=== PATIENT | female | born 1960 | race Caucasian/White ===

== ENCOUNTER 2021-02-23 11:24 | Outpatient (CLI) | payer OTHER, SELFPAY ==
--- NOTE | 2021-02-23 11:36 | XR_ITS ---
WS: [id number] Exam: XR hip RT 2-3V wo/w pel* [id number] Date/Time of Exam: 02/23/2021 11:48 AM Reason For Exam: PAIN IN R HIP No fracture or dislocation noted. The joint compartment relatively well preserved. There is bony scle rosis of the acetabulum. Soft tissue calcification along the greater trochanter might indicate calcif ic bursitis. XR/XR hip RT 2-3V wo/w pel* [id number] IMPRESSION: 1. Mild degenerative change. No fracture. 2. Soft tissue calcification along the greater trochanter might represent calci fic bursitis.
== END 2021-02-23 11:25 | disposition home or self-care (01) ==
LOC: RAD 11:30
PROVIDERS: Visit Provider Anesthesiology Pain Medicine
DX: M25.551 Pain in right hip (principal)
CPT/HCPCS: 73502

== ENCOUNTER 2021-10-09 09:47 | Outpatient (CLI) | payer OTHER, SELFPAY ==
--- NOTE | 2021-10-09 10:07 | USCV_ITS ---
Ashley Miranda Age: 60 Gender: F : 1960 Exam Date: 10/09/2021 10:28 Ordering Phys: Franky Arango Technologist: FREDY Exam Location: [facility] [place] Indication: ELEVATED BRAIN NATRIURETIC PEPTIDE BP: 150 / 119 HR: 65 Rhythm: Sinus Technical Quality: Adequate MEASUREMENTS (Male / Female) Normal Values 2D ECHO LV Diastolic Diameter PLAX 4.2 cm 4.2 - 5.9 / 3.9 - 5.3 cm LV Systolic Diameter PLAX 3.3 cm IVS Diastolic Thickness 1.3 cm 0.6 - 1.0 / 0.6 - 0.9 cm IVS Systolic Thickness 1.5 cm LVPW Diastolic Thickness 1.8 cm 0.6 - 1.0 / 0.6 - 0.9 cm LVPW Systolic Thickness 1.8 cm LVOT Diameter 2.0 cm LV Ejection Fraction 2D Teich 40.9 % LV Ejection Fraction MOD 2C 53.3 % LV Ejection Fraction 2C AL 53.5 % LA Diameter 3.3 cm LA Width 4.0 cm LA Height 5.5 cm RA Width 4.1 cm RA Height 4.8 cm Aorta at Sinotubular Diameter 3.0 cm M-MODE Aortic Annulus Diameter 2.9 cm LA Ao Ratio MM 1.2 MV E Point Septal Separation 1.2 cm DOPPLER AV Peak Velocity 186.0 cm/s LVOT Peak Velocity 129.0 cm/s AV Area Cont Eq vti 2.1 cm squared AV Area Cont Eq pk 2.2 cm squared MV Area PHT 1.5 cm squared Mitral E to A Ratio 0.9 MV E' Velocity 111.0 cm/s Mitral E to LV E' Septal Ratio 22.7 TR Peak Velocity 140.0 cm/s TR Peak Gradient 7.8 mmHg TR Mean Velocity 101.8 cm/s TR Mean Gradient 4.4 mmHg TR Velocity Time Integral 33.5 cm Right Atrial Pressure 3.0 mmHg Pulmonary Artery Systolic Pressu 10.8 mmHg RV Acceleration Time 0.1 s RV Ejection Time 0.3 s RV AcT/ET 0.3 FINDINGS Left Ventricle Normal left ventricular size, low normal systolic function and increased wall thickness, with no diagnostic regional wall motion abnormalities. Moderate concentric left ventricular hypertrophy. Left ventricular ejection fraction is estimated at 50-55 %. Grade II diastolic dysfunction, moderately elevated filling pressures. Right Ventricle Normal right ventricular size and systolic function. Right ventricular systolic pressure 10.8 mmHg. Right Atrium Normal right atrial size. Left Atrium Mildly increased left atrial size. Mitral Valve Mild mitral annular calcification. Mildly thickened mitral valve. No mitral valve stenosis. Mild mitral valve regurgitation. Aortic Valve Aortic valve not well visualized. No aortic valve stenosis. Trace aortic valve regurgitation. Tricuspid Valve Tricuspid valve not well visualized. Trace to mild tricuspid valve regurgitation. Pulmonic Valve Pulmonic valve not well visualized. No pulmonary valve stenosis. Trace pulmonary valve regurgitation. Pericardium No pericardial effusion. Aorta Normal size aortic root and proximal ascending aorta. CONCLUSIONS 1. Normal left ventricular size, low normal systolic function with no diagnostic regional wall motion abnormalities. Moderate concentric left ventricular hypertrophy. Left ventricular ejection fraction is estimated at 50-55 %. Grade II diastolic dysfunction, moderately elevated filling pressures. 2. Mildly increased left atrial size. 3. Mild mitral valve regurgitation. 4. No prior similar studies to compare. Rin Brown MD (Electronically Signed) Final Date: 10 October 2021 08:33 S
== END 2021-10-09 09:48 | disposition home or self-care (01) ==
LOC: RAD 09:54
PROVIDERS: Visit Provider Nurse Practitioner Family
DX: R79.89 Other specified abnormal findings of blood chemistry (principal); I34.0 Nonrheumatic mitral (valve) insufficiency
CPT/HCPCS: 93306

== ENCOUNTER 2022-08-01 22:28 | Inpatient (IN) | payer OTHER, SELFPAY ==
--- NOTE | 2022-08-01 22:29 | XRR_ITS ---
PROCEDURE INFORMATION: Exam: XR Chest Exam date and time: 08/01/2022 11:37 PM Age: 61 years old Clinical indication: Shortness of breath; Additional info: Cp TECHNIQUE: Imaging protocol: Radiologic exam of the chest. Views: 1 view. COMPARISON: CR XR chest 2V* [id number] 03/31/2019 8:30 AM FINDINGS: Lungs: Interval development of left lingular and left lower lobe pneumonia. Pleural spaces: No pleural effusion. No pneumothorax. Heart/Mediastinum: The cardiac silhouette is mildly enlarged. Mediastinal contours are unremarkable. Bones/joints: Degenerative changes in the spine and shoulders. XR/XR chest 1V portable [id number] IMPRESSION: 1. Interval development of left lingular and left lower lobe pneumonia. Recommend followup chest imaging to insure resolution of these findings. 2. Incidental/nonacute findings are listed in the report.
--- NOTE | 2022-08-01 22:41 | W.ED.CHESTPA ---
HPI - Chest Pain General: Chief Complaint: Chest Pain Stated Complaint: SOB, CP Time Seen by Provider: 08/01/22 22:32 Source: patient Mode of arrival: ambulatory Limitations: no limitations History of Present Illness: 61-year-old female states over the last week she has been having shortness of breath along with some chest pain along with swelling in her legs. She does have edema to her lower extremities states her dyspnea is much worse with any exertion. Her pain is been constant rates it a 2 out of 10 currently denies any cough or fever. She has had no vomiting or diarrhea no known history of congestive heart failure. Physical Exam Const: COMMON NORMALS: patient oriented x3 HENMT: COMMON NORMALS: normocephalic and atraumatic HEAD & SCALP: normocephalic and atraumatic Eye: COMMON NORMALS: Equal, round and reactive pupils present and EOMs intact bilaterally PUPIL: Yes Equal, round and reactive pupils present Neck/C-Spine: COMMON NORMALS: full ROM and supple Chest: COMMONS NORMALS: normal inspection of the chest and normal palpation of entire chest wall Resp: COMMON NORMALS: normal respiratory effort, No retractions, No use of accessory muscles and clear to auscultation bilaterally AUSCULTATION: clear to auscultation bilaterally Cardio: COMMON NORMALS: regular rate, regular rhythm and No murmurs present (Cardio) RATE: regular rate RHYTHM: regular rhythm GI: COMMON NORMALS: Normal to inspection, nondistended, normoactive bowel sounds present, Soft to palpation, non-tender and no masses PALPATION: Yes Soft to palpation Extremity: COMMON NORMALS: full ROM NARRATIVE EXTREMITY EXAM: 2+ edema Neuro: COMMON NORMALS: patient oriented x3, moves all extremities and no focal motor deficits Psych: COMMON NORMALS: mental status grossly normal, Normal thought process present and cooperative THOUGHT PROCESS: Normal thought process present Skin: COMMON NORMALS: no rashes or lesions noted and no wounds GENERAL SKIN EXAM: no rashes or lesions noted Course Vital Signs: Vital signs: Vital Signs Temperature 97.8 F 08/01/22 22:43 Pulse Rate 81 08/01/22 23:01 Respiratory Rate 17 08/01/22 23:01 Blood Pressure 181/100 08/01/22 23:01 Pulse Oximetry 92 08/01/22 23:01 Oxygen Delivery Me thod 08/01/22 23:01 MDM - Chest Pain Medical Decision Making Patient presents here with shortness of breath she does fluid overloaded with acute renal failure likely causing this fluid overload she is also anemic here she is hypertensive we will transfuse she also the. Is a possible pneumonia on x-ray started on IV antibiotics I spoke to the hospitalist will admit to the ICU she is not hyperkalemic. Lab Data 08/01/22 22:50 08/01/22 22:50 Radiology Impressions Chest X-Ray 08/01/22 22:29 IMPRESSION: 1. Interval development of left lingular and left lower lobe pneumonia. Recommend followup chest imaging to insure resolution of these findings. 2. Incidental/nonacute findings are listed in the report. ADDENDUM: 08/01/222328 Urgent results were discussed with ROSA Salamanca on 08/01/2022 at 11:28 PM TELEPHONE SALES REPRESENTATIVE. Laboratory Results WBC 7.1 10^3/uL (4.0-10.0) 08/01/22 22:50 RBC 2.31 10^6/uL (4.1-5.3) L 08/01/22 22:50 Hgb 6.8 g/dL (11.5-15.3) L 08/01/22 22:50 Hct 22.3 % (37.0-47.0) L 08/01/22 22:50 MCV 96.5 fl (81-99) 08/01/22 22:50 MCH 29.4 pg (28.0-34.0) 08/01/22 22:50 MCHC 30.5 g/dL (30.0-36.0) 08/01/22 22:50 RDW 17.0 % (12.1-15.1) H 08/01/22 22:50 Plt Count 211 10^3/cmm (130-400) 08/01/22 22:50 MPV 9.3 fL (7.4-10.4) 08/01/22 22:50 Neut % (Auto) 89.6 % 08/01/22 22:50 Lymph % (Auto) 5.4 % 08/01/22 22:50 [place] % (Auto) 4.2 % 08/01/22 22:50 Eos % (Auto) 0.1 % 08/01/22 22:50 Baso % (Auto) 0.1 % 08/01/22 22:50 Neut # (Auto) 6.36 10^3/uL (1.8-7.7) 08/01/22 22:50 Lymph # (Auto) 0.4 10^3/uL (0.8-4.8) L 08/01/22 22:50 [place] # (Auto) 0.3 10^3/uL (0.2-0.9) 08/01/22 22:50 Eos # (Auto) 0.0 10^3/uL (0.0-0.8) 08/01/22 22:50 Baso # (Auto) 0.0 10^3/uL (0.0-0.1) 08/01/22 22:50 Nucleated RBC % (auto) 0.4 % 08/01/22 22:50 Nucleated RBCs # 0.0 /100WBC 08/01/22 22:50 PT 17.80 SECONDS (12.1-14.9) H 08/01/22 22:50 INR 1.43 (0.8-1.2) H 08/01/22 22:50 D-Dimer 4.54 ug/mIFEU (0-0.59) H 08/01/22 22:50 Sodium 136 mmol/L (136-145) 08/01/22 22:50 Potassium 5.3 mmol/L (3.5-5.1) H 08/01/22 22:50 Chloride 98 mmol/L (98-107) 08/01/22 22:50 Carbon Dioxide 17 mmol/L (22-29) L 08/01/22 22:50 Anion Gap 26.3 (5-19) H 08/01/22 22:50 BUN 172 mg/dL (6-20) H* 08/01/22 22:50 Creatinine 11.5 mg/dL (0.5-0.9) H* 08/01/22 22:50 GFR Calculation 3.4 mL/min (90-130) L 08/01/22 22:50 Glucose 213 mg/dL (65-115) H 08/01/22 22:50 Calculated Osmolality 345 mOsm/kg (285-295) H 08/01/22 22:50 Calcium 8.7 mg/dL (8.5-10.5) 08/01/22 22:50 Total Bilirubin 0.6 mg/dL (0.15-1.2) 08/01/22 22:50 AST 77 U/L (0-32) H 08/01/22 22:50 ALT 93 U/L (0-33) H 08/01/22 22:50 Alkaline Phosphatase 158 U/L (35-105) H 08/01/22 22:50 Troponin T Baseline 144 ng/L (0-10) H* 08/01/22 22:50 Total Protein 5.7 g/dL (6.6-8.7) L 08/01/22 22:50 Albumin 3.3 g/dL (3.5-5.2) L 08/01/22 22:50 Globulin 2.4 g/dL (1.3-4.6) 08/01/22 22:50 Influenza Type A Ag negative (Negative) 08/01/22 23:15 Influenza Type B Ag negative (Negative) 08/01/22 23:15 SARS-CoV-2 Ag (Rapid) negative (Negative) 08/01/22 23:15 Blood Type O Positive 08/01/22 23:30 Rho(D) Type Positive 08/01/22 23:30 Antibody Screen Negative 08/01/22 23:30 Crossmatch See Detail 08/01/22 23:30 EKG Data EKG 1: I personally reviewed and interpreted this EKG as follows: EKG interpretation date: 08/01/22 EKG interpretation time: 22:42 Interpretation: nsr hr 92 LVH no stemi abnormalities qrs 116 qtc 426 Critical Care Time Critical Care Time: Critical Care Time: Yes Total Critical Care Time: 45 Attestation: The high probability of a clinically significant, sudden or life threatening deterioration of the patient's renal system(s) required my full and direct attention, intervention and personal management. The critical care time is as shown. This time is in addition to time spent performing any reported procedures but includes the following: [x] Data and vital sign review and interpretation [x] Patient assessment, examination and intervention [x] Documentation [x] Medication orders and management Discharge Plan Discharge Patient Disposition: Admitted As Inpatient Clinical Impression: Acute renal failure, Pneumonia, Cardiomegaly, Anemia Condition: Stable Prescriptions: No Action morphine 15 mg tablet 15 mg PO TID PRN (Reason: Pain) morphine 30 mg tablet extended release 30 mg PO BID Coding Level of Care Code ED Inspector And Mender for Chg Fwd Exam Comprehensive
--- NOTE | 2022-08-01 22:42 | ECG_ITS ---
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 Measurements Intervals [place] Rate: 92 P: 26 SD: 170 QRS: -28 QRSD: 116 T: 116 QT: 376 QTc: 467 Interpretive Statements SINUS RHYTHM POSSIBLE LEFT ATRIAL ENLARGEMENT [-0.1mV P-WAVE IN V1/V2] BORDERLINE LEFT AXIS DEVIATION [QRS AXIS < -20] LEFT VENTRICULAR HYPERTROPHY AND ST-T CHANGE [VOLTAGE CRITERIA PLUS ST/T ABNORMALITY] No previous ECG available for comparison Electronically Signed On 08-02-2022 12:36:08 DIGITAL SALES PLANNER by Jane Swanson M.D. [id number]
[2022-08-01 22:43] VITALS: BP 193/110; PULSE 96; RESP 23; TEMP 36.6; O2SAT 92; BMI 29.0
[2022-08-01 22:52] VITALS: PULSE 93; RESP 25; O2SAT 94
[2022-08-01 22:58] LABS: Basophils % 0.1 %; Eosinophils % 0.1 %; Hematocrit 22.3 % (37.0-47.0); Hemoglobin 6.8 g/dL (11.5-15.3); Lymphocytes # 0.4 10^3/uL (0.8-4.8); Lymphocytes % 5.4 %; Mean Corpuscular HGB Conc 30.5 g/dL (30.0-36.0); Mean Corpuscular Hemoglobin 29.4 pg (28.0-34.0); Mean Corpuscular Volume 96.5 fl (81-99); Mean Platelet Volume 9.3 fL (7.4-10.4); Monocytes # 0.3 10^3/uL (0.2-0.9); Monocytes % 4.2 %; Neutrophils # 6.36 10^3/uL (1.8-7.7); Neutrophils % 89.6 %; Nucleated Red Blood Cells % 0.4 %; Platelet Count 211 10^3/cmm (130-400); Red Blood Count 2.31 10^6/uL (4.1-5.3); White Blood Count 7.1 10^3/uL (4.0-10.0)
[2022-08-01 23:01] VITALS: BP 181/100; PULSE 81; RESP 17; O2SAT 92
[2022-08-01] MEDS: labetalol 5 mg/mL SDV 20mL 10 MG IVP (23:04)
[2022-08-01 23:19] LABS: D Dimer 4.54 ug/mIFEU (0-0.59)
--- NOTE | 2022-08-01 23:20 | CTR_ITS ---
PROCEDURE INFORMATION: Exam: CT Chest Without Contrast; Diagnostic Exam date and time: 08/02/2022 12:23 AM Age: 61 years old Clinical indication: Pain; Shortness of breath; Chest pressure; Patient HX: C/O chest discomfort with SOB. TECHNIQUE: Imaging protocol: Diagnostic computed tomography of the chest without contrast. Radiation optimization: All CT scans at this facility use at least one of these dose optimization techniques: automated exposure control; mA and/or kV adjustment per patient size (includes targeted exams where dose is matched to clinical indication); or iterative reconstruction. COMPARISON: CR (CHEST, ) 08/01/2022 11:37 PM RADIATION DOSE METRICS: Total DLP (mGy-cm): 392.2 FINDINGS: Lungs: Severe left lower lobe pneumonia with moderate left upper lobe pneumonia. Pleural spaces: Unremarkable. No pneumothorax. No pleural effusion. Heart: Moderate cardiomegaly. No obvious coronary artery calcifications. Lymph nodes: Unremarkable. No enlarged lymph nodes. Vasculature: Calcification of the thoracic aorta and/or great vessels consistent with atherosclerotic vessel disease. Adrenal glands: 1.4 cm right adrenal nodule with-7 Hounsfield unit measurement suggesting benign adrenal myelolipoma versus benign adrenal adenoma. No followup needed. Kidneys and ureters: Left renal simple cyst measuring >1.0 cm. Bones/joints: Unremarkable. No acute fracture. Soft tissues: Unremarkable. CT/CT chest wo con [id number] IMPRESSION: 1. Severe left lower lobe pneumonia with moderate left upper lobe pneumonia. [id number] right-sided pneumonia. 2. Moderate cardiomegaly. 3. 1.4 cm right adrenal nodule with-7 Hounsfield unit measurement suggesting benign adrenal myelolipoma versus benign adrenal adenoma. No followup needed. COMMENTS: 1. Consistent with the [place] [employer]'s Incidental Findings Committee white paper (J Am Fei Radiol 2017): For any incidental adrenal lesion greater than or equal to 1 cm but less than or equal to 4 cm classified in this report as benign, likely benign, or containing fat (including classification as an adenoma or myelolipoma), no follow-up imaging is recommended per consensus recommendations based on imaging criteria. Further lab evaluation could be pursued if warranted based on clinical findings. 2. Consistent with the [place] [employer]'s Incidental Findings Committee white paper (J Am Fei Radiol 2018): Any incidental renal lesion less than 1 cm or classified as too small to characterize, or any incidental cystic renal lesion characterized as simple-appearing, is likely benign. No follow-up imaging is recommended for these lesions per consensus recommendations based on imaging criteria.
[2022-08-01 23:27] LABS: INR 1.43 (0.8-1.2)
[2022-08-01 23:28] LABS: Alanine Aminotransferase 93 U/L (0-33); Albumin Level 3.3 g/dL (3.5-5.2); Alkaline Phosphatase 158 U/L (35-105); Anion Gap 26.3 (5-19); Aspartate Amino Transferase 77 U/L (0-32); Calcium 8.7 mg/dL (8.5-10.5); Carbon Dioxide 17 mmol/L (22-29); Chloride 98 mmol/L (98-107); Globulin 2.4 g/dL (1.3-4.6); Glomerular Filtration Rate 3.4 mL/min (90-130); Glucose 213 mg/dL (65-115); Potassium 5.3 mmol/L (3.5-5.1); Sodium 136 mmol/L (136-145); Total Bilirubin 0.6 mg/dL (0.15-1.2); Total Protein 5.7 g/dL (6.6-8.7)
[2022-08-01 23:30] VITALS: BP 180/98; PULSE 91; RESP 24; TEMP 36.4; O2SAT 98
[2022-08-01] MEDS: azithromycin 500 MG in sodium chloride 0.9% 250 ML 250 MG IV (23:48)
[2022-08-01] MEDS: FUROsemide 10 mg/mL SDV 10mL 60 MG IVP (23:49)
[2022-08-01] MEDS: cefTRIAXone 1,000 MG in sodium chloride 0.9% (plus) 50 ML 100 MG IV (23:49)
[2022-08-02] VITALS (133 sets, daily range): BP systolic 128–188; BP diastolic 77–120; PULSE 59–126; RESP 10–27; TEMP 36.4–37.1; O2SAT 89–100; BMI 29.1
[2022-08-02 00:03] LABS: Influenza A by IFA negative (Negative); Influenza B by IFA negative (Negative); SARS Covid-2 Antigen negative (Negative)
[2022-08-02 00:16] LABS: Osmolality Calculated 345 mOsm/kg (285-295)
[2022-08-02 00:23] LABS: Blood Urea Nitrogen 172 mg/dL (6-20)
[2022-08-02 00:24] LABS: Troponin(5th) Baseline 144 ng/L (0-10)
--- NOTE | 2022-08-02 00:24 | USR_ITS ---
PROCEDURE INFORMATION: Exam: US Duplex Lower Extremity Veins, Bilateral Exam date and time: 08/02/2022 12:42 AM Age: 61 years old Clinical indication: Edema, localized; Lower extremity, bilateral; Patient HX: 3+ pitting edema bilateral lower extremities. No history of dvt per patient. ; Additional info: Leg swelling TECHNIQUE: Imaging protocol: Real-time Duplex ultrasound of the bilateral extremities with 2-D mcconnell scale, color Doppler flow and spectral waveform analysis with image documentation. Complete exam focused on the bilateral lower extremity veins. COMPARISON: No relevant prior studies available. FINDINGS: Right deep veins: Unremarkable. The common femoral, femoral, proximal profunda femoral and popliteal veins are patent without thrombus. Normal Doppler waveforms. Normal compressibility and/or augmentation response. Right superficial veins: Saphenofemoral junction is patent without thrombus. Left deep veins: Unremarkable. The common femoral, femoral, proximal profunda femoral and popliteal veins are patent without thrombus. Normal Doppler waveforms. Normal compressibility and/or augmentation response. Left superficial veins: Saphenofemoral junction is patent without thrombus. Soft tissues: Unremarkable. US/[place] [id number] IMPRESSION: No evidence of deep vein thrombosis.
[2022-08-02] MEDS: ondansetron 2 mg/ML SDV 2 mL 4 MG IVP (00:37)
--- NOTE | 2022-08-02 00:43 | P.HP_ITS ---
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 Patient is stating that her symptoms started just 1 week ago with swelling of her legs, she became extremely fatigued and lethargic and does not have capacity to take care of her anymore. She has not noticed any chest pain, hematuria, hematemesis, GI bleed. Her urine output has decreased significantly. Clinically dehydrated fatigued and lethargic, she has not noticed any chest pain, fever. She gets short of breath easily. She does not see PCP on regular basis. In the ER she has been diagnosed with hyperkalemia, acute renal failure, patient is not sure whether she will opt for dialysis, she is also not sure about code status, I did tell her that we will treat her as full code until she will make up her mind, her daughter is also in the room She has positive asterixis I have consulted nephro, she does not need urgent dialysis Her anemia could be anemia of chronic kidney disease she has not noticed any GI bleed Review of Systems Const: Reports: chills, body aches, change in appetite, change in weight, fatigue, malaise, night sweats and change in sleep pattern Eyes: Denies: change in vision ENMT: Denies: throat pain Card: Denies: chest pain Resp: Reports: dyspnea : Denies: flank pain Musc: Reports: muscle cramps; Denies: neck pain Skin/Breast: Denies: rash Neuro: Denies: headache(s) Psych: Reports: sleeping more Endo: Denies: polyuria Robb/Lymph: Denies: easy bruising All/Imm: Denies: urticaria Medications/Allergies Home Medications Medication Instructions Recorded Confirmed Last Taken Type morphine 15 mg immediate release 15 mg PO TID PRN Pain 08/01/22 08/01/22 08/01/22 History tablet morphine 30 mg tablet,extended 30 mg PO BID 08/01/22 08/01/22 08/01/22 20:00 History release Allergies Allergy/AdvReac Type Severity Reaction Status Date / Time No Known Allergies Allergy Verified 08/01/22 22:46 PFSH Acute PFSH: Medical History (Updated 08/02/22 @ 01:35 by Bubba Garrison MD) CKD (chronic kidney disease) Degenerative joint disease (DJD) of lumbar spine Hepatitis C Surgical History No pertinent past surgical history Family History Denies family history of CAD (coronary artery disease) Social History Smoking and tobacco status: never smoked Alcohol intake: never Substance/Drug Use: never Household members: spouse Housing: House Vitals/I&O/Wt Last Vital Signs Temp 97.8 F 08/01/22 22:43 Pulse 81 08/01/22 23:01 Resp 17 08/01/22 23:01 BP 181/100 08/01/22 23:01 Pulse Ox 92 08/01/22 23:01 O2 Del Method 08/01/22 23:01 08/01/22 08/01/22 08/02/22 14:59 22:59 06:59 Intake Total 50.000 / 50.000 Balance 50.000 / 50.000 Weight last 48 hrs Weight 81.647 kg Physical Exam Narrative: female who appears more than stated age Dehydrated Anemic Pallor complexion S1, S2 Hemodynamic stable Currently on 2 L Abdomen soft Lower extremity 3+ pitting edema extending all the way up to her knees Awake and alert Bilateral breath sound without adventitious rhonchi Patient is fatigued Daughter at the bedside Data 08/01/22 22:50 08/01/22 22:50 Micro: Microbiology 08/01/22 23:46 Blood Culture - Preliminary Blood SPECIMEN COLLECTED 08/01/22 23:40 Blood Culture - Preliminary Blood SPECIMEN COLLECTED A&P Assessment and plan (1) Acute renal failure: (2) Pneumonia: (3) Cardiomegaly: (4) Anemia: (5) Hyperkalemia: Plan Acute on chronic kidney disease Patient has history of hepatitis C which was treated Low urine output Hyperkalemia Acidosis Patient is not sure whether she will opt for dialysis I have consulted nephro on nonurgent basis I will give her [facility] [place] catheter for accurate urine output Get urine studies Will request complete work-up Cardiomegaly with signs of fluid overload Requested echo in the morning Start low-dose Lasix Left lower lobe pneumonia Start her on ceftriaxone and azithromycin Currently requiring 2 L which is new onset of hypoxia without sepsis Anemia chronic kidney disease No active bleed Will request blood transfusion, check B12 and iron Full code Renal diet Family is at the bedside Guarded prognosis Attestations Medical Necessity Statement*: Admit to ICU More than 2 midnights anticipated Time Spent in Patient Care: 40 Coding Level of Care Code Acute Hotel Guest Service Agent for g Fwd Diagnoses Acute renal failure N17.9 Pneumonia J18.9 Cardiomegaly I51.7 Anemia D64.9 Hyperkalemia E87.5
[2022-08-02 01:35] LABS: NT Pro B Type Natriuretic Pept > 70000 pg/mL (0-125)
--- NOTE | 2022-08-02 02:12 | USCV_ITS ---
Ashley Miranda Age: 61 Gender: F : 1960 Exam Date: 08/02/2022 03:04 Ordering Phys: Bubba Garrison MD Technologist: NAYA [place] [facility] [place]ication: 3+ pitting edema bilateral lower extremities. CHF BP: 131 / 84 HR: 79 Rhythm: Sinus Technical Quality: Adequate MEASUREMENTS (Male / Female) Normal Values 2D ECHO LV Diastolic Diameter PLAX 5.5 cm 4.2 - 5.9 / 3.9 - 5.3 cm LV Systolic Diameter PLAX 4.9 cm IVS Diastolic Thickness 1.4 cm 0.6 - 1.0 / 0.6 - 0.9 cm IVS Systolic Thickness 1.5 cm LVPW Diastolic Thickness 1.4 cm 0.6 - 1.0 / 0.6 - 0.9 cm LVPW Systolic Thickness 1.9 cm LVOT Diameter 1.8 cm LV Ejection Fraction 2D Teich 23.3 % LV Ejection Fraction MOD 2C 24.6 % LV Ejection Fraction 2C AL 24.6 % LA Diameter 4.8 cm LA Width 5.3 cm LA Height 7.4 cm RA Width 6.2 cm RA Height 5.7 cm Aorta at Sinotubular Diameter 3.0 cm IVC Diameter 2.2 cm M-MODE Aortic Annulus Diameter 3.2 cm LA Ao Ratio MM 1.4 MV E Point Septal Separation 2.0 cm DOPPLER AV Peak Velocity 147.0 cm/s LVOT Peak Velocity 86.0 cm/s AV Area Cont Eq vti 1.6 cm squared AV Area Cont Eq pk 1.5 cm squared MV Area PHT 3.9 cm squared Mitral E to A Ratio 1.3 MV E' Velocity 74.5 cm/s Mitral E to MV E' Ratio 22.7 Mitral E to LV E' Lateral Ratio 17.6 Mitral E to LV E' Septal Ratio 32.0 TR Peak Velocity 351.8 cm/s TR Peak Gradient 49.5 mmHg TV Peak E Velocity 90.0 cm/s Right Atrial Pressure 10.0 mmHg Pulmonary Artery Systolic Pressu 59.5 mmHg PV Peak Velocity 135.0 cm/s RV Acceleration Time 0.0 s RV Ejection Time 0.4 s RV AcT/ET 0.1 FINDINGS Left Ventricle Left ventricle is normal in size. LV systolic function is severely reduced with EF of 25-30%. Severe global hypokinesis. Grade 2 diastolic dysfunction Right Ventricle RV is hypokinetic. Right Atrium Dilated Left Atrium Severely dilated left atrium. Mitral Valve Structurally normal mitral valve. Mild mitral regurgitation. Aortic Valve Structurally normal aortic valve. No significant stenosis or regurgitation. Tricuspid Valve Mild to moderate tricuspid regurgitation. RVSP is 50-55mmHg. This is consistent with moderate pulmonic regurgitation. Pulmonic Valve Not well visualized Pericardium Normal Aorta Mildly dilated ascending aorta. IVC IVC is dilated CONCLUSIONS LV systolic function is severely reduced with EF of 25-30%. Severe global hypokinesis. Grade 2 diastolic dysfunction RV is hypokinetic Biatrial enlargement Mild mitral regurgitation Mild to moderate tricuspid regurgitation. Moderate pulmonic regurgitation Mildly dilated ascending aorta Compared to prior echocardiogram from 10/09/2021, LV systolic function is severely reduced now Amol Payne MD (Electronically Signed) Final Date: 02 August 2022 12:36 S
[2022-08-02] MEDS: sodium polystyrene sulfonate 15 gm/60 mL Btl PO (02:46)
--- NOTE | 2022-08-02 02:54 | ECG_ITS ---
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 Measurements Intervals [place] Rate: 82 P: 31 MS: 175 QRS: -25 QRSD: 113 T: 114 QT: 404 QTc: 472 Interpretive Statements SINUS RHYTHM BORDERLINE LEFT AXIS DEVIATION [QRS AXIS < -20] LEFT VENTRICULAR HYPERTROPHY AND ST-T CHANGE [VOLTAGE CRITERIA PLUS ST/T ABNORMALITY] Compared to ECG 08/01/2022 22:42:13 No significant changes Electronically Signed On 08-02-2022 12:49:45 COMMUNITY HEALTH PROGRAM COORDINATOR by Jane Swanson M.D. [id number]
[2022-08-02 03:04] LABS: Troponin 5 2HR Delta -10.9 ABS# (0-10)
[2022-08-02 03:06] LABS: Troponin 5 2HR 133.1 ng/L (0-10)
[2022-08-02 03:26] LABS: Potassium, Radom Urine 45 mmol/L; Urine Creatinine 66 mg/dL (28-217); Urine Random Chloride 37 mmol/L; Urine Random Sodium 32 mmol/L
[2022-08-02 03:31] LABS: Creatinine Urine, Random 67 mg/dL (28-217)
[2022-08-02 04:00] LABS: Microalbum Creatinine Ratio Ur 1164 mg/dL (0-20); Microalbumin Random Urine 78 ug/dL (0-20)
--- NOTE | 2022-08-02 04:00 | PC.NURSE ---
Dr. Garrison notified of high blood pressures ranging from 160-185 sbp.
[2022-08-02] MEDS: sodium chloride 0.9% (100 ml) 100 ML 50 ML (04:27)
--- NOTE | 2022-08-02 04:29 | ECG_ITS ---
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 Measurements Intervals [place] Rate: 76 P: 37 KS: 181 QRS: -23 QRSD: 114 T: 128 QT: 443 QTc: 498 Interpretive Statements SINUS RHYTHM BORDERLINE LEFT AXIS DEVIATION [QRS AXIS < -20] LEFT VENTRICULAR HYPERTROPHY AND ST-T CHANGE [VOLTAGE CRITERIA PLUS ST/T ABNORMALITY] Compared to ECG 08/02/2022 02:54:27 No significant changes Electronically Signed On 08-02-2022 12:50:23 FISHER TERRAPIN by Jane Swanson M.D. [id number]
[2022-08-02 05:42] LABS: Eosinophil Urine No Eosinophils Seen; Urine Eosinophil Count 0 (0-0)
--- NOTE | 2022-08-02 08:18 | PM.CONSULT ---
Providers/Reason For Consult Consulting Physician/Specialty*: yolis magallanes md/ telenephrology Reason for Consult*: mali, hyperkalemia Requesting Physician: Dr Garrison and Dr John Attending Physician: Bubba Garrison MD History of Present Illness History of Present Illness Ashley Miranda is a 61 year old female admitted for SOB, CHF, MALI, and hyperkalemia. She has history of hepatitis C stating that she was treated 10 years ago. She has known CKD. She does not know more- such as baseline cr, or etiology of CKD. She was admitted to the hospital w/ SOB, edema, and weakness, dec uop. She has became extremely fatigued and lethargic. She does not see PCP on regular basis. She denies bleeding. she has chronic back pain on morphoine- denies NSAID use. pt diagnosed w/ left sided lower and upper lobe pna- though no fevers Review of Systems Narrative: weak, sob, swollen, orthopnea, DARBY, nausea, asterixis, fatigue, constipation Medications/Allergies Home Medications Medication Instructions Recorded Confirmed Last Taken Type morphine 15 mg immediate release 15 mg PO TID PRN Pain 08/01/22 08/01/22 08/01/22 History tablet morphine 30 mg tablet,extended 30 mg PO BID 08/01/22 08/01/22 08/01/22 20:00 History release Allergies Allergy/AdvReac Type Severity Reaction Status Date / Time No Known Allergies Allergy Verified 08/01/22 22:46 PFSH Acute PFSH: Medical History (Updated 08/02/22 @ 01:35 by Bubba Garrison MD) CKD (chronic kidney disease) Degenerative joint disease (DJD) of lumbar spine Hepatitis C Surgical History No pertinent past surgical history Family History Denies family history of CAD (coronary artery disease) Social History Smoking and tobacco status: never smoked Alcohol intake: never Substance/Drug Use: never Household members: spouse Housing: House Vitals/I&O/Wt Last Vital Signs Temp 98.0 F 08/02/22 06:12 Pulse 85 08/02/22 08:00 Resp 16 08/02/22 08:00 BP 163/95 08/02/22 06:10 Pulse Ox 93 08/02/22 08:00 O2 Del Method 08/02/22 08:00 O2 Flow Rate 2 08/02/22 08:00 08/01/22 08/02/22 08/02/22 22:59 06:59 14:59 Intake Total 1100.000 / 1100.000 Output Total 175 / 175 Balance 925.000 / 925.000 Weight last 48 hrs Weight 81.964 kg Weight 81.647 kg Physical Exam Narrative: obese, VS noted heent- nc/at, eomi, anicteric neck supple lungs left - poor air movement, rt clear heart reg, no rub abd soft, nt, nd, + bs ext 3+ b/l leg edema neuro- a,a, o x3, ++ b/l asterixis Urinary Catheter Management: Molina Latex: Cath Placed During This Visit: yes Reason for Continuing Indwelling Catheter: Accurate Measurement of Urinary Output in Critically Ill Patients Urinary Catheter Date of Insertion: 08/02/22 Urinary Catheter Time of Insertion: 02:21 Data 08/01/22 22:50 08/01/22 22:50 Micro: Microbiology 08/01/22 23:46 Blood Culture - Preliminary Blood SPECIMEN COLLECTED 08/01/22 23:40 Blood Culture - Preliminary Blood SPECIMEN COLLECTED A&P Assessment and plan (1) Acute renal failure: 61 yr old female does not regulary see doctors. h/o morphine use for back pain, h/o hep c. 1. MALI on CKD- try to get old labs. i am concerned for progression to ESRD. -check pth, phos, renal us -agree with serologies check SPEP/ SIFE/ free light chains -repeat hep serologies - given uremia, acidosis, hyperkalemia, sob, edema- will initiate HD now - Dr Smith called for access- HD today and tomorrow 2 hrs today 2k, remove 1.5 l 2. anemia- check spep. sife, b12, folate, retic, ldh, haptoglobin, iron studies -start SEAN 3. htn- monitor w/ dialysis can start norvasc 4. Q PNA. Q renal pulm syndrome- Consider pulm eval. abx per medicine 5. check echo 6. mild inc lfts seen and examined w/ RN- telehealth visit time spent > 1 hr discussed w/ SHELLACKER, HD RN, Drs. Garrison and Dora 1. Severe left lower lobe pneumonia with moderate left upper lobe pneumonia. [id number] right-sided pneumonia. 2. Moderate cardiomegaly. 3. 1.4 cm right adrenal nodule with-7 Hounsfield unit measurement suggesting benign adrenal myelolipoma versus benign adrenal adenoma. No followup needed. Plan see above Consult Attestations Medical Necessity Statement: mali, chf, hthn, anemia Time Spent in Patient Care: Greater than 35 minutes (>than 50% of time spent in counselling and/or direct pt care on unit). Coding Level of Care Code Acute Herpetology Teacher for Mannie Soto Diagnoses Acute renal failure N17.9
[2022-08-02 08:25] LABS: Basophils % 0.2 %; Eosinophils % 0.2 %; Hemoglobin 8.7 g/dL (11.5-15.3); Lymphocytes # 0.6 10^3/uL (0.8-4.8); Lymphocytes % 8.6 %; Mean Corpuscular HGB Conc 31.1 g/dL (30.0-36.0); Mean Corpuscular Hemoglobin 29.7 pg (28.0-34.0); Mean Corpuscular Volume 95.6 fl (81-99); Mean Platelet Volume 10.1 fL (7.4-10.4); Monocytes # 0.3 10^3/uL (0.2-0.9); Monocytes % 4.9 %; Neutrophils # 5.57 10^3/uL (1.8-7.7); Neutrophils % 85.5 %; Nucleated Red Blood Cells % 0.3 %; Platelet Count 184 10^3/cmm (130-400); Red Blood Count 2.93 10^6/uL (4.1-5.3); Red Cell Distribution Width 16.8 % (12.1-15.1); White Blood Count 6.5 10^3/uL (4.0-10.0)
--- NOTE | 2022-08-02 08:39 | USR_ITS ---
PROCEDURE INFORMATION: Exam: US Retroperitoneal; Complete; Kidneys and Bladder Exam date and time: 08/02/2022 9:09 AM Age: 61 years old Clinical indication: Other: Came into er with n/v and leg swelling and on blood work found her bun and creat were very high; Patient HX: N/v with no history of renal problems. ; Additional info: Eren TECHNIQUE: Imaging protocol: Real-time ultrasound of the retroperitoneum with image documentation. Complete exam focused on the kidneys and bladder. COMPARISON: [place] [id number] 08/02/2022 12:42 AM FINDINGS: Right kidney: The right kidney measures up to 7.3 cm in length. Atrophic kidney with increased echogenicity of the renal parenchyma. No hydronephrosis. No masses. Left kidney: The left kidney measures up to 7.2 cm in length. Atrophic kidney with increased echogenicity of the renal parenchyma. No hydronephrosis. Left renal cyst measures up to 2.7 cm. Intraperitoneal space: Possible trace amount of free fluid in Morison's pouch. Urinary bladder: The urinary bladder appears within normal limits. US/US renal BI* [id number] IMPRESSION: Atrophic kidneys with increased echogenicity of the renal parenchyma, which may be seen in the setting of medical renal disease. No hydronephrosis.
[2022-08-02 08:51] LABS: Estmated Average Glucose 94; Hemoglobin A1C 4.9 % (4.0-6.0)
[2022-08-02 09:07] LABS: Procalcitonin 5.98 ng/mL (0-0.5); Thyroid Stimulating Hormone 2.67 uIU/mL (0.27-4.20)
[2022-08-02 09:08] LABS: Hepatitis A Antibody IgM Non-Reactive (Nonreactive); Hepatitis B Core AB, Total Non-Reactive (Nonreactive); Hepatitis B Surface AB 3.5 (11.5-1000); Hepatitis B Surface Antigen Non-Reactive (Nonreactive); Hepatitis C Virus Antibody Reactive (Nonreactive)
[2022-08-02 09:14] LABS: Troponin 5 6HR 141.4 ng/L (0-10); Troponin 5 6HR Delta -2.6 ng/L (0-12)
[2022-08-02 09:17] LABS: Ferritin 365 ng/mL (15-150)
[2022-08-02] MEDS: morphine ER (12 HR) 30 mg tablet 15 MG PO ×2 (09:20→17:38)
[2022-08-02] MEDS: iron polysaccharide complex 150 mg Capsule PO (09:21)
[2022-08-02] MEDS: b-complex-vitamin c Tablet 1 EACH PO (09:21)
[2022-08-02 09:24] LABS: Reticulocyte % 4.7 % (0.5-2.0)
[2022-08-02 09:40] LABS: Vitamin B12 > 2000 pg/mL (232-1245)
[2022-08-02 09:59] LABS: Calcium 8.6 mg/dL (8.5-10.5)
[2022-08-02 10:02] LABS: Lactate Dehydrogenase 377 U/L (135-214); Uric Acid 10.9 mg/dL (2.4-5.7)
[2022-08-02 10:25] LABS: HIV 1 & 2 Antibody Non-Reactive (Non-Reactiv); HIV 1 & 2 Antigen Non-Reactive (Non-Reactiv)
[2022-08-02 10:36] LABS: Anion Gap 27.2 (5-19); C Reactive Protein 237.5 mg/L (0.0-4.9); Calcium 8.8 mg/dL (8.5-10.5); Carbon Dioxide 17 mmol/L (22-29); Chloride 98 mmol/L (98-107); Glomerular Filtration Rate 3.5 mL/min (90-130); Glucose 137 mg/dL (65-115); Magnesium 3.7 mg/dL (1.7-2.3); Potassium 5.2 mmol/L (3.5-5.1); Sodium 137 mmol/L (136-145)
[2022-08-02 10:37] LABS: Parathyroid Hormone 317.9 pg/mL (15-65)
[2022-08-02 10:46] LABS: Blood Urea Nitrogen 156 mg/dL (6-20)
[2022-08-02 10:47] LABS: Osmolality Calculated 337 mOsm/kg (285-295)
--- NOTE | 2022-08-02 10:59 | P.PCN_ITS ---
Procedure Note: Date of procedure: 08/02/22 Pre-op diagnosis: ARF Post- op diagnosis: same Procedure Performed: femoral dialysis catheter Procedure: Preoperative diagnosis: Acute renal failure requiring emergent dialysis Postoperative diagnosis: Same Procedure: Placement of Mahurkar catheter in the right femoral vein Surgeon: You Anesthesia: Local Description of procedure: The patient's right groin was prepped and draped in a sterile manner. 5 mL of 1% lidocaine was infiltrated at the site of planned entry, an introducer needle was used to access the right femoral vein. Guidewire was passed through the introducer needle and the introducer needle was removed. Serial dilators were passed over the guidewire after the skin incision was extended using 11 blade and Mahurkar catheter was then passed over the guidewire and the guidewire was removed. The catheter was sutured to the skin using 2-0 Ethilon suture. Sterile dressings were applied. Postop procedure chest x-ray showed no evidence of pneumothorax and good positioning of the catheter. Surgeon: Omar Smith Estimated blood loss (mL): 2 Coding Level of Care Code Acute Residential Real Estate Sales Manager for Chg Fwd
--- NOTE | 2022-08-02 12:43 | PC.HD ---
Upon initiation of treatment, this RN was able to draw the heparin out of the arterial port of her right groin HD catheter, but with great difficulty. Therefore, treatment was initiated with lines reversed. AP pressures elevated at -150 with BFR only at 250.
--- NOTE | 2022-08-02 13:04 | PM.PN ---
Subjective Subjective: Feels slightly better. Denies chest pain or pressure. No nausea. Still requiring oxygen supplementation. Denies past [place] or cardiac stenting. Has had a stress test but it was probably about 5 years ago. Vitals/I&O/Wt Last Vital Signs Temp 98.1 F 08/02/22 12:41 Pulse 71 08/02/22 12:41 Resp 15 08/02/22 12:41 BP 153/88 08/02/22 12:41 Pulse Ox 100 08/02/22 12:30 O2 Del Method 08/02/22 08:00 O2 Flow Rate 2 08/02/22 08:00 08/01/22 08/02/22 08/02/22 22:59 06:59 14:59 Intake Total 1100.000 / 1100.000 360 / 360 Output Total 175 / 175 Balance 925.000 / 925.000 360 / 360 Weight last 48 hrs Weight 81.964 kg Weight 81.647 kg Physical Exam Narrative: Daughter at bedside. Const: COMMON NORMALS: patient oriented x3 and alert GENERAL APPEARANCE: cooperative ORIENTATION/CONSCIOUSNESS: Yes awake OTHER: Nasal cannula HENMT: COMMON NORMALS: oropharynx normal Neck/C-Spine: COMMON NORMALS: no JVD Resp: AUSCULTATION: diminished lung sounds Cardio: COMMON NORMALS: no JVD, regular rhythm, S1 normal heart sound present, S2 normal heart sound present and No murmurs present (Cardio) RHYTHM: regular rhythm HEART SOUNDS: S1 normal heart sound present and S2 normal heart sound present GI: COMMON NORMALS: Normal to inspection, nondistended, normoactive bowel sounds present, Soft to palpation and non-tender PALPATION: Yes Soft to palpation Extremity: COMMON NORMALS: no joint enlargement GENERAL: Yes edema Neuro: COMMON NORMALS: patient oriented x3 and moves all extremities SENSORIUM/ORIENTATION: Yes alert Skin: COMMON NORMALS: no rashes or lesions noted GENERAL SKIN EXAM: no rashes or lesions noted Urinary Catheter Management: Molina Latex: Cath Placed During This Visit: yes Reason for Continuing Indwelling Catheter: Accurate Measurement of Urinary Output in Critically Ill Patients Urinary Catheter Date of Insertion: 08/02/22 Urinary Catheter Time of Insertion: 02:21 Data 08/02/22 07:51 08/02/22 07:51 Micro: Microbiology 08/01/22 23:46 Blood Culture - Preliminary Blood SPECIMEN COLLECTED 08/01/22 23:40 Blood Culture - Preliminary Blood SPECIMEN COLLECTED A&P Assessment and plan (1) Acute renal failure: Dialysis continues to urine. Plan for hemodialysis as per her discussion earlier with nephrology due to uremia, acidosis, hyperkalemia, shortness of breath, edema. Discussed with her likely additional HD tomorrow. PTH, Phos, serologies, SPEP/SIEP/light chains are ordered. Renal ultrasound without hydronephrosis. Atrophic kidneys with increased echogenicity. Discussed with case management will probably end up needing arrangements for outpatient HD as well. (2) Pneumonia: Continue ceftriaxone, azithromycin. Collect urine bacterial antigens. Assess MRSA PCR. Severe left lower lobe pneumonia noted on CT with moderate left upper lobe pneumonia. Mild to moderate right-sided pneumonia. (3) Cardiomegaly: TTE with severely reduced LVEF 25 to 30%. Severe global hypokinesis. Grade 2 diastolic dysfunction. RV hypokinetic. Biatrial enlargement. Mild mitral regurgitation. Mild to moderate cuspid vegetation. Mild pulmonic regurgitation. Mildly dilated ascending aorta. Flat troponin trend with moderate hypertensive elevation. No chest pain or pressure. Suspect likely demand ischemia also in the setting of acute on chronic renal failure. However, unknown CAD status. Last stress test 5 years ago. States no history of prior [place] or stenting. As of now not clear cause of cardiomyopathy. Hypertensive. Mild transaminitis of unknown chronicity with history of hepatitis C. Otherwise no symptoms of cardiogenic shock. Acute systolic CHF. Fluid overload. Hemodialysis. Monitor I&O. Molina for I&O. Troponin EKG trend completed. Will request cardiology consultation. (4) Anemia: Anemia suspected chronic kidney disease No active bleed Received blood transfusion, B12 not low, pending iron studies Hemoccult pending. (5) Hyperkalemia: Received Kayexalate. Appreciate surgery help for placement of hemodialysis catheter with arrangements to start hemodialysis. Plan Hepatitis C: History of treatment. Viral RNA load has been ordered D-dimer abnormality in setting of JEN on CKD: No DVT in lower extremities 1.4 cm right adrenal nodule noted on CT with 7 nodule. Measurements suggesting benign adrenal myelolipoma versus benign adrenal adenoma. Attestations Medical Necessity Statement*: Continue admission for assessment and management of JEN on CKD, with uremia, acidosis, hyperkalemia, volume overload, requiring hemodialysis, acute CHF, new cardiomyopathy, Coding Level of Care Code Acute Component Assembler Supervisor for Chg Fwd Diagnoses Acute renal failure N17.9 Pneumonia J18.9 Cardiomegaly I51.7 Anemia D64.9 Hyperkalemia E87.5
[2022-08-02] MEDS: azithromycin 250 mg Tablet 500 MG PO (17:38)
[2022-08-03] VITALS (98 sets, daily range): BP systolic 122–180; BP diastolic 66–124; PULSE 56–96; RESP 11–33; TEMP 36.4–37.4; O2SAT 84–100
[2022-08-03 04:12] LABS: Eosinophils # 0.3 10^3/uL (0.0-0.8); Hematocrit 25.4 % (37.0-47.0); Hemoglobin 7.8 g/dL (11.5-15.3); Lymphocytes # 0.4 10^3/uL (0.8-4.8); Lymphocytes % 8.9 %; Mean Corpuscular HGB Conc 30.7 g/dL (30.0-36.0); Mean Corpuscular Hemoglobin 29.5 pg (28.0-34.0); Mean Corpuscular Volume 96.2 fl (81-99); Mean Platelet Volume 9.1 fL (7.4-10.4); Monocytes # 0.2 10^3/uL (0.2-0.9); Monocytes % 4.2 %; Neutrophils # 3.58 10^3/uL (1.8-7.7); Neutrophils % 79.3 %; Nucleated Red Blood Cells % 0 %; Platelet Count 125 10^3/cmm (130-400); Red Blood Count 2.64 10^6/uL (4.1-5.3); Red Cell Distribution Width 17.5 % (12.1-15.1); White Blood Count 4.5 10^3/uL (4.0-10.0)
[2022-08-03 04:32] LABS: Alanine Aminotransferase 65 U/L (0-33); Albumin Level 2.8 g/dL (3.5-5.2); Alkaline Phosphatase 119 U/L (35-105); Anion Gap 21.9 (5-19); Aspartate Amino Transferase 35 U/L (0-32); Calcium 8.4 mg/dL (8.5-10.5); Carbon Dioxide 22 mmol/L (22-29); Chloride 101 mmol/L (98-107); Ferritin 366 ng/mL (15-150); Globulin 2.8 g/dL (1.3-4.6); Glomerular Filtration Rate 4.3 mL/min (90-130); Glucose 102 mg/dL (65-115); Iron 23 ug/dL (37-145); Percent Saturation 12.3 % (20-50); Potassium 4.9 mmol/L (3.5-5.1); Sodium 140 mmol/L (136-145); Total Bilirubin 0.4 mg/dL (0.15-1.2); Total Iron Binding Capacity 186 mcg/dl; Total Protein 5.6 g/dL (6.6-8.7); Unsaturated Iron Binding 163 ug/dL (112-347)
[2022-08-03 04:39] LABS: Osmolality Calculated 329 mOsm/kg (285-295)
[2022-08-03 04:40] LABS: Blood Urea Nitrogen 121 mg/dL (6-20); Phosphorus 7.8 mg/dL (2.5-4.5)
[2022-08-03 04:45] LABS: 25 Hydroxy Vitamin D 26 ng/mL (30-100)
--- NOTE | 2022-08-03 08:04 | P.PN_ITS ---
Subjective Subjective: feeling a little better states last lab draw was > 3 years ago Vitals/I&O/Wt Last Vital Signs Temp 98 F 08/03/22 05:29 Pulse 78 08/03/22 05:29 Resp 16 08/02/22 20:00 BP 170/103 08/02/22 18:00 Pulse Ox 92 08/02/22 20:00 O2 Del Method 08/03/22 05:29 O2 Flow Rate 3 08/03/22 05:29 08/02/22 08/03/22 08/03/22 22:59 06:59 14:59 Intake Total 480 / 840 200 / 1040 Output Total 350 / 350 600 / 950 Balance 130 / 490 -400 / 90 Weight last 48 hrs Weight 81.964 kg Weight 81.647 kg Physical Exam Const: COMMON NORMALS: no acute distress and alert Extremity: GENERAL: Yes edema Neuro: SENSORIUM/ORIENTATION: Yes alert Urinary Catheter Management: Molina Latex: Cath Placed During This Visit: yes Reason for Continuing Indwelling Catheter: Accurate Measurement of Urinary Output in Critically Ill Patients Urinary Catheter Date of Insertion: 08/02/22 Urinary Catheter Time of Insertion: 02:21 Data 08/03/22 03:50 08/03/22 03:50 Other Labs: uric acid 10.9, phos 7.8, Mg 3, Ca 8.4, alb 2.8 TSAT 12%, SF 266 D 26, PTH 318 urine albumin/Cr ratio 1164 Micro: Microbiology 08/02/22 17:25 MRSA Culture - Final Nose 08/02/22 17:25 Bacterial Antigens - Final Urine Kidney 08/02/22 17:25 Legionella Urinary Antigen - Final Urine Catheterized 08/01/22 23:46 Blood Culture - Preliminary Blood Gram Negative Rods 08/01/22 23:40 Blood Culture - Preliminary Blood Gram Negative Rods US: Radiologist's impression: Right kidney: The right kidney measures up to 7.3 cm in length. Atrophic kidney with increased echogenicity of the renal parenchyma. No hydronephrosis. No masses. Left kidney: The left kidney measures up to 7.2 cm in length. Atrophic kidney with increased echogenicity of the renal parenchyma. No hydronephrosis. Left renal cyst measures up to 2.7 cm. Intraperitoneal space: Possible trace amount of free fluid in Morison's pouch. Urinary bladder: The urinary bladder appears within normal limits. A&P Assessment and plan (1) ESRD (end stage renal disease): seen via telemedicine with assistance of RN at bedside Plan 1. ESRD. Ultrasound with bilateral, small echogenic kidneys 2. Sepsis: / BC + GNR, +Pneumonia 3. Hypertension, fluid overload 4, Anemia: iron and epo deficient 5. Secondary hyperparathyroidism, hyperphosphatemia 6. Hyperuricemia: repeat Recommend: HD again today: 3h, 2L UF as BP tolerates. Begin ARB after dialysis. Arrange for tunneled dialysis catheter placement. referral to outpatient dialysis unit. IV iron, epogen at dialysis. Begin calcium acetate phosphate binder. Attestations Medical Necessity Statement*: see above Time Spent in Patient Care: 16 - 35 minutes Coding Level of Care Code Acute Continuing Education Dean for Mannie Soto Diagnoses ESRD (end stage renal disease) N18.6
[2022-08-03] MEDS: b-complex-vitamin c Tablet 1 EACH PO (08:07)
[2022-08-03] MEDS: morphine ER (12 HR) 30 mg tablet 15 MG PO ×2 (08:07→17:16)
[2022-08-03] MEDS: iron polysaccharide complex 150 mg Capsule PO (08:07)
--- NOTE | 2022-08-03 09:07 | PM.CONSULT ---
Providers/Reason For Consult Consulting Physician/Specialty*: Amol Payne MD/Cardiology Reason for Consult*: New onset congestive heart failure Requesting Physician: Dr Haywood Attending Physician: Evangelist Haywood History of Present Illness History of Present Illness Ashley Miranda is a 61 year old female with past medical history of hepatitis C, CKD presented to the hospital with worsening shortness of breath and lower extremity edema. She was found to be in acute renal failure. End-stage renal disease now per nephrology. Cardiology was consulted as echocardiogram showed severely reduced LV systolic function with EF of 25 to 30%. Denies prior history of no CAD. No chest pains. However does have significant shortness of breath. Hemoglobin is low but no bleeding source. Review of Systems Const: Reports: chills, body aches and fatigue Eyes: Denies: change in vision ENMT: Denies: throat pain Card: Denies: chest pain Resp: Reports: dyspnea : Denies: flank pain Musc: Reports: muscle cramps; Denies: neck pain Skin/Breast: Denies: rash Neuro: Denies: headache(s) Psych: Reports: sleeping more Endo: Denies: polyuria Robb/Lymph: Denies: easy bruising All/Imm: Denies: urticaria Medications/Allergies Home Medications Medication Instructions Recorded Confirmed Last Taken Type morphine 15 mg immediate release 15 mg PO TID PRN Pain 08/01/22 08/01/22 08/01/22 History tablet morphine 30 mg tablet,extended 30 mg PO BID 08/01/22 08/01/22 08/01/22 20:00 History release Allergies Allergy/AdvReac Type Severity Reaction Status Date / Time No Known Allergies Allergy Verified 08/01/22 22:46 Current Medications Generic Name Dose Route Start Last Admin Trade Name Freq PRN Reason Stop Dose Admin Azithromycin 500 mg 08/02/22 18:00 08/02/22 17:38 Azithromycin 250 Mg Tablet PO 500 mg Q24H LOREN Administration Protocol Morphine Sulfate 15 mg 08/02/22 09:00 08/03/22 08:07 Morphine Er (12 Hr) 30 Mg Tablet PO 15 mg BID LOREN Administration Multivitamins 1 each 08/02/22 09:00 08/03/22 08:07 G-Mtyipzr-Vrieqyv C Tablet PO 1 each DAILY LOREN Administration Polysaccharide Iron Complex 150 mg 08/02/22 09:00 08/03/22 08:07 Iron Polysaccharide Complex 150 Mg Capsule PO 150 mg DAILY LOREN Administration PFSH Acute PFSH: Medical History CKD (chronic kidney disease) Degenerative joint disease (DJD) of lumbar spine Hepatitis C Surgical History No pertinent past surgical history Family History Denies family history of CAD (coronary artery disease) Social History Smoking and tobacco status: never smoked Alcohol intake: never Substance/Drug Use: never Household members: spouse Housing: House Vitals/I&O/Wt Last Vital Signs Temp 98.2 F 08/03/22 08:00 Pulse 84 08/03/22 08:00 Resp 20 H 08/03/22 08:00 BP 171/95 08/03/22 08:00 Pulse Ox 92 08/03/22 07:45 O2 Del Method 08/03/22 05:29 O2 Flow Rate 3 08/03/22 05:29 08/02/22 08/03/22 08/03/22 22:59 06:59 14:59 Intake Total 480 / 840 200 / 1040 Output Total 350 / 350 600 / 950 Balance 130 / 490 -400 / 90 Weight last 48 hrs Weight 180 lb 11.2 oz Weight 180 lb Physical Exam Narrative: GENERAL: Patient is alert, awake and oriented x3. [] NECK: No jugular vein distension. [] HEENT: No cyanosis. No icterus. No pallor. [] HEART: Regular S1 and S2. No murmur, rub or gallop. [] LUNGS: Decreased breath sounds ABDOMEN: Soft, CENTRAL NERVOUS SYSTEM: Grossly nonfocal. [] EXTREMITIES: Lower extremities with 1+ edema bilaterally. Pulses palpable in the lower extremities, both dorsalis pedis and posterior tibial. [] Urinary Catheter Management: Molina Latex: Cath Placed During This Visit: yes Reason for Continuing Indwelling Catheter: Accurate Measurement of Urinary Output in Critically Ill Patients Urinary Catheter Date of Insertion: 08/02/22 Urinary Catheter Time of Insertion: 02:21 Data 08/03/22 03:50 08/03/22 03:50 Micro: Microbiology 08/02/22 17:25 MRSA Culture - Final Nose 08/02/22 17:25 Bacterial Antigens - Final Urine Kidney 08/02/22 17:25 Legionella Urinary Antigen - Final Urine Catheterized 08/01/22 23:46 Blood Culture - Preliminary Blood Gram Negative Rods 08/01/22 23:40 Blood Culture - Preliminary Blood Gram Negative Rods A&P Assessment and plan (1) ESRD (end stage renal disease): (2) Congestive heart failure: Plan Patient has presented with acute on chronic renal failure and is end-stage disease now. Plans for permanent dialysis. Her echo shows severely reduced LV systolic function. She will need ischemic work-up once stable. Has significant anemia. No bleeding source. Likely secondary to renal dysfunction Thank you for involving us with care of this patient. Please call with questions. Consult Attestations Medical Necessity Statement: Care expected to cross 2 midnights. Coding Level of Care Code Acute Psychologist Counseling for Mannie Soto Diagnoses ESRD (end stage renal disease) N18.6 Congestive heart failure I50.9
[2022-08-03 09:13] LABS: PROTEIN, TOTAL 5.7 g/dL (6.1-8.1)
[2022-08-03 09:28] LABS: Anti-Double Strand DNA AB <1 IU/mL; Jo-1 Antibody <1.0 NEG AI (<1.0 NEG); SM/RNP Antibodies <1.0 NEG AI (<1.0 NEG); SS-B/LA IGG <1.0 NEG AI (<1.0 NEG); Scleroderma Ab(Scl-70) Ab <1.0 NEG AI (<1.0 NEG); Ss-A/Ro Igg <1.0 NEG AI (<1.0 NEG)
[2022-08-03 09:28] LABS: Anti-Double Strand DNA AB <1 IU/mL
[2022-08-03 10:37] LABS: Protein Urine 2+ (Negative); Specific Gravity, Urine 1.015 (1.005-1.030); Urine Appearance Clear (CLEAR); Urine Color Yellow (Yellow); pH Urine 5 (5-7)
[2022-08-03 10:38] LABS: Bacteria Urine TRACE /hpf; Bilirubin Urine Neg (Negative); Blood Urine 3+ (Negative); Glucose Urine UA 1+ (Normal); Ketones Urine Negative (Negative); Leukocyte Esterase Urine Negative (Negative); Nitrate Urine Negative (Negative); Squamous Epithelial Cell Urine 0-4 /hpf (0-5); Urobilinogen Urine Norm (Negative); WBC Urine 0-4 /hpf (0-5)
[2022-08-03] MEDS: calcium acetate 667 mg Capsule 1334 MG PO ×2 (11:47→17:16)
[2022-08-03 11:58] LABS: Creatinine, Random Urine 65 mg/dL (20-275); Protein, Total, Random 212 mg/dL (5-24); Protein/Creatinine Ratio 3.262 (0.024-0.184); Protein/Creatinine Ratio 3262 mg/g creat (24-184)
--- NOTE | 2022-08-03 13:30 | PM.PN ---
Subjective Subjective: Today feeling slightly better. Still generally weak. Having asterixis. Denies chest pain or pressure. Breathing slightly better. Continues to require oxygen. Vitals/I&O/Wt Last Vital Signs Temp 98.8 F 08/03/22 12:00 Pulse 85 08/03/22 13:00 Resp 20 H 08/03/22 13:00 BP 167/94 08/03/22 13:00 Pulse Ox 99 08/03/22 13:00 O2 Del Method 08/03/22 09:19 O2 Flow Rate 2 08/03/22 09:19 08/02/22 08/03/22 08/03/22 22:59 06:59 14:59 Intake Total 480 / 840 200 / 1040 360 / 360 Output Total 350 / 350 600 / 950 175 / 175 Balance 130 / 490 -400 / 90 185 / 185 Weight last 48 hrs Weight 81.964 kg Weight 81.647 kg Physical Exam Narrative: Asterixis Const: COMMON NORMALS: patient oriented x3 and alert GENERAL APPEARANCE: cooperative ORIENTATION/CONSCIOUSNESS: Yes awake OTHER: Nasal cannula HENMT: COMMON NORMALS: oropharynx normal Neck/C-Spine: COMMON NORMALS: no JVD Resp: AUSCULTATION: crackles Laterality: left (Lower) and diminished lung sounds (L lower) Cardio: COMMON NORMALS: no JVD, regular rhythm, S1 normal heart sound present, S2 normal heart sound present and No murmurs present (Cardio) RHYTHM: regular rhythm HEART SOUNDS: S1 normal heart sound present and S2 normal heart sound present GI: COMMON NORMALS: Normal to inspection, nondistended, normoactive bowel sounds present, Soft to palpation and non-tender PALPATION: Yes Soft to palpation Extremity: COMMON NORMALS: no joint enlargement GENERAL: Yes edema (With mild improvement) Neuro: COMMON NORMALS: patient oriented x3 and moves all extremities SENSORIUM/ORIENTATION: Yes alert Skin: COMMON NORMALS: no rashes or lesions noted GENERAL SKIN EXAM: no rashes or lesions noted Urinary Catheter Management: Molina Latex: Cath Placed During This Visit: yes, but has since been removed by the nurse Reason for Continuing Indwelling Catheter: Accurate Measurement of Urinary Output in Critically Ill Patients Urinary Catheter Date of Insertion: 08/02/22 Urinary Catheter Time of Insertion: 02:21 Date Urinary Catheter Removed: 08/03/22 Time Urinary Catheter Discontinued: 11:02 Data 08/03/22 03:50 08/03/22 03:50 Micro: Microbiology 08/02/22 17:25 MRSA Culture - Final Nose 08/02/22 17:25 Bacterial Antigens - Final Urine Kidney 08/02/22 17:25 Legionella Urinary Antigen - Final Urine Catheterized 08/01/22 23:46 Blood Culture - Preliminary Blood Gram Negative Rods 08/01/22 23:40 Blood Culture - Preliminary Blood Gram Negative Rods A&P Assessment and plan (1) Bacteremia: 4/4 gram-negative bk bacteremia. Antibiotic broadened to cefepime. Pending ID and sensitivity. Repeat culture in the morning as she will also need tunneled catheter for continued hemodialysis. Hold off on tunneled catheter for now. UA not impressive for urinary infection. 10-15 RBC, possibly from trauma from Molina. Renal ultrasound without suggestion of pyelonephritis, no hydronephrosis. Benign abdomen. Alk phos abnormality appears to be chronic, but will assess gallbladder ultrasound. Source could be from pneumonia. Will additionally assess CT abdomen pelvis to look for any other source. (2) Acute renal failure: Additional dialysis today. Strong suspicion of ESRD, will need dialysis after discharge. Will need tunneled catheter, but with delayed due to bacteremia. Appreciate nephrology assessment. Renal ultrasound without hydronephrosis. Atrophic kidneys with increased echogenicity. (3) Pneumonia: Continue ceftriaxone, azithromycin. Collect urine bacterial antigens. Assess MRSA PCR. Occasionally complicated pneumonia with gram-negative bk bacteremia. Assess for cardiac sources of above. Follow-up ID and sensitivity. Severe left lower lobe pneumonia noted on CT with moderate left upper lobe pneumonia. Mild to moderate right-sided pneumonia. (4) Cardiomegaly: New cardiomyopathy of unclear etiology. Appreciate cardiology consultation. Will need additional assessment. Cardiology will be following up, reevaluate condition, with consideration of further modalities for assessment of possibility of underlying CAD, ischemic etiology. TTE with severely reduced LVEF 25 to 30%. Severe global hypokinesis. Grade 2 diastolic dysfunction. RV hypokinetic. Biatrial enlargement. Mild mitral regurgitation. Mild to moderate cuspid vegetation. Mild pulmonic regurgitation. Mildly dilated ascending aorta. Flat troponin trend with moderate hypertensive elevation. No chest pain or pressure. Suspect likely demand ischemia also in the setting of acute on chronic renal failure. However, unknown CAD status. Last stress test 5 years ago. States no history of prior TN or stenting. As of now not clear cause of cardiomyopathy. Hypertensive. Mild transaminitis of unknown chronicity with history of hepatitis C. Otherwise no symptoms of cardiogenic shock. Acute systolic CHF. Fluid overload. Today additional hemodialysis. Monitor I&O. Molina for I&O. (5) Anemia: Anemia suspected chronic kidney disease No active bleed Received blood transfusion, B12 not low, pending iron studies Hemoccult pending. (6) Hyperkalemia: Improved. Continues with hemodialysis. Plan Acute metabolic encephalopathy: Secondary progression of renal failure, uremia. Noted asterixis on exam. Assess reported ultrasound with history of hepatitis C. INR noted abnormal at 1.43. Albumin low at 2.8. Platelets low at 125. If progression to cirrhosis. Will benefit from reassessment of liver function once in a little bit more stable condition. Will check ammonia. Hepatitis C: History of treatment. Viral RNA load has been ordered D-dimer abnormality in setting of JEN on CKD: No DVT in lower extremities 1.4 cm right adrenal nodule noted on CT with 7 nodule. Measurements suggesting benign adrenal myelolipoma versus benign adrenal adenoma. Attestations Medical Necessity Statement*: Continue admission for assessment management of complicated pneumonia with gram-negative bk bacteremia, assessment for additional possible sources, progression of renal failure with JEN, suspected ESRD requiring hemodialysis, as well as with new cardiomyopathy and CHF requiring additional assessment. 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 Fwd Exam Comprehensive Diagnoses Bacteremia R78.81 Acute renal failure N17.9 Pneumonia J18.9 Cardiomegaly I51.7 Anemia D64.9 Hyperkalemia E87.5
[2022-08-03] MEDS: ondansetron 2 mg/ML SDV 2 mL 4 MG IVP (13:38)
[2022-08-03] MEDS: heparin, porcine 1,000 unit/mL INJ 10 mL 1000 UNIT IV (13:39)
[2022-08-03] MEDS: ferric gluconate 125 MG in sodium chloride 0.9% (100 ml) 100 ML 110 MG IV (13:39)
--- NOTE | 2022-08-03 13:39 | CTR_ITS ---
PROCEDURE INFORMATION: Exam: CT Abdomen And Pelvis With Contrast Exam date and time: 08/03/2022 5:39 PM Age: 61 years old Clinical indication: Bloating; Additional info: Gnr bacteremia TECHNIQUE: Imaging protocol: Computed tomography of the abdomen and pelvis with contrast. Radiation optimization: All CT scans at this facility use at least one of these dose optimization techniques: automated exposure control; mA and/or kV adjustment per patient size (includes targeted exams where dose is matched to clinical indication); or iterative reconstruction. Contrast material: OMNIPAQUE 350; Contrast volume: 100 ml; Contrast route: INTRAVENOUS (IV); COMPARISON: CR XR hip RT 2-3V wo/w pel* [id number] 02/23/2021 11:55 AM RADIATION DOSE METRICS: Total DLP (mGy-cm): 741.47 FINDINGS: Tubes, catheters and devices: Right groin central venous catheter with tip in the right common iliac vein. Lungs: Dense airspace opacities in the left lower lobe. Pleural spaces: Trace right pleural effusion. Heart: Mild cardiomegaly. Liver: Normal. No mass. Gallbladder and bile ducts: Cholecystectomy. Dilatation of the bile ducts is most likely chronic reservoir effect. Pancreas: Normal. No ductal dilation. Spleen: Normal. No splenomegaly. Adrenal glands: 1.5 cm right adrenal nodule, Hounsfield units 19, consistent with a benign adenoma. The left adrenal is normal. Kidneys and ureters: Multiple bilateral renal cysts, Hounsfield units less than 20. No follow-up imaging is recommended. 1 mm nonobstructing right renal calculus. No hydronephrosis. Stomach and bowel: Gas distended stomach with a small air-fluid level. Mild diverticulosis of the colon. No diverticulitis.The appendix is visualized and is normal. The small bowel is unremarkable. No wall thickening or obstruction. Appendix: See Stomach and bowel finding. Intraperitoneal space: Mild pelvic ascites. No free peritoneal air. Vasculature: Mild arterial calcifications. No aneurysm. Lymph nodes: Unremarkable. No enlarged lymph nodes. Urinary bladder: Unremarkable as visualized. Reproductive: Unremarkable as visualized. Bones/joints: Curvature of the spine with degenerative changes. No fracture. Soft tissues: Diffuse body wall edema. Small fat containing supraumbilical hernia. CT/CT abdomen pelvis w con* [id number] IMPRESSION: 1. No acute findings in the abdomen or pelvis. 2. Gaseous distention of the stomach could represent gastroparesis. 3. Left lower lobe pneumonia versus aspiration. 4. Dilatation of the bile ducts is most likely chronic reservoir effect. If there is clinical evidence for biliary obstruction, this can be further evaluated with MRCP. COMMENTS: Consistent with the [employer]'s Incidental Findings Committee white paper (J Am Fei Radiol 2018): Any incidental renal lesion less than 1 cm or classified as too small to characterize, or any incidental cystic renal lesion characterized as simple-appearing, is likely benign. No follow-up imaging is recommended for these lesions per consensus recommendations based on imaging criteria.
[2022-08-03 14:07] LABS: KAPPA LIGHT CHAIN, FREE, SERUM 153.8 mg/L (3.3-19.4); KAPPA/LAMBDA LIGHT CHAINS FREE 2.23 (0.26-1.65); LAMBDA LIGHT CHAIN, FREE, SERU 68.9 mg/L (5.7-26.3)
[2022-08-03] MEDS: metoclopramide 5 mg/mL SDV 2 mL IVP (15:10)
[2022-08-03] MEDS: acetaminophen 500 mg Tablet PO (15:13)
[2022-08-03 16:02] LABS: ALPHA 1 GLOBULIN 0.7 g/dL (0.2-0.3); ALPHA 2 GLOBULIN 0.8 g/dL (0.5-0.9); BETA 1 GLOBULIN 0.4 g/dL (0.4-0.6); BETA 2 GLOBULIN 0.3 g/dL (0.2-0.5); GAMMA GLOBULIN 0.6 g/dL (0.8-1.7)
[2022-08-03] MEDS: azithromycin 250 mg Tablet 500 MG PO (17:15)
[2022-08-03] MEDS: cefepime 500 MG in sodium chloride 0.9% (plus) 50 ML 100 MG IV (17:17)
[2022-08-03] MEDS: iohexol 350 mg/mL 500 mL Btl (per mL) IV (18:12)
[2022-08-03] MEDS: losartan 50 mg Tablet 100 MG PO (20:02)
[2022-08-04] VITALS (62 sets, daily range): BP systolic 128–191; BP diastolic 72–114; PULSE 56–94; RESP 13–31; TEMP 36.3–36.8; O2SAT 72–100
[2022-08-04] MEDS: morphine IR 15 mg Tablet 10 MG PO ×2 (04:42→19:56)
[2022-08-04 05:18] LABS: Basophils % 0.5 %; Eosinophils # 0.2 10^3/uL (0.0-0.8); Eosinophils % 6.2 %; Hematocrit 25.5 % (37.0-47.0); Hemoglobin 7.9 g/dL (11.5-15.3); Lymphocytes # 0.3 10^3/uL (0.8-4.8); Mean Corpuscular Hemoglobin 29.4 pg (28.0-34.0); Mean Corpuscular Volume 94.8 fl (81-99); Mean Platelet Volume 10.5 fL (7.4-10.4); Monocytes # 0.2 10^3/uL (0.2-0.9); Monocytes % 4.9 %; Neutrophils % 80.6 %; Nucleated Red Blood Cells % 0 %; Platelet Count 126 10^3/cmm (130-400); Red Blood Count 2.69 10^6/uL (4.1-5.3); Red Cell Distribution Width 17.3 % (12.1-15.1); White Blood Count 3.9 10^3/uL (4.0-10.0)
[2022-08-04 05:25] LABS: Ammonia 17 umol/L (11-51)
--- NOTE | 2022-08-04 06:00 | USR_ITS ---
PROCEDURE INFORMATION: Exam: US Abdomen, Limited; Right Upper Quadrant Exam date and time: 08/04/2022 10:24 AM Age: 61 years old Clinical indication: Abnormal findings; Abnormal radiologic finding of the abdomen; Radiologic exam and body structure: CT reported dilated cbd; Prior surgery; Surgery date: 6+ months; Surgery type: Gallbadder removed; Additional info: Gnr bacteremia 12/11. Chronic ap elevation, PT getting dialysis @ 1451. Rn will call when they are ready for US. 2200 TECHNIQUE: Imaging protocol: Real time ultrasound of the abdomen with image documentation. Limited exam focused on the right upper quadrant. COMPARISON: CT abdomen pelvis w con* [id number] 08/03/2022 5:39 PM FINDINGS: Liver: Normal. No masses. Hepatomegaly a the liver span is 19 cm. No focal hepatic abnormalities seen. Gallbladder: Cholecystectomy Biliary ducts: No stones. The CBD 13 mm. Portal vein measures 19.4 mm Pancreas: Visualized pancreas is unremarkable. Right kidney: Small cyst 1.3 cm x 0.8 cm x 1.1 cm No mass. No hydronephrosis. Right kidney is echogenic measuring 8.3 cm x 4.3 cm x 4.8 cm per medical renal disease A small Adrianna hepatic fluid collection is seen near the right lobe US/US liver [id number] IMPRESSION: 1. Hepatomegaly without focal hepatic abnormality. 2. Status post cholecystectomy 3. Common bile duct measures 13 mm 4. Small right kidney with benign cyst. 5. Dilated portal vein 6. Medical renal disease
[2022-08-04 06:23] LABS: Alanine Aminotransferase 58 U/L (0-33); Albumin Level 2.7 g/dL (3.5-5.2); Alkaline Phosphatase 131 U/L (35-105); Anion Gap 18.3 (5-19); Aspartate Amino Transferase 38 U/L (0-32); Calcium 7.9 mg/dL (8.5-10.5); Carbon Dioxide 24 mmol/L (22-29); Chloride 100 mmol/L (98-107); Globulin 2.8 g/dL (1.3-4.6); Glomerular Filtration Rate 5.5 mL/min (90-130); Glucose 110 mg/dL (65-115); Magnesium 2.7 mg/dL (1.7-2.3); Osmolality Calculated 315 mOsm/kg (285-295); Phosphorus 5.8 mg/dL (2.5-4.5); Potassium 4.3 mmol/L (3.5-5.1); Sodium 138 mmol/L (136-145); Total Bilirubin 0.3 mg/dL (0.15-1.2); Total Protein 5.5 g/dL (6.6-8.7)
[2022-08-04 06:26] LABS: Blood Urea Nitrogen 93 mg/dL (6-20)
--- NOTE | 2022-08-04 07:48 | P.PN_ITS ---
Subjective Subjective: feeling better. OOC in chair eating Vitals/I&O/Wt Last Vital Signs Temp 98.3 F 08/04/22 05:00 Pulse 70 08/04/22 07:00 Resp 19 H 08/04/22 07:00 BP 152/83 08/04/22 07:00 Pulse Ox 100 08/04/22 07:00 O2 Del Method 08/04/22 05:00 O2 Flow Rate 3 08/04/22 05:00 08/03/22 08/04/22 08/04/22 22:59 06:59 14:59 Intake Total 100 / 930 120 / 1050 Output Total 200 / 375 Balance -100 / 555 120 / 675 Physical Exam Const: COMMON NORMALS: no acute distress and alert Resp: COMMON NORMALS: clear to auscultation bilaterally EFFORT & INSPECTION: Yes symmetric chest movement AUSCULTATION: clear to auscultation bilaterally Cardio: COMMON NORMALS: regular rate and regular rhythm RATE: regular rate RHYTHM: regular rhythm OTHER: no rub Extremity: GENERAL: Yes edema (2+ right leg, 1+ left leg edema, right femoral vein dialysis catheter) Neuro: SENSORIUM/ORIENTATION: Yes alert Urinary Catheter Management: Molina Latex: Cath Placed During This Visit: yes, but has since been removed by the nurse Reason for Continuing Indwelling Catheter: Accurate Measurement of Urinary Output in Critically Ill Patients Urinary Catheter Date of Insertion: 08/02/22 Urinary Catheter Time of Insertion: 02:21 Date Urinary Catheter Removed: 08/03/22 Time Urinary Catheter Discontinued: 11:02 Data 08/04/22 04:50 08/04/22 04:55 Other Labs: Ca 7.9, phos 5.8, Mg 2.7, alb 2.7 urine protein/Cr ratio 3262 mg/g, alb/Cr ratio 1164 mg/g K/L 2.23, Hep C + Micro: Microbiology 08/04/22 04:55 Blood Culture - Preliminary Blood SPECIMEN COLLECTED 08/04/22 04:50 Blood Culture - Preliminary Blood SPECIMEN COLLECTED 12/[address] Abd/Pel: Radiologist's impression: Adrenal glands: 1.5 cm right adrenal nodule, Hounsfield units 19, consistent with a benign adenoma. The left adrenal is normal. Kidneys and ureters: Multiple bilateral renal cysts, Hounsfield units less than 20. No follow-up imaging is recommended. 1 mm nonobstructing right renal calculus. No hydronephrosis. Echo: Radiologist's impression: ?LV systolic function is severely reduced with EF of 25-30%. ?Severe global hypokinesis. ?Grade 2 diastolic dysfunction ?RV is hypokinetic ?Biatrial enlargement ?Mild mitral regurgitation ?Mild to moderate tricuspid regurgitation. Moderate pulmonic ?regurgitation ?Mildly dilated ascending aorta ?Compared to prior echocardiogram from 10/09/2021, LV systolic ?function is severely reduced now A&P Assessment and plan (1) ESRD (end stage renal disease): seen via telemedicine with assistance of RN at bedside Plan 1. ESRD. Ultrasound with bilateral, small echogenic kidneys. Nephrotic range proteinuria, 30% albumin. UPEP pneding 2. Sepsis: 12/11 BC + GNR, +Pneumonia 3. Hypertension, fluid overload, improved 4, Anemia: iron and epo deficient 5. Secondary hyperparathyroidism, hyperphosphatemia.Phosphorus improved 6. Hyperuricemia: repeat 7. Cardiomyopathy, cardiology seeing 8. adrenal adenoma Recommend: Remove femoral HD catheter. If repeat blood cultures are neg, arrange for tunneled HD catheter placement Saturday morning, followed by HD. Refer to outpatient dialysis unit. IV iron, epogen at dialysis. Attestations Medical Necessity Statement*: see above Time Spent in Patient Care: 16 - 35 minutes Coding Level of Care Code Acute Ostrich Farmer for [facility] Fwd Diagnoses ESRD (end stage renal disease) N18.6
[2022-08-04] MEDS: morphine ER (12 HR) 30 mg tablet 15 MG PO ×2 (08:35→17:47)
[2022-08-04] MEDS: b-complex-vitamin c Tablet 1 EACH PO (08:35)
[2022-08-04] MEDS: iron polysaccharide complex 150 mg Capsule PO (08:35)
[2022-08-04] MEDS: losartan 50 mg Tablet 100 MG PO (08:35)
[2022-08-04] MEDS: FUROsemide 40 mg Tablet 80 MG PO (08:35)
[2022-08-04] MEDS: calcium acetate 667 mg Capsule 1334 MG PO ×3 (08:37→17:47)
[2022-08-04 09:48] LABS: Anti-streptolysin O <50 IU/mL (<200)
[2022-08-04 10:30] LABS: Hematocrit 25.4 % (37.0-47.0); Retic Production Index 2.98; Reticulocyte % 4.7 % (0.5-2.0)
[2022-08-04] MEDS: ferrous gluconate 324 mg Tablet PO ×2 (11:16→17:46)
--- NOTE | 2022-08-04 12:56 | PC.NURSE ---
Report called to [facility] nurse Mariaelena RN. Patient currently eating lunch, will be transferred to room 259-1 after finished with meal.
--- NOTE | 2022-08-04 13:30 | PC.NURSE ---
Patient transferred to room 259-1 via wheelchair accompanied by this nurse and her two daughters. Medr nurse noted to be at bedside at time of transfer. Patient noted to have taken her belongings with her and set them at bedside. Patient noted to be A&OX4 at time of transfer.
--- NOTE | 2022-08-04 13:34 | PC.NURSE ---
right groin temp dialysis catheter in place, dressing transparent, clean, dry and intact.
[2022-08-04] MEDS: cefepime 500 MG in sodium chloride 0.9% (plus) 50 ML 100 MG IV (14:40)
[2022-08-04] MEDS: hyDRALAzine 20 mg/mL INJ 1 mL 10 MG IVP (14:57)
--- NOTE | 2022-08-04 15:01 | P.PN_ITS ---
Subjective Subjective: Hospital course, labs appreciated. On examination laying comfortably in bed. Family at bedside. Patient denies any nausea, vomiting, headache. Blood pressure slightly elevated. Plan for no dialysis today. Vitals/I&O/Wt Last Vital Signs Temp 98.0 F 08/04/22 13:39 Pulse 88 08/04/22 13:39 Resp 16 08/04/22 13:39 BP 180/95 08/04/22 14:47 Pulse Ox 97 08/04/22 13:39 O2 Del Method 08/04/22 13:39 O2 Flow Rate 2 08/04/22 08:45 08/04/22 08/04/22 08/04/22 06:59 14:59 22:59 Intake Total 120 / 1050 410 / 410 Output Total 600 / 600 Balance 120 / 675 -190 / -190 Physical Exam Narrative: Right groin dialysis catheter present Const: COMMON NORMALS: patient oriented x3 and alert GENERAL APPEARANCE: cooperative ORIENTATION/CONSCIOUSNESS: Yes awake OTHER: Nasal cannula HENMT: COMMON NORMALS: oropharynx normal Neck/C-Spine: COMMON NORMALS: no JVD Resp: AUSCULTATION: crackles Laterality: left (Lower) and diminished lung sounds (L lower) Cardio: COMMON NORMALS: no JVD, regular rhythm, S1 normal heart sound present, S2 normal heart sound present and No murmurs present (Cardio) RHYTHM: regular rhythm HEART SOUNDS: S1 normal heart sound present and S2 normal heart sound present GI: COMMON NORMALS: Normal to inspection, nondistended, normoactive bowel so unds present, Soft to palpation and non-tender PALPATION: Yes Soft to pal pation Extremity: COMMON NORMALS: no joint enlargement GENERAL: Yes edema (With mild improvement) Neuro: COMMON NORMALS: patient oriented x3 and moves all extremities SENSORIUM/ORIENTATION: Yes alert Skin: COMMON NORMALS: no rashes or lesions noted GENERAL SKIN EXAM: no rashes or lesions noted Urinary Catheter Management: Mol[place] Latex: Cath Placed During This Visit: yes, but has since been removed by the nurse Reason for Continuing Indwelling Catheter: Accurate Measurement of Urinary Output in Critically Ill Patients Urinary Catheter Date of Insertion: 08/02/22 Urinary Catheter Time of Insertion: 02:21 Date Urinary Catheter Removed: 08/03/22 Time Urinary Catheter Discontinued: 11:02 Data 08/04/22 04:50 08/04/22 04:55 Micro: Microbiology 08/03/22 10:10 Urine Culture - Preliminary Urine Kidney 08/04/22 04:55 Blood Culture - Preliminary Blood SPECIMEN COLLECTED 08/04/22 04:50 Blood Culture - Preliminary Blood SPECIMEN COLLECTED A&P Assessment and plan (1) Bacteremia: 4/4 gram-negative bk bacteremia. Repeat blood cultures sent today. ID and sensitivity pending. UA negative for UTI. CT abdomen pelvis negative for any acute abnormality. Consistent with biliary dilatation. Patient postcholecystectomy. Will assess w ith liver ultrasound. If still concerning then we will plan for MRCP. Continue with cefepime. Will de-escalate as per culture results. Most likely patient will need at least 2 weeks of IV antibiotics after first negative set of blood cultures. (2) Acute renal failure: Most likely ESRD. Patient will need outpatient dialysis as well. Will plan for tunneled catheter placement once surgical service is available and blood cultures remain negative. Case management alerted for outpatient dialysis chair. Appreciate nephrology recommendation (3) Pneumonia: MRSA negative, urine Legionella, bacterial antigen negative. Continue with cefepime for now. Oxygen supplementation keeping saturation over 90%. (4) Cardiomegaly: New cardiomyopathy of unclear etiology. Appreciate cardiology consultation. Will need additional assessment. Cardiology will be following up, reevaluate condition, with consideration of further modalities for assessment of possibility of underlying CAD, ischemic etiology. TTE with severely reduced LVEF 25 to 30%. Severe global hypokinesis. Grade 2 diastolic dysfunction. RV hypokinetic. Biatrial enlargement. Mild mitral regurgitation. Mild to moderate cuspid vegetation. Mild pulmonic reg urgitation. Mildly dilated ascending aorta. Unknown etiology. Could be hypertensive cardiomyopathy. Patient does have history of angiogram 5 years ago. Appreciate cardiology recommendation. Most likely will plan for Lexiscan stress test. (5) Anemia: Anemia suspected chronic kidney disease No active bleed Received blood transfusion, B12 not low, normal iron studies low. Continuing oral iron supplementation. Check reticulocyte count. We will plan to add additional Procrit accordingly. (6) Hyperkalemia: Improved. Continues with hemodialysis. Plan Hypertension: Goal blood pressure less than 140/90 mmHg. Continue with losartan 100 mg daily. Will add Coreg 3.125 twice daily and uptitrate as per goal. Can use hydralazine 10 mg IV every 4 hours as needed for systolic blood pressure of more than 150 mmHg. Acute metabolic encephalopathy: Secondary progression of renal failure, uremia. Noted asterixis on exam. Assess reported ultrasound with history of hepatitis C. INR noted abnormal at 1.43. Albumin low at 2.8. Platelets low at 125. If progression to cirrhosis. Will benefit from reassessment of liver function once in a little bit more stable condition. Will check ammonia. Hepatitis C: History of treatment. Viral RNA load has been ordered D-dimer abnormality in setting of JEN on CKD: No DVT in lower extremities 1.4 cm right adrenal nodule noted on CT with 7 nodule. Measurements suggesting benign adrenal myelolipoma versus benign adrenal adenoma. Analgesia: Tylenol as needed Glycemic control: Not needed. Nutrition: Renal cardiac diet CODE STATUS: Full code PUD prophylaxis: Famotidine DVT prophylaxis: Heparin 5000 every 12 hourly Discharge planning: Home with caregiver once patient is medically stable. Will need a dialysis access prior to discharge. Transfer to [facility] with telemetry. This documentation was created by [employer] window framer software. Every effort was made to ensure accuracy of window framer. Any obvious errors or omissions should be clarified with the author of the document. Attestations Medical Necessity Statement*: Requires further hospitalization for management of ESRD on hemodialysis while further blood culture results are awaited, outpatient dialysis set up, gram-negative bacteremia. 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
[2022-08-04] MEDS: carvedilol 3.125 mg Tablet PO ×2 (15:07→19:56)
[2022-08-04] MEDS: heparin 5,000 unit/mL INJ 1 mL 5000 UNIT SUBCUT (15:22)
[2022-08-04] MEDS: famotidine 20 mg Tablet PO (17:47)
[2022-08-05] VITALS (8 sets, daily range): BP systolic 160–176; BP diastolic 78–93; PULSE 74–81; RESP 16–20; TEMP 36.5–36.9; O2SAT 94–99
[2022-08-05] MEDS: heparin 5,000 unit/mL INJ 1 mL 5000 UNIT SUBCUT (03:14)
[2022-08-05] MEDS: hyDROXYzine 25 mg Capsule PO (03:16)
--- NOTE | 2022-08-05 03:40 | PC.NURSE ---
ITCHING c/o skin itching. Given prn Vistaril and Aloe lotion to use
[2022-08-05] MEDS: hyDRALAzine 20 mg/mL INJ 1 mL 10 MG IVP (04:23)
[2022-08-05 05:37] LABS: Basophils % 0.3 %; Eosinophils # 0.3 10^3/uL (0.0-0.8); Eosinophils % 7.7 %; Hematocrit 26.6 % (37.0-47.0); Hemoglobin 7.6 g/dL (11.5-15.3); Lymphocytes # 0.2 10^3/uL (0.8-4.8); Lymphocytes % 7.1 %; Mean Corpuscular HGB Conc 28.6 g/dL (30.0-36.0); Mean Corpuscular Volume 101.5 fl (81-99); Mean Platelet Volume 10.6 fL (7.4-10.4); Monocytes # 0.2 10^3/uL (0.2-0.9); Monocytes % 6.8 %; Neutrophils # 2.49 10^3/uL (1.8-7.7); Neutrophils % 76.9 %; Nucleated Red Blood Cells % 0 %; Platelet Count 95 10^3/cmm (130-400); Red Blood Count 2.62 10^6/uL (4.1-5.3); Red Cell Distribution Width 16.9 % (12.1-15.1); White Blood Count 3.2 10^3/uL (4.0-10.0)
[2022-08-05 05:54] LABS: Alanine Aminotransferase 53 U/L (0-33); Albumin Level 2.5 g/dL (3.5-5.2); Alkaline Phosphatase 113 U/L (35-105); Anion Gap 18.4 (5-19); Aspartate Amino Transferase 41 U/L (0-32); Calcium 7.8 mg/dL (8.5-10.5); Carbon Dioxide 19 mmol/L (22-29); Chloride 96 mmol/L (98-107); Globulin 2.5 g/dL (1.3-4.6); Glucose 108 mg/dL (65-115); Magnesium 2.6 mg/dL (1.7-2.3); Osmolality Calculated 302 mOsm/kg (285-295); Phosphorus 5.7 mg/dL (2.5-4.5); Potassium 4.4 mmol/L (3.5-5.1); Sodium 129 mmol/L (136-145); Total Bilirubin 0.3 mg/dL (0.15-1.2); Uric Acid 7.7 mg/dL (2.4-5.7)
[2022-08-05 06:15] LABS: Blood Urea Nitrogen 105 mg/dL (6-20)
[2022-08-05] MEDS: morphine ER (12 HR) 30 mg tablet 15 MG PO ×2 (08:34→17:29)
[2022-08-05] MEDS: b-complex-vitamin c Tablet 1 EACH PO (08:34)
[2022-08-05] MEDS: famotidine 20 mg Tablet PO ×2 (08:34→17:29)
[2022-08-05] MEDS: FUROsemide 40 mg Tablet 80 MG PO (08:34)
[2022-08-05] MEDS: ferrous gluconate 324 mg Tablet PO ×2 (08:34→17:29)
[2022-08-05] MEDS: losartan 50 mg Tablet 100 MG PO (08:34)
[2022-08-05] MEDS: carvedilol 3.125 mg Tablet PO (08:35)
[2022-08-05] MEDS: calcium acetate 667 mg Capsule 1334 MG PO ×3 (08:41→17:29)
[2022-08-05] MEDS: levoFLOXacin 750 mg Tablet PO (11:56)
[2022-08-05 12:23] LABS: Influenza A by IFA negative (Negative); Influenza B by IFA negative (Negative)
[2022-08-05 12:39] LABS: Vitamin B12 1157 pg/mL (232-1245)
[2022-08-05 14:07] LABS: Anti-Nuclear Antibody Screen NEGATIVE (NEGATIVE)
--- NOTE | 2022-08-05 14:47 | P.PN_ITS ---
Subjective Subjective: No acute events overnight. Patient denies any nausea, vomiting, headache. Sitting up in bed today. States he is bothered by back pain which has been chronic for her. Denies any difficulty in breathing, runny nose or cough. Vitals/I&O/Wt Last Vital Signs Temp 98.0 F 08/05/22 12:00 Pulse 80 08/05/22 12:00 Resp 20 H 08/05/22 12:00 BP 160/79 08/05/22 12:00 Pulse Ox 97 08/05/22 12:00 O2 Del Method 08/05/22 12:00 O2 Flow Rate 3 08/05/22 12:00 08/04/22 08/05/22 08/05/22 22:59 06:59 14:59 Intake Total 290 / 700 120 / 820 960 / 960 Output Total 200 / 800 400 / 1200 Balance 90 / -100 -280 / -380 960 / 960 Physical Exam Narrative: Right groin dialysis catheter present Const: COMMON NORMALS: patient oriented x3 and alert GENERAL APPEARANCE: cooperative ORIENTATION/CONSCIOUSNESS: Yes awake OTHER: Nasal cannula HENMT: COMMON NORMALS: oropharynx normal Neck/C-Spine: COMMON NORMALS: no JVD Resp: AUSCULTATION: crackles Laterality: left (Lower) and diminished lung sounds (L lower) Cardio: COMMON NORMALS: no JVD, regular rhythm, S1 normal heart sound present, S2 normal heart sound present and No murmurs present (Cardio) RHYTHM: regular rhythm HEART SOUNDS: S1 normal heart sound present and S2 normal heart sound present GI: COMMON NORMALS: Normal to inspection, nondistended, normoactive bowel sounds present, Soft to palpation and non-tender PALPATION: Yes Soft to palpation Extremity: COMMON NORMALS: no joint enlargement GENERAL: Yes edema (With mild improvement) Neuro: COMMON NORMALS: patient oriented x3 and moves all extremities SENSORIUM/ORIENTATION: Yes alert Skin: COMMON NORMALS: no rashes or lesions noted GENERAL SKIN EXAM: no rashes or lesions noted Urinary Catheter Management: Molina Latex: Cath Placed During This Visit: yes, but has since been removed by the nurse Reason for Continuing Indwelling Catheter: Accurate Measurement of Urinary Output in Critically Ill Patients Urinary Catheter Date of Insertion: 08/02/22 Urinary Catheter Time of Insertion: 02:21 Date Urinary Catheter Removed: 08/03/22 Time Urinary Catheter Discontinued: 11:02 Data 08/05/22 04:39 08/05/22 04:39 Micro: Microbiology 08/01/22 23:46 Blood Culture - Final Blood Janethncia rettgeri 08/03/22 10:10 Urine Culture - Final Urine Kidney 08/04/22 04:55 Blood Culture - Preliminary Blood NEGATIVE TO DATE 08/04/22 04:50 Blood Culture - Preliminary Blood NEGATIVE TO DATE 08/01/22 23:40 Blood Culture - Final Blood Providencia rettgeri A&P Assessment and plan (1) Bacteremia: 4/4 gram-negative bk bacteremia. Repeat blood cultures sent today. ID and sensitivity pending. UA negative for UTI. CT abdomen pelvis negative for any acute abnormality. Consistent with biliary dilatation. Patient postcholecystectomy. Will assess with liver ultrasound. If still concerning then we will plan for MRCP. Continue with cefepime. Will de-escalate as per culture results. Most likely patient will need at least 2 weeks of IV antibiotics after first negative set of blood cultures. (2) Acute renal failure: Most likely ESRD. Patient will need outpatient dialysis as well. Will plan for tunneled catheter placement once surgical service is available and blood cultures remain negative. Case management alerted for outpatient dialysis chair. Appreciate nephrology recommendation (3) Pneumonia: MRSA negative, urine Legionella, bacterial antigen negative. Continue with cefepime for now. Oxygen supplementation keeping saturation over 90%. (4) Cardiomegaly: New cardiomyopathy of unclear etiology. Appreciate cardiology consultation. Will need additional assessment. Cardiology will be following up, reevaluate condition, with consideration of further modalities for assessment of possibility of underlying CAD, ischemic etiology. TTE with severely reduced LVEF 25 to 30%. Severe global hypokinesis. Grade 2 diastolic dysfunction. RV hypokinetic. Biatrial enlargement. Mild mitral regurgitation. Mild to moderate cuspid vegetation. Mild pulmonic regurgitation. Mildly dilated ascending aorta. Unknown etiology. Could be hypertensive cardiomyopathy. Patient does have history of angiogram 5 years ago. Appreciate cardiology recommendation. Most likely will plan for Lexiscan stress test. (5) Anemia: Anemia suspected chronic kidney disease No active bleed Received blood transfusion, B12 not low, normal iron studies low. Continuing oral iron supplementation. Check reticulocyte count. We will plan to add additional Procrit accordingly. (6) Hyperkalemia: Improved. Continues with hemodialysis. Plan Hypertension: Goal blood pressure less than 140/90 mmHg. Continue with losartan 100 mg daily. Will add Coreg 3.125 twice daily and uptitrate as per goal. Can use hydralazine 10 mg IV every 4 hours as needed for systolic blood pressure of more than 150 mmHg. Acute metabolic encephalopathy: Secondary progression of renal failure, uremia. Noted asterixis on exam. Assess reported ultrasound with history of hepatitis C. INR noted abnormal at 1.43. Albumin low at 2.8. Platelets low at 125. If progression to cirrhosis. Will benefit from reassessment of liver function once in a little bit more stable condition. Will check ammonia. Hepatitis C: History of treatment. Viral RNA load has been ordered D-dimer abnormality in setting of JEN on CKD: No DVT in lower extremities 1.4 cm right adrenal nodule noted on CT with 7 nodule. Measurements suggesting benign adrenal myelolipoma versus benign adrenal adenoma. Analgesia: Tylenol as needed Glycemic control: Not needed. Nutrition: Renal cardiac diet CODE STATUS: Full code PUD prophylaxis: Famotidine DVT prophylaxis: Heparin 5000 every 12 hourly Discharge planning: Home with caregiver once patient is medically stable. Will need a dialysis access prior to discharge. Transfer to [facility] with telemetry. Plan for the day: Blood cultures came back positive for procidentia. Repeat blood cultures so far negative. Sensitivities appreciated. Stop cefepime. Switch to Levaquin as per creatinine clearance for hemodialysis. 750 mg one-time followed by 500 mg every 48 hours. LFTs have remained stable. If repeat blood cultures remain negative we will hold off on MRCP Goal blood pressure less than 140/90 mmHg. Add carvedilol 6.125 mg twice daily. Will uptitrate as per goals. Plan for dialysis tomorrow. If blood cultures remain negative will plan to consult surgery tomorrow once they are available for tunnel catheter placement. Patient developing leukopenia. Unknown etiology. Could be secondary to antibiotic versus brewing viral infection. Unlikely antibiotic as patient has been on cephalosporin for only 4 to 5 days. Check flu swab. Monitor oxygen supplementation or for viral prodrome. Physical therapy evaluation. This documentation was created by [employer] coding manager software. Every effort was made to ensure accuracy of coding manager. Any obvious errors or omissions should be clarified with the author of the document. Attestations Medical Necessity Statement*: Requires further hospitalization for management of end-stage disease requiring hemodialysis, gram-negative bacteremia while patient requires permacatheter for long-term dialysis as an outpatient. Time Spent in Patient Care: Greater than 35 minutes Coding Level of Care Code Acute Window Trimmer Apprentice for [facility] Fwd Diagnoses Bacteremia R78.81 Acute renal failure N17.9 Pneumonia J18.9 Cardiomegaly I51.7 Anemia D64.9 Hyperkalemia E87.5
[2022-08-05 15:18] LABS: Folate Level 4.8 ng/mL (4.8-37.3)
[2022-08-05] MEDS: lanolin oint 7 gm 1 APPLIC TOPICAL (15:39)
[2022-08-05] MEDS: carvedilol 3.125 mg Tablet 6.25 MG PO (17:29)
--- NOTE | 2022-08-05 18:13 | PC.HD ---
Femoral cath ports draw sluggishly (pt sitting up in bed d/t dyspnea) and AP immediately spiked when tx started so blood lines reversed. Increasing AP and B AND B GANG WORKER during tx required reduced BFR. UF paused d/t c/o abd cramping so fluid removal goal not met, but pt much less dyspneic post tx than pre. Clots noted to arterial chamber post blood return with moderate streaking of dialyzer.
--- NOTE | 2022-08-05 21:18 | P.PN_ITS ---
Subjective Subjective: no new complaints Medications: Reviewed: Yes Vitals/I&O/Wt Last Vital Signs Temp 98 F 08/05/22 20:00 Pulse 77 08/05/22 20:16 Resp 16 08/05/22 20:16 BP 176/90 08/05/22 20:00 Pulse Ox 95 08/05/22 20:16 O2 Del Method 08/05/22 20:16 O2 Flow Rate 3 08/05/22 20:16 08/05/22 08/05/22 08/05/22 06:59 14:59 22:59 Intake Total 120 / 820 960 / 960 480 / 1440 Output Total 400 / 1200 Balance -280 / -380 960 / 960 480 / 1440 Physical Exam Narrative: Right groin dialysis catheter present Const: COMMON NORMALS: alert GENERAL APPEARANCE: cooperative ORIENTATION/CONSCIOUSNESS: Yes awake OTHER: Nasal cannula Extremity: COMMON NORMALS: no joint enlargement Neuro: COMMON NORMALS: moves all extremities SENSORIUM/ORIENTATION: Yes alert Skin: COMMON NORMALS: no rashes or lesions noted GENERAL SKIN EXAM: no rashes or lesions noted Urinary Catheter Management: Molina Latex: Cath Placed During This Visit: yes, but has since been removed by the nurse Reason for Continuing Indwelling Catheter: Accurate Measurement of Urinary Output in Critically Ill Patients Urinary Catheter Date of Insertion: 08/02/22 Urinary Catheter Time of Insertion: 02:21 Date Urinary Catheter Removed: 08/03/22 Time Urinary Catheter Discontinued: 11:02 Data 08/05/22 04:39 08/05/22 04:39 Micro: Microbiology 08/01/22 23:46 Blood Culture - Final Blood Providencia rettgeri 08/03/22 10:10 Urine Culture - Final Urine Kidney 08/04/22 04:55 Blood Culture - Preliminary Blood NEGATIVE TO DATE 08/04/22 04:50 Blood Culture - Preliminary Blood NEGATIVE TO DATE A&P Assessment and plan (1) ESRD (end stage renal disease): Plan 1. ESRD. Ultrasound with bilateral, small echogenic kidneys. Nephrotic range proteinuria, UPEP pneding, HD inittiated via femoral catheter 2. Sepsis: 12/11 BC + GNR, +Pneumonia 3. Hypertension, fluid overload, improved 4, Anemia: iron and epo deficient 5. Secondary hyperparathyroidism, hyperphosphatemia.Phosphorus improved 6. Hyperuricemia: repeat 7. Cardiomyopathy, cardiology seeing 8. adrenal adenoma Recommend: Remove femoral HD catheter. If repeat blood cultures are neg, arrange for tunneled HD catheter placement Saturday morning, followed by HD.? Refer to out patient dialysis unit. IV iron, epogen at dialysis. Attestations Medical Necessity Statement*: Requires further hospitalization for management of end-stage disease requiring hemodialysis, gram-negative bacteremia while patient requires permacatheter for long-term dialysis as an outpatient. Time Spent in Patient Care: Greater than 35 minutes Coding Level of Care Code Acute Clothes Separator for [facility] Fwd Diagnoses ESRD (end stage renal disease) N18.6
[2022-08-06] VITALS (13 sets, daily range): BP systolic 145–199; BP diastolic 60–108; PULSE 73–83; RESP 16–18; TEMP 36.6–37.1; O2SAT 93–97
[2022-08-06] MEDS: morphine IR 15 mg Tablet 10 MG PO (04:06)
[2022-08-06 05:25] LABS: Basophils % 0.5 %; Eosinophils # 0.2 10^3/uL (0.0-0.8); Eosinophils % 5.6 %; Hematocrit 25.8 % (37.0-47.0); Hemoglobin 7.7 g/dL (11.5-15.3); Lymphocytes # 0.4 10^3/uL (0.8-4.8); Lymphocytes % 9.2 %; Mean Corpuscular HGB Conc 29.8 g/dL (30.0-36.0); Mean Corpuscular Hemoglobin 28.9 pg (28.0-34.0); Mean Platelet Volume 9.4 fL (7.4-10.4); Monocytes # 0.3 10^3/uL (0.2-0.9); Monocytes % 6.7 %; Nucleated Red Blood Cells % 0 %; Platelet Count 76 10^3/cmm (130-400); Red Blood Count 2.66 10^6/uL (4.1-5.3); Red Cell Distribution Width 16.9 % (12.1-15.1); White Blood Count 3.9 10^3/uL (4.0-10.0)
[2022-08-06 05:43] LABS: Alanine Aminotransferase 52 U/L (0-33); Albumin Level 2.7 g/dL (3.5-5.2); Alkaline Phosphatase 124 U/L (35-105); Anion Gap 20.3 (5-19); Aspartate Amino Transferase 43 U/L (0-32); Calcium 7.9 mg/dL (8.5-10.5); Carbon Dioxide 20 mmol/L (22-29); Chloride 98 mmol/L (98-107); Chol HDL Ratio 3.17 mg/dL (0.0-4.40); Cholesterol 95 mg/dL (0-200); Globulin 2.7 g/dL (1.3-4.6); Glomerular Filtration Rate 4.4 mL/min (90-130); Glucose 100 mg/dL (65-115); HDL Cholesterol 30 mg/dL (60-100); LDL Cholesterol Calculated 49 mg/dL (50-129); Potassium 5.3 mmol/L (3.5-5.1); Sodium 133 mmol/L (136-145); Total Bilirubin 0.2 mg/dL (0.15-1.2); Total Protein 5.4 g/dL (6.6-8.7); Triglycerides 79 mg/dL (0-150); VLDL Cholestrol Calculation 16 mg/dL (0-30)
[2022-08-06] MEDS: carvedilol 3.125 mg Tablet 6.25 MG PO ×2 (05:52→17:22)
[2022-08-06 05:54] LABS: Osmolality Calculated 314 mOsm/kg (285-295)
[2022-08-06 05:55] LABS: Blood Urea Nitrogen 119 mg/dL (6-20)
[2022-08-06 10:28] LABS: Vit D 1,25 (Oh)2, Total 29 pg/mL (18-72); Vit D2 1,25 (Oh)2 <8 pg/mL; Vit D3 1,25 (Oh)2 29 pg/mL
[2022-08-06] MEDS: hyDRALAzine 25 mg Tablet PO ×3 (11:18→22:51)
[2022-08-06] MEDS: b-complex-vitamin c Tablet 1 EACH PO (11:18)
[2022-08-06] MEDS: morphine ER (12 HR) 30 mg tablet 15 MG PO ×2 (11:18→17:21)
[2022-08-06] MEDS: famotidine 20 mg Tablet PO ×2 (11:20→17:22)
[2022-08-06] MEDS: FUROsemide 40 mg Tablet 80 MG PO (11:21)
[2022-08-06] MEDS: ferrous gluconate 324 mg Tablet PO ×2 (11:21→17:21)
[2022-08-06] MEDS: losartan 50 mg Tablet 100 MG PO (11:22)
[2022-08-06] MEDS: calcium acetate 667 mg Capsule 1334 MG PO ×2 (11:24→17:24)
--- NOTE | 2022-08-06 11:38 | P.PN_ITS ---
Subjective Subjective: no new complaints Medications: Reviewed: Yes Vitals/I&O/Wt Last Vital Signs Temp 98.7 F 08/06/22 08:00 Pulse 77 08/06/22 08:39 Resp 18 08/06/22 11:18 BP 155/60 08/06/22 11:22 Pulse Ox 96 08/06/22 08:39 O2 Del Method 08/06/22 08:39 O2 Flow Rate 2 08/06/22 08:39 08/05/22 08/06/22 08/06/22 22:59 06:59 14:59 Intake Total 720 / 1680 480 / 480 Balance 720 / 1680 480 / 480 Physical Exam Narrative: Right groin dialysis catheter present Const: GENERAL APPEARANCE: cooperative ORIENTATION/CONSCIOUSNESS: Yes awake OTHER: Nasal cannula Urinary Catheter Management: Molina Latex: Cath Placed During This Visit: yes, but has since been removed by the nurse Reason for Continuing Indwelling Catheter: Accurate Measurement of Urinary Output in Critically Ill Patients Urinary Catheter Date of Insertion: 08/02/22 Urinary Catheter Time of Insertion: 02:21 Date Urinary Catheter Removed: 08/03/22 Time Urinary Catheter Discontinued: 11:02 Data 08/06/22 04:33 08/06/22 04:33 Micro: Microbiology 08/01/22 23:46 Blood Culture - Final Blood Providencia rettgeri 08/03/22 10:10 Urine Culture - Final Urine Kidney A&P Assessment and plan (1) ESRD (end stage renal disease): 1. ESRD. Ultrasound with bilateral, small echogenic kidneys. Nephrotic range pr oteinuria,? UPEP pneding, HD inittiated via femoral catheter 2. Sepsis: 4/4 BC + GNR, +Pneumonia 3. Hypertension, fluid overload, improved 4, Anemia: iron and epo deficient 5. Secondary hyperparathyroidism, hyperphosphatemia.Phosphorus improved 6. Hyperuricemia: repeat 7. Cardiomyopathy, cardiology seeing 8. adrenal adenoma Recommend: Remove femoral HD catheter. plan for tunneled HD catheter placement today , followed by HD.? Refer to outpatient dialysis unit. IV iron, epogen at dialysis. Attestations Medical Necessity Statement*: Requires further hospitalization for management of end-stage disease requiring hemodialysis, gram-negative bacteremia while patient requires permacatheter for long-term dialysis as an outpatient. Coding Level of Care Code Acute Time Motion Analyst for [facility] Fwd Diagnoses ESRD (end stage renal disease) N18.6
[2022-08-06 11:58] LABS: Albumin,Urine Random 49 %; Alpha-1-Globulins Urine Random 8 %; Alpha-2-Globulins Urine Random 14 %; Beta-Globulin,Urine Random 16 %; Gamma Globulin,Urine Random 13 %
--- NOTE | 2022-08-06 12:42 | PM.PN ---
Subjective Subjective: No acute vents overnight. Patient denies any nausea, vomiting, headache. Patient has remained status quo. Blood pressure slightly elevated. Plan for session of dialysis today. Denies any difficulty in breathing or runny nose. Able to get out of bed. Medications: Reviewed: Yes Vitals/I&O/Wt Last Vital Signs Temp 98.7 F 08/06/22 08:00 Pulse 77 08/06/22 08:39 Resp 18 08/06/22 11:18 BP 155/60 08/06/22 11:22 Pulse Ox 96 08/06/22 08:39 O2 Del Method 08/06/22 08:39 O2 Flow Rate 2 08/06/22 08:39 08/05/22 08/06/22 08/06/22 22:59 06:59 14:59 Intake Total 720 / 1680 480 / 480 Balance 720 / 1680 480 / 480 Physical Exam Narrative: Right groin dialysis catheter present Const: COMMON NORMALS: patient oriented x3 and alert GENERAL APPEARANCE: cooperative ORIENTATION/CONSCIOUSNESS: Yes awake OTHER: Nasal cannula HENMT: COMMON NORMALS: oropharynx normal Neck/C-Spine: COMMON NORMALS: no JVD Resp: AUSCULTATION: crackles Laterality: left (Lower) and diminished lung sounds (L lower) Cardio: COMMON NORMALS: no JVD, regular rhythm, S1 normal heart sound present, S2 normal heart sound present and No murmurs present (Cardio) RHYTHM: regular rhythm HEART SOUNDS: S1 normal heart sound present and S2 normal heart sound present GI: COMMON NORMALS: Normal to inspection, nondistended, normoactive bowel sounds present, Soft to palpation and non-tender PALPATION: Yes Soft to palpation Extremity: COMMON NORMALS: no joint enlargement GENERAL: Yes edema (With mild improvement) Neuro: COMMON NORMALS: patient oriented x3 and moves all extremities SENSORIUM/ORIENTATION: Yes alert Skin: COMMON NORMALS: no rashes or lesions noted GENERAL SKIN EXAM: no rashes or lesions noted Urinary Catheter Management: Molina Latex: Cath Placed During This Visit: yes, but has since been removed by the nurse Reason for Continuing Indwelling Catheter: Accurate Measurement of Urinary Output in Critically Ill Patients Urinary Catheter Date of Insertion: 08/02/22 Urinary Catheter Time of Insertion: 02:21 Date Urinary Catheter Removed: 08/03/22 Time Urinary Catheter Discontinued: 11:02 Data 08/06/22 04:33 08/06/22 04:33 Micro: Microbiology 08/01/22 23:46 Blood Culture - Final Blood Providencia rettgeri 08/03/22 10:10 Urine Culture - Final Urine Kidney A&P Assessment and plan (1) Bacteremia: 4/4 gram-negative kb bacteremia. Repeat blood cultures sent today. ID and sensitivity pending. UA negative for UTI. CT abdomen pelvis negative for any acute abnormality. Consistent with biliary dilatation. Patient postcholecystectomy. Will assess with liver ultrasound. If still concerning then we will plan for MRCP. Continue with cefepime. Will de-escalate as per culture results. Most likely patient will need at least 2 weeks of IV antibiotics after first negative set of blood cultures. (2) Acute renal failure: Most likely ESRD. Patient will need outpatient dialysis as well. Will plan for tunneled catheter placement once surgical service is available and blood cultures remain negative. Case management alerted for outpatient dialysis chair. Appreciate nephrology recommendation (3) Pneumonia: MRSA negative, urine Legionella, bacterial antigen negative. Continue with cefepime for now. Oxygen supplementation keeping saturation over 90%. (4) Cardiomegaly: New cardiomyopathy of unclear etiology. Appreciate cardiology consultation. Will need additional assessment. Cardiology will be following up, reevaluate condition, with consideration of further modalities for assessment of possibility of underlying CAD, ischemic etiology. TTE with severely reduced LVEF 25 to 30%. Severe global hypokinesis. Grade 2 diastolic dysfunction. RV hypokinetic. Biatrial enlargement. Mild mitral regurgitation. Mild to moderate cuspid vegetation. Mild pulmonic regurgitation. Mildly dilated ascending aorta. Unknown etiology. Could be hypertensive cardiomyopathy. Patient does have history of angiogram 5 years ago. Appreciate cardiology recommendation. Most likely will plan for Lexiscan stress test. (5) Anemia: Anemia suspected chronic kidney disease No active bleed Received blood transfusion, B12 not low, normal iron studies low. Continuing oral iron supplementation. Check reticulocyte count. We will plan to add additional Procrit accordingly. (6) Hyperkalemia: Improved. Continues with hemodialysis. Plan Hypertension: Goal blood pressure less than 140/90 mmHg. Continue with losartan 100 mg daily. Will add Coreg 3.125 twice daily and uptitrate as per goal. Can use hydralazine 10 mg IV every 4 hours as needed for systolic blood pressure of more than 150 mmHg. Acute metabolic encephalopathy: Secondary progression of renal failure, uremia. Noted asterixis on exam. Assess reported ultrasound with history of hepatitis C. INR noted abnormal at 1.43. Albumin low at 2.8. Platelets low at 125. If progression to cirrhosis. Will benefit from reassessment of liver function once in a little bit more stable condition. Will check ammonia. Hepatitis C: History of treatment. Viral RNA load has been ordered D-dimer abnormality in setting of JEN on CKD: No DVT in lower extremities 1.4 cm right adrenal nodule noted on CT with 7 nodule. Measurements suggesting benign adrenal myelolipoma versus benign adrenal adenoma. Analgesia: Tylenol as needed Glycemic control: Not needed. Nutrition: Renal cardiac diet CODE STATUS: Full code PUD prophylaxis: Famotidine DVT prophylaxis: Heparin 5000 every 12 hourly Discharge planning: Home with caregiver once patient is medically stable. Will need a dialysis access prior to discharge. [facility] care [facility] with telemetry. Plan for the day: Follow-up repeat cultures. Continue Levaquin as per renal functions. Dialysis session today. Consult surgery for tunneled catheter placement. Goal blood pressure less than 140/90 mmHg. We will add hydralazine 25 mg 3 times daily. Uptitrate as per goal blood pressures. Flu negative. This documentation was created by [employer] wood shop teacher software. Every effort was made to ensure accuracy of wood shop teacher. Any obvious errors or omissions should be clarified with the author of the document. Attestations Medical Necessity Statement*: Requires further hospitalization for management of ESRD requiring hemodialysis while tunneled catheter was placed, antihypertensives were further adjusted, gram-negative bacteremia Time Spent in Patient Care: Greater than 35 minutes Coding Level of Care Code Acute Farm Equipment Assembler for [facility] Fwd Diagnoses Bacteremia R78.81 Acute renal failure N17.9 Pneumonia J18.9 Cardiomegaly I51.7 Anemia D64.9 Hyperkalemia E87.5
--- NOTE | 2022-08-06 15:38 | PM.CONSULT ---
Providers/Reason For Consult Consulting Physician/Specialty*: Dr. Omar Smith, DO/General surgery Reason for Consult*: Permacath requested Attending Physician: Clem Talbert MD History of Present Illness History of Present Illness Ashley Miranda is a 61 year old female who I recently put a temporary hemodialysis catheter in. Nephrology is requesting permacath placement for long-term hemodialysis. She denies any abdominal pain, nausea, emesis, diarrhea and/or constipation. Review of Systems General: Reports: 10 or more systems reviewed and unremarkable except in HPI and below Medications/Allergies Home Medications Medication Instructions Recorded Confirmed Last Taken Type morphine 15 mg immediate release 15 mg PO TID PRN Pain 08/01/22 08/01/22 08/01/22 History tablet morphine 30 mg tablet,extended 30 mg PO BID 08/01/22 08/01/22 08/01/22 20:00 History release Allergies Allergy/AdvReac Type Severity Reaction Status Date / Time No Known Allergies Allergy Verified 08/01/22 22:46 Current Medications Generic Name Dose Route Start Last Admin Trade Name Freq PRN Reason Stop Dose Admin Acetaminophen 500 mg 08/02/22 02:12 08/03/22 15:13 Acetaminophen 500 Mg Tablet PO 500 mg Q4H PRN Administration fever Calcium Acetate 1,334 mg 08/03/22 12:00 08/06/22 11:24 Calcium Acetate 667 Mg Capsule PO 1,334 mg TIDWM LOREN Administration Carvedilol 6.25 mg 08/05/22 18:00 08/06/22 05:52 Carvedilol 3.125 Mg Tablet PO 6.25 mg Q12H LOREN Administration Famotidine 20 mg 08/04/22 18:00 08/06/22 11:20 Famotidine 20 Mg Tablet PO 20 mg BID LOREN Administration Ferrous Gluconate 324 mg 08/04/22 09:25 08/06/22 11:21 Ferrous Gluconate 324 Mg Tablet PO 324 mg BIDWM LOREN Administration Fluticasone Propionate 1 spray 08/06/22 09:00 08/06/22 11:22 Fluticasone Nasal [place] 16gm Btl NASAL Not Given DAILY LOREN Furosemide 80 mg 08/04/22 08:00 08/06/22 11:21 Furosemide 40 Mg Tablet PO 80 mg DAILY@0800 LOREN Administration Heparin Sodium (Porcine) 5,000 unit 08/04/22 15:15 08/05/22 03:14 Heparin 5,000 Unit/Ml Inj 1 Ml SUBCUT 5,000 unit Q12H LOREN Administration Hydralazine HCl 10 mg 08/04/22 14:51 08/05/22 04:23 Hydralazine 20 Mg/Ml Inj 1 Ml IVP 10 mg Q6H PRN Administration HYPERTENSION Hydralazine HCl 25 mg 08/06/22 09:45 08/06/22 14:55 Hydralazine 25 Mg Tablet PO 25 mg TID LOREN Administration Hydroxyzine Pamoate 25 mg 08/04/22 10:58 08/05/22 03:16 Hydroxyzine 25 Mg Capsule PO 25 mg QID PRN Administration ANXIETY Lanolin 1 applic 08/05/22 15:02 08/05/22 15:39 Lanolin Oint 7 Gm TOPICAL 1 applic PRN PRN Administration DRYNESS Losartan Potassium 100 mg 08/03/22 21:00 08/06/22 11:22 Losartan 50 Mg Tablet PO 100 mg DAILY LOREN Administration Morphine Sulfate 15 mg 08/02/22 09:00 08/06/22 11:18 Morphine Er (12 Hr) 30 Mg Tablet PO 15 mg BID LOREN Administration Morphine Sulfate 10 mg 08/02/22 08:46 08/06/22 04:06 Morphine Ir 15 Mg Tablet PO 10 mg TID PRN Administration Pain Multivitamins 1 each 08/02/22 09:00 08/06/22 11:18 D-Ykgazce-Ycvdpaw C Tablet PO 1 each DAILY LOREN Administration Ondansetron HCl 4 mg 08/02/22 02:12 08/03/22 13:38 Ondansetron 2 Mg/Ml Sdv 2 Ml IVP 4 mg Q6H PRN Administration NAUSEA AND VOMITING PFSH Acute PFSH: Medical History CKD (chronic kidney disease) Degenerative joint disease (DJD) of lumbar spine Hepatitis C Surgical History No pertinent past surgical history Family History Denies family history of CAD (coronary artery disease) Social History Smoking and tobacco status: never smoked Alcohol intake: never Substance/Drug Use: never Household members: spouse Housing: House Vitals/I&O/Wt Last Vital Signs Temp 98.0 F 08/06/22 12:00 Pulse 73 08/06/22 12:00 Resp 16 08/06/22 12:00 BP 172/86 08/06/22 12:00 Pulse Ox 97 08/06/22 12:00 O2 Del Method 08/06/22 12:00 O2 Flow Rate 2 08/06/22 08:39 08/06/22 08/06/22 08/06/22 06:59 14:59 22:59 Intake Total 720 / 720 Balance 720 / 720 Physical Exam Narrative: General : Patient is well developed , no acute distress, oriented x3 Head : Normal cephalic, a-traumatic. Ears : Pinnae and external canal are normal. Hearing is normal. Eyes : PERRLA, Sclera and injection are normal. No conjunctival discharge. Nose : Mucous membranes are without erythema. Throat : buccal mucosa is normal, gums are without significant recession or hypertrophy. Lungs : Equal chest rise bilaterally, no use of accessory muscles, trachea is midline. Cor : Rate and rhythm are normal. Abdomen : Soft, ND, NT, no g/r/m Extremities : No edema, no cyanosis or clubbing, dorsalis pedis pulses are present bilaterally, non-tender to palpation of calves. Upper extremities are normal bilaterally. Back : non-tender to palpation, no CVA tenderness. Neuro : CN II - XII intact, Upper and lower extremities have equal and full strength Urinary Catheter Management: Molina Latex: Cath Placed During This Visit: yes, but has since been removed by the nurse Reason for Continuing Indwelling Catheter: Accurate Measurement of Urinary Output in Critically Ill Patients Urinary Catheter Date of Insertion: 08/02/22 Urinary Catheter Time of Insertion: 02:21 Date Urinary Catheter Removed: 08/03/22 Time Urinary Catheter Discontinued: 11:02 Data 08/06/22 04:33 08/06/22 04:33 Micro: Microbiology 08/01/22 23:46 Blood Culture - Final Blood Providencia rettgeri A&P Assessment and plan (1) ESRD (end stage renal disease): Plan Permacath placement The risks and benefits of the procedure, including but not limited to, bleeding, infection, infection requiring catheter removal antibiotic therapy and repeat surgery, damage to surrounding structures, scar, numbness, pain, pneumothorax requiring thoracostomy tube, were explained to the patient. He/She is understanding of the risks and wishes to proceed. 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
[2022-08-06] MEDS: hyDRALAzine 20 mg/mL INJ 1 mL 10 MG IVP (17:27)
[2022-08-06] MEDS: hyDROXYzine 25 mg Capsule PO (17:37)
--- NOTE | 2022-08-06 18:08 | PC.NURSE ---
Patient resting in bed awaiting dialysis treatment. Not capable of getting patient in OR today for perm cath plan to in AM. Elevated BP during shift, physician aware and med changes made, also gave IV prn bp medication per NOV. Remaining VSS, AAOx4, red rash to left forearm, patient states, it has been like that they have something like benadryl they give me. Patient OOBTC and restroom with walker and no complications. Room clean and clutter free with call light in reach, no new events during shift, no needs at this time, all questions and concerns addressed.
[2022-08-06] MEDS: heparin, porcine 1,000 unit/mL INJ 10 mL HE (18:34)
[2022-08-06] MEDS: epoetin alfa (ESRD) 5,000 UNIT in SYRINGE 1 EACH 0.25 UNIT IVP (18:45)
--- NOTE | 2022-08-06 22:41 | PC.NURSE ---
Epoetin was given by Dialysis nurse during dialysis. Asked to scan for charge purpose.
[2022-08-07] VITALS (11 sets, daily range): BP systolic 120–171; BP diastolic 71–96; PULSE 65–83; RESP 15–19; TEMP 36.2–36.8; O2SAT 92–100
[2022-08-07 05:35] LABS: Basophils % 0.5 %; Eosinophils # 0.3 10^3/uL (0.0-0.8); Eosinophils % 5.8 %; Hematocrit 26.7 % (37.0-47.0); Hemoglobin 8.2 g/dL (11.5-15.3); Lymphocytes # 0.3 10^3/uL (0.8-4.8); Lymphocytes % 6.2 %; Mean Corpuscular HGB Conc 30.7 g/dL (30.0-36.0); Mean Corpuscular Hemoglobin 29.1 pg (28.0-34.0); Mean Corpuscular Volume 94.7 fl (81-99); Mean Platelet Volume 11.2 fL (7.4-10.4); Monocytes # 0.3 10^3/uL (0.2-0.9); Monocytes % 7.6 %; Neutrophils # 3.43 10^3/uL (1.8-7.7); Neutrophils % 79.2 %; Nucleated Red Blood Cells % 0 %; Platelet Count 77 10^3/cmm (130-400); Red Blood Count 2.82 10^6/uL (4.1-5.3); Red Cell Distribution Width 16.5 % (12.1-15.1); White Blood Count 4.3 10^3/uL (4.0-10.0)
[2022-08-07 06:13] LABS: Alanine Aminotransferase 60 U/L (0-33); Albumin Level 2.8 g/dL (3.5-5.2); Alkaline Phosphatase 147 U/L (35-105); Aspartate Amino Transferase 56 U/L (0-32); Calcium 8.3 mg/dL (8.5-10.5); Carbon Dioxide 22 mmol/L (22-29); Chloride 100 mmol/L (98-107); Globulin 3.1 g/dL (1.3-4.6); Glomerular Filtration Rate 6.3 mL/min (90-130); Glucose 93 mg/dL (65-115); Osmolality Calculated 306 mOsm/kg (285-295); Sodium 136 mmol/L (136-145); Total Bilirubin 0.3 mg/dL (0.15-1.2); Total Protein 5.9 g/dL (6.6-8.7)
[2022-08-07 06:17] LABS: Blood Urea Nitrogen 81 mg/dL (6-20)
--- NOTE | 2022-08-07 06:38 | SC_ITS ---
WS: [id number] C-arm [place] for CVA [id number] REASON FOR EXAM: intra-op FINDINGS: Transverse right jugular vein dialysis catheter placement. Tip of the dialysis catheter is at the level of the right atrium. SC/C-arm [place] for CVA [id number] IMPRESSION: Right jugular vein dialysis catheter placement as above.
--- NOTE | 2022-08-07 06:48 | ANES.PREANE2 ---
Pre-Anesthetic Assessment Height/Weight: Height 1.68 m Weight 85.1 kg Temp Pulse Resp BP Pulse Ox O2 Del Method O2 Flow Rate 97.8 F 71 18 171/96 100 3 08/07/22 06:13 08/07/22 06:13 08/07/22 06:13 08/07/22 06:13 08/07/22 06:13 08/07/22 06:13 08/07/22 06:13 Operation Date: 08/07/22 07:00 Proposed Procedures p Dialysis Catheter Insertion(Not Applicable) - Omar Smith DO Familial anesthetic complications: None Was Beta Coby taken within 24 hours: N/A Was Clonidine taken within 24 hours: N/A Last intake: Intake Last Liquid Date 08/06/22 Last Liquid Time 22:00 Last Solid Date 08/06/22 Last Solid Time 22:00 Social No alcohol and No tobacco Exam alert, oriented x 3, clear to auscultation bilaterally and regular rate & rhythm Airway Mallampati: Class I Dentition: other (missing teeth) Pulmonary pneumonia on NC CV/HEM Hypertension cardiomyopathy - unknown etiology echo w/ ef 2%, mild MVR, mod TVR and PVR and hypokinetic RV Chronic Renal Failure Hepatic hepatitis C Metabolic bacteremia Anesthetic Plan ASA status: 4 Anesthesia: MAC Risk of > 500 ml blood loss (7ml/kg in children): No Medications/Allergies Home Medications Medication Instructions Recorded Confirmed Last Taken Type morphine 15 mg immediate release 15 mg PO TID PRN Pain 08/01/22 08/01/22 08/01/22 History tablet morphine 30 mg tablet,extended 30 mg PO BID 08/01/22 08/01/22 08/01/22 20:00 History release Allergies Allergy/AdvReac Type Severity Reaction Status Date / Time No Known Allergies Allergy Verified 08/01/22 22:46 Current Medications Generic Name Dose Route Start Last Admin Trade Name Freq PRN Reason Stop Dose Admin Acetaminophen 500 mg 08/02/22 02:12 08/03/22 15:13 Acetaminophen 500 Mg Tablet PO 500 mg Q4H PRN Administration fever Calcium Acetate 1,334 mg 08/03/22 12:00 08/06/22 17:24 Calcium Acetate 667 Mg Capsule PO 1,334 mg TIDWM LOREN Administration Carvedilol 6.25 mg 08/05/22 18:00 11/29/22 06:08 Carvedilol 3.125 Mg Tablet PO Not Given Q12H [facility] Famotidine 20 mg 08/04/22 18:00 08/06/22 17:22 Famotidine 20 Mg Tablet PO 20 mg BID LOREN Administration Ferrous Gluconate 324 mg 08/04/22 09:25 08/06/22 17:21 Ferrous Gluconate 324 Mg Tablet PO 324 mg BIDWM LOREN Administration Fluticasone Propionate 1 spray 08/06/22 09:00 08/06/22 11:22 Fluticasone Nasal [place] 16gm Btl NASAL Not Given DAILY [facility] Furosemide 80 mg 08/04/22 08:00 08/06/22 11:21 Furosemide 40 Mg Tablet PO 80 mg DAILY@0800 LOREN Administration Heparin Sodium (Porcine) 5,000 unit 08/04/22 15:15 08/05/22 03:14 Heparin 5,000 Unit/Ml Inj 1 Ml SUBCUT 5,000 unit Q12H LOREN Administration Hydralazine HCl 10 mg 08/04/22 14:51 08/06/22 17:27 Hydralazine 20 Mg/Ml Inj 1 Ml IVP 10 mg Q6H PRN Administration HYPERTENSION Hydralazine HCl 25 mg 08/06/22 09:45 08/06/22 22:51 Hydralazine 25 Mg Tablet PO 25 mg TID LOREN Administration Hydroxyzine Pamoate 25 mg 08/04/22 10:58 08/06/22 17:37 Hydroxyzine 25 Mg Capsule PO 25 mg QID PRN Administration ANXIETY Epoetin Yves 5,000 unit/ N/A 0.25 mls @ 0 mls/hr 08/03/22 15:00 08/06/22 19:45 IVP Infused ONCE [facility] Infusion As Directed Lanolin 1 applic 08/05/22 15:02 08/05/22 15:39 Lanolin Oint 7 Gm TOPICAL 1 applic PRN PRN Administration DRYNESS Losartan Potassium 100 mg 08/03/22 21:00 08/06/22 11:22 Losartan 50 Mg Tablet PO 100 mg DAILY LOREN Administration Morphine Sulfate 15 mg 08/02/22 09:00 08/06/22 17:21 Morphine Er (12 Hr) 30 Mg Tablet PO 15 mg BID LOREN Administration Morphine Sulfate 10 mg 08/02/22 08:46 08/06/22 04:06 Morphine Ir 15 Mg Tablet PO 10 mg TID PRN Administration Pain Multivitamins 1 each 08/02/22 09:00 08/06/22 11:18 M-Vuzyuhk-Iscjqba C Tablet PO 1 each DAILY LOREN Administration Ondansetron HCl 4 mg 08/02/22 02:12 08/03/22 13:38 Ondansetron 2 Mg/Ml Sdv 2 Ml IVP 4 mg Q6H PRN Administration NAUSEA AND VOMITING PFSH Anesthesia Medical History CKD (chronic kidney disease) Degenerative joint disease (DJD) of lumbar spine Hepatitis C Surgical History No pertinent past surgical history Family History Denies family history of CAD (coronary artery disease) Social History Smoking and tobacco status: never smoked Alcohol intake: never Substance/Drug Use: never Household members: spouse Housing: House Data Anesthesia 08/07/22 04:46 08/07/22 04:46 Short CBC 08/06/22 08/07/22 Range/Units 04:33 04:46 WBC 3.9 L 4.3 (4.0-10.0) 10^3/uL Hgb 7.7 L 8.2 L (11.5-15.3) g/dL Hct 25.8 L 26.7 L (37.0-47.0) % MCV 97.0 94.7 (81-99) fl Plt Count 76 L 77 L (130-400) 10^3/cmm Neut % (Auto) 77.0 79.2 % Neut # (Auto) 3.00 3.43 (1.8-7.7) 10^3/uL BMP 08/06/22 08/07/22 04:33 04:46 Sodium 133 L 136 Potassium 5.3 H 5.0 Chloride 98 100 Carbon Dioxide 20 L 22 BUN 119 H* 81 H Creatinine 9.1 H* 6.7 H* Glucose 100 93 Calcium 7.9 L 8.3 L Liver Function 08/06/22 08/07/22 Range/Units 04:33 04:46 Total Bilirubin 0.2 0.3 (0.15-1.2) mg/dL AST 43 H 56 H (0-32) U/L ALT 52 H 60 H (0-33) U/L Alkaline Phosphatase 124 H 147 H (35-105) U/L Albumin 2.7 L 2.8 L (3.5-5.2) g/dL Cardiac Studies: Echocardiogram 08/02/22
--- NOTE | 2022-08-07 06:58 | W.PM.OPSUD ---
Surgery/Procedure H&P Update DATE OF PROCEDURE: August 07, 2022 DATE H&P PERFORMED: 08/06/22 PLANNED PROCEDURE: Operation Date: 08/07/22 07:00 Proposed Procedures p Dialysis Catheter Insertion(Not Applicable) - Omar Smith DO
[2022-08-07] MEDS: sodium chloride 0.9% 1,000 ML 30 ML IV (07:09)
[2022-08-07] MEDS: sodium chloride 0.9% 100 mL Bag XX (07:38)
[2022-08-07] MEDS: heparin, porcine 1,000 unit/mL INJ 10 mL 10000 UNIT IRRIGATION (07:39)
--- NOTE | 2022-08-07 07:59 | P.OP_ITS ---
Operative Report Date of procedure: August 07, 2022 Pre-op diagnosis: End-stage renal disease Post-op diagnosis: same Procedure done: Right internal jugular permacath placement Implants: Permacath Surgeon: Dr. Omar Smith DO Anesthesia: MAC Estimated blood loss (mL): 10 Complications: None apparent Brief History: This is a very pleasant 61-year-old female who is undergoing temporary hemodialysis. Nephrology determined that she needs long-term hemodialysis. Permacath placement was indicated. The risks and benefits were explained and documented. Procedure: Patient was taken to the operating room and placed supine on the operating room table. All bony prominences were padded. He was given IV sedation and monitored throughout the case by the anesthesia personnel. SCDs were placed and turned on. The arms were tucked to the side. Patient received Vancomycin preoperatively IV. The bilateral chest wall was prepped and draped in usual sterile fashion using chlorhexidine base prep. Sterile drapes were applied. We did procedure pause prior to beginning. An 18 gauge needle was placed in the right internal jugular vein under ultrasound guidance. Dark, nonpulsatile blood was aspirated. A guidewire was placed through the needle centrally toward the atrial/vena caval junction. Fluoroscopy visualized good placement. The needle was removed and the guidewire was clipped to the drape with a hemostat. Further local anesthetic was infiltrated in the soft tissues of the right chest wall and a #15 blade was used to make a vertical skin incision. A #15 blade was used to make a small skin ml around the guidewire insertion area. The permacath tubing was tunneled through the subcutaneous tissues up to the needle insertion location. Serial dilators were used to serially dilate over the guidewire . A dilator with a peel-away sheath was placed over the guidewire and placed centrally. The guid ewire was removed as well as the dilator and the permacath was fed into the split sheath. The split sheath was removed. Both ports were aspirated to reveal dark blood and were flushed with saline only as the patient has a heparin allergy. final fluoroscopy visualization showed no kink in the catheter and the tip of the permacath tubing near the atrial/vena caval junction. Both skin incisions were thoroughly irrigated and suctioned dry. Meticulous hemostasis noted. The internal jugular access site was closed with 4-0 Vicryl in a subcuticular fashion. The skin overlying the permacath was closed in a similar manner. The permacath was then sutured into place using 2-0 nylon in a simple interrupted fashion. skin glue was applied as a topical dressing. This was allowed to dry. Patient was awakened from anesthesia and transferred via her cart to the recovery room in stable condition. All needle, sponge, and instrument counts were correct per the operating personnel x2 counts.
--- NOTE | 2022-08-07 08:01 | XRR_ITS ---
PROCEDURE INFORMATION: Exam: XR Chest Exam date and time: 08/07/2022 9:15 AM Age: 61 years old Clinical indication: Device placement; Other: Permacath placement; Prior surgery; Surgery date: Post-operative (0-2 days); Additional info: S/P permacath placement TECHNIQUE: Imaging protocol: Radiologic exam of the chest. Views: 1 view. COMPARISON: CT chest con [id number] 08/02/2022 12:23 AM FINDINGS: Tubes, catheters and devices: Right IJ central venous catheter terminates in the region of the superior cavoatrial junction. Lungs: Mildly improved left lung airspace opacities. Pleural spaces: Unremarkable. No pleural effusion. No pneumothorax. Heart/Mediastinum: Cardiomegaly. Bones/joints: Unremarkable. XR/XR chest 1V portable [id number] IMPRESSION: 1. Mildly improved left lung airspace opacities. 2. Right IJ central venous catheter terminates in the region of the superior cavoatrial junction.
--- NOTE | 2022-08-07 11:12 | PC.NURSE ---
0930 patient to room 359 bed1 from pacu patient awake and stable will moniter
[2022-08-07 12:12] LABS: ANCA Screen NEGATIVE (NEGATIVE)
--- NOTE | 2022-08-07 12:59 | PM.PN ---
Subjective Subjective: No acute events overnight. Patient underwent tunneled catheter placement today. Tolerated the procedure well. Denies any nausea, vomiting, headache. Medications: Reviewed: Yes Vitals/I&O/Wt Last Vital Signs Temp 97.2 F L 08/07/22 08:25 Pulse 71 08/07/22 10:21 Resp 18 08/07/22 10:21 BP 143/77 08/07/22 08:30 Pulse Ox 97 08/07/22 10:21 O2 Del Method 08/07/22 10:21 O2 Flow Rate 2 08/07/22 10:21 08/06/22 08/07/22 08/07/22 22:59 06:59 14:59 Intake Total 540.25 / 1260.25 300 / 300 Output Total 5 / 5 Balance 540.25 / 1260.25 295 / 295 Physical Exam Narrative: Right groin dialysis catheter present, right thoracic tunneled catheter present Const: COMMON NORMALS: patient oriented x3 and alert GENERAL APPEARANCE: cooperative ORIENTATION/CONSCIOUSNESS: Yes awake OTHER: Nasal cannula HENMT: COMMON NORMALS: oropharynx normal Neck/C-Spine: COMMON NORMALS: no JVD Resp: AUSCULTATION: crackles Laterality: left (Lower) and diminished lung sounds (L lower) Cardio: COMMON NORMALS: no JVD, regular rhythm, S1 normal heart sound present, S2 normal heart sound present and No murmurs present (Cardio) RHYTHM: regular rhythm HEART SOUNDS: S1 normal heart sound present and S2 normal heart sound present GI: COMMON NORMALS: Normal to inspection, nondistended, normoactive bowel sounds present, Soft to palpation and non-tender PALPATION: Yes Soft to palpation Extremity: COMMON NORMALS: no joint enlargement GENERAL: Yes edema (With mild improvement) Neuro: COMMON NORMALS: patient oriented x3 and moves all extremities SENSORIUM/ORIENTATION: Yes alert Skin: COMMON NORMALS: no rashes or lesions noted GENERAL SKIN EXAM: no rashes or lesions noted Urinary Catheter Management: Molina Latex: Cath Placed During This Visit: yes, but has since been removed by the nurse Reason for Continuing Indwelling Catheter: Accurate Measurement of Urinary Output in Critically Ill Patients Urinary Catheter Date of Insertion: 08/02/22 Urinary Catheter Time of Insertion: 02:21 Date Urinary Catheter Removed: 08/03/22 Time Urinary Catheter Discontinued: 11:02 Data 08/07/22 04:46 08/07/22 04:46 A&P Assessment and plan (1) Bacteremia: 12/11 gram-negative bk bacteremia. Repeat blood cultures sent today. ID and sensitivity pending. UA negative for UTI. CT abdomen pelvis negative for any acute abnormality. Consistent with biliary dilatation. Patient postcholecystectomy. Will assess with liver ultrasound. If still concerning then we will plan for MRCP. Continue with cefepime. Will de-escalate as per culture results. Most likely patient will need at least 2 weeks of IV antibiotics after first negative set of blood cultures. (2) Acute renal failure: Most likely ESRD. Patient will need outpatient dialysis as well. Will plan for tunneled catheter placement once surgical service is available and blood cultures remain negative. Case management alerted for outpatient dialysis chair. Appreciate nephrology recommendation (3) Pneumonia: MRSA negative, urine Legionella, bacterial antigen negative. Continue with cefepime for now. Oxygen supplementation keeping saturation over 90%. (4) Cardiomegaly: New cardiomyopathy of unclear etiology. Appreciate cardiology consultation. Will need additional assessment. Cardiology will be following up, reevaluate condition, with consideration of further modalities for assessment of possibility of underlying CAD, ischemic etiology. TTE with severely reduced LVEF 25 to 30%. Severe global hypokinesis. Grade 2 diastolic dysfunction. RV hypokinetic. Biatrial enlargement. Mild mitral regurgitation. Mild to moderate cuspid vegetation. Mild pulmonic regurgitation. Mildly dilated ascending aorta. Unknown etiology. Could be hypertensive cardiomyopathy. Patient does have history of angiogram 5 years ago. Appreciate cardiology recommendation. Most likely will plan for Lexiscan stress test. (5) Anemia: Anemia suspected chronic kidney disease No active bleed Received blood transfusion, B12 not low, normal iron studies low. Continuing oral iron supplementation. Check reticulocyte count. We will plan to add additional Procrit accordingly. (6) Hyperkalemia: Improved. Continues with hemodialysis. Plan Hypertension: Goal blood pressure less than 140/90 mmHg. Continue with losartan 100 mg daily. Will add Coreg 3.125 twice daily and uptitrate as per goal. Can use hydralazine 10 mg IV every 4 hours as needed for systolic blood pressure of more than 150 mmHg. Acute metabolic encephalopathy: Secondary progression of renal failure, uremia. Noted asterixis on exam. Assess reported ultrasound with history of hepatitis C. INR noted abnormal at 1.43. Albumin low at 2.8. Platelets low at 125. If progression to cirrhosis. Will benefit from reassessment of liver function once in a little bit more stable condition. Will check ammonia. Hepatitis C: History of treatment. Viral RNA load has been ordered D-dimer abnormality in setting of JEN on CKD: No DVT in lower extremities 1.4 cm right adrenal nodule noted on CT with 7 nodule. Measurements suggesting benign adrenal myelolipoma versus benign adrenal adenoma. Analgesia: Tylenol as needed Glycemic control: Not needed. Nutrition: Renal cardiac diet CODE STATUS: Full code PUD prophylaxis: Famotidine DVT prophylaxis: Heparin 5000 every 12 hourly Discharge planning: Home with caregiver once patient is medically stable. Will need a dialysis access prior to discharge. Continue care at [facility] with telemetry. Plan for the day: Repeat blood cultures so far negative. Plan to discharge on Levaquin 500 mg every 48 hours as per creatinine clearance till August 17 to finish a 14-day course after first negative blood cultures. Tunnel catheter replaced. Plan for dialysis through tunneled catheter today and then remove femoral groin catheter external catheter working well. Plan to discharge tomorrow a.m. with outpatient dialysis on Saturday. Goal blood pressure less than 140/90 mmHg. Continue current antihypertensives. Uptitrate as per goal blood pressures. Flu negative. This documentation was created by [employer] business intelligence administrator software. Every effort was made to ensure accuracy of business intelligence administrator. Any obvious errors or omissions should be clarified with the author of the document. Attestations Medical Necessity Statement*: Requires further hospitalization in setting of end-stage renal disease requiring hemodialysis via tunnel catheter was placed and more permanent access is achieved while dialysis is arranged as an outpatient. Time Spent in Patient Care: Greater than 35 minutes Coding Level of Care Code Acute Rickshaw Driver for Chg Fwd Diagnoses Bacteremia R78.81 Acute renal failure N17.9 Pneumonia J18.9 Cardiomegaly I51.7 Anemia D64.9 Hyperkalemia E87.5
[2022-08-07] MEDS: morphine IR 15 mg Tablet 10 MG PO (13:06)
[2022-08-07] MEDS: calcium acetate 667 mg Capsule 1334 MG PO ×2 (13:11→20:28)
--- NOTE | 2022-08-07 13:19 | PC.CHAP ---
Pastoral Care Encounter/Spiritual Assessment Type of Contact [] Declined bar tender visit [] Patient/Family/Request visit [] Outpatient visit [] Follow-up visit [] Physician referral [] Code/Alert [x Routine visit [] Staff referral [] Actively dying [] Patient sleeping [] Family support [] [] Out of room [] Palliative care [] [] Receiving care in room [] Pre-surgical visit [] Trauma [] Long length of stay [] ICU visit [] Other: Relational/Emotional Strength [x] Patient feels connected with others/family/visitors/staff x] Distress [] Loneliness/isolation [] Abandonment Spirituality of Patient [x] Person of Mary [] Attends Congregational of their Mary [x] Believes in Prayer [] Reads Bible or Baptist materials [] There are Spiritual issues to be addressed Beater Engineer Interventions [x] Prayer [x] Active listening [] Non-anxious presence [] Spiritual/emotional support [] Crisis/trauma care [] Spiritual counseling [] Bereavement support [] Provided bereavement packet [] Provided Bible/devotional materials [] Provided toy/stuffed animal, coloring book to patient or family member [] Provided Communion [] Anointing/[place] [] Salvation [x] Completed spiritual assessment [] Other: Impact on Illness or Injury [] Angry [] Fearful [] Anxious [] Often cries [] Exhaustion [] Unable to work [] Unable to attend voodoo [] Unable to walk/stand [] Unable to read [] Unable to drive [] Unable to eat/drink [] Unable to sleep [] Unable to be with family [] Patient intubated [] Other: Summary Time spent with patient 10 min
--- NOTE | 2022-08-07 16:20 | ANE.PACU2 ---
Inpatient post-anesthesia follow up: Airway intact: Yes Vital signs: Temperature 97.2 F Pulse Rate 71 Respiratory Rate 16 Blood Pressure 143/77 Pulse Oximetry 95 Oxygen Delivery Me thod Nasal Cannula Oxygen Flow Rate 2 Fraction of Inspir ed Oxygen Hydration adequate: Yes Nausea and vomiting: No Pain level: 1 Mental status: Baseline
[2022-08-07] MEDS: ferrous gluconate 324 mg Tablet PO (18:52)
[2022-08-07] MEDS: hyDRALAzine 25 mg Tablet PO ×2 (18:52→20:40)
[2022-08-07] MEDS: morphine ER (12 HR) 30 mg tablet 15 MG PO (18:53)
[2022-08-07] MEDS: famotidine 20 mg Tablet PO (18:54)
[2022-08-07] MEDS: heparin 5,000 unit/mL INJ 1 mL 5000 UNIT SUBCUT (18:54)
[2022-08-07] MEDS: carvedilol 3.125 mg Tablet 6.25 MG PO (18:54)
[2022-08-07] MEDS: hyDROXYzine 25 mg Capsule PO (21:11)
--- NOTE | 2022-08-07 21:15 | PC.NURSE ---
Patients 2000 vital signs: 165/85 Blood pressure semi fowlers 83 pulse 92 oxygen room air 98.1 oral temp
--- NOTE | 2022-08-07 21:29 | PC.NURSE ---
Patient off floor at 2110 for dialysis. Vistaril PO given prior to for anxiety.
[2022-08-08] VITALS (8 sets, daily range): BP systolic 131–155; BP diastolic 66–84; PULSE 72–80; RESP 15–17; TEMP 36.7–37.2; O2SAT 95–97
[2022-08-08] MEDS: heparin 5,000 unit/mL INJ 1 mL 5000 UNIT SUBCUT (03:54)
[2022-08-08 05:29] LABS: Basophils % 0.4 %; Eosinophils # 0.1 10^3/uL (0.0-0.8); Eosinophils % 4.3 %; Hematocrit 23.9 % (37.0-47.0); Hemoglobin 7.3 g/dL (11.5-15.3); Lymphocytes # 0.3 10^3/uL (0.8-4.8); Lymphocytes % 10.6 %; Mean Corpuscular HGB Conc 30.5 g/dL (30.0-36.0); Mean Corpuscular Hemoglobin 28.7 pg (28.0-34.0); Mean Corpuscular Volume 94.1 fl (81-99); Mean Platelet Volume 11.2 fL (7.4-10.4); Monocytes # 0.2 10^3/uL (0.2-0.9); Monocytes % 8.5 %; Neutrophils # 2.13 10^3/uL (1.8-7.7); Neutrophils % 75.5 %; Nucleated Red Blood Cells % 0 %; Platelet Count 65 10^3/cmm (130-400); Red Blood Count 2.54 10^6/uL (4.1-5.3); Red Cell Distribution Width 16.3 % (12.1-15.1); White Blood Count 2.8 10^3/uL (4.0-10.0)
[2022-08-08 05:45] LABS: Alanine Aminotransferase 55 U/L (0-33); Albumin Level 2.6 g/dL (3.5-5.2); Alkaline Phosphatase 131 U/L (35-105); Anion Gap 14.5 (5-19); Aspartate Amino Transferase 51 U/L (0-32); Blood Urea Nitrogen 58 mg/dL (6-20); Carbon Dioxide 25 mmol/L (22-29); Chloride 103 mmol/L (98-107); Globulin 2.7 g/dL (1.3-4.6); Glomerular Filtration Rate 7.8 mL/min (90-130); Glucose 134 mg/dL (65-115); Osmolality Calculated 304 mOsm/kg (285-295); Potassium 4.5 mmol/L (3.5-5.1); Sodium 138 mmol/L (136-145); Total Bilirubin 0.2 mg/dL (0.15-1.2); Total Protein 5.3 g/dL (6.6-8.7)
[2022-08-08] MEDS: carvedilol 3.125 mg Tablet 6.25 MG PO (06:19)
[2022-08-08] MEDS: FUROsemide 40 mg Tablet 80 MG PO (09:23)
[2022-08-08] MEDS: hyDRALAzine 25 mg Tablet PO (09:23)
[2022-08-08] MEDS: ferrous gluconate 324 mg Tablet PO (09:24)
[2022-08-08] MEDS: losartan 50 mg Tablet 100 MG PO (09:24)
--- NOTE | 2022-08-08 09:27 | P.PN_ITS ---
Subjective Medications: Reviewed: Yes Vitals/I&O/Wt Last Vital Signs Temp 98.5 F 08/08/22 08:00 Pulse 76 08/08/22 08:00 Resp 17 08/08/22 08:00 BP 152/84 08/08/22 08:00 Pulse Ox 95 08/08/22 08:00 O2 Del Method 08/08/22 08:00 O2 Flow Rate 2 08/08/22 00:00 08/07/22 08/08/22 08/08/22 22:59 06:59 14:59 Intake Total 250 / 810 240 / 240 Balance 250 / 805 240 / 240 Physical Exam Const: GENERAL APPEARANCE: cooperative ORIENTATION/CONSCIOUSNESS: Yes awake Urinary Catheter Management: Molina Latex: Cath Placed During This Visit: yes, but has since been removed by the nurse Reason for Continuing Indwelling Catheter: Accurate Measurement of Urinary Out put in Critically Ill Patients Urinary Catheter Date of Insertion: 08/02/22 Urinary Catheter Time of Insertion: 02:21 Date Urinary Catheter Removed: 08/03/22 Time Urinary Catheter Discontinued: 11:02 Data 08/08/22 05:09 08/08/22 05:09 A&P Assessment and plan (1) ESRD (end stage renal disease): 1. ESRD. Ultrasound with bilateral, small echogenic kidneys. Nephrotic range proteinuria,? UPEP pneding, HD inittiated via femoral catheter 2. Sepsis: 4/4 BC + GNR, +Pneumonia 3. Hypertension, fluid overload, improved 4, Anemia: iron and epo deficient 5. Secondary hyperparathyroidism, hyperphosphatemia.Phosphorus improved 6. Hyperuricemia: repeat 7. Cardiomyopathy, cardiology seeing 8. adrenal adenoma 9. Pancytopenia Recommend: Rs/p tunneled HD catheter placement , followed by HD.? Refer to outpatient dialysis unit. IV iron, epogen at dialysis.OK to DC from renal standpoint once out pt hD arranged Attestations Medical Necessity Statement*: Requires further hospitalization in setting of end-stage renal disease requiring hemodialysis via tunnel catheter was placed and more permanent access is achieved while dialysis is arranged as an outpatien t. Time Spent in Patient Care: Greater than 35 minutes Coding Level of Care Code Acute Network Development Coordinator for Chg Fwd Diagnoses ESRD (end stage renal disease) N18.6
[2022-08-08] MEDS: calcium acetate 667 mg Capsule 1334 MG PO ×2 (09:32→12:57)
[2022-08-08] MEDS: famotidine 20 mg Tablet PO (09:32)
[2022-08-08] MEDS: morphine ER (12 HR) 30 mg tablet 15 MG PO (09:34)
--- NOTE | 2022-08-08 10:36 | PM.DCS ---
Discharge Providers Date of Admission: 08/02/22 00:43 Date of Discharge: August 08, 2022 Attending Provider at Admission: Bubba Garrison MD Attending Provider at Discharge: Clem Talbert MD Consults: Telemetry nephrology Surgery: Dr. Smith Cardiology: Dr. Payne Diagnoses at Discharge Discharge Diagnosis (1) ESRD (end stage renal disease): Status: Acute (2) Congestive heart failure: Status: Acute (3) Bacteremia: Status: Acute (4) Hyperkalemia: Status: Acute (5) Anemia: Status: Acute (6) Cardiomegaly: Status: Acute (7) Cardiomyopathy: Status: Acute Reason for Visit Reason for Visit: SOB, CP Brief History: History as per HPI: Ashley Miranda is a 61 year old female who carries history of hepatitis C stating that she was treated 20 years ago and also got a new treatment in 2011, she has history of chronic kidney disease, takes care of her who is suffering from congestive heart failure presenting to the hospital for worsening of swelling, shortness of breath.? Patient is stating that her symptoms started just 1 week ago with swelling of her legs, she became extremely fatigued and lethargic and does not have capacity to take care of her anymore.? She has not noticed any chest pain, hematuria, hematemesis, GI bleed.? Her urine output has decreased significantly.? Clinically dehydrated fatigued and lethargic, she has not noticed any chest pain, fever.? She gets short of breath easily. She does not see PCP on regular basis. Hospital Course Hospital Course Patient was admitted to the hospital further evaluation and management. On admission she was found to be in acute renal failure with hyperkalemia along with congestive heart failure and was also found to have a left lower lobe pneumonia. She was started on broad-spectrum antibiotics. Surgery, cardiology and nephrology were consulted. She underwent emergent dialysis. Echocardiogram was done which showed an EF of 25 to 30%. There is a concern for ischemic cardiomyopathy hence patient needs an ischemic work-up which will be done as an as an outpatient. Patient's hospital was otherwise unremarkable. Blood culture came back positive for procidentia. Antibiotics were tailored as per sensitivities. Repeat blood cultures have been negative. Eventually tunneled catheter was placed on 08/07. She was found to be hypotensive for which multiple antihypertensives were adjusted. She has been discharged hemodynamically stable condition to back home with advised to continue outpatient dialysis on Saturday, and Saturday. Outpatient stress test is being set up. She is to follow-up with a primary care provider and a clinical marketing manager within next 1 month. She is to continue taking Levaquin every other day for next 10 days. Discharge planning were discussed in detail with the patient and she verbalized understanding. Physical Exam Narrative: Right groin dialysis catheter present, right thoracic tunneled catheter present Const: COMMON NORMALS: patient oriented x3 and alert GENERAL APPEARANCE: cooperative ORIENTATION/CONSCIOUSNESS: Yes awake HENMT: COMMON NORMALS: oropharynx normal Neck/C-Spine: COMMON NORMALS: no JVD Resp: AUSCULTATION: crackles Laterality: left (Lower) and diminished lung sounds (L lower) Cardio: COMMON NORMALS: no JVD, regular rhythm, S1 normal heart sound present, S2 normal heart sound present and No murmurs present (Cardio) RHYTHM: regular rhythm HEART SOUNDS: S1 normal heart sound present and S2 normal heart sound present GI: COMMON NORMALS: Normal to inspection, nondistended, normoactive bowel sounds present, Soft to palpation and non-tender PALPATION: Yes Soft to palpation Extremity: COMMON NORMALS: no joint enlargement GENERAL: Yes edema (With mild improvement) Neuro: COMMON NORMALS: patient oriented x3 and moves all extremities SENSORIUM/ORIENTATION: Yes alert Skin: COMMON NORMALS: no rashes or lesions noted GENERAL SKIN EXAM: no rashes or lesions noted Urinary Catheter Management: Molina Latex: Cath Placed During This Visit: yes, but has since been removed by the nurse Reason for Continuing Indwelling Catheter: Accurate Measurement of Urinary Output in Critically Ill Patients Urinary Catheter Date of Insertion: 08/02/22 Urinary Catheter Time of Insertion: 02:21 Date Urinary Catheter Removed: 08/03/22 Time Urinary Catheter Discontinued: 11:02 Discharge Data Studies Completed and Pending Completed Studies During Hospitalization Category Date Time Status CT abdomen pelvis w con* [id number] Routine Cat Scan 08/03/22 13:[address] chest wo con [id number] Stat Cat Scan 08/01/22 23:20 Completed CXRP [XR chest 1V portable [id number]] Stat Exams 08/07/22 08:01 Completed XR chest 1V portable [id number] Stat Exams 08/01/22 22:29 Completed CV. echo complete* [id number] Routine Ultrasound 08/02/22 02:12 Completed US liver [id number] Routine Ultrasound 08/04/22 06:00 Completed US renal BI* [id number] Routine Ultrasound 08/02/22 08:39 Completed US venous duplex lower extremity bilat [CV venous Ultrasound 08/02/22 00:24 [place] [id number]] Stat Pending at discharge Category Date Time Status Blood Culture AM LABS Lab 08/04/22 04:55 Results Complete Blood Count w/Auto AM LABS Lab 08/09/22 04:00 Ordered Comprehensive Metabolic Panel AM LABS Lab 08/09/22 04:00 Ordered Cryoglobulins Qualitative Routine Lab 08/05/22 10:28 Received [place] Free Light Chains Urine Stat Lab 08/02/22 17:25 Received Radiology Impressions Chest CT 08/01/22 23:20 IMPRESSION: 1. Severe left lower lobe pneumonia with moderate left upper lobe pneumonia. Bumi-xc-qxvxywkb right-sided pneumonia. 2. Moderate cardiomegaly. 3. 1.4 cm right adrenal nodule with-7 Hounsfield unit measurement suggesting benign adrenal myelolipoma versus benign adrenal adenoma. No followup needed. COMMENTS: 1. Consistent with the [employer]'s Incidental Findings Committee white paper (J Am Fei Radiol 2017): For any incidental adrenal lesion greater than or equal to 1 cm but less than or equal to 4 cm classified in this report as benign, likely benign, or containing fat (including classification as an adenoma or myelolipoma), no follow-up imaging is recommended per consensus recommendations based on imaging criteria. Further lab evaluation could be pursued if warranted based on clinical findings. 2. Consistent with the [employer]'s Incidental Findings Committee white paper (J Am Fei Radiol 2018): Any incidental renal lesion less than 1 cm or classified as too small to characterize, or any incidental cystic renal lesion characterized as simple-appearing, is likely benign. No follow-up imaging is recommended for these lesions per consensus recommendations based on imaging criteria. Venous Duplex 08/02/22 00:24 IMPRESSION: No evidence of deep vein thrombosis. Renal Ultrasound 08/02/22 08:39 IMPRESSION: Atrophic kidneys with increased echogenicity of the renal parenchyma, which may be seen in the setting of medical renal disease. No hydronephrosis. Abdomen/Pelvis CT 08/03/22 13:39 IMPRESSION: 1. No acute findings in the abdomen or pelvis. 2. Gaseous distention of the stomach could represent gastroparesis. 3. Left lower lobe pneumonia versus aspiration. 4. Dilatation of the bile ducts is most likely chronic reservoir effect. If there is clinical evidence for biliary obstruction, this can be further evaluated with MRCP. COMMENTS: Consistent with the [employer]'s Incidental Findings Committee white paper (J Am Fei Radiol 2018): Any incidental renal lesion less than 1 cm or classified as too small to characterize, or any incidental cystic renal lesion characterized as simple-appearing, is likely benign. No follow-up imaging is recommended for these lesions per consensus recommendations based on imaging criteria. Liver Ultrasound 08/04/22 06:00 IMPRESSION: 1. Hepatomegaly without focal hepatic abnormality. 2. Status post cholecystectomy 3. Common bile duct measures 13 mm 4. Small right kidney with benign cyst. 5. Dilated portal vein 6. Medical renal disease C-Arm Fluoroscopy 08/07/22 06:38 IMPRESSION: Right jugular vein dialysis catheter placement as above. Chest X-Ray 08/07/22 08:01 IMPRESSION: 1. Mildly improved left lung airspace opacities. 2. Right IJ central venous catheter terminates in the region of the superior cavoatrial junction. Microbiology 08/01/22 23:46 Blood Blood Culture - Final Providencia rettgeri 08/03/22 10:10 Urine Kidney Urine Culture - Final 08/04/22 04:55 Blood Blood Culture - Preliminary NEGATIVE TO DATE 08/04/22 04:50 Blood Blood Culture - Preliminary NEGATIVE TO DATE 08/01/22 23:40 Blood Blood Culture - Final Providencia rettgeri 08/02/22 17:25 Nose MRSA Culture - Final 08/02/22 17:25 Urine Kidney Bacterial Antigens - Final 08/02/22 17:25 Urine Catheterized Legionella Urinary Antigen - Final Echocardiogram: ?CONCLUSIONS ?LV systolic function is severely reduced with EF of 25-30%. ?Severe global hypokinesis. ?Grade 2 diastolic dysfunction ?RV is hypokinetic ?Biatrial enlargement ?Mild mitral regurgitation ?Mild to moderate tricuspid regurgitation. Moderate pulmonic ?regurgitation ?Mildly dilated ascending aorta ?Compared to prior echocardiogram from 10/09/2021, LV systolic ?function is severely reduced now ?Amol Payne MD ?(Electronically Signed) ?Final Date:? ? ? 02 August 2022 ? 12:36 Laboratory Results WBC 2.8 10^3/uL (4.0-10.0) L 08/08/22 05:09 RBC 2.54 10^6/uL (4.1-5.3) L 08/08/22 05:09 Hgb 7.3 g/dL (11.5-15.3) L 08/08/22 05:09 Hct 23.9 % (37.0-47.0) L 08/08/22 05:09 MCV 94.1 fl (81-99) 08/08/22 05:09 MCH 28.7 pg (28.0-34.0) 08/08/22 05:09 MCHC 30.5 g/dL (30.0-36.0) 08/08/22 05:09 RDW 16.3 % (12.1-15.1) H 08/08/22 05:09 Plt Count 65 10^3/cmm (130-400) L 08/08/22 05:09 MPV 11.2 fL (7.4-10.4) H 08/08/22 05:09 Neut % (Auto) 75.5 % 08/08/22 05:09 Lymph % (Auto) 10.6 % 08/08/22 05:09 Centre % (Auto) 8.5 % 08/08/22 05:09 Eos % (Auto) 4.3 % 08/08/22 05:09 Baso % (Auto) 0.4 % 08/08/22 05:09 Reticulocyte % (Auto) 4.7 % (0.5-2.0) H 08/04/22 04:50 Neut # (Auto) 2.13 10^3/uL (1.8-7.7) 08/08/22 05:09 Lymph # (Auto) 0.3 10^3/uL (0.8-4.8) L 08/08/22 05:09 Centre # (Auto) 0.2 10^3/uL (0.2-0.9) 08/08/22 05:09 Eos # (Auto) 0.1 10^3/uL (0.0-0.8) 08/08/22 05:09 Baso # (Auto) 0.0 10^3/uL (0.0-0.1) 08/08/22 05:09 Nucleated RBC % (auto) 0 % 08/08/22 05:09 Nucleated RBCs # 0.0 /100WBC 08/08/22 05:09 Retic Production Index 2.98 08/04/22 04:50 Haptoglobin 215.0 mg/L (30-200) H 08/01/22 22:50 PT 17.80 SECONDS (12.1-14.9) H 08/01/22 22:50 INR 1.43 (0.8-1.2) H 08/01/22 22:50 D-Dimer 4.54 ug/mIFEU (0-0.59) H 08/01/22 22:50 Sodium 138 mmol/L (136-145) 08/08/22 05:09 Potassium 4.5 mmol/L (3.5-5.1) 08/08/22 05:09 Chloride 103 mmol/L (98-107) 08/08/22 05:09 Carbon Dioxide 25 mmol/L (22-29) 08/08/22 05:09 Anion Gap 14.5 (5-19) 08/08/22 05:09 BUN 58 mg/dL (6-20) H 08/08/22 05:09 Creatinine 5.6 mg/dL (0.5-0.9) H* 08/08/22 05:09 GFR Calculation 7.8 mL/min (90-130) L 08/08/22 05:09 Glucose 134 mg/dL (65-115) H 08/08/22 05:09 Estimat Average Glucose 94 08/02/22 07:51 Hemoglobin A1c 4.9 % (4.0-6.0) 08/02/22 07:51 Calculated Osmolality 304 mOsm/kg (285-295) H 08/08/22 05:09 Uric Acid 7.7 mg/dL (2.4-5.7) H 08/05/22 04:39 Calcium 8.0 mg/dL (8.5-10.5) L 08/08/22 05:09 Phosphorus 5.7 mg/dL (2.5-4.5) H 08/05/22 04:39 Magnesium 2.6 mg/dL (1.7-2.3) H 08/05/22 04:39 Iron 23 ug/dL (37-145) L 08/03/22 03:50 TIBC 186 mcg/dl 08/03/22 03:50 % Saturation 12.3 % (20-50) L 08/03/22 03:50 Unsat Iron Binding 163 ug/dL (112-347) 08/03/22 03:50 Ferritin 366 ng/mL (15-150) H 08/03/22 03:50 Total Bilirubin 0.2 mg/dL (0.15-1.2) 08/08/22 05:09 AST 51 U/L (0-32) H 08/08/22 05:09 ALT 55 U/L (0-33) H 08/08/22 05:09 Alkaline Phosphatase 131 U/L (35-105) H 08/08/22 05:09 Ammonia 17 umol/L (11-51) 08/04/22 04:55 Lactate Dehydrogenase 377 U/L (135-214) H 08/01/22 22:50 Troponin T Baseline 144 ng/L (0-10) H* 08/01/22 22:50 Troponin T 120 Minute 133.1 ng/L (0-10) H 08/02/22 01:30 Delta Troponin T -10.9 ABS# (0-10) L 08/02/22 01:30 Troponin T Hi Sens 6Hr 141.4 ng/L (0-10) H 08/02/22 07:51 Troponin T Hi Sens 6Hr Delta -2.6 ng/L (0-12) L 08/02/22 07:51 C-Reactive Protein 237.5 mg/L (0.0-4.9) H 08/02/22 07:51 NT-Pro-B Natriuret Pep > 47669 pg/mL (0-125) H 08/01/22 22:50 Total Protein 5.3 g/dL (6.6-8.7) L 08/08/22 05:09 Albumin 2.6 g/dL (3.5-5.2) L 08/08/22 05:09 Globulin 2.7 g/dL (1.3-4.6) 08/08/22 05:09 Mhxfh-7-Tinctjjzg 0.7 g/dL (0.2-0.3) H 08/02/22 07:51 Hjgvb-7-Emjrklsgi 0.8 g/dL (0.5-0.9) 08/02/22 07:51 Xtee-3-Hbqxlyjf 0.4 g/dL (0.4-0.6) 08/02/22 07:51 Ghss-0-Ntyfytst 0.3 g/dL (0.2-0.5) 08/02/22 07:51 Gamma Globulins 0.6 g/dL (0.8-1.7) L 08/02/22 07:51 Abnorm Protein Band 1 Not Reportable 08/02/22 07:51 Triglycerides 79 mg/dL (0-150) 08/06/22 04:33 Cholesterol 95 mg/dL (0-200) 08/06/22 04:33 LDL Cholesterol, Calc 49 mg/dL (50-129) L 08/06/22 04:33 Total VLDL Cholesterol 16 mg/dL (0-30) 08/06/22 04:33 HDL Cholesterol 30 mg/dL (60-100) L 08/06/22 04:33 Cholesterol/HDL Ratio 3.17 mg/dL (0.0-4.40) 08/06/22 04:33 Vitamin B12 1157 pg/mL (232-1245) 08/05/22 04:39 25-OH Vitamin D Total 26 ng/mL (30-100) L 08/03/22 03:50 1,25 Dihydroxy Vit D2 <8 pg/mL 08/02/22 09:52 1,25 Dihydroxy Vit D3 29 pg/mL 08/02/22 09:52 Folate 4.8 ng/mL (4.8-37.3) 08/05/22 14:04 Procalcitonin 5.98 ng/mL (0-0.5) H 08/02/22 07:51 TSH 2.67 uIU/mL (0.27-4.20) 08/02/22 07:51 PTH Intact 317.9 pg/mL (15-65) H 08/02/22 07:51 Calcium (PTH Intact) 8.6 mg/dL (8.5-10.5) 08/02/22 07:51 Urine Color Yellow (Yellow) 08/03/22 10:10 Urine Appearance Clear (CLEAR) 08/03/22 10:10 Urine pH 5 (5-7) 08/03/22 10:10 Ur Specific [place] 1.015 (1.005-1.030) 08/03/22 10:10 Urine Protein 2+ (Negative) H 08/03/22 10:10 Urine Glucose (UA) 1+ (Normal) H 08/03/22 10:10 Urine Ketones Negative (Negative) 08/03/22 10:10 Urine Blood 3+ (Negative) H 08/03/22 10:10 Urine Nitrate Negative (Negative) 08/03/22 10:10 Urine Bilirubin Neg (Negative) 08/03/22 10:10 Urine Urobilinogen Norm mg/dL (Negative) 08/03/22 10:10 Ur Leukocyte Esterase Negative (Negative) 08/03/22 10:10 Urine RBC 10-15 /hpf (0-2) H 08/03/22 10:10 Urine WBC 0-4 /hpf (0-5) H 08/03/22 10:10 Ur Eosinophil Smear 0 (0-0) 08/02/22 00:22 Ur Squamous Epith Cells 0-4 /hpf (0-5) H 08/03/22 10:10 Amorphous Sediment Not Reportable 08/03/22 10:10 Urine Bacteria Trace /hpf (NONE) 08/03/22 10:10 Urine Eosinophils No eosinophils seen 08/02/22 00:22 Ur Random Creatinine 65 mg/dL (20-275) 08/02/22 00:22 Ur Random Albumin 49 % 08/02/22 00:22 Ur Random Microalbumin 78 ug/dL (0-20) H 08/02/22 00:22 U Random Total Protein 212 mg/dL (5-24) H 08/02/22 00:22 Ur Random Sodium 32 mmol/L 08/02/22 00:22 Ur Random Potassium 45 mmol/L 08/02/22 00:22 Ur Random Chloride 37 mmol/L 08/02/22 00:22 Urine Creatinine 66 mg/dL (28-217) 08/02/22 00:22 Urine Creatinine 67 mg/dL (28-217) 08/02/22 00:22 Microalb/Creat Ratio 1164 mg/dL (0-20) H 08/02/22 00:22 Protein/Creatinin Ratio 3262 mg/g creat (24-184) H 08/02/22 00:22 Protein/Creat Ratio 24h 3.262 (0.024-0.184) H 08/02/22 00:22 U Random x-9-Hidunojc % 8 % 08/02/22 00:22 U Random g-5-Qtqobngt % 14 % 08/02/22 00:22 U Random Beta Globulin 16 % 08/02/22 00:22 U Random Gamma Glob 13 % 08/02/22 00:22 U Abnormal Prot Band 1 Not Reportable 08/02/22 00:22 U Abnormal Prot Band 2 Not Reportable 08/02/22 07:51 U Abnormal Prot Band 3 Not Reportable 08/02/22 07:51 Urine PEP Interpret See note 08/02/22 00:22 Pro Electrophoresis Int See note 08/02/22 07:51 Serum Immunofixation See note 08/02/22 09:52 JEAN Screen Negative (NEGATIVE) 08/02/22 09:52 ANCA Screen Negative (NEGATIVE) 08/02/22 07:51 ANCA Titer Not Reportable 08/02/22 07:51 MARI-1 Antibody <1.0 neg AI (<1.0 NEG) 08/02/22 07:51 SS-A/Ro IgG Antibody <1.0 neg AI (<1.0 NEG) 08/02/22 07:51 SS-B/La IgG Antibody <1.0 neg AI (<1.0 NEG) 08/02/22 07:51 Anti-nRNP/Sm IgG Ab <1.0 neg AI (<1.0 NEG) 08/02/22 07:51 Scl-70 Scleroderma Ab <1.0 neg AI (<1.0 NEG) 08/02/22 07:51 Anti-ds DNA IgG Ab <1 IU/mL 08/02/22 09:52 Free [place] Light Chains 153.8 mg/L (3.3-19.4) H 08/02/22 09:52 Free [place] Light Chain 68.9 mg/L (5.7-26.3) H 08/02/22 09:52 Free [place]/Lambda Ratio 2.23 (0.26-1.65) H 08/02/22 09:52 Hepatitis A IgM Ab Non-reactive (Nonreactive) 08/02/22 07:51 Hep Bs Antigen Cancelled 08/02/22 07:51 Hep Bs Antigen Non-reactive (Nonreactive) 08/02/22 07:51 Hep Bs Antibody 3.5 (11.5-1000) L 08/02/22 07:51 Hep Bs Antibody Cancelled 08/02/22 07:51 Hep B Core Total Ab Non-reactive (Nonreactive) 08/02/22 07:51 Hepatitis C Antibody Cancelled 08/02/22 07:51 Hepatitis C Antibody Reactive (Nonreactive) H 08/02/22 07:51 HCV RNA (PCR) IUs/ml Not Reportable 08/02/22 09:15 HCV RNA (PCR) IU log10 TNP 08/02/22 09:15 HIV 1&2 Ab & HIV 1 Ag Non-reactive (Non-Reactiv) 08/02/22 07:51 HIV 1&2 Antibody Non-reactive (Non-Reactiv) 08/02/22 07:51 Influenza Type A Ag negative (Negative) 08/05/22 11:44 Influenza Type B Ag negative (Negative) 08/05/22 11:44 SARS-CoV-2 Ag (Rapid) negative (Negative) 08/01/22 23:15 Anti-Streptolysin O Ab <50 IU/mL (<200) 08/02/22 09:52 Blood Type O Positive 08/01/22 23:30 Rho(D) Type Positive 08/01/22 23:30 Antibody Screen Negative 08/01/22 23:30 Crossmatch See Detail 08/01/22 23:30 Vitals Last Vital Signs Temp 98.5 F 08/08/22 08:00 Pulse 76 08/08/22 08:00 Resp 15 08/08/22 09:34 BP 155/74 08/08/22 09:24 Pulse Ox 95 08/08/22 08:00 O2 Del Method 08/08/22 08:00 O2 Flow Rate 2 08/08/22 00:00 Discharge Plan Discharge Patient Disposition: Home Condition: Stable Prescriptions: New losartan 50 mg Tablet 100 mg PO DAILY 30 Days Qty: 60 0RF furosemide 40 mg Tablet 80 mg PO DAILY@0800 30 Days Qty: 60 0RF hydralazine 25 mg Tablet 25 mg PO TID 30 Days Qty: 90 0RF carvedilol 3.125 mg Tablet 6.25 mg PO Q12H 30 Days Qty: 120 0RF famotidine 20 mg Tablet 20 mg PO BID Qty: 60 0RF levofloxacin 500 mg Tablet 500 mg PO Q48H 10 Days Qty: 5 0RF ferrous gluconate 324 mg (37.5 mg iron) Tablet 324 mg PO BIDWM Qty: 60 0RF Calphron 667 mg Tablet 1,334 mg PO TIDWM 30 Days Qty: 60 0RF Continued morphine 15 mg tablet 15 mg PO TID PRN (Reason: Pain) morphine 30 mg tablet extended release 30 mg PO BID Discharge Orders: Discharge Order (Routine); Ordered 08/08/22 Ordered By: Clem Talbert Referrals: [facility] [Other] (Your chair time is 0820 they are asking that you be there @ 0800 to complete paperwork.) Lopez Bateman MD [Physician] - 08/13/22 8:00 am (Will need New PCP appointment @ [place]. ) Amol Payne M.D [Physician] - 1 month Discharge Diet: Cardiac and Low Salt Discharge Activity: Resume usual activity and Increase activity as tolerated Patient Instructions: Iron Supplements (By mouth), Famotidine (By mouth), Furosemide (By mouth), Hydralazine (By mouth), Losartan (By mouth), Levofloxacin (By mouth), Carvedilol (By mouth), Opioid Safety Activity Restrictions/Additional Instructions: Please follow-up with a primary care provider at set appointment. Multiple new medications has been sent. You will be on carvedilol 6.25 mg twice daily, hydralazine 25 mg 3 daily, losartan 100 mg once daily for blood pressures. You will be on Lasix which is a water pill 80 mg daily. Please continue to follow-up with dialysis center on Saturday, and Saturdays. Please continue taking Levaquin which is the antibiotic for next 10 days. You will be taking it every other day. Discharge Attestations Time Spent in Discharge Care*: greater than 30 min Specific Discharge Activities: educating patient, discussing with pcp/other providers, discussing with case making machine operator/social workers/dc planners, documenting/other paperwork and evaluating patient/reviewing data Status at Discharge: Cognitive status at discharge: cognitively intact, Behavioral status at discharge: cooperative, Functional status at discharge: independent ambulation, Overall status at discharge: patient has a new baseline Quality Metrics Clinical Quality Measures [ No reported AMI, CVA or VTE this stay] Coding Level of Care Code Acute Chg FW DC note Exam Comprehensive Diagnoses ESRD (end stage renal disease) N18.6 Congestive heart failure I50.9 Bacteremia R78.81 Hyperkalemia E87.5 Anemia D64.9 Cardiomegaly I51.7 Cardiomyopathy I42.9
[2022-08-08] MEDS: b-complex-vitamin c Tablet 1 EACH PO (11:11)
--- NOTE | 2022-08-08 14:31 | PC.NURSE ---
1420 Discharge instructions given to patient who voiced understanding.
--- NOTE | 2022-08-08 14:33 | PC.NURSE ---
1430 patient taken to private car per wheel chair with personal belongings, accompained per staff.
[2022-08-09 14:33] LABS: HEP C RNA Viral Load Quant <1.18 NOT DETECTED Log IU/mL (NOT DETECTED); HEP C RNA Viral Load Quant <15 NOT DETECTED IU/mL (NOT DETECTED)
[2022-08-13 14:54] LABS: Cryoglobulins Qualitative Detected (None Detected)
== END 2022-08-08 14:30 | disposition home or self-care (01) | DRG 673 ==
LOC: ER 08-02 00:53 → ICU 08-02 01:01 → MEDSURG 08-04 13:30
PROVIDERS: Internal Medicine; Internal Medicine Nephrology; Surgery; Admitting Provider Internal Medicine; Emergency Provider Emergency Medicine; Visit Provider Student in an Organized Health Care Education/Training Program
PROC: 02HV33Z Insertion of Infusion Device into Superior Vena Cava, Percutaneous Approach (ICD-10-PCS; principal; 2022-08-07 07:00)
DX: N17.9 Acute kidney failure, unspecified (principal); G93.41 Metabolic encephalopathy; I50.21 Acute systolic (congestive) heart failure; J18.9 Pneumonia, unspecified organism; I13.2 Hypertensive heart and chronic kidney disease with heart failure and with stage 5 chronic kidney disease, or end stage renal disease; E87.20 Acidosis, unspecified; D61.818 Other pancytopenia; Z86.19 Personal history of other infectious and parasitic diseases; N18.6 End stage renal disease; E87.5 Hyperkalemia; R27.8 Other lack of coordination; D63.1 Anemia in chronic kidney disease; E86.0 Dehydration; G89.29 Other chronic pain; M54.9 Dorsalgia, unspecified; Z79.891 Long term (current) use of 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; I25.5 Ischemic cardiomyopathy; B96.89 Other specified bacterial agents as the cause of diseases classified elsewhere; D50.9 Iron deficiency anemia, unspecified; I34.0 Nonrheumatic mitral (valve) insufficiency; E21.1 Secondary hyperparathyroidism, not elsewhere classified
CPT/HCPCS: 12345; 36415; 36430; 51702; 71045; 71250; 74177; 76000; 76705; 76770; 77001; 80048; 80053; 80061; 81001; 82044; 82140; 82306; 82310; 82436; 82570; 82595; 82607; 82652; 82728; 82746; 83010; 83036; 83540; 83550; 83615; 83735; 83880; 83883; 83970; 84100; 84133; 84145; 84155; 84156; 84165; 84166; 84300; 84443; 84484; 84550; 85014; 85025; 85045; 85378; 85610; 85999; 86036; 86038; 86060; 86140; 86225; 86235; 86334; 86335; 86403; 86705; 86706; 86709; 86803; 86850; 86900; 86920; 87040; 87077; 87086; 87186; 87340; 87426; 87449; 87522; 87641; 87804; 87806; 90935; 93005; 93306; 93970; 94664; 96365; 96367; 96372; 96375; 97110; 97116; 97162; 99285; C1750; C1752; J0360; J0456; J0692; J0696; J1644; J1940; J2405; J2704; J2765; J2916; J3010; J3490; J7030; J7050; P9016; Q0144; Q3014; Q4081; Q9967

== ENCOUNTER → 2022-08-13 09:03 | Outpatient (BNVA) | payer OTHER, SELFPAY | PROVIDERS: PCP Family Medicine; Visit Provider Family Medicine | DX: R21 Rash and other nonspecific skin eruption (principal); I50.20 Unspecified systolic (congestive) heart failure; N18.6 End stage renal disease; D64.9 Anemia, unspecified; J18.9 Pneumonia, unspecified organism; I87.2 Venous insufficiency (chronic) (peripheral) | CPT/HCPCS: 80053 ==

== ENCOUNTER → 2022-08-24 08:13 | Day surgery (SDC) | payer OTHER, SELFPAY ==
[2022-08-24 08:38] VITALS: BP 158/76; PULSE 70; RESP 18; TEMP 36.8; O2SAT 99
[2022-08-24 08:58] LABS: Hematocrit 22.1 % (37.0-47.0); Hemoglobin 6.9 g/dL (11.5-15.3)
[2022-08-24 09:51] VITALS: BP 158/76; PULSE 70; RESP 18; TEMP 36.8; O2SAT 99
[2022-08-24] MEDS: sodium chloride 0.9% (100 ml) 100 ML 10 ML (10:01)
[2022-08-24 10:07] VITALS: BP 169/82; PULSE 64; RESP 18; TEMP 36.8; O2SAT 97
[2022-08-24 10:22] VITALS: BP 175/72; PULSE 77; RESP 18; TEMP 37.1; O2SAT 98
[2022-08-24 11:22] VITALS: BP 157/70; PULSE 69; RESP 18; TEMP 36.9; O2SAT 97
--- NOTE | 2022-08-24 11:56 | PC.NURSE ---
One unit PRBC's infused without difficulty for Hg 6.9 as ordered. No reaction noted. Pt to follouw up with Dialysis tomorrow.
== END ==
LOC: GILAB 08:15
PROVIDERS: PCP Family Medicine; Visit Provider Internal Medicine
DX: D63.1 Anemia in chronic kidney disease (principal)
CPT/HCPCS: 36415; 36430; 85014; 85018; 86850; 86900; 86920; P9016

== ENCOUNTER → 2022-09-27 15:03 | Outpatient (BNVA) | payer OTHER, SELFPAY | PROVIDERS: PCP Family Medicine; Visit Provider Internal Medicine Cardiovascular Disease | DX: Z01.810 Encounter for preprocedural cardiovascular examination (principal); I13.2 Hypertensive heart and chronic kidney disease with heart failure and with stage 5 chronic kidney disease, or end stage renal disease; N18.6 End stage renal disease; I50.20 Unspecified systolic (congestive) heart failure; Z86.73 Personal history of transient ischemic attack (TIA), and cerebral infarction without residual deficits; I42.9 Cardiomyopathy, unspecified; Z87.891 Personal history of nicotine dependence; R21 Rash and other nonspecific skin eruption | CPT/HCPCS: 99214; Q3014 ==

== ENCOUNTER 2022-10-25 05:27 | Emergency (ER) | payer MEDICARE, OTHER, SELFPAY ==
--- NOTE | 2022-10-25 05:28 | XRR_ITS ---
PROCEDURE INFORMATION: Exam: XR Chest Exam date and time: 10/25/2022 5:35 AM Age: 61 years old Clinical indication: Chest pressure; Prior surgery; Surgery type: Dialysis cath; Patient HX: C/O chest pain; Additional info: Cp TECHNIQUE: Imaging protocol: Radiologic exam of the chest. Views: 1 view. COMPARISON: CR XR chest 1V portable [id number] 08/07/2022 9:15 AM FINDINGS: Tubes, catheters and devices: Large bore right internal jugular central line extends into the right atrium. Lungs: There is no consolidation. Pleural spaces: There is no pleural effusion or pneumothorax. Heart/Mediastinum: There is mild enlargement of the cardiac silhouette. Bones/joints: Bones are unremarkable. XR/XR chest 1V portable [id number] IMPRESSION: Right internal jugular dialysis catheter tip is in the right atrium.
[2022-10-25 05:30] VITALS: BP 208/97; PULSE 83; RESP 20; TEMP 36.4; O2SAT 96; BMI 26.6
--- NOTE | 2022-10-25 05:31 | W.ED.CHESTPA ---
Documented by User: Ralf Padgett MD 10/25/22 20:26 HPI - Chest Pain General: Chief Complaint: Chest Pain Stated Complaint: Chest Pains Time Seen by Provider: 10/25/22 05:33 Source: patient Mode of arrival: ambulatory Limitations: no limitations History of Present Illness: 61-year-old female has a history of cardiomyopathy along with hypertension and end-stage renal disease she is on dialysis goes Saturday she states she been having chest pain since yesterday she states that the sharp pain in the middle of her chest denies any radiation states pain is currently a 6 out of 10 she denies any worsening improving factors denies any nausea or diaphoresis or shortness of breath currently. Associated symptoms: Deny abdominal pain, dyspnea, fever(s), nausea or vomiting Review of Systems Const: Denies: fever(s), chills, body aches or change in appetite Eyes: Denies: blurry vision or eye discomfort ENMT: Denies: throat pain or dental pain Card: Reports: chest pain Resp: Denies: dyspnea GI: Denies: abdominal pain, nausea, vomiting or diarrhea : Denies: dysuria Musc: Denies: neck pain or back pain Skin/Breast: Denies: rash Neuro: Denies: headache(s) Psych: Denies: depression Robb/Lymph: Denies: easy bruising All/Imm: Denies: urticaria PFSH ED PFSH: Medical History Acute renal failure Cardiomyopathy CKD (chronic kidney disease) Degenerative joint disease (DJD) of lumbar spine Heart failure with reduced ejection fraction Hepatitis C History of stroke 2012 Surgical History History of bilateral tubal ligation History of History of cholecystectomy No pertinent past surgical history Family History Father Cancer lungs and spread Other Lung disease Psychiatric illness Social History Smoking and tobacco status: former smoker Quit status (tobacco): has quit using tobacco Year quit tobacco: 2001 Alcohol intake: never Desire information about alcohol rehabilitation?: No Desire information about substance/drug rehabilitation?: No Lives independently: Yes Household members: spouse Housing: House Marital status: Number of children: 2 Current occupational status: disabled Current gender identity: Female Agree to transfusion: Yes Female Reproductive History: Date of last menstrual period: 07/21/02 Para: 2 Physical Exam Const: COMMON NORMALS: patient oriented x3 HENMT: COMMON NORMALS: normocephalic and atraumatic HEAD & SCALP: normocephalic and atraumatic Eye: COMMON NORMALS: Equal, round and reactive pupils present and EOMs intact bilaterally PUPIL: Yes Equal, round and reactive pupils present Neck/C-Spine: COMMON NORMALS: full ROM and supple Chest: COMMONS NORMALS: normal inspection of the chest and normal palpation of entire chest wall Resp: COMMON NORMALS: normal respiratory effort, No retractions, No use of accessory muscles and clear to auscultation bilaterally AUSCULTATION: clear to auscultation bilaterally Cardio: COMMON NORMALS: regular rate, regular rhythm and No murmurs present (Cardio) RATE: regular rate RHYTHM: regular rhythm GI: COMMON NORMALS: Normal to inspection, nondistended, normoactive bowel sounds present, Soft to palpation, non-tender and no masses PALPATION: Yes Soft to palpation Extremity: COMMON NORMALS: normal to inspection and full ROM Neuro: COMMON NORMALS: patient oriented x3, moves all extremities and no focal motor deficits Psych: COMMON NORMALS: mental status grossly normal, Normal thought process present and cooperative THOUGHT PROCESS: Normal thought process present Skin: COMMON NORMALS: no rashes or lesions noted and no wounds GENERAL SKIN EXAM: no rashes or lesions noted Course Vital Signs: Vital signs: Vital Signs Temperature 97.5 F L 10/25/22 05:30 Pulse Rate 78 10/25/22 09:00 Respiratory Rate 17 10/25/22 09:00 Blood Pressure 176/87 10/25/22 09:00 Pulse Oximetry 92 10/25/22 09:00 Oxygen Delivery Me thod 10/25/22 06:30 MDM - Chest Pain Medical Decision Making Patient presents for chest pain that sounds atypical in nature patient's care turned over to Dr. Leal to follow her labs including troponin series Lab Data 10/25/22 05:37 10/25/22 05:37 Radiology Impressions Chest X-Ray 10/25/22 05:28 IMPRESSION: Right internal jugular dialysis catheter tip is in the right atrium. Laboratory Results WBC 5.9 10^3/uL (4.0-10.0) 10/25/22 05:37 RBC 3.99 10^6/uL (4.1-5.3) L 10/25/22 05:37 Hgb 11.8 g/dL (11.5-15.3) 10/25/22 05:37 Hct 38.7 % (37.0-47.0) 10/25/22 05:37 MCV 97.0 fl (81-99) 10/25/22 05:37 MCH 29.6 pg (28.0-34.0) 10/25/22 05:37 MCHC 30.5 g/dL (30.0-36.0) 10/25/22 05:37 RDW 15.8 % (12.1-15.1) H 10/25/22 05:37 Plt Count 173 10^3/cmm (130-400) 10/25/22 05:37 MPV 9.7 fL (7.4-10.4) 10/25/22 05:37 Neut % (Auto) 61.1 % 10/25/22 05:37 Lymph % (Auto) 20.2 % 10/25/22 05:37 [place] % (Auto) 10.2 % 10/25/22 05:37 Eos % (Auto) 5.6 % 10/25/22 05:37 Baso % (Auto) 1.0 % 10/25/22 05:37 Neut # (Auto) 3.61 10^3/uL (1.8-7.7) 10/25/22 05:37 Lymph # (Auto) 1.2 10^3/uL (0.8-4.8) 10/25/22 05:37 [place] # (Auto) 0.6 10^3/uL (0.2-0.9) 10/25/22 05:37 Eos # (Auto) 0.3 10^3/uL (0.0-0.8) 10/25/22 05:37 Baso # (Auto) 0.1 10^3/uL (0.0-0.1) 10/25/22 05:37 Nucleated RBC % (auto) 1.0 % 10/25/22 05:37 Nucleated RBCs # 0.1 /100WBC 02/16/23 05:37 Sodium 139 mmol/L (136-145) 10/25/22 05:37 Potassium 6.1 mmol/L (3.5-5.1) H 10/25/22 05:37 Chloride 98 mmol/L (98-107) 10/25/22 05:37 Carbon Dioxide 24 mmol/L (22-29) 10/25/22 05:37 Anion Gap 23.1 (5-19) H 10/25/22 05:37 BUN 57 mg/dL (6-20) H 10/25/22 05:37 Creatinine 6.9 mg/dL (0.5-0.9) H* 10/25/22 05:37 GFR Calculation 6.1 mL/min (90-130) L 10/25/22 05:37 Glucose 86 mg/dL (65-115) 10/25/22 05:37 Calculated Osmolality 303 mOsm/kg (285-295) H 10/25/22 05:37 Calcium 9.0 mg/dL (8.5-10.5) 10/25/22 05:37 Total Bilirubin 0.2 mg/dL (0.15-1.2) 10/25/22 05:37 AST 40 U/L (0-32) H 10/25/22 05:37 ALT 21 U/L (0-33) 10/25/22 05:37 Alkaline Phosphatase 108 U/L (35-105) H 10/25/22 05:37 Troponin T Baseline 62 ng/L (0-10) H 10/25/22 05:37 Troponin T 120 Minute 65.38 ng/L (0-10) H 10/25/22 07:26 Delta Troponin T 3.38 ABS# (0-10) 10/25/22 07:26 NT-Pro-B Natriuret Pep 41347 pg/mL (0-125) H 10/25/22 05:37 Total Protein 7.0 g/dL (6.6-8.7) 10/25/22 05:37 Albumin 4.3 g/dL (3.5-5.2) 10/25/22 05:37 Globulin 2.7 g/dL (1.3-4.6) 10/25/22 05:37 EKG Data EKG 1: I personally reviewed and interpreted this EKG as follows: EKG interpretation date: 10/25/22 EKG interpretation time: 05:33 Interpretation: nsr hr 74 no stemi qrs 113 qtc 430 Discharge Plan Discharge Patient Disposition: Home Clinical Impression: ESRD (end stage renal disease), Cardiomyopathy, Cardiomegaly, Atypical chest pain, Hyperkalemia Condition: Stable Prescriptions: No Action furosemide 80 mg tablet 80 mg PO BID Qty: 60 0RF hydralazine 100 mg tablet 100 mg PO TID Qty: 90 0RF calcium acetate 668 mg (169 mg calcium) tablet 668 mg PO TID Qty: 90 0RF hydroxyzine HCl 25 mg tablet 50 mg PO TID PRN (Reason: Itching) RenaPlex-D 800 mcg-12.5 mg -2,000 unit tablet 1 tab PO DAILY carvedilol 6.25 mg tablet 18.75 mg PO DIRECTED Qty: 90 6RF Rx Instructions: 12.5mg (2 tabs) in AM and 6.25mg (1 tab) in PM morphine 30 mg tablet extended release 30 mg PO QID morphine 15 mg tablet 15 mg PO .five times daily PRN (Reason: Pain) cephalexin 250 mg capsule 250 mg PO BID Discharge Orders: Discharge ED (Routine); Ordered 10/25/22 Ordered By: Wally Leal Referrals: Lopez Bateman MD [Primary Care Provider] - Patient Instructions: Opioid Safety, Pain Management Activity Restrictions/Additional Instructions: You were seen today for chest discomfort your EKG did not show any acute changes or troponins trended normal. Your potassium is elevated as is your creatinine you are given medications to lower your potassium and best treatment for your elevated potassium is dialysis to be discharged from the emergency room to dialysis clinic for your regular dialysis run. Sign Out Sign Out Data: Patient Sign Out occurred on 10/25/22 at 06:38. Patient's care was discussed, and care was transferred from to Wally Leal DO. Coding Level of Care Code ED School Counselor for Chg Fwd Documented by User: Wally Leal DO 11/01/22 07:51 HPI - Chest Pain General: Chief Complaint: Chest Pain Stated Complaint: Chest Pains Time Seen by Provider: 10/25/22 05:33 PFS ED PFSH: Medical History Acute renal failure Cardiomyopathy CKD (chronic kidney disease) Degenerative joint disease (DJD) of lumbar spine Heart failure with reduced ejection fraction Hepatitis C History of stroke 2012 Surgical History History of bilateral tubal ligation History of History of cholecystectomy No pertinent past surgical history Family History Father Cancer lungs and spread Other Lung disease Psychiatric illness Social History Smoking and tobacco status: former smoker Quit status (tobacco): has quit using tobacco Year quit tobacco: 2001 Alcohol intake: never Desire information about alcohol rehabilitation?: No Desire information about substance/drug rehabilitation?: No Lives independently: Yes Household members: spouse Housing: House Marital status: Number of children: 2 Current occupational status: disabled Current gender identity: Female Agree to transfusion: Yes Course Vital Signs: Vital signs: Vital Signs Temperature 97.5 F L 10/25/22 05:30 Pulse Rate 78 10/25/22 09:00 Respiratory Rate 17 10/25/22 09:00 Blood Pressure 176/87 10/25/22 09:00 Pulse Oximetry 92 10/25/22 09:00 Oxygen Delivery Me thod 10/25/22 06:30 MDM - Chest Pain Medical Decision Making Patient presents for chest pain that sounds atypical in nature patient's care turned over to Dr. Leal to follow her labs including troponin series Patient care handoff received from Dr. Padgett continuation of ED evaluation. I personally saw and evaluated patient and reperformed pulliam portions of E/M. Labs imaging and EKGs reviewed no acute EKG changes troponins are negative we will discharge patient to her regular dialysis run for today. She is worsening change symptoms return to the emergency room. Medical Records I reviewed the patient's medical records. Lab Data I reviewed the patient's lab results. 10/25/22 05:37 10/25/22 05:37 Radiology Impressions Chest X-Ray 10/25/22 05:28 IMPRESSION: Right internal jugular dialysis catheter tip is in the right atrium. Laboratory Results WBC 5.9 10^3/uL (4.0-10.0) 10/25/22 05:37 RBC 3.99 10^6/uL (4.1-5.3) L 10/25/22 05:37 Hgb 11.8 g/dL (11.5-15.3) 10/25/22 05:37 Hct 38.7 % (37.0-47.0) 10/25/22 05:37 MCV 97.0 fl (81-99) 10/25/22 05:37 MCH 29.6 pg (28.0-34.0) 10/25/22 05:37 MCHC 30.5 g/dL (30.0-36.0) 10/25/22 05:37 RDW 15.8 % (12.1-15.1) H 10/25/22 05:37 Plt Count 173 10^3/cmm (130-400) 10/25/22 05:37 MPV 9.7 fL (7.4-10.4) 10/25/22 05:37 Neut % (Auto) 61.1 % 10/25/22 05:37 Lymph % (Auto) 20.2 % 10/25/22 05:37 [place] % (Auto) 10.2 % 10/25/22 05:37 Eos % (Auto) 5.6 % 10/25/22 05:37 Baso % (Auto) 1.0 % 10/25/22 05:37 Neut # (Auto) 3.61 10^3/uL (1.8-7.7) 10/25/22 05:37 Lymph # (Auto) 1.2 10^3/uL (0.8-4.8) 10/25/22 05:37 [place] # (Auto) 0.6 10^3/uL (0.2-0.9) 10/25/22 05:37 Eos # (Auto) 0.3 10^3/uL (0.0-0.8) 10/25/22 05:37 Baso # (Auto) 0.1 10^3/uL (0.0-0.1) 10/25/22 05:37 Nucleated RBC % (auto) 1.0 % 10/25/22 05:37 Nucleated RBCs # 0.1 /100WBC 10/25/22 05:37 Sodium 139 mmol/L (136-145) 10/25/22 05:37 Potassium 6.1 mmol/L (3.5-5.1) H 10/25/22 05:37 Chloride 98 mmol/L (98-107) 10/25/22 05:37 Carbon Dioxide 24 mmol/L (22-29) 10/25/22 05:37 Anion Gap 23.1 (5-19) H 10/25/22 05:37 BUN 57 mg/dL (6-20) H 10/25/22 05:37 Creatinine 6.9 mg/dL (0.5-0.9) H* 10/25/22 05:37 GFR Calculation 6.1 mL/min (90-130) L 10/25/22 05:37 Glucose 86 mg/dL (65-115) 10/25/22 05:37 Calculated Osmolality 303 mOsm/kg (285-295) H 10/25/22 05:37 Calcium 9.0 mg/dL (8.5-10.5) 10/25/22 05:37 Total Bilirubin 0.2 mg/dL (0.15-1.2) 10/25/22 05:37 AST 40 U/L (0-32) H 10/25/22 05:37 ALT 21 U/L (0-33) 10/25/22 05:37 Alkaline Phosphatase 108 U/L (35-105) H 10/25/22 05:37 Troponin T Baseline 62 ng/L (0-10) H 10/25/22 05:37 Troponin T 120 Minute 65.38 ng/L (0-10) H 10/25/22 07:26 Delta Troponin T 3.38 ABS# (0-10) 10/25/22 07:26 NT-Pro-B Natriuret Pep 39484 pg/mL (0-125) H 10/25/22 05:37 Total Protein 7.0 g/dL (6.6-8.7) 10/25/22 05:37 Albumin 4.3 g/dL (3.5-5.2) 10/25/22 05:37 Globulin 2.7 g/dL (1.3-4.6) 10/25/22 05:37 Discharge Plan Discharge Patient Disposition: Home Clinical Impression: ESRD (end stage renal disease), Cardiomyopathy, Cardiomegaly, Atypical chest pain, Hyperkalemia Condition: Stable Prescriptions: No Action furosemide 80 mg tablet 80 mg PO BID Qty: 60 0RF hydralazine 100 mg tablet 100 mg PO TID Qty: 90 0RF calcium acetate 668 mg (169 mg calcium) tablet 668 mg PO TID Qty: 90 0RF hydroxyzine HCl 25 mg tablet 50 mg PO TID PRN (Reason: Itching) RenaPlex-D 800 mcg-12.5 mg -2,000 unit tablet 1 tab PO DAILY carvedilol 6.25 mg tablet 18.75 mg PO DIRECTED Qty: 90 6RF Rx Instructions: 12.5mg (2 tabs) in AM and 6.25mg (1 tab) in PM morphine 30 mg tablet extended release 30 mg PO QID morphine 15 mg tablet 15 mg PO .five times daily PRN (Reason: Pain) cephalexin 250 mg capsule 250 mg PO BID Discharge Orders: Discharge ED (Routine); Ordered 10/25/22 Ordered By: Wally Leal Referrals: Lopez Bateman MD [Primary Care Provider] - Patient Instructions: Opioid Safety, Pain Management Activity Restrictions/Additional Instructions: You were seen today for chest discomfort your EKG did not show any acute changes or troponins trended normal. Your potassium is elevated as is your creatinine you are given medications to lower your potassium and best treatment for your elevated potassium is dialysis to be discharged from the emergency room to dialysis clinic for your regular dialysis run. Sign Out Sign Out Data: Patient Sign Out occurred on 10/25/22 at 06:38. Patient's care was discussed, and care was transferred from to Wally Leal DO. Coding Level of Care Code ED School Counselor for Mannie Soto
[2022-10-25 05:36] VITALS: BP 180/95; PULSE 76; RESP 18; O2SAT 95
[2022-10-25] MEDS: nitroglycerin 0.4 mg sublingual Tablet SUBLINGUAL (05:40)
[2022-10-25] MEDS: aspirin 81 mg Chew Tablet 324 MG PO (05:40)
[2022-10-25 05:51] LABS: Basophils # 0.1 10^3/uL (0.0-0.1); Eosinophils # 0.3 10^3/uL (0.0-0.8); Eosinophils % 5.6 %; Hematocrit 38.7 % (37.0-47.0); Hemoglobin 11.8 g/dL (11.5-15.3); Lymphocytes # 1.2 10^3/uL (0.8-4.8); Lymphocytes % 20.2 %; Mean Corpuscular HGB Conc 30.5 g/dL (30.0-36.0); Mean Corpuscular Hemoglobin 29.6 pg (28.0-34.0); Mean Platelet Volume 9.7 fL (7.4-10.4); Monocytes # 0.6 10^3/uL (0.2-0.9); Monocytes % 10.2 %; Neutrophils # 3.61 10^3/uL (1.8-7.7); Neutrophils % 61.1 %; Nucleated Red Blood Cells # 0.1 /100WBC; Platelet Count 173 10^3/cmm (130-400); Red Blood Count 3.99 10^6/uL (4.1-5.3); Red Cell Distribution Width 15.8 % (12.1-15.1); White Blood Count 5.9 10^3/uL (4.0-10.0)
[2022-10-25 06:21] VITALS: BP 152/75; PULSE 72; RESP 16; O2SAT 95
[2022-10-25 06:26] LABS: Troponin(5th) Baseline 62 ng/L (0-10)
[2022-10-25 06:30] VITALS: BP 142/74; PULSE 69; RESP 13; O2SAT 94
[2022-10-25 06:35] LABS: Albumin Level 4.3 g/dL (3.5-5.2); Alkaline Phosphatase 108 U/L (35-105); Blood Urea Nitrogen 57 mg/dL (6-20); Carbon Dioxide 24 mmol/L (22-29); Chloride 98 mmol/L (98-107); Globulin 2.7 g/dL (1.3-4.6); Glomerular Filtration Rate 6.1 mL/min (90-130); Glucose 86 mg/dL (65-115); NT Pro B Type Natriuretic Pept 12169 pg/mL (0-125); Osmolality Calculated 303 mOsm/kg (285-295); Sodium 139 mmol/L (136-145); Total Bilirubin 0.2 mg/dL (0.15-1.2)
[2022-10-25 06:45] LABS: Alanine Aminotransferase 21 U/L (0-33); Anion Gap 23.1 (5-19); Aspartate Amino Transferase 40 U/L (0-32); Potassium 6.1 mmol/L (3.5-5.1)
[2022-10-25] MEDS: calcium chloride 10% Syr 10 mL 2 GM IVP (07:04)
[2022-10-25 07:22] VITALS: BP 210/89; PULSE 74; RESP 16; O2SAT 95
--- NOTE | 2022-10-25 07:29 | ECG_ITS ---
[facility] Test Date: 2022-10-25 Pat Name: Ashley Miranda Department: Room: Gender: Female Vice President Network: : [id number] Requested By: Ralf Padgett Order Number: [id number] Elen MD: Jane Swanson M.D. Measurements Intervals [place] Rate: 74 P: 42 DC: 180 QRS: -3 QRSD: 113 T: 118 QT: 402 QTc: 448 Interpretive Statements SINUS RHYTHM LEFT VENTRICULAR HYPERTROPHY AND ST-T CHANGE [VOLTAGE CRITERIA PLUS ST/T ABNORMALITY] POSSIBLE ANTERIOR MYOCARDIAL INFARCTION , OF INDETERMINATE AGE [30 ms Q WAVE IN V3/V4, OR R < 0.2 mV IN V4] Compared to ECG 08/02/2022 05:39:31 Myocardial infarct finding now present ST (T wave) deviation still present Electronically Signed On 10-25-2022 20:09:22 FILAMENT MAKER by Jane Swanson M.D. [email or web address]
[2022-10-25 07:51] LABS: Troponin 5 2HR 65.38 ng/L (0-10)
[2022-10-25 07:55] LABS: Troponin 5 2HR Delta 3.38 ABS# (0-10)
[2022-10-25 09:00] VITALS: BP 176/87; PULSE 78; RESP 17; O2SAT 92
== END 2022-10-25 09:53 | disposition home or self-care (01) ==
PROVIDERS: Emergency Medicine; Emergency Provider Family Medicine; PCP Family Medicine
DX: R07.89 Other chest pain (principal); I12.0 Hypertensive chronic kidney disease with stage 5 chronic kidney disease or end stage renal disease; N18.6 End stage renal disease; Z99.2 Dependence on renal dialysis; Z87.891 Personal history of nicotine dependence; E87.5 Hyperkalemia; I42.9 Cardiomyopathy, unspecified
CPT/HCPCS: 71045; 80053; 83880; 84484; 85025; 93005; 96374; 99285; J3490

== ENCOUNTER → 2023-01-24 12:46 | Outpatient (BNVA) | payer MEDICARE, OTHER, SELFPAY | PROVIDERS: PCP Family Medicine; Visit Provider Nurse Practitioner Family | DX: I50.20 Unspecified systolic (congestive) heart failure (principal) | CPT/HCPCS: 99214 ==

== ENCOUNTER 2023-02-05 14:07 | Inpatient (IN) | payer MEDICARE, OTHER, SELFPAY ==
[2023-02-05] VITALS (7 sets, daily range): BP systolic 123–168; BP diastolic 70–86; PULSE 64–82; RESP 16–18; TEMP 36.6–36.9; O2SAT 90–97
--- NOTE | 2023-02-05 14:32 | CT_ITS ---
WS: [id number] CT HEAD NONCONTRAST HISTORY: headache TECHNIQUE: Contiguous axial imaging performed through the brain in 2.5 mm imaging. Bone and soft tiss ue windows. Sagittal and coronal reformats reviewed. All CT scans at [facility] use at least one of these dose optimization techniques: automated exposure control; mA and/or kV adjustment per pa tient size (includes targeted exams where dose is matched to clinical indication); or iterative recon struction. DLP: 1089.30 mGy.cm COMPARISON: 04/18/2012 No acute intracranial hemorrhage, midline shift or mass effect. Focal area of encephalomalacia involving the posterior LEFT parietal lobe in the site of the prior pa renchymal hemorrhage. No new hemorrhage. No mass effect. Ventricles: Normal size with no hydrocephalus. No inferior displacement of the cerebellar tonsils. Paranasal sinuses: As visualized are clear. Mastoid air cells: Well pneumatized. Calvarium and scalp: Skull is intact with no soft tissue edema or swelling. CT/CT head wo con* [id number] IMPRESSION: 1. No acute intracranial hemorrhage or edema. 2. Focal area of encephalomalacia in the posterior LEFT parietal lobe at the s ite of the prior hemorrhage from 2011.
--- NOTE | 2023-02-05 14:34 | W.ED.AMS ---
HPI - Altered Mental Status General: Chief Complaint: Altered Mental Status Stated Complaint: AMS Time Seen by Provider: 02/05/23 14:22 Source: patient and EMS Mode of arrival: EMS Limitations: no limitations History of Present Illness: This patient was transported to the emergency department via EMS from her home. The patient states that she had a headache upon awaking this morning. She states it is a frontal headache not totally unlike prior headaches but perhaps a bit different. She denies any fevers, head trauma etc. She did go to dialysis and had hemodialysis today. Upon returning home she apparently had numbness in her hands and feet and EMS was notified. EMS arrived and found her to be alert but slow to answer questions and therefore wondered if she was altered. She states to me that she has been having some nausea the last few days no one else is ill at home. She apparently has been getting a combination of peritoneal dialysis at home as well as hemodialysis since last fall. She states that there is been a mixture of both forms of dialysis due to some issues with her electrolytes. She denies any chest pain palpitations,. She denies any recent illness. She states she ate and drank prior to going to dialysis. He denies any focal weakness difficulty with speech etc. She states she had a prior CVA or TIA which did not leave her with any long-term deficits. Associated symptoms: Deny depression Review of Systems Const: Denies: fever(s), chills or body aches Eyes: Denies: change in vision or blurry vision ENMT: Denies: odynophagia, tinnitus, nasal discharge, nasal congestion or nasal obstruction Card: Denies: chest pain, palpitations, irregular heart rhythm, lightheadedness, syncope or pre-syncope Resp: Denies: dyspnea, productive cough or non-productive cough GI: Reports: nausea; Denies: abdominal pain, vomiting or diarrhea : Reports: oliguria; Denies: flank pain Musc: Denies: neck pain, back pain, extremity pain or extremity swelling Skin/Breast: Denies: rash or pruritus Neuro: Reports: headache(s) and numbness in extremities; Denies: weakness in extremities or seizure-like activity Psych: Denies: anxiety, depression or mood swings [facility] ED PFSH: Medical History Acute renal failure Cardiomyopathy CKD (chronic kidney disease) Degenerative joint disease (DJD) of lumbar spine Heart failure with reduced ejection fraction Hepatitis C History of stroke 2012 Surgical History History of bilateral tubal ligation History of History of cholecystectomy No pertinent past surgical history Family History Father Cancer lungs and spread Other Lung disease Psychiatric illness Social History Smoking and tobacco status: former smoker Quit status (tobacco): has quit using tobacco Year quit tobacco: 2001 Alcohol intake: never Desire information about alcohol rehabilitation?: No Substance/Drug Use: never Desire information about substance/drug rehabilitation?: No Lives independently: Yes Household members: spouse Housing: House Marital status: Number of children: 2 Current occupational status: disabled Current gender identity: Female Agree to transfusion: Yes Female Reproductive History: Para: 2 Physical Exam Narrative: She is alert and will answer questions generally but does have some delayed responses in her answers. She keeps her eyes closed but opens them readily when asked to do so. She is aware of her surroundings. Const: COMMON NORMALS: patient oriented x3 and alert GENERAL APPEARANCE: cooperative NUTRITIONAL APPEARANCE: overweight ORIENTATION/CONSCIOUSNESS: Yes awake HENMT: COMMON NORMALS: normocephalic, atraumatic, Normal nasal mucous membranes and turbinates present, moist oral mucous membranes and oropharynx normal HEAD & SCALP: normocephalic and atraumatic; no scalp tenderness FACE & SINUS: normal facial exam, sinuses nontender and face symmetric NOSE: Normal nasal mucous membranes and turbinates present Eye: COMMON NORMALS: Equal, round and reactive pupils present, EOMs intact bilaterally and conjunctivae normal CONJUNCTIVA: Yes conjunctivae normal PUPIL: Yes Equal, round and reactive pupils present OTHER: No nystagmus noted Neck/C-Spine: COMMON NORMALS: full ROM, no lymphadenopathy, supple, no meningeal signs and No carotid bruits Chest: COMMONS NORMALS: normal inspection of the chest Resp: COMMON NORMALS: normal respiratory effort, No use of accessory muscles and clear to auscultation bilaterally EFFORT & INSPECTION: Yes able to speak in complete sentences AUSCULTATION: clear to auscultation bilaterally Cardio: COMMON NORMALS: regular rate, regular rhythm, No murmurs present (Cardio) and Peripheral pulses 2+ throughout RATE: regular rate RHYTHM: regular rhythm PERIPHERAL PULSES: Peripheral pulses 2+ throughout GI: COMMON NORMALS: Normal to inspection, nondistended, normoactive bowel sounds present, Soft to palpation and non-tender PALPATION: Yes Soft to palpation : COMMON NORMALS: Yes no CVA tenderness BLADDER/KIDNEY EXAM: Yes no CVA tenderness Back/Pelvis: COMMON NORMALS: no CVA tenderness, thoracic and lumbar spine normal to inspection, no thoracic nor lumbar tenderness, thoraco-lumbar ROM normal and straight leg raise negative bilaterally Extremity: COMMON NORMALS: normal to inspection, full ROM, capillary refill normal, no calf tenderness and no pedal edema Neuro: COMMON NORMALS: patient oriented x3 SENSORIUM/ORIENTATION: Yes alert MENINGEAL SIGNS: Yes no meningeal signs COORDINATION/BALANCE: [id number] test normal and [id number]-ku-[id number] test normal SPEECH: speech normal MOTOR EXAM: 5/5 motor strength present throughout COORDINATION: [id number] test normal and fumu-hh-[id number] test normal OTHER: NIH is 0 at the time of presentation Psych: COMMON NORMALS: mental status grossly normal Skin: COMMON NORMALS: no rashes or lesions noted, no wounds and turgor normal GENERAL SKIN EXAM: no rashes or lesions noted and turgor normal Course Reevaluation(s): Reevaluation #1: Current presentation does not suggest at this time a central nervous system event given the bilaterality and the lack of other focal findings on neurologic examination. We will proceed with CT scan to ensure no occult intracranial hemorrhage etc. Time: 14:40 Reevaluation #2: I shared current findings on blood count with patient and daughter who is now present. Patient denied any history of blood loss symptoms such as black tarry stools, blood in her stools, significant weight loss etc. Certainly chronic kidney disease can cause a concomitant anemia but the patient's hemoglobin is markedly lower than its been in October of this year. At this point I think we will need to type and screen her and plan for a blood transfusion and additional work-up. Time: 16:09 Consultations: Consultation #1: Discussed with hospitalist who agreed to place the patient in hospital for transfusion and additional work-up. Time: 16:17 Vital Signs: Vital signs: Vital Signs Temperature 98.5 F 02/05/23 14:08 Pulse Rate 82 02/05/23 14:08 Respiratory Rate 16 02/05/23 14:08 Blood Pressure 168/70 02/05/23 15:15 Pulse Oximetry 90 02/05/23 15:15 Oxygen Delivery Me thod Room Air 02/05/23 15:15 MDM - Altered Mental Status Medical Decision Making This patient who has a history of chronic kidney disease who is concomitantly on peritoneal dialysis as well as hemodialysis came to the emergency department today because the daughter noted that she seemed to be acting a little confused earlier today after dialysis. The patient related that she did not feel confused but she felt like she had some numbness and tingling in all of her extremities. She states that she did eat and drink normally but she did wake up with a headache which was a frontal headache and was present upon awakening. There is no history of recent trauma and she does admit to having a history of headaches in the past. Daughter called EMS and she was transported to this facility. Her work-up revealed her to be alert and have a nonfocal clinical and neurologic exam at the time of presentation. Work-up included evaluation for electrolyte abnormality, hemogram abnormalities, occult intracranial hemorrhage etc. CT scan obtained which was reassuring. Of note is that she had a significant anemia which was a change from prior hemoglobin we have on record here from October of this year. There was no contributory history of GI bleeding etc. by patient's admission at this time of evaluation in the emergency department. Does not appear to be having a central nervous system related event at this time to include stroke, hemorrhage etc. Have an anemia which is new and more profound and more than 1 would expect from anemia of chronic disease. Because of this finding we will plan on transfusing her in addition to doing work-up to evaluate for blood loss. This information was shared with both patient and family. Medical Records I reviewed the patient's medical records. Lab Data 02/05/23 15:08 02/05/23 15:[address] 02/05/23 14:32 IMPRESSION: 1. No acute intracranial hemorrhage or edema. 2. Focal area of encephalomalacia in the posterior LEFT parietal lobe at the site of the prior hemorrhage from 2011. Laboratory Results WBC 6.1 10^3/uL (4.0-10.0) 02/05/23 15:08 RBC 1.78 10^6/uL (4.1-5.3) L 02/05/23 15:08 Hgb 5.3 g/dL (11.5-15.3) L* 02/05/23 15:08 Hct 16.1 % (37.0-47.0) L* 02/05/23 15:08 MCV 90.4 fl (81-99) 02/05/23 15:08 MCH 29.8 pg (28.0-34.0) 02/05/23 15:08 MCHC 32.9 g/dL (30.0-36.0) 02/05/23 15:08 RDW 13.8 % (12.1-15.1) 02/05/23 15:08 Plt Count 108 10^3/cmm (130-400) L 02/05/23 15:08 MPV 10.3 fL (7.4-10.4) 02/05/23 15:08 Neut % (Auto) 83.9 % 02/05/23 15:08 Lymph % (Auto) 7.7 % 02/05/23 15:08 Ocean % (Auto) 6.9 % 02/05/23 15:08 Eos % (Auto) 0.3 % 02/05/23 15:08 Baso % (Auto) 0.2 % 02/05/23 15:08 Neut # (Auto) 5.15 10^3/uL (1.8-7.7) 02/05/23 15:08 Lymph # (Auto) 0.5 10^3/uL (0.8-4.8) L 02/05/23 15:08 Ocean # (Auto) 0.4 10^3/uL (0.2-0.9) 02/05/23 15:08 Eos # (Auto) 0.0 10^3/uL (0.0-0.8) 02/05/23 15:08 Baso # (Auto) 0.0 10^3/uL (0.0-0.1) 02/05/23 15:08 Nucleated RBC % (auto) 0 % 02/05/23 15:08 Nucleated RBCs # 0.0 /100WBC 02/05/23 15:08 Sodium 134 mmol/L (136-145) L 02/05/23 15:08 Potassium 4.2 mmol/L (3.5-5.1) 02/05/23 15:08 Chloride 96 mmol/L (98-107) L 02/05/23 15:08 Carbon Dioxide 26 mmol/L (22-29) 02/05/23 15:08 Anion Gap 16.2 (5-19) 02/05/23 15:08 BUN 22 mg/dL (8-23) 02/05/23 15:08 Creatinine 5.2 mg/dL (0.5-0.9) H 02/05/23 15:08 GFR Calculation 8.4 mL/min (90-130) L 02/05/23 15:08 Glucose 113 mg/dL (65-115) 02/05/23 15:08 Calculated Osmolality 282 mOsm/kg (285-295) L 02/05/23 15:08 Calcium 7.9 mg/dL (8.5-10.5) L 02/05/23 15:08 Phosphorus 3.1 mg/dL (2.5-4.5) 02/05/23 15:08 Magnesium 1.8 mg/dL (1.7-2.3) 02/05/23 15:08 EKG Data EKG 1: I personally reviewed and interpreted this EKG as follows: Interpretation: Contemporaneous review of resting EKG reveals a ventricular rate of 80 bpm. Normal TX interval, QRS duration, corrected QT interval. Normal axis. Nonspecific ST-T wave changes noted which have been present intermittently on prior EKGs within our system. Discharge Plan Discharge Patient Disposition: Admitted As Inpatient Clinical Impression: Anemia, Chronic kidney disease Condition: Stable Prescriptions: No Action calcium acetate 668 mg (169 mg calcium) tablet 668 mg PO TID Qty: 90 0RF carvedilol 6.25 mg tablet 18.75 mg PO DIRECTED Rx Instructions: 12.5mg (2 tabs) in AM and 6.25mg (1 tab) in PM Auryxia 210 mg iron tablet 840 mg PO TID Rx Instructions: administer with a meal RenaPlex-D 800 mcg-12.5 mg -2,000 unit tablet 1 tab PO DAILY morphine 30 mg tablet extended release 30 mg PO QID morphine 15 mg tablet 15 mg PO .five times daily PRN (Reason: Pain) ondansetron 4 mg tablet,disintegrating 4 mg PO Q8H PRN (Reason: Nausea And Vomiting) Referrals: Lopez Bateman MD [Primary Care Provider] - Patient Instructions: Hyponatremia (ED), Benzodiazepine Use Disorder (ED), Dementia (ED), Non-diabetic Hypoglycemia (ED), Hypoglycemia in a Person with Diabetes (ED), Concussion (ED), Alcohol Intoxication (ED), Subarachnoid Hemorrhage (GEN), Altered Mental Status (ED) Coding Level of Care Code ED Brake Operator Heavy Duty for Mannie Soto
--- NOTE | 2023-02-05 14:37 | ECG_ITS ---
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 Measurements Intervals Delta Rate: 80 P: 38 RI: 180 QRS: 10 QRSD: 114 T: 145 QT: 398 QTc: 459 Interpretive Statements SINUS RHYTHM MODERATE INTRAVENTRICULAR CONDUCTION DELAY [110+ ms QRS DURATION] NONSPECIFIC ST & T-WAVE ABNORMALITY Compared to ECG 10/25/2022 05:33:15 Intraventricular conduction delay now present T-wave abnormality now present Left ventricular hypertrophy no longer present ST (T wave) deviation no longer present Myocardial infarct finding no longer present Electronically Signed On 02-05-2023 15:10:20 CDT by Amol Payne M.D. [email or web address]
[2023-02-05 15:35] LABS: Anion Gap 16.2 (5-19); Blood Urea Nitrogen 22 mg/dL (8-23); Calcium 7.9 mg/dL (8.5-10.5); Carbon Dioxide 26 mmol/L (22-29); Chloride 96 mmol/L (98-107); Glomerular Filtration Rate 8.4 mL/min (90-130); Glucose 113 mg/dL (65-115); Magnesium 1.8 mg/dL (1.7-2.3); Osmolality Calculated 282 mOsm/kg (285-295); Phosphorus 3.1 mg/dL (2.5-4.5); Potassium 4.2 mmol/L (3.5-5.1); Sodium 134 mmol/L (136-145)
[2023-02-05 15:54] LABS: Basophils % 0.2 %; Eosinophils % 0.3 %; Lymphocytes # 0.5 10^3/uL (0.8-4.8); Lymphocytes % 7.7 %; Mean Corpuscular HGB Conc 32.9 g/dL (30.0-36.0); Mean Corpuscular Hemoglobin 29.8 pg (28.0-34.0); Mean Corpuscular Volume 90.4 fl (81-99); Mean Platelet Volume 10.3 fL (7.4-10.4); Monocytes # 0.4 10^3/uL (0.2-0.9); Monocytes % 6.9 %; Neutrophils # 5.15 10^3/uL (1.8-7.7); Neutrophils % 83.9 %; Nucleated Red Blood Cells % 0 %; Platelet Count 108 10^3/cmm (130-400); Red Blood Count 1.78 10^6/uL (4.1-5.3); Red Cell Distribution Width 13.8 % (12.1-15.1); White Blood Count 6.1 10^3/uL (4.0-10.0)
[2023-02-05 16:01] LABS: Hematocrit 16.1 % (37.0-47.0); Hemoglobin 5.3 g/dL (11.5-15.3)
--- NOTE | 2023-02-05 17:15 | P.HP_ITS ---
Providers/Chief Complaint Admitting Physician: Evangelist Haywood Primary Care Provider: Lopez Bateman MD Chief Complaint: AMS History of Present Illness 62-year-old lady was brought in for evaluation to ER. She has been feeling unwell, she states she is felt unwell for the last 3 weeks, she was getting antibiotics due to an infected lesion on her inner lower lip which is pending biopsy with dermatology, states that she had taken partial course of antibiotics but had developed nausea vomiting, has been having diarrhea, diarrhea now is starting to get better. Over the last 3 weeks she has been having tiredness, some dizziness. She has ESRD and has been getting peritoneal dialysis daily but feels that it has been not adequate to control her disease and today was resta rted on the first session of hemodialysis. She denies any purulent discharge from PD catheter, any redness or drainage around either PD or right chest tunneled catheter. Today she was having headache, was noted to have some alteration of mental status, slow to respond, noted by family spacing out, ewa rain. During my history she is alert and responsive. She did seem to get peritoneal and he modialysis confused initially. CT head in ER without acute intracranial hemorrhage or edema. Focal area of encephalomalacia in posterior left parietal lobe at site of prior hemorrhage from 2012. Lab work in ER returning with severe normocytic anemia, hemoglobin 5.3, MCV 90.4, platelets 108. She denies any recent output or bleeding, denies any falls or injury. Denies any hematemesis, hematuria, hematochezia or melena. Denies any fevers, rashes. Denies any medication changes. She requests for some of her pain medication for her chronic back pain. Review of Systems Const: Reports: fatigue and malaise (Past 3 weeks); Denies: fever(s) or chills Eyes: Denies: change in vision, eye discomfort or eye redness ENMT: Reports: oral sores (Was given antibiotic course for infection around a lesion on inner lower li); Denies: throat pain or ear or mastoid pain Card: Denies: chest pain, edema, pre-syncope or dyspnea on exertion Resp: Denies: dyspnea, productive cough, change in phlegm color or hemoptysis GI: Reports: nausea, vomiting (Now resolved) and diarrhea (Over the past 3 weeks, now improving); Denies: abdominal pain, constipation, hematochezia or melena : Denies: flank pain, urinary frequency or hematuria Musc: Denies: back pain, joint swelling or joint redness Skin/Breast: Denies: rash or new lesions Neuro: Reports: headache(s), dizziness and confusion; Denies: weakness in extremities or seizure-like activity Robb/Lymph: Denies: easy bleeding or tender lymph nodes Medications/Allergies Home Medications Medication Instructions Recorded Confirmed Last Taken Type vit B,C-folic ac 800 mcg-zinc 12.5 1 tab PO DAILY 08/27/22 02/05/23 10/24/22 History mg-selen-D3 2,000 unit-vit E tablet (RenaPlex-D) morphine 15 mg immediate release 15 mg PO .five times daily PRN Pain 09/27/22 02/05/23 10/24/22 History tablet morphine 30 mg tablet,extended 30 mg PO QID 09/27/22 02/05/23 10/24/22 History release calcium acetate 668 mg (169 mg 668 mg PO TID #90 tabs 10/01/22 02/05/23 10/24/22 Rx calcium) tablet carvedilol 6.25 mg tablet 18.75 mg PO DIRECTED 01/24/23 02/05/23 Unknown History ferric citrate 210 mg iron tablet 840 mg PO TID 01/24/23 02/05/23 Unknown History (Auryxia) ondansetron 4 mg disintegrating 4 mg PO Q8H PRN Nausea And Vomiting 02/05/23 02/05/23 Unknown History tablet Allergies Allergy/AdvReac Type Severity Reaction Status Date / Time No Known Allergies Allergy Verified 01/24/23 14:09 PFSH Acute PFSH: Medical History (Updated 02/05/23 @ 17:42 by Evangelist Haywood MD) Acute renal failure Cardiomyopathy CKD (chronic kidney disease) Degenerative joint disease (DJD) of lumbar spine Heart failure with reduced ejection fraction Hepatitis C History of blood transfusion low platelets, 08/24/22 History of stroke 2012 Surgical History History of bilateral tubal ligation History of History of cholecystectomy No pertinent past surgical history Family History Father Cancer lungs and spread Other Lung disease Psychiatric illness Social History Smoking and tobacco status: former smoker Quit status (tobacco): has quit using tobacco Year quit tobacco: 2001 Alcohol intake: never Desire information about alcohol rehabilitation?: No Substance/Drug Use: never Desire information about substance/drug rehabilitation?: No Lives independently: Yes Household members: spouse Housing: House Marital status: Number of children: 2 Current occupational status: disabled Current gender identity: Female Agree to transfusion: Yes Female Reproductive History: Para: 2 Vitals/I&O/Wt Last Vital Signs Temp 98.5 F 02/05/23 14:08 Pulse 82 02/05/23 14:08 Resp 16 02/05/23 14:08 BP 168/70 02/05/23 15:15 Pulse Ox 90 02/05/23 15:15 O2 Del Method Room Air 02/05/23 15:15 Weight last 48 hrs Weight 83.915 kg Physical Exam Narrative: Sitting up in bed. Having some snacks. Const: COMMON NORMALS: patient oriented x3 and alert GENERAL APPEARANCE: cooperative ORIENTATION/CONSCIOUSNESS: Yes awake HENMT: COMMON NORMALS: oropharynx normal Neck/C-Spine: COMMON NORMALS: no JVD Chest: OTHER: Right chest tunneled catheter Resp: COMMON NORMALS: normal respiratory effort and clear to auscultation bilaterally AUSCULTATION: clear to auscultation bilaterally Cardio: COMMON NORMALS: no JVD, regular rhythm, S1 normal heart sound present, S2 normal heart sound present and No murmurs present (Cardio) RHYTHM: regular rhythm HEART SOUNDS: S1 normal heart sound present and S2 normal heart sound present GI: COMMON NORMALS: Normal to inspection, nondistended, normoactive bowel sounds present, Soft to palpation and non-tender PALPATION: Yes Soft to palpation OTHER: Left side abdomen PD catheter Extremity: COMMON NORMALS: no joint enlargement and no pedal edema Neuro: COMMON NORMALS: patient oriented x3 and moves all extremities SENSORIUM/ORIENTATION: Yes alert Skin: COMMON NORMALS: no rashes or lesions noted GENERAL SKIN EXAM: no rashes or lesions noted Data 02/05/23 15:08 02/05/23 15:08 A&P Assessment and plan (1) Symptomatic anemia: Severe symptomatic anemia. Hemoglobin 5.3. Normocytic. Denies hematochezia, melena. Not on anticoagulation. No recent trauma. We will request stat CT to assess for any retroperitoneal bleed. 2 units RBC transfusion have been ordered in ER. Possibility of anemia secondary to ESRD. On PD. However, discussed with her ad ditional assessment for other possibilities including HUS given diarrhea, AMS, TTP, DIC. Obtain liver function panel, LDH, foot wound, reticulocyte index, peripheral smear. DIC panel. As per discussion with ER physician did not think that she had not hemolysis. RDW normal. Discussed with her we may not have treatment available here in case HUS or TTP which would require transfer. Check Hemoccult stool. Diarrhea studies. TSH, vitamin B12 Appreciate nephrology assessment and recommendations, as per discussion could also be anemia due to ESRD yes it is unclear whether she has been receiving P rocrit. Last hemodialysis she states about a month ago. [facility] is closed. Last hemoglobin here was from 07.17. PPI every 12 hours IV for now. Follow-up blood counts. Has history of iron deficiency, on iron supplementation. Continue. (2) Thrombocytopenia: Platelet level 108. Noted previously back in July 2022 as well. Down as low as 65,000. Additional evaluation as above. Follow-up blood counts requested. (3) Acute encephalopathy: She appears to be more alert, responsive currently, reportedly spacing out, some blank stares with family, slow to respond to EMS. Suspect acute metabolic encephalopathy secondary to worsening anemia. However, cannot entirely exclude other causes. Discussed with her further assessment for hemolysis, any signs of HUS. Will assess UDS. Takes morphine chronically for back pain. She states that over the last 3 weeks when she started feeling unwell she stopped all her medications except resuming carvedilol for her blood pressure. Less likely seizure, although cannot entirely exclude at this time. CT head with focal area of encephalomalacia in the posterior left parietal lobe at the site of prior hemorrhage from 2011. Check TSH. Vitamin B12. (4) Diarrhea: Check C. difficile, stool culture (5) Lesion of lip: Recently on antibiotic. States had swelling, redness around the lip lesion on the inner lower lip. Has arrangements for biopsy with dermatology but has not yet been biopsied. She states swelling and redness have abated although she did not come with antibiotic course entirely due to associated nausea, vomiting, diarrhea. Plan ESRD: Initially started on hemodialysis, subsequently transition to PD, but states feels it did not adequately control her disease, today for the first time return to hemodialysis. Denies any redness or drainage around either catheter. Denies any cloudy discharge from PD catheter. No abdominal pain. Appreciate nephrology evaluation and management. History of cardiomyopathy In her lower lip lesion: Exophytic lesion mid inner lower lip. Pending biopsy with dermatology. Recently treated with antibiotics. Currently no signs of surrounding swelling, drainage or erythema. Hepatitis C: History of treatment. HCVRNA undetectable. Chronic back pain History of stroke Discussed with ER physician. ER documentation reviewed. Discussed with nephrology. Attestations Medical Necessity Statement*: Admission of over 2 midnights anticipated for assessment management of worsened symptomatic anemia of unclear chronicity in a lady with ESRD, acute encephalopathy, additional comorbidities as above. Diagnoses Symptomatic anemia D64.9 Thrombocytopenia D69.6 Acute encephalopathy G93.40 Diarrhea R19.7 Lesion of lip K13.0
[2023-02-05 17:34] LABS: Reticulocyte % 4.3 % (0.5-2.0)
[2023-02-05 17:35] LABS: Hematocrit 16.7 % (37.0-47.0)
--- NOTE | 2023-02-05 17:44 | CTR_ITS ---
PROCEDURE INFORMATION: Exam: CT Abdomen And Pelvis Without Contrast Exam date and time: 02/05/2023 11:05 PM Age: 62 years old Clinical indication: Abdominal pain; Acute; Additional info: Assess for retroperitoneal bleed TECHNIQUE: Imaging protocol: Computed tomography of the abdomen and pelvis without contrast. Radiation optimization: All CT scans at this facility use at least one of these dose optimization techniques: automated exposure control; mA and/or kV adjustment per patient size (includes targeted exams where dose is matched to clinical indication); or iterative reconstruction. REPORTING DATA: Count of CT and Cardiac NM exams in prior 12 months: This patient has received 2 known CTs and 0 known cardiac nuclear medicine studies in the 12 months prior to the current study. COMPARISON: CT abdomen pelvis w con* [id number] 08/03/2022 5:39 PM RADIATION DOSE METRICS: Total DLP (mGy-cm): 856.14 FINDINGS: Tubes, catheters and devices: Peritoneal dialysis catheter tubing coiled over and/or in the abdomen and pelvis. Liver: Normal. No mass. Gallbladder and bile ducts: Stable cholecystectomy. 15 mm dilated common bile duct which is normal for the patient's surgical status Pancreas: Normal. No ductal dilation. Spleen: Normal. No splenomegaly. Adrenal glands: Normal. No mass. Kidneys and ureters: Stable multiple simple left renal cysts with the largest measuring > 1.0 cm. Stomach and bowel: Unremarkable. No obstruction. No mucosal thickening. Appendix: No evidence of appendicitis. Intraperitoneal space: Unremarkable. No free air. No significant fluid collection. Vasculature: Calcification of the thoracic aorta and/or great vessels consistent with atherosclerotic vessel disease. Lymph nodes: Unremarkable. No enlarged lymph nodes. Urinary bladder: Unremarkable as visualized. Reproductive: Unremarkable as visualized. Bones/joints: Severe thoracic spondylosis. Moderate to severe multilevel spine degenerative changes including degenerative disc disease, spondylosis and facet degenerative changes. Soft tissues: Unremarkable. CT/CT abdomen pelvis wo con [id number] IMPRESSION: Peritoneal dialysis catheter tubing coiled over and/or in the abdomen and pelvis.
[2023-02-05 18:15] LABS: LAB Peripheral Smear Sent for Review
[2023-02-05] MEDS: pantoprazole 40 mg SDV IVP (18:19)
[2023-02-05 18:26] LABS: Lactate Dehydrogenase 261 U/L (135-214)
[2023-02-05 18:35] LABS: INR 1.03 (0.8-1.2); Partial Thromboplastin Time 25.6 SECONDS (23.9-36.7)
[2023-02-05 18:36] LABS: Fibrinogen 548 mg/dL (174-498)
[2023-02-05 18:38] LABS: D Dimer 2.21 ug/mIFEU (0-0.59)
[2023-02-05 18:51] LABS: Alanine Aminotransferase 11 U/L (0-33); Albumin Level 3.6 g/dL (3.5-5.2); Alkaline Phosphatase 76 U/L (35-105); Aspartate Amino Transferase 17 U/L (0-32); Globulin 2.7 g/dL (1.3-4.6); Iron 130 ug/dL (37-145); Percent Saturation 77.3 % (20-50); Total Bilirubin 0.3 mg/dL (0.15-1.2); Total Iron Binding Capacity 168 mcg/dl; Total Protein 6.3 g/dL (6.6-8.7); Unsaturated Iron Binding 38 ug/dL (112-347)
[2023-02-05 18:52] LABS: Alanine Aminotransferase 12 U/L (0-33); Albumin Level 3.5 g/dL (3.5-5.2); Alkaline Phosphatase 77 U/L (35-105); Anion Gap 16.3 (5-19); Aspartate Amino Transferase 16 U/L (0-32); Blood Urea Nitrogen 26 mg/dL (8-23); Carbon Dioxide 29 mmol/L (22-29); Chloride 94 mmol/L (98-107); Globulin 2.9 g/dL (1.3-4.6); Glomerular Filtration Rate 6.6 mL/min (90-130); Glucose 155 mg/dL (65-115); Osmolality Calculated 288 mOsm/kg (285-295); Potassium 4.3 mmol/L (3.5-5.1); Sodium 135 mmol/L (136-145); Total Bilirubin 0.3 mg/dL (0.15-1.2); Total Protein 6.4 g/dL (6.6-8.7)
[2023-02-05 19:07] LABS: Vitamin B12 1171 pg/mL (232-1245)
[2023-02-05 19:08] LABS: Ferritin 3371 ng/mL (15-150)
[2023-02-05] MEDS: sodium chloride 0.9% 100 mL Bag 50 ML IV (19:30)
[2023-02-05] MEDS: morphine ER (12 HR) 30 mg tablet PO (20:24)
[2023-02-05] MEDS: calcium acetate 667 mg Capsule PO (20:25)
[2023-02-05 21:44] LABS: Hepatitis B Core AB, Total Non-Reactive (Nonreactive); Hepatitis B Surface Antigen Non-Reactive (Nonreactive)
[2023-02-06] VITALS (11 sets, daily range): BP systolic 133–174; BP diastolic 68–89; PULSE 54–68; RESP 16–18; TEMP 36.7–36.9; O2SAT 93–98
[2023-02-06 05:18] LABS: Basophils % 0.6 %; Eosinophils # 0.1 10^3/uL (0.0-0.8); Eosinophils % 1.9 %; Hematocrit 22.7 % (37.0-47.0); Hemoglobin 7.3 g/dL (11.5-15.3); Lymphocytes # 1.2 10^3/uL (0.8-4.8); Lymphocytes % 24.2 %; Mean Corpuscular HGB Conc 32.2 g/dL (30.0-36.0); Mean Corpuscular Hemoglobin 29.4 pg (28.0-34.0); Mean Corpuscular Volume 91.5 fl (81-99); Mean Platelet Volume 10.1 fL (7.4-10.4); Monocytes # 0.6 10^3/uL (0.2-0.9); Monocytes % 11.8 %; Neutrophils # 2.88 10^3/uL (1.8-7.7); Neutrophils % 60.7 %; Nucleated Red Blood Cells % 0 %; Platelet Count 110 10^3/cmm (130-400); Red Blood Count 2.48 10^6/uL (4.1-5.3); White Blood Count 4.8 10^3/uL (4.0-10.0)
[2023-02-06] MEDS: pantoprazole 40 mg SDV IVP ×2 (05:42→17:20)
[2023-02-06 05:49] LABS: Alanine Aminotransferase 10 U/L (0-33); Albumin Level 3.1 g/dL (3.5-5.2); Alkaline Phosphatase 54 U/L (35-105); Anion Gap 17.1 (5-19); Aspartate Amino Transferase 17 U/L (0-32); Blood Urea Nitrogen 36 mg/dL (8-23); Carbon Dioxide 27 mmol/L (22-29); Chloride 97 mmol/L (98-107); Globulin 2.7 g/dL (1.3-4.6); Glomerular Filtration Rate 6.4 mL/min (90-130); Glucose 83 mg/dL (65-115); Osmolality Calculated 289 mOsm/kg (285-295); Potassium 5.1 mmol/L (3.5-5.1); Sodium 136 mmol/L (136-145); Thyroid Stimulating Hormone 3.69 uIU/mL (0.27-4.20); Total Bilirubin 0.4 mg/dL (0.15-1.2); Total Protein 5.8 g/dL (6.6-8.7)
[2023-02-06] MEDS: calcium acetate 667 mg Capsule PO ×3 (08:38→17:20)
[2023-02-06] MEDS: morphine ER (12 HR) 30 mg tablet PO ×3 (08:38→17:20)
[2023-02-06] MEDS: heparin, porcine 1,000 unit/mL INJ 10 mL 10000 UNIT HE (17:17)
[2023-02-06] MEDS: epoetin alfa 1000 Unit/0.05 mL (non-esrd) 20000 UNIT SUBCUT (17:18)
--- NOTE | 2023-02-06 18:11 | PC.NURSE ---
pt left AMA, form signed, notified, education on risks of leaving and possible . Pt verbalizes understanding.
--- NOTE | 2023-02-06 19:43 | P.CONIM_ITS ---
Providers/Reason For Consult Consulting Physician/Specialty*: [facility] /nEPHROLOGY Reason for Consult*: ESRD Attending Physician: Evangelist Haywood Primary Care Provider: Lopez Bateman MD History of Present Illness History of Present Illness Ashley Miranda is a 62 year old female 62-year-old female with past medical history of end-stage renal disease on peritoneal dialysis and was also started on hemodialysis recently due to poor PD adequacy. She presented to the hospital due to generalized weakness nausea vomiting and diarrhea. In the ED patient was noted to have a hemoglobin of 5.3 and received 2 units of blood transfusion. Patient underwent hemodialysis today. Patient is refusing to stay in the hospital and is leaving AMA. Denies any dark stools. Also received a dose of Procrit 20,000 units while in the hospital. Review of Systems Narrative: other ROS engative Medications/Allergies Home Medications Medication Instructions Recorded Confirmed Last Taken Type vit B,C-folic ac 800 mcg-zinc 12.5 1 tab PO DAILY 08/27/22 02/05/23 10/24/22 History mg-selen-D3 2,000 unit-vit E tablet (RenaPlex-D) morphine 15 mg immediate release 15 mg PO .five times daily PRN Pain 09/27/22 02/05/23 10/24/22 History tablet morphine 30 mg tablet,extended 30 mg PO QID 09/27/22 02/05/23 10/24/22 History release calcium acetate 668 mg (169 mg 668 mg PO TID #90 tabs 10/01/22 02/05/23 10/24/22 Rx calcium) tablet carvedilol 6.25 mg tablet 18.75 mg PO DIRECTED 01/24/23 02/05/23 Unknown History ferric citrate 210 mg iron tablet 840 mg PO TID 01/24/23 02/05/23 Unknown History (Auryxia) ondansetron 4 mg disintegrating 4 mg PO Q8H PRN Nausea And Vomiting 02/05/23 02/05/23 Unknown History tablet Allergies Allergy/AdvReac Type Severity Reaction Status Date / Time No Known Allergies Allergy Verified 01/24/23 14:09 Current Medications Generic Name Dose Route Start Last Admin Trade Name Freq PRN Reason Stop Dose Admin Calcium Acetate 667 mg 02/05/23 21:00 02/06/23 17:20 Calcium Acetate 667 Mg Capsule PO 667 mg TIDWM LOREN Administration Morphine Sulfate 30 mg 02/05/23 21:00 02/06/23 17:20 Morphine Er (12 Hr) 30 Mg Tablet PO 30 mg QID LOREN Administration Non-Formulary Medication 840 mg 02/05/23 21:00 02/06/23 14:07 Ferric Citrate [Auryxia] PO Not Given TID LOREN Pantoprazole Sodium 40 mg 02/05/23 17:44 02/06/23 17:20 Pantoprazole 40 Mg Sdv IVP 40 mg Q12H LOREN Administration PFSH Acute PFSH: Medical History (Updated 02/05/23 @ 17:42 by Evangelist Haywood MD) Acute renal failure Cardiomyopathy CKD (chronic kidney disease) Degenerative joint disease (DJD) of lumbar spine Heart failure with reduced ejection fraction Hepatitis C History of blood transfusion low platelets, 08/24/22 History of stroke 2011 Surgical History History of bilateral tubal ligation History of History of cholecystectomy No pertinent past surgical history Family History Father Cancer lungs and spread Other Lung disease Psychiatric illness Social History Smoking and tobacco status: former smoker Quit status (tobacco): has quit using tobacco Year quit tobacco: 2001 Alcohol intake: never Desire information about alcohol rehabilitation?: No Substance/Drug Use: never Desire information about substance/drug rehabilitation?: No Lives independently: Yes Household members: spouse Housing: House Marital status: Number of children: 2 Current occupational status: disabled Current gender identity: Female Agree to transfusion: Yes Female Reproductive History: Para: 2 Vitals/I&O/Wt Last Vital Signs Temp 98.0 F 02/06/23 16:00 Pulse 68 02/06/23 16:00 Resp 17 02/06/23 16:00 BP 150/77 02/06/23 16:00 Pulse Ox 96 02/06/23 16:00 O2 Del Method Room Air 02/06/23 16:00 02/06/23 02/06/23 02/06/23 06:59 14:59 22:59 Intake Total 1100 / 1220 360 / 360 240 / 600 Balance 1100 / 1220 360 / 360 240 / 600 Weight last 48 hrs Weight 83.915 kg Physical Exam Narrative: Patient is awake alert no acute distress HEENT S1-S2 regular rate and rhythm per report Lungs clear per report No pedal edema per report. Data 02/06/23 05:00 02/06/23 05:00 A&P Assessment and plan (1) ESRD (end stage renal disease): Plan 1. End-stage renal disease: On PD and also hemodialysis on a daily basis, patient to follow[facility] with [facility] as outpatient for long-term HD plans. 2. Anemia: Hemoglobin 5.3 on presentation status post PRBC and status post SEAN, 3. Hypertension: Blood pressure controlled 4. Hyponatremia: Mild, monitor 5. MBD: Phosphorus of 6 calcium was low at 8, advised Phos binders Patient evaluated using audiovisual cart. Time spent 45 minutes. Consult Attestations Medical Necessity Statement: per medicine Coding Level of Care Code Acute Code for Chg Fwd Diagnoses ESRD (end stage renal disease) N18.6
--- NOTE | 2023-02-06 20:46 | P.DS_ITS ---
Discharge Providers Date of Admission: 02/05/23 16:25 Date of Discharge: February 06, 2023 Attending Provider at Admission: Evangelist Haywood Attending Provider at Discharge: Evangelist Haywood Primary Care Provider: Lopez Bateman MD Diagnoses at Discharge Discharge Diagnosis (1) ESRD (end stage renal disease): Status: Acute Reason for Visit Reason for Visit: AMS Brief History: 62-year-old lady was brought in for evaluation to ER.? She has been feeling unwell, she states she is felt unwell for the last 3 weeks, she was getting antibiotics due to an infected lesion on her inner lower lip which is pending biopsy with dermatology, states that she had taken partial course of antibiotics but had developed nausea vomiting, has been having diarrhea, diarrhea now is starting to get better.? Over the last 3 weeks she has been having tiredness, some dizziness.? She has ESRD and has been getting peritoneal dialysis daily but feels that it has been not adequate to control her disease and today was restarted on the first session of hemodialysis.? She denies any purulent discharge from PD catheter, any redness or drainage around either PD or right chest tunneled catheter. Today she was having headache, was noted to have some alteration of mental status, slow to respond, noted by family spacing out, ewa rain.? During my history she is alert and responsive.? She did seem to get peritoneal and hemodialysis confused initially. CT head in ER without acute intracranial hemorrhage or edema.? Focal area of encephalomalacia in posterior left parietal lobe at site of prior hemorrhage from 2012. Lab work in ER returning with severe normocytic anemia, hemoglobin 5.3, MCV 90 .4, platelets 108. She denies any recent output or bleeding, denies any falls or injury.? Denies any hematemesis, hematuria, hematochezia or melena.? Denies any fevers, rashes.? Denies any medication changes. She requests for some of her pain medication for her chronic back pain. Records were requested from nephrology clinic. Hospital Course Hospital Course She received 2 units RBC transfusion with good response, hemoglobin came up to 7.3. Discussed with her results of some of the blood test which were available, discussed in number are still pending including peripheral smear. Discussed abnormal D-dimer. Due to severity of anemia discussed additional reassessment of blood counts and follow-up blood test to rule out further decline in RBC and with consideration of other conditions apart from ESRD which could be dangerous as discussed with her yesterday as well, possibly requiring urgent treatment. Discussed with her plans for additional reassessment tomorrow. Later this afternoon she decided she would leave the hospital AGAINST MEDICAL ADVICE stating that she will be following up with her dialysis clinic for both hemodialysis and to seek repeat blood tests, erythropoietin. Physical Exam Const: COMMON NORMALS: patient oriented x3 and alert GENERAL APPEARANCE: cooperative ORIENTATION/CONSCIOUSNESS: Yes awake OTHER: Today she is awake, alert and keenly responsive. Feels much better. Confusion has resolved. HENMT: COMMON NORMALS: oropharynx normal Neck/C-Spine: COMMON NORMALS: no JVD Chest: OTHER: Right chest tunneled catheter Resp: COMMON NORMALS: normal respiratory effort and clear to auscultation bilaterally AUSCULTATION: clear to auscultation bilaterally Cardio: COMMON NORMALS: no JVD, regular rhythm, S1 normal heart sound present, S2 normal heart sound present and No murmurs present (Cardio) RHYTHM: regular rhythm HEART SOUNDS: S1 normal heart sound present and S2 normal heart sound present GI: COMMON NORMALS: Normal to inspection, nondistended, normoactive bowel sounds present, Soft to palpation and non-tender PALPATION: Yes Soft to palpation OTHER: Left side abdomen PD catheter Extremity: COMMON NORMALS: no joint enlargement and no pedal edema Neuro: COMMON NORMALS: patient oriented x3 and moves all extremities SENSORIUM/ORIENTATION: Yes alert Skin: COMMON NORMALS: no rashes or lesions noted GENERAL SKIN EXAM: no rashes or lesions noted Discharge Data Studies Completed and Pending Completed Studies During Hospitalization Category Date Time Status CT abdomen pelvis wo con [id number] Stat Cat Scan 02/05/23 17:[address] head wo con* [id number] Stat Cat Scan 02/05/23 14:32 Completed Pending at discharge Category Date Time Status C DIFF [Clostridioides Difficile PCR] Routine Lab 02/05/23 17:10 Uncollected Complete Blood Count w/Auto AM LABS Lab 02/07/23 04:00 Ordered Complete Blood Count w/Auto AM LABS Lab 02/08/23 04:00 Ordered Comprehensive Metabolic Panel AM LABS Lab 02/07/23 04:00 Ordered Comprehensive Metabolic Panel AM LABS Lab 02/08/23 04:00 Ordered Drug Screen, Urine Routine Lab 02/05/23 17:52 Uncollected Occult Blood Stool [Immunochemical Fecal OCB] Routine Lab 02/05/23 17:44 Uncollected Stool Culture, Bacterial [Enteric Bacterial Panel by Lab 02/05/23 17:10 Uncollected PCR] Routine Radiology Impressions Head CT 02/05/23 14:32 IMPRESSION: 1. No acute intracranial hemorrhage or edema. 2. Focal area of encephalomalacia in the posterior LEFT parietal lobe at the site of the prior hemorrhage from 2011. Abdomen/Pelvis CT 02/05/23 17:44 IMPRESSION: Peritoneal dialysis catheter tubing coiled over and/or in the abdomen and pelvis. Laboratory Results WBC 4.8 10^3/uL (4.0-10.0) 02/06/23 05:00 RBC 2.48 10^6/uL (4.1-5.3) L 02/06/23 05:00 Hgb 7.3 g/dL (11.5-15.3) L D 02/06/23 05:00 Hct 22.7 % (37.0-47.0) L D 02/06/23 05:00 MCV 91.5 fl (81-99) 02/06/23 05:00 MCH 29.4 pg (28.0-34.0) 02/06/23 05:00 MCHC 32.2 g/dL (30.0-36.0) 02/06/23 05:00 RDW 14.0 % (12.1-15.1) 02/06/23 05:00 Plt Count 110 10^3/cmm (130-400) L 02/06/23 05:00 MPV 10.1 fL (7.4-10.4) 02/06/23 05:00 Neut % (Auto) 60.7 % 02/06/23 05:00 Lymph % (Auto) 24.2 % 02/06/23 05:00 [place] % (Auto) 11.8 % 02/06/23 05:00 Eos % (Auto) 1.9 % 02/06/23 05:00 Baso % (Auto) 0.6 % 02/06/23 05:00 Reticulocyte % (Auto) 4.3 % (0.5-2.0) H 02/05/23 16:25 Neut # (Auto) 2.88 10^3/uL (1.8-7.7) 02/06/23 05:00 Lymph # (Auto) 1.2 10^3/uL (0.8-4.8) 02/06/23 05:00 [place] # (Auto) 0.6 10^3/uL (0.2-0.9) 02/06/23 05:00 Eos # (Auto) 0.1 10^3/uL (0.0-0.8) 02/06/23 05:00 Baso # (Auto) 0.0 10^3/uL (0.0-0.1) 02/06/23 05:00 Nucleated RBC % (auto) 0 % 02/06/23 05:00 Nucleated RBCs # 0.0 /100WBC 02/06/23 05:00 Retic Production Index 1.80 02/05/23 16:25 Haptoglobin 218.0 mg/L (30-200) H 02/05/23 15:08 PT 13.80 SECONDS (12.1-14.9) 02/05/23 18:10 INR 1.03 (0.8-1.2) 02/05/23 18:10 APTT 25.6 SECONDS (23.9-36.7) 02/05/23 18:10 Fibrinogen 548 mg/dL (174-498) H 02/05/23 18:10 Fibrin Degrad Products Pos, 10-40 ug/mL (NEG) H 02/05/23 18:10 D-Dimer 2.21 ug/mIFEU (0-0.59) H 02/05/23 18:10 Sodium 136 mmol/L (136-145) 02/06/23 05:00 Potassium 5.1 mmol/L (3.5-5.1) 02/06/23 05:00 Chloride 97 mmol/L (98-107) L 02/06/23 05:00 Carbon Dioxide 27 mmol/L (22-29) 02/06/23 05:00 Anion Gap 17.1 (5-19) 02/06/23 05:00 BUN 36 mg/dL (8-23) H 02/06/23 05:00 Creatinine 6.6 mg/dL (0.5-0.9) H* 02/06/23 05:00 GFR Calculation 6.4 mL/min (90-130) L 02/06/23 05:00 Glucose 83 mg/dL (65-115) 02/06/23 05:00 Calculated Osmolality 289 mOsm/kg (285-295) 02/06/23 05:00 Calcium 8.0 mg/dL (8.5-10.5) L 02/06/23 05:00 Phosphorus 6.0 mg/dL (2.5-4.5) H D 02/06/23 05:00 Magnesium 2.0 mg/dL (1.7-2.3) 02/06/23 05:00 Iron 130 ug/dL (37-145) 02/05/23 18:10 TIBC 168 mcg/dl 02/05/23 18:10 % Saturation 77.3 % (20-50) H 02/05/23 18:10 Unsat Iron Binding 38 ug/dL (112-347) L 02/05/23 18:10 Ferritin 3371 ng/mL (15-150) H 02/05/23 18:10 Total Bilirubin 0.4 mg/dL (0.15-1.2) 02/06/23 05:00 Direct Bilirubin 0.20 mg/dL (0.00-0.30) 02/05/23 18:10 AST 17 U/L (0-32) 02/06/23 05:00 ALT 10 U/L (0-33) 02/06/23 05:00 Alkaline Phosphatase 54 U/L (35-105) 02/06/23 05:00 Lactate Dehydrogenase 261 U/L (135-214) H 02/05/23 15:08 Total Protein 5.8 g/dL (6.6-8.7) L 02/06/23 05:00 Albumin 3.1 g/dL (3.5-5.2) L 02/06/23 05:00 Globulin 2.7 g/dL (1.3-4.6) 02/06/23 05:00 Vitamin B12 1171 pg/mL (232-1245) 02/05/23 18:10 TSH 3.69 uIU/mL (0.27-4.20) 02/06/23 05:00 Hep Bs Antigen Non-reactive (Nonreactive) 02/05/23 18:10 Hep Bs Antibody 13.0 (11.5-1000) 02/05/23 18:10 Hep B Core Total Ab Non-reactive (Nonreactive) 02/05/23 18:10 Blood Type O Positive 02/05/23 16:25 Rho(D) Type Positive 02/05/23 16:25 Antibody Screen Negative 02/05/23 16:25 Crossmatch See Detail 02/05/23 16:25 Vitals Last Vital Signs Temp 98.0 F 02/06/23 16:00 Pulse 68 02/06/23 16:00 Resp 17 02/06/23 16:00 BP 150/77 02/06/23 16:00 Pulse Ox 96 02/06/23 16:00 O2 Del Method Room Air 02/06/23 16:00 Discharge Plan Discharge Patient Disposition: Left Against Medical Advice Condition: Fair Prescriptions: No Action calcium acetate 668 mg (169 mg calcium) tablet 668 mg PO TID Qty: 90 0RF carvedilol 6.25 mg tablet 18.75 mg PO DIRECTED Rx Instructions: 12.5mg (2 tabs) in AM and 6.25mg (1 tab) in PM Auryxia 210 mg iron tablet 840 mg PO TID Rx Instructions: administer with a meal RenaPlex-D 800 mcg-12.5 mg -2,000 unit tablet 1 tab PO DAILY morphine 30 mg tablet extended release 30 mg PO QID morphine 15 mg tablet 15 mg PO .five times daily PRN (Reason: Pain) ondansetron 4 mg tablet,disintegrating 4 mg PO Q8H PRN (Reason: Nausea And Vomiting) Referrals: Lopez Bateman MD [Primary Care Provider] - Patient Instructions: Hyponatremia (ED), Benzodiazepine Use Disorder (ED), Dementia (ED), Non-diabetic Hypoglycemia (ED), Hypoglycemia in a Person with Diabetes (ED), Concussion (ED), Alcohol Intoxication (ED), Subarachnoid Hemorrhage (GEN), Altered Mental Status (ED), Opioid Safety Discharge Attestations Time Spent in Discharge Care*: greater than 30 min Status at Discharge: Cognitive status at discharge: cognitively intact , Behavioral status at discharge: cooperative , Quality Metrics Clinical Quality Measures [ No reported AMI, CVA or VTE this stay] Coding Level of Care Code 73213 Total time (in minutes) for Discharge: 30 Diagnoses ESRD (end stage renal disease) N18.6
== END 2023-02-07 03:20 | disposition left against medical advice (07) | DRG 291 ==
LOC: ER 16:22 → MEDSURG 16:49
PROVIDERS: Hospitalist; Admitting Provider Internal Medicine; Emergency Provider Emergency Medicine; PCP Family Medicine; Visit Provider Internal Medicine
DX: I13.2 Hypertensive heart and chronic kidney disease with heart failure and with stage 5 chronic kidney disease, or end stage renal disease (principal); N18.6 End stage renal disease; E87.1 Hypo-osmolality and hyponatremia; G93.40 Encephalopathy, unspecified; I50.22 Chronic systolic (congestive) heart failure; Z99.2 Dependence on renal dialysis; D63.1 Anemia in chronic kidney disease; Z53.29 Procedure and treatment not carried out because of patient's decision for other reasons; Z79.891 Long term (current) use of 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; G89.29 Other chronic pain; I42.9 Cardiomyopathy, unspecified; M47.816 Spondylosis without myelopathy or radiculopathy, lumbar region; Z86.19 Personal history of other infectious and parasitic diseases; Z86.73 Personal history of transient ischemic attack (TIA), and cerebral infarction without residual deficits; Z87.891 Personal history of nicotine dependence; K13.0 Diseases of lips; R19.7 Diarrhea, unspecified; D69.6 Thrombocytopenia, unspecified
CPT/HCPCS: 12345; 36415; 36430; 70450; 74176; 80048; 80053; 80076; 80503; 82607; 82728; 83010; 83540; 83550; 83615; 83735; 84100; 84443; 85014; 85025; 85045; 85362; 85378; 85384; 85610; 85730; 86705; 86706; 86850; 86900; 86920; 87340; 90935; 93005; 96372; 99285; C9113; J0885; J1644; P9016

== ENCOUNTER → 2023-02-12 13:32 | Outpatient (BNVA) | payer MEDICARE, OTHER, SELFPAY | PROVIDERS: PCP Family Medicine; Referring Provider Family Medicine; Visit Provider Dermatology | DX: L81.4 Other melanin hyperpigmentation (principal); L23.9 Allergic contact dermatitis, unspecified cause; D23.0 Other benign neoplasm of skin of lip; F42.4 Excoriation (skin-picking) disorder | CPT/HCPCS: 11102; 99204 ==

== ENCOUNTER 2023-05-09 14:03 | Emergency (ER) | payer MEDICARE, SELFPAY ==
[2023-05-09 14:30] VITALS: BP 200/94; PULSE 74; RESP 18; TEMP 36.7; O2SAT 97; BMI 30.9
[2023-05-09 16:03] LABS: Basophils % 0.6 %; Eosinophils # 0.1 10^3/uL (0.0-0.8); Eosinophils % 1.6 %; Hematocrit 35.9 % (36-47); Lymphocytes # 0.5 10^3/uL (0.8-4.8); Lymphocytes % 10.8 %; Mean Corpuscular HGB Conc 33.4 g/dL (30-55); Mean Corpuscular Volume 95.7 fl (85-98); Mean Platelet Volume 9.2 fL (7.4-10.4); Monocytes # 0.5 10^3/uL (0.2-0.9); Monocytes % 10.4 %; Neutrophils # 3.83 10^3/uL (1.8-7.7); Neutrophils % 76.4 %; Nucleated Red Blood Cells % 0 %; Platelet Count 127 10^3/cmm (157-399); Red Blood Count 3.75 10^6/uL (3.85-5.65); Red Cell Distribution Width 13.3 % (12.1-15.1); White Blood Count 5.01 10^3/uL (3.29-11.43)
[2023-05-09 16:13] VITALS: BP 207/97; O2SAT 96
[2023-05-09] MEDS: ketorolac 30 mg/mL INJ IVP (16:24)
[2023-05-09] MEDS: promethazine 25 mg/mL SDV 1 mL IM (16:24)
[2023-05-09 16:26] LABS: Alanine Aminotransferase < 5 U/L (0-33); Albumin Level 4.5 g/dL (3.5-5.2); Alkaline Phosphatase 102 U/L (35-105); Anion Gap 18.4 (5-19); Aspartate Amino Transferase 20 U/L (0-32); Blood Urea Nitrogen 45 mg/dL (8-23); Calcium 8.7 mg/dL (8.5-10.5); Carbon Dioxide 35 mmol/L (22-29); Chloride 90 mmol/L (98-107); Globulin 3.3 g/dL (1.3-4.6); Glomerular Filtration Rate 8.8 mL/min (90-130); Glucose 116 mg/dL (65-115); Osmolality Calculated 301 mOsm/kg (285-295); Potassium 4.4 mmol/L (3.5-5.1); Sodium 139 mmol/L (136-145); Total Bilirubin 0.3 mg/dL (0.15-1.2); Total Protein 7.8 g/dL (6.6-8.7)
[2023-05-09 16:27] LABS: Add Urine Microscopic? YES; Bilirubin Urine Neg (Negative); Blood Urine Neg (Negative); Glucose Urine UA 1+ (Normal); Ketones Urine 1+ (Negative); Leukocyte Esterase Urine Negative (Negative); Nitrate Urine Negative (Negative); Protein Urine 2+ (Negative); Specific Gravity, Urine 1.015 (1.005-1.030); Urine Appearance Clear (CLEAR); Urine Color Yellow (Yellow); Urobilinogen Urine Norm (Negative); pH Urine 8 (5-7)
[2023-05-09 16:29] LABS: Add Urine Culture? No; Bacteria Urine TRACE /hpf; RBC Urine 0-4 /hpf (0-2); Squamous Epithelial Cell Urine 0-4 /hpf (0-5); Sulfosalicylic Acid Urine Negative (Negative); WBC Urine 0-4 /hpf (0-5)
[2023-05-09] MEDS: hyDRALAzine 20 mg/mL INJ 1 mL IVP (16:34)
[2023-05-09] MEDS: amlodipine 10 mg Tablet PO (16:34)
--- NOTE | 2023-05-09 16:58 | ECG_ITS ---
[facility] Test Date: 2023-05-09 Pat Name: Ashley Miranda Department: Room: Gender: Female [employer] Sy[employer] Maker: : 1960 Requested By: Wally Leonard Order Number: [id number] Elen MD: Amol Payne M.D. Measurements Intervals [place] Rate: 69 P: 48 NM: 184 QRS: 15 QRSD: 106 T: 66 QT: 417 QTc: 449 Interpretive Statements SINUS RHYTHM NONSPECIFIC T-WAVE ABNORMALITY Compared to ECG 02/05/2023 14:37:33 Intraventricular conduction delay no longer present T-wave abnormality still present Electronically Signed On 05-09-2023 17:37:07 CDT by Amol Payne M.D. [email or web address]
--- NOTE | 2023-05-09 17:52 | W.ED.HA ---
HPI - Headache General: Chief Complaint: Headache Stated Complaint: headache, dialaces today Time Seen by Provider: 05/09/23 15:23 Source: patient Mode of arrival: ambulatory History of Present Illness: 62-year-old female presents to the emergency room complaining of a headache. Nitish her usual run of about 3 and half hours of dialysis today afterwards she began to have a frontal headache bitemporal. No fall or trauma blood pressure has been significantly elevated today initial blood pressure is over 200 she denies chest pain or abdominal pain. No focal neurologic deficits noted. MD elicited complaint: headache Location: frontal Severity: moderate Quality & Timing: throbbing Exacerbating factors: none Relieving factors: nothing Associated symptoms: Deny chest pain, confusion, cough, diaphoresis, eye pain, eye redness, fever(s), loss of vision, malaise, nausea, neck stiffness, numbness, paresthesias, photophobia, rash, seizures, short of breath, sound sensitivity, vomiting or weakness Treatments prior to arrival: none Review of Systems Const: Denies: fever(s), chills, fatigue, malaise or diaphoresis ENMT: Denies: throat pain, ear or mastoid pain, nasal discharge or nasal congestion Card: Denies: chest pain, palpitations or irregular heart rhythm Resp: Denies: dyspnea, productive cough or non-productive cough GI: Denies: abdominal pain, nausea or vomiting : Denies: flank pain, difficulty voiding, dysuria, urinary frequency or urinary urgency Skin/Breast: Denies: rash Neuro: Reports: headache(s); Denies: confusion PFSH ED PFSH: Medical History Acute renal failure Cardiomyopathy CKD (chronic kidney disease) Degenerative joint disease (DJD) of lumbar spine Heart failure with reduced ejection fraction Hepatitis C History of blood transfusion low platelets, 08/24/22 History of stroke 2011 Surgical History History of bilateral tubal ligation History of History of cholecystectomy No pertinent past surgical history Family History Father Cancer lungs and spread Other Lung disease Psychiatric illness Social History Smoking and tobacco status: former smoker Quit status (tobacco): has quit using tobacco Year quit tobacco: 2001 Alcohol intake: never Desire information about alcohol rehabilitation?: No Substance/Drug Use: never Desire information about substance/drug rehabilitation?: No Lives independently: Yes Household members: spouse Housing: House Marital status: Number of children: 2 Current occupational status: disabled Current gender identity: Female Agree to transfusion: Yes Female Reproductive History: Para: 2 Physical Exam Const: GENERAL APPEARANCE: cooperative and comfortable ORIENTATION/CONSCIOUSNESS: Yes awake, Yes oriented to person, Yes oriented to place and Yes oriented to time HENMT: COMMON NORMALS: normocephalic, atraumatic and hearing grossly normal bilaterally HEAD & SCALP: normocephalic and atraumatic Eye: DIRECT OPHTHALMOSCOPY: No photophobia Resp: COMMON NORMALS: normal respiratory effort, No retractions, No use of accessory muscles and clear to auscultation bilaterally AUSCULTATION: clear to auscultation bilaterally Cardio: COMMON NORMALS: regular rate, regular rhythm and No murmurs present (Cardio) RATE: regular rate RHYTHM: regular rhythm GI: COMMON NORMALS: Soft to palpation and No hepatosplenomegaly present AUSCULTATION: Yes normoactive bowel sounds PALPATION: Yes Soft to palpation, No Tenderness to palpation present (GI), No Guarding due to palpation present (GI) and Yes No hepatosplenomegaly present Extremity: COMMON NORMALS: normal to inspection, capillary refill normal, no clubbing, cyanosis or edema, no calf tenderness and no pedal edema Neuro: SENSORIUM/ORIENTATION: Yes oriented to person, Yes oriented to place and Yes oriented to time Skin: COMMON NORMALS: no rashes or lesions noted GENERAL SKIN EXAM: no rashes or lesions noted Course Vital Signs: Vital signs: Vital Signs Temperature 98.1 F 05/09/23 14:30 Pulse Rate 74 05/09/23 14:30 Respiratory Rate 18 05/09/23 14:30 Blood Pressure 146/67 05/09/23 18:33 Pulse Oximetry 98 05/09/23 18:33 Oxygen Delivery Me thod Room Air 05/09/23 18:33 MDM - Headache Medical Decision Making Patient feeling better after blood pressures improved discharge patient home on medications. Follow-up with primary care doctor to reevaluate blood pressure. He was given a prescription for amlodipine 10 mg daily Medical Records I reviewed the patient's medical records. Lab Data I reviewed the patient's lab results. 05/09/23 15:50 05/09/23 15:50 Laboratory Results WBC 5.01 10^3/uL (3.29-11.43) 05/09/23 15:50 RBC 3.75 10^6/uL (3.85-5.65) L 05/09/23 15:50 Hgb 12.00 g/dL (11.27-16.99) 05/09/23 15:50 Hct 35.9 % (36-47) L 05/09/23 15:50 MCV 95.7 fl (85-98) 05/09/23 15:50 MCH 32.0 pg (27-33) 05/09/23 15:50 MCHC 33.4 g/dL (30-55) 05/09/23 15:50 RDW 13.3 % (12.1-15.1) 05/09/23 15:50 Plt Count 127 10^3/cmm (157-399) L 05/09/23 15:50 MPV 9.2 fL (7.4-10.4) 05/09/23 15:50 Neut % (Auto) 76.4 % 05/09/23 15:50 Lymph % (Auto) 10.8 % 05/09/23 15:50 [place] % (Auto) 10.4 % 05/09/23 15:50 Eos % (Auto) 1.6 % 05/09/23 15:50 Baso % (Auto) 0.6 % 05/09/23 15:50 Neut # (Auto) 3.83 10^3/uL (1.8-7.7) 05/09/23 15:50 Lymph # (Auto) 0.5 10^3/uL (0.8-4.8) L 05/09/23 15:50 [place] # (Auto) 0.5 10^3/uL (0.2-0.9) 05/09/23 15:50 Eos # (Auto) 0.1 10^3/uL (0.0-0.8) 05/09/23 15:50 Baso # (Auto) 0.0 10^3/uL (0.0-0.1) 05/09/23 15:50 Nucleated RBC % (auto) 0 % 05/09/23 15:50 Nucleated RBCs # 0.0 /100WBC 05/09/23 15:50 Sodium 139 mmol/L (136-145) 05/09/23 15:50 Potassium 4.4 mmol/L (3.5-5.1) 05/09/23 15:50 Chloride 90 mmol/L (98-107) L 05/09/23 15:50 Carbon Dioxide 35 mmol/L (22-29) H 05/09/23 15:50 Anion Gap 18.4 (5-19) 05/09/23 15:50 BUN 45 mg/dL (8-23) H 05/09/23 15:50 Creatinine 5.0 mg/dL (0.5-0.9) H 05/09/23 15:50 GFR Calculation 8.8 mL/min (90-130) L 05/09/23 15:50 Glucose 116 mg/dL (65-115) H 05/09/23 15:50 Calculated Osmolality 301 mOsm/kg (285-295) H 05/09/23 15:50 Calcium 8.7 mg/dL (8.5-10.5) 05/09/23 15:50 Total Bilirubin 0.3 mg/dL (0.15-1.2) 05/09/23 15:50 AST 20 U/L (0-32) 05/09/23 15:50 ALT < 5 U/L (0-33) 05/09/23 15:50 Alkaline Phosphatase 102 U/L (35-105) 05/09/23 15:50 Total Protein 7.8 g/dL (6.6-8.7) 05/09/23 15:50 Albumin 4.5 g/dL (3.5-5.2) 05/09/23 15:50 Globulin 3.3 g/dL (1.3-4.6) 05/09/23 15:50 Urine Color Yellow (Yellow) 05/09/23 15:45 Urine Appearance Clear (CLEAR) 05/09/23 15:45 Urine pH 8 (5-7) H 05/09/23 15:45 Ur Specific [place] 1.015 (1.005-1.030) 05/09/23 15:45 Urine Protein 2+ (Negative) H 05/09/23 15:45 Urine Glucose (UA) 1+ (Normal) H 05/09/23 15:45 Urine Ketones 1+ (Negative) H 05/09/23 15:45 Urine Blood Neg (Negative) 05/09/23 15:45 Urine Nitrate Negative (Negative) 05/09/23 15:45 Urine Bilirubin Neg (Negative) 05/09/23 15:45 Prot Sulfosalicylic Acd Negative (Negative) 05/09/23 15:45 Urine Urobilinogen Norm mg/dL (Negative) 05/09/23 15:45 Ur Leukocyte Esterase Negative (Negative) 05/09/23 15:45 Urine RBC 0-4 /hpf (0-2) H 05/09/23 15:45 Urine WBC 0-4 /hpf (0-5) H 05/09/23 15:45 Ur Squamous Epith Cells 0-4 /hpf (0-5) H 05/09/23 15:45 Amorphous Sediment Not Reportable 05/09/23 15:45 Urine Bacteria Trace /hpf (NONE) 05/09/23 15:45 Discharge Plan Discharge Patient Disposition: Home Clinical Impression: Headache, Chronic kidney disease, End-stage renal disease on hemodialysis, Hypertension Condition: Stable Prescriptions: New amlodipine 10 mg tablet 10 mg PO DAILY Qty: 30 0RF No Action carvedilol 6.25 mg tablet 18.75 mg PO DIRECTED Rx Instructions: 12.5mg (2 tabs) in AM and 6.25mg (1 tab) in PM RenaPlex-D 800 mcg-12.5 mg -2,000 unit tablet 1 tab PO DAILY morphine 30 mg tablet extended release 30 mg PO QID morphine 15 mg tablet 15 mg PO .five times daily PRN (Reason: Pain) lanthanum 1,000 mg tablet,chewable 2,000 mg PO BID Discharge Orders: Discharge ED (Routine); Ordered 05/09/23 Ordered By: Wally Leal Referrals: Lopez Bateman MD [Primary Care Provider] - Discharge Diet: Usual diet Discharge Activity: Resume usual activity Patient Instructions: Opioid Safety, Pain Management Activity Restrictions/Additional Instructions: Follow-up with your primary care physician within the week to recheck your blood pressure Coding Level of Care Code ED Business Office Technician for Mannie Soto
[2023-05-09 18:33] VITALS: BP 146/67; O2SAT 98
== END 2023-05-09 18:34 | disposition home or self-care (01) ==
PROVIDERS: Emergency Provider Family Medicine; PCP Family Medicine
DX: R51.9 Headache, unspecified (principal); I12.0 Hypertensive chronic kidney disease with stage 5 chronic kidney disease or end stage renal disease; N18.6 End stage renal disease; Z99.2 Dependence on renal dialysis; Z86.19 Personal history of other infectious and parasitic diseases; Z86.73 Personal history of transient ischemic attack (TIA), and cerebral infarction without residual deficits; Z87.891 Personal history of nicotine dependence
CPT/HCPCS: 80053; 81001; 85025; 93005; 96372; 96374; 96375; 99284; J0360; J1885; J2550

== ENCOUNTER 2023-05-17 14:06 | Outpatient (CLI) | payer MEDICARE, SELFPAY ==
--- NOTE | 2023-05-17 14:19 | XRR_ITS ---
PROCEDURE INFORMATION: Exam: XR Left Knee Exam date and time: 05/17/2023 2:36 PM Age: 62 years old Clinical indication: Injury or trauma; Fall; Other: Pain in back, hip, and knee; Additional info: Pain in left knee TECHNIQUE: Imaging protocol: Radiologic exam of the left knee. Views: 3 views. COMPARISON: No relevant prior studies available. FINDINGS: Bones/joints: No fracture or dislocation. No significant joint space narrowing. Mild enthesophyte formation about the anterior patella. Osseous structures show no acute abnormality. No significant suprapatellar fullness or effusion. No abnormal soft tissue calcification. Soft tissues: Soft tissues show no focal abnormality. XR/XR knee LT 3V* [id number] IMPRESSION: No fracture or acute osseous abnormality.
--- NOTE | 2023-05-17 14:19 | XRR_ITS ---
PROCEDURE INFORMATION: Exam: XR Left Hip Exam date and time: 05/17/2023 2:36 PM Age: 62 years old Clinical indication: Hip pain; Left hip; Additional info: Pain in left hip; Fall last Saturday TECHNIQUE: Imaging protocol: Radiologic exam of the left hip. Views: 2 or 3 views hip with pelvis when performed. COMPARISON: CT abdomen pelvis wo con [id number] 02/05/2023 11:05 PM FINDINGS: Bones/joints: No fracture or dislocation is seen about the left hip. No fracture seen within the visualized adjacent pelvis. Hip joint appears maintained. Soft tissues: No significant focal soft tissue abnormality. XR/XR hip LT 2-3V wo/w pel* [id number] IMPRESSION: No fracture or acute osseous abnormality.
--- NOTE | 2023-05-17 14:19 | XRR_ITS ---
PROCEDURE INFORMATION: Exam: XR Lumbosacral Spine Exam date and time: 05/17/2023 2:36 PM Age: 62 years old Clinical indication: Low back pain; Additional info: Vertebrogenic low back pain; Fall last Saturday TECHNIQUE: Imaging protocol: Radiologic exam of the lumbosacral spine. Views: 2 or 3 views. COMPARISON: CT abdomen pelvis wo con [id number] 02/05/2023 11:05 PM FINDINGS: Bones/joints: AP view demonstrates slight scoliosis. Straightening of the lumbar lordosis is seen on the lateral view. Lumbar vertebral body heights appear maintained. No fracture or compression deformity or subluxation. Spondylotic change noted, particularly lower lumbar spine. Disc space narrowing is seen L3-4 through L5-S1 levels. Visualized sacrum shows no acute abnormality. Soft tissues: No significant focal soft tissue abnormality. Intraperitoneal space: Surgical clips right upper quadrant. XR/XR lumbar spine 2-3V* [id number] IMPRESSION: 1. Straightening of the lumbar lordosis on the lateral view and slight scoliosis on the AP view. This can be associated with muscle spasm/tension. 2. Spondylotic change with component of degenerative disc disease within the lower lumbar spine. 3. No fracture or subluxation.
== END 2023-05-17 14:07 | disposition home or self-care (01) ==
PROVIDERS: PCP Family Medicine; Visit Provider Anesthesiology Pain Medicine
DX: M54.51 Vertebrogenic low back pain (principal); M25.562 Pain in left knee; M25.552 Pain in left hip; M51.36 Other intervertebral disc degeneration, lumbar region; W19.XXXA Unspecified fall, initial encounter; Y93.9 Activity, unspecified; Y92.9 Unspecified place or not applicable; Y99.9 Unspecified external cause status
CPT/HCPCS: 72100; 73502; 73562

== ENCOUNTER 2023-07-23 16:29 | Emergency (ER) | payer MEDICARE, OTHER, SELFPAY ==
[2023-07-23 16:38] VITALS: BP 204/95; PULSE 64; RESP 18; TEMP 36.6; O2SAT 96; BMI 34.5
--- NOTE | 2023-07-23 18:05 | W.ED.HA ---
HPI - Headache General: Chief Complaint: Headache Stated Complaint: head pain, BP Time Seen by Provider: 07/23/23 17:47 Source: patient Mode of arrival: ambulatory Limitations: no limitations History of Present Illness: 62-year-old female with a history of end-stage renal disease she is on dialysis states she did receive dialysis today but states this evening her blood pressure been running over 200 she had a headache she states that she took her blood pressure meds at home her blood pressure has improved states her headache is since resolved states she feels fine currently she is concerned about her blood pressure denies any shortness of breath. Associated symptoms: Deny chest pain, fever(s), nausea, rash or vomiting Review of Systems Const: Denies: fever(s), chills, body aches or change in appetite Eyes: Denies: blurry vision or eye discomfort ENMT: Denies: throat pain or dental pain Card: Denies: chest pain Resp: Denies: dyspnea GI: Denies: abdominal pain, nausea, vomiting or diarrhea Musc: Denies: neck pain or back pain Skin/Breast: Denies: rash Neuro: Reports: headache(s) PFSH ED PFSH: Medical History Acute renal failure Cardiomyopathy CKD (chronic kidney disease) Degenerative joint disease (DJD) of lumbar spine Heart failure with reduced ejection fraction Hepatitis C History of blood transfusion low platelets, 08/24/22 History of stroke 2011 Surgical History History of bilateral tubal ligation History of History of cholecystectomy No pertinent past surgical history Family History Father Cancer lungs and spread Other Lung disease Psychiatric illness Social History Smoking and tobacco/nicotine status: former use of tobacco/nicotine Quit status (tobacco/nicotine): has quit using Year quit tobacco: 2001 Alcohol intake: never Substance/Drug Use: never Lives independently: Yes Household members: spouse Housing: House Marital status: Number of children: 2 Current occupational status: disabled Current gender identity: Female Agree to transfusion: Yes Female Reproductive History: Para: 2 Physical Exam Const: COMMON NORMALS: no acute distress, patient oriented x3 and healthy appearing HENMT: COMMON NORMALS: normocephalic and atraumatic HEAD & SCALP: normocephalic and atraumatic Eye: COMMON NORMALS: Equal, round and reactive pupils present and EOMs intact bilaterally PUPIL: Yes Equal, round and reactive pupils present Neck/C-Spine: COMMON NORMALS: full ROM and supple Chest: COMMONS NORMALS: normal inspection of the chest and normal palpation of entire chest wall Resp: COMMON NORMALS: normal respiratory effort, No retractions, No use of accessory muscles and clear to auscultation bilaterally AUSCULTATION: clear to auscultation bilaterally Cardio: COMMON NORMALS: regular rate, regular rhythm and No murmurs present (Cardio) RATE: regular rate RHYTHM: regular rhythm GI: COMMON NORMALS: Normal to inspection, nondistended, normoactive bowel sounds present, Soft to palpation, non-tender and no masses PALPATION: Yes Soft to palpation Extremity: COMMON NORMALS: normal to inspection and full ROM Neuro: COMMON NORMALS: patient oriented x3, moves all extremities and no focal motor deficits Psych: COMMON NORMALS: mental status grossly normal, Normal thought process present and cooperative THOUGHT PROCESS: Normal thought process present Skin: COMMON NORMALS: no rashes or lesions noted and no wounds GENERAL SKIN EXAM: no rashes or lesions noted Course Vital Signs: Vital signs: Vital Signs Temperature 97.9 F 07/23/23 16:38 Pulse Rate 61 07/23/23 19:17 Respiratory Rate 18 07/23/23 19:17 Blood Pressure 169/71 07/23/23 19:17 Pulse Oximetry 95 07/23/23 19:17 Oxygen Delivery Me thod Room Air 07/23/23 18:10 MDM - Headache Medical Decision Making Patient presents with a headache along with hypertension her headache and since resolved her blood pressure here is improved lab work shows no acute abnormality she is to monitor blood pressure at home follow-up with PCP and return if worsening she understands agrees plan she has no signs of meningitis or subarachnoid hemorrhage. Medical Records I reviewed the patient's medical records. Lab Data I reviewed the patient's lab results. 07/23/23 18:12 07/23/23 18:12 Laboratory Results WBC 3.88 10^3/uL (3.29-11.43) 07/23/23 18:12 RBC 3.18 10^6/uL (3.85-5.65) L 07/23/23 18:12 Hgb 10.00 g/dL (11.27-16.99) L 07/23/23 18:12 Hct 30.9 % (36-47) L 07/23/23 18:12 MCV 97.2 fl (85-98) 07/23/23 18:12 MCH 31.4 pg (27-33) 07/23/23 18:12 MCHC 32.4 g/dL (30-55) 07/23/23 18:12 RDW 14.4 % (12.1-15.1) 07/23/23 18:12 Plt Count 126 10^3/cmm (157-399) L 07/23/23 18:12 MPV 9.3 fL (7.4-10.4) 07/23/23 18:12 Neut % (Auto) 68.8 % 07/23/23 18:12 Lymph % (Auto) 17.8 % 07/23/23 18:12 [place] % (Auto) 10.3 % 07/23/23 18:12 Eos % (Auto) 2.3 % 07/23/23 18:12 Baso % (Auto) 0.5 % 07/23/23 18:12 Neut # (Auto) 2.67 10^3/uL (1.8-7.7) 07/23/23 18:12 Lymph # (Auto) 0.7 10^3/uL (0.8-4.8) L 07/23/23 18:12 [place] # (Auto) 0.4 10^3/uL (0.2-0.9) 07/23/23 18:12 Eos # (Auto) 0.1 10^3/uL (0.0-0.8) 07/23/23 18:12 Baso # (Auto) 0.0 10^3/uL (0.0-0.1) 07/23/23 18:12 Nucleated RBC % (auto) 0 % 07/23/23 18:12 Nucleated RBCs # 0.0 /100WBC 07/23/23 18:12 Sodium 139 mmol/L (136-145) 07/23/23 18:12 Potassium 5.2 mmol/L (3.5-5.1) H 07/23/23 18:12 Chloride 92 mmol/L (98-107) L 07/23/23 18:12 Carbon Dioxide 37 mmol/L (22-29) H 07/23/23 18:12 Anion Gap 15.2 (5-19) 07/23/23 18:12 BUN 30 mg/dL (8-23) H 07/23/23 18:12 Creatinine 4.4 mg/dL (0.5-0.9) H 07/23/23 18:12 GFR Calculation 10.2 mL/min (90-130) L 07/23/23 18:12 Glucose 109 mg/dL (65-115) 07/23/23 18:12 Calculated Osmolality 295 mOsm/kg (285-295) 07/23/23 18:12 Calcium 9.0 mg/dL (8.5-10.5) 07/23/23 18:12 No radiology studies performed this visit Discharge Plan Discharge Patient Disposition: Home Clinical Impression: Headache, Hypertension Condition: Stable Prescriptions: No Action RenaPlex-D 800 mcg-12.5 mg -2,000 unit tablet 1 tab PO DAILY carvedilol 6.25 mg tablet 18.75 mg PO DIRECTED Qty: 270 3RF Rx Instructions: 12.5mg (2 tabs) in AM and 6.25mg (1 tab) in PM morphine 30 mg tablet extended release 30 mg PO QID morphine 15 mg tablet 15 mg PO .five times daily PRN (Reason: Pain) lanthanum 1,000 mg tablet,chewable 2,000 mg PO BID amlodipine 10 mg tablet 10 mg PO DAILY Qty: 30 0RF Discharge Orders: Discharge ED (Routine); Ordered 07/23/23 Ordered By: Ralf Padgett Referrals: Lopez Bateman MD [Primary Care Provider] - 1-3 days Discharge Diet: Advance as tolerated Discharge Activity: Resume usual activity Patient Instructions: Hypertension (ED) Coding Level of Care Code ED Accounts Receivable Analyst for Mannie Soto
[2023-07-23 18:10] VITALS: PULSE 64; RESP 17; O2SAT 95
[2023-07-23] MEDS: hyDRALAzine 20 mg/mL INJ 1 mL 10 MG IVP ×2 (18:16→19:14)
[2023-07-23 18:21] VITALS: BP 189/92; PULSE 61; O2SAT 95
[2023-07-23 18:23] LABS: Basophils % 0.5 %; Eosinophils # 0.1 10^3/uL (0.0-0.8); Eosinophils % 2.3 %; Hematocrit 30.9 % (36-47); Lymphocytes # 0.7 10^3/uL (0.8-4.8); Lymphocytes % 17.8 %; Mean Corpuscular HGB Conc 32.4 g/dL (30-55); Mean Corpuscular Hemoglobin 31.4 pg (27-33); Mean Corpuscular Volume 97.2 fl (85-98); Mean Platelet Volume 9.3 fL (7.4-10.4); Monocytes # 0.4 10^3/uL (0.2-0.9); Monocytes % 10.3 %; Neutrophils # 2.67 10^3/uL (1.8-7.7); Neutrophils % 68.8 %; Nucleated Red Blood Cells % 0 %; Platelet Count 126 10^3/cmm (157-399); Red Blood Count 3.18 10^6/uL (3.85-5.65); Red Cell Distribution Width 14.4 % (12.1-15.1); White Blood Count 3.88 10^3/uL (3.29-11.43)
[2023-07-23 18:42] LABS: Anion Gap 15.2 (5-19); Blood Urea Nitrogen 30 mg/dL (8-23); Carbon Dioxide 37 mmol/L (22-29); Chloride 92 mmol/L (98-107); Glomerular Filtration Rate 10.2 mL/min (90-130); Glucose 109 mg/dL (65-115); Osmolality Calculated 295 mOsm/kg (285-295); Potassium 5.2 mmol/L (3.5-5.1); Sodium 139 mmol/L (136-145)
[2023-07-23 19:17] VITALS: BP 169/71; PULSE 61; RESP 18; O2SAT 95
[2023-07-23 19:31] VITALS: BP 152/79; PULSE 68; RESP 18; O2SAT 95
== END 2023-07-23 19:32 | disposition home or self-care (01) ==
PROVIDERS: Emergency Provider Emergency Medicine; PCP Family Medicine
DX: R51.9 Headache, unspecified (principal); Z87.891 Personal history of nicotine dependence; Z86.19 Personal history of other infectious and parasitic diseases; Z86.73 Personal history of transient ischemic attack (TIA), and cerebral infarction without residual deficits; N18.9 Chronic kidney disease, unspecified; I13.10 Hypertensive heart and chronic kidney disease without heart failure, with stage 1 through stage 4 chronic kidney disease, or unspecified chronic kidney disease; I43 Cardiomyopathy in diseases classified elsewhere
CPT/HCPCS: 36415; 80048; 85025; 96374; 96376; 99284; J0360

== ENCOUNTER 2024-01-24 17:53 | Observation (INO) | payer MEDICARE, OTHER, SELFPAY ==
[2024-01-24] VITALS (11 sets, daily range): BP systolic 147–220; BP diastolic 74–106; PULSE 73–92; RESP 16–18; TEMP 36.7–36.8; O2SAT 91–96; BMI 32.8
--- NOTE | 2024-01-24 17:56 | CTR_ITS ---
PROCEDURE INFORMATION: Exam: CT Head Without Contrast Exam date and time: 01/24/2024 6:07 PM Age: 63 years old Clinical indication: Altered mental status/memory loss; Patient HX: EMS arrival for AMS. Patient lethargic and mildy confused. Per EMS patient has missed a week of dialysis due to vacation. History of prior CVA. TECHNIQUE: Imaging protocol: Computed tomography of the head without contrast. Radiation optimization: All CT scans at this facility use at least one of these dose optimization techniques: automated exposure control; mA and/or kV adjustment per patient size (includes targeted exams where dose is matched to clinical indication); or iterative reconstruction. COMPARISON: CT head wo con* [id number] 02/05/2023 2:42 PM RADIATION DOSE METRICS: Total DLP (mGy-cm): 1030.3 FINDINGS: Brain: No intracranial hemorrhage. No edema or mass effect. Minimal deep white matter microangiopathic ischemic change. Stable tiny left parietal encephalomalacia. Cerebral ventricles: Normal ventricles. Paranasal sinuses: The paranasal sinuses are clear. Mastoid air cells: The mastoid air cells are clear. Bones: No acute osseous abnormalities are seen. Soft tissues: Unremarkable. CT/CT head wo con* [id number] IMPRESSION: No acute intracranial pathology.
--- NOTE | 2024-01-24 17:56 | XRR_ITS ---
PROCEDURE INFORMATION: Exam: XR Chest Exam date and time: 01/24/2024 6:12 PM Age: 63 years old Clinical indication: Other: AMS TECHNIQUE: Imaging protocol: Radiologic exam of the chest. Views: 1 view. COMPARISON: CR XR chest 1V portable [id number] 10/25/2022 5:35 AM FINDINGS: Lungs: Mild interstitial prominence, nonspecific, likely reflecting pulmonary edema. More focal increased density in the lung bases also likely reflecting pulmonary edema though superimposed atelectasis or consolidation of the difficult to exclude. Pleural spaces: No pleural effusion or pneumothorax. Heart/Mediastinum: Patient rotation limits evaluation of the cardiomediastinal silhouette. Heart appears grossly unchanged. Bones/joints: No acute osseous abnormalities are seen. XR/XR chest 1V portable [id number] IMPRESSION: Mild interstitial prominence, nonspecific, likely reflecting pulmonary edema.
--- NOTE | 2024-01-24 17:57 | ECG_ITS ---
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 Measurements Intervals [place] Rate: 81 P: 32 ID: [id number] QRS: -24 QRSD: 97 T: 90 QT: 391 QTc: 454 Interpretive Statements SINUS RHYTHM VOLTAGE CRITERIA FOR LVH [MEETS CRITERIA IN ONE OF: R(aVL), S(V1), R(V5), R(V5/V6)+S(V1)] POSSIBLE SEPTAL [place] , OF INDETERMINATE AGE [30 ms Q WAVE IN V3/V4, OR R < 0.2 mV IN V4] Compared to ECG 05/09/2023 17:24:19 No significant change Electronically Signed On 01-25-2024 12:37:56 CDT by Ivy Garcia M.D. [id number]
--- NOTE | 2024-01-24 17:58 | ED_ITS ---
HPI - General Adult 2 General: Chief complaint: Altered Mental Status Stated complaint: AMS Time Seen by Provider: 01/24/24 17:53 Source: patient and EMS Mode of arrival: EMS Limitations: altered mental status History of Present Illness: 63-year-old female with a history of end -stage renal disease on dialysis per EMS she was on vacation last week and did not get dialysis all week long she did receive dialysis today but the clinic called EMS after they finished her dialysis because she had been quite confused with weakness and not able to ambulate she is able to tell me her name but she does not know the year and is quite confused no known fevers. She has had encephalopathy in the past. Review of Systems 2 General: Reports: ROS unobtainable due to mental status PFSH ED 2 PFSH: Medical History History of blood transfusion low platelets, 08/24/22 History of stroke 2012 Heart failure with reduced ejection fraction Cardiomyopathy Degenerative joint disease (DJD) of lumbar spine CKD (chronic kidney disease) Hepatitis C Acute renal failure Surgical History History of cholecystectomy History of bilateral tubal ligation History of No pertinent past surgical history Family History Father Cancer lungs and spread Other Lung disease Psychiatric illness Social History Smoking and tobacco/nicotine status: former use of tobacco/nicotine Quit status (tobacco/nicotine): has quit using Year quit tobacco: 2001 Alcohol intake: never Substance/Drug Use: never Lives independently: Yes Household members: spouse Housing: House Marital status: Number of children: 2 Current occupational status: disabled Current gender identity: Female Agree to transfusion: Yes Female Reproductive History: Para: 2 Physical Exam 2 Const: COMMON NORMALS: alert; negative for patient oriented x3 GENERAL APPEARANCE: ill appearing O RIENTATION/CONSCIOUSNESS: Yes oriented to person; not oriented to place and not oriented to time HENMT: COMMON NORMALS: normocephalic and atraumatic HEAD & SCALP: n ormocephalic and atraumatic Neck/C-Spine: COMMON NORMALS: full ROM and supple Chest: COMMONS NORMALS: normal inspection of the chest Resp: COMMON NORMALS: normal respiratory effort Cardio: COMMON NORMALS: regular rate RATE: regular rate GI: COMMON NORMALS: Normal to inspection, nondistended, normoactive bowel sounds present, Soft to palpation, non-tender and no masses PALPATION: Yes Soft to palpation Extremity: COMMON NORMALS: normal to inspection and full ROM Neuro: COMMON NORMALS: moves all extremities and no focal motor deficits; negative for patient oriented x3 SENSORIUM/ORIENTATION: Yes alert, Yes oriented to person, No oriented to place and No oriented to time Psych: COMMON NORMALS: Normal thought process present and cooperative; negative for mental status grossly normal THOUGHT PROCESS: Normal thought process present Skin: COMMON NORMALS: no rashes or lesions noted and no wounds GENERAL SKIN EXAM: no rashes or lesions noted Course 2 Vital Signs: Vital signs: Vital Signs Temperature 98.2 F 01/24/24 17:59 Pulse Rate 84 01/24/24 19:04 Respiratory Rate 18 01/24/24 19:04 Blood Pressure 147/98 01/24/24 19:04 Pulse Oximetry 94 01/24/24 19:04 Oxygen Delivery Me thod Room Air 01/24/24 18:34 MDM - General Adult Medical Decision Making Patient presents here with altered mental status after dialysis workup head CT here is normal she had slight improvement her mentation will admit for observation spoke to the hospitalist. Lab Data I reviewed the patient's lab results. 01/24/24 18:54 01/24/24 18:54 Radiology Impressions Chest X-Ray 01/24/24 17:56 IMPRESSION: Mild interstitial prominence, nonspecific, likely reflecting pulmonary edema. Head CT 01/24/24 17:56 IMPRESSION: No acute intracranial pathology. Laboratory Results WBC 4.83 10^3/uL (3.29-11.43) 01/24/24 18:54 RBC 2.88 10^6/uL (3.85-5.65) L 01/24/24 18:54 Hgb 9.10 g/dL (11.27-16.99) L 01/24/24 18:54 Hct 27.0 % (36-47) L 01/24/24 18:54 MCV 93.8 fl (85-98) 01/24/24 18:54 MCH 31.6 pg (27-33) 01/24/24 18:54 MCHC 33.7 g/dL (30-55) 01/24/24 18:54 RDW 13.5 % (12.1-15.1) 01/24/24 18:54 Plt Count 129 10^3/cmm (157-399) L 01/24/24 18:54 MPV 9.3 fL (7.4-10.4) 01/24/24 18:54 Neut % (Auto) 82.9 % 01/24/24 18:54 Lymph % (Auto) 7.9 % 01/24/24 18:54 [place] % (Auto) 7.0 % 01/24/24 18:54 Eos % (Auto) 1.2 % 01/24/24 18:54 Baso % (Auto) 0.4 % 01/24/24 18:54 Neut # (Auto) 4.00 10^3/uL (1.8-7.7) 01/24/24 18:54 Lymph # (Auto) 0.4 10^3/uL (0.8-4.8) L 01/24/24 18:54 [place] # (Auto) 0.3 10^3/uL (0.2-0.9) 01/24/24 18:54 Eos # (Auto) 0.1 10^3/uL (0.0-0.8) 01/24/24 18:54 Baso # (Auto) 0.0 10^3/uL (0.0-0.1) 01/24/24 18:54 Nucleated RBC % (auto) 0 % 01/24/24 18:54 Nucleated RBCs # 0.0 /100WBC 01/24/24 18:54 PT 13.70 SECONDS (12.1-14.9) 01/24/24 18:54 INR 1.02 (0.8-1.2) 01/24/24 18:54 Specimen Type Arterial 01/24/24 18:09 Sample Site Radial, right 01/24/24 18:09 ABG pH 7.57 (7.35-7.45) H* 01/24/24 18:09 ABG pCO2 34.8 mmHg (35-45) L 01/24/24 18:09 ABG pO2 54.9 mmHg (80.0-100.0) L 01/24/24 18:09 ABG PO2/FiO2 Ratio 0 01/24/24 18:09 ABG HCO3 31.6 mmol/L (22-26) H 01/24/24 18:09 ABG Base Excess 9.0 mmol/L (-2.0-2.0) H 01/24/24 18:09 Alberto Test Pos 01/24/24 18:09 Hematocrit 29.3 % (37-47) L 01/24/24 18:09 O2 Delivery Device Room air 01/24/24 18:09 FiO2 21.0 % 01/24/24 18:09 Connie Scratcher ID Jolene 01/24/24 18:09 Sodium 138 mmol/L (136-145) 01/24/24 18:54 Potassium 3.9 mmol/L (3.5-5.1) 01/24/24 18:54 Chloride 89 mmol/L (98-107) L 01/24/24 18:54 Carbon Dioxide 29 mmol/L (22-29) 01/24/24 18:54 Anion Gap 23.9 (5-19) H 01/24/24 18:54 BUN 34 mg/dL (8-23) H 01/24/24 18:54 Creatinine 5.7 mg/dL (0.5-0.9) H* 01/24/24 18:54 GFR Calculation 7.6 mL/min (90-130) L 01/24/24 18:54 Glucose 92 mg/dL (65-115) 01/24/24 18:54 Calculated Osmolality 293 mOsm/kg (285-295) 01/24/24 18:54 Calcium 8.2 mg/dL (8.5-10.5) L 01/24/24 18:54 Phosphorus 4.5 mg/dL (2.5-4.5) 01/24/24 18:54 Magnesium 2.2 mg/dL (1.7-2.3) 01/24/24 18:54 Total Bilirubin 0.5 mg/dL (0.15-1.2) 01/24/24 18:54 AST 14 U/L (0-32) 01/24/24 18:54 ALT 11 U/L (0-33) 01/24/24 18:54 Alkaline Phosphatase 67 U/L (35-105) 01/24/24 18:54 Ammonia 19 umol/L (11-51) 01/24/24 18:54 NT-Pro-B Natriuret Pep 07490 pg/mL (0-125) H 01/24/24 18:54 Total Protein 7.3 g/dL (6.6-8.7) 01/24/24 18:54 Albumin 4.0 g/dL (3.5-5.2) 01/24/24 18:54 Globulin 3.3 g/dL (1.3-4.6) 01/24/24 18:54 TSH 2.22 uIU/mL (0.27-4.20) 01/24/24 18:54 Urine Color Yellow (Yellow) 01/24/24 19:02 Urine Appearance Clear (CLEAR) 01/24/24 19:02 Urine pH 8 (5-7) H 01/24/24 19:02 Ur Specific [place] 1.005 (1.005-1.030) 01/24/24 19:02 Urine Protein 3+ (Negative) H 01/24/24 19:02 Urine Glucose (UA) 1+ (Normal) H 01/24/24 19:02 Urine Ketones 2+ (Negative) H 01/24/24 19:02 Urine Blood Trace (Negative) H 01/24/24 19:02 Urine Nitrate Negative (Negative) 01/24/24 19: Urine Bilirubin Neg (Negative) 01/24/24 19:02 Prot Sulfosalicylic Acd Positive (Negative) 01/24/24 19:02 Urine Urobilinogen Neg mg/dL (Negative) 01/24/24 19:02 Ur Leukocyte Esterase Trace (Negative) H 01/24/24 19:02 Urine RBC 0-4 /hpf (0-2) H 01/24/24 19:02 Urine WBC 0-4 /hpf (0-5) H 01/24/24 19:02 Ur Squamous Epith Cells 15-25 /hpf (0-5) H 01/24/24 19:02 Amorphous Sediment Trace /hpf 01/24/24 19:02 Urine Bacteria 1+ /hpf (NONE) H 01/24/24 19:02 Urine Mucus 1+ /hpf 01/24/24 19:02 Urine Opiates Screen Positive ng/mL (Negative) H 01/24/24 19:02 Ur Barbiturates Screen Negative ng/mL (Negative) 01/24/24 19:02 Ur Phencyclidine Scrn Negative ng/mL (Negative) 01/24/24 19:02 Ur Amphetamines Screen Negative ng/mL (Negative) 01/24/24 19:02 U Benzodiazepines Scrn Negative ng/mL (Negative) 01/24/24 19:02 Urine Cocaine Screen Negative ng/mL (Negative) 01/24/24 19:02 U Marijuana (THC) Screen Negative ng/mL (Negative) 01/24/24 19:02 Ethyl Alcohol < 10 mg/dL (0-10) 01/24/24 18:54 All radiology interpretation(s) finalized by discharge Discharge Plan Discharge Patient Disposition: Placed in Observation Clinical Impression: ESRD (end stage renal disease), Altered mental status Condition: Stable Prescriptions: No Action RenaPlex-D 800 mcg-12.5 mg -2,000 unit tablet 1 tab PO DAILY carvedilol 6.25 mg tablet 18.75 mg PO DIRECTED Qty: 270 3RF Rx Instructions: 12.5mg (2 tabs) in AM and 6.25mg (1 tab) in PM morphine 30 mg tablet extended release 30 mg PO QID morphine 15 mg tablet 15 mg PO .five times daily PRN (Reason: Pain) lanthanum 1,000 mg tablet,chewable 2,000 mg PO BID amlodipine 10 mg tablet 10 mg PO DAILY Qty: 30 0RF Referrals: Lopez Bateman MD [Primary Care Provider] - Patient Instructions: Altered Mental Status (ED) Coding Level of Care Code ED Tooth Cutter Clutch for Mannie Soto
[2024-01-24 18:21] LABS: ABG PCO2 34.8 mmHg (35-45); Arterial Blood Gas Hematocrit 29.3 % (37-47); Blood Gas Allen Test Pos; Blood Gas Sample Type Arterial; HCO3 ABG 31.6 mmol/L (22-26); PO2 ABG 54.9 mmHg (80.0-100.0)
[2024-01-24 18:22] LABS: ABG PH Result 7.57 (7.35-7.45); Blood Gas Sample Site Radial, right; Oxygen Device ROOM AIR; PO2 FiO2 Ratio Arterial Blood 0
[2024-01-24 19:04] LABS: Basophils % 0.4 %; Eosinophils # 0.1 10^3/uL (0.0-0.8); Eosinophils % 1.2 %; Lymphocytes # 0.4 10^3/uL (0.8-4.8); Lymphocytes % 7.9 %; Mean Corpuscular HGB Conc 33.7 g/dL (30-55); Mean Corpuscular Hemoglobin 31.6 pg (27-33); Mean Corpuscular Volume 93.8 fl (85-98); Mean Platelet Volume 9.3 fL (7.4-10.4); Monocytes # 0.3 10^3/uL (0.2-0.9); Neutrophils % 82.9 %; Nucleated Red Blood Cells % 0 %; Platelet Count 129 10^3/cmm (157-399); Red Blood Count 2.88 10^6/uL (3.85-5.65); Red Cell Distribution Width 13.5 % (12.1-15.1); White Blood Count 4.83 10^3/uL (3.29-11.43)
[2024-01-24 19:22] LABS: INR 1.02 (0.8-1.2)
[2024-01-24 19:27] LABS: Ammonia 19 umol/L (11-51)
[2024-01-24 19:28] LABS: Amphetamines Screen Urine Negative (Negative); Barbiturates Screen Urine Negative (Negative); Benzodiazepines Screen Urine Negative (Negative); Cocaine Screen Urine Negative (Negative); Opiate Screen Urine Positive (Negative); PCP Screen Urine Negative (Negative); THC Screen Urine Negative (Negative)
[2024-01-24 19:33] LABS: Blood Urine Trace (Negative); Glucose Urine UA 1+ (Normal); Ketones Urine 2+ (Negative); Nitrate Urine Negative (Negative); Protein Urine 3+ (Negative); Specific Gravity, Urine 1.005 (1.005-1.030); Urine Appearance Clear (CLEAR); Urine Color Yellow (Yellow); pH Urine 8 (5-7)
[2024-01-24 19:34] LABS: Add Urine Microscopic? YES; Amorphous Sediment Urine TRACE /hpf; Bacteria Urine 1+ /hpf; Bilirubin Urine Neg (Negative); Leukocyte Esterase Urine Trace (Negative); Mucus Urine 1+ /hpf; RBC Urine 0-4 /hpf (0-2); Squamous Epithelial Cell Urine 15-25 /hpf (0-5); Sulfosalicylic Acid Urine Positive (Negative); Urobilinogen Urine Neg (Negative); WBC Urine 0-4 /hpf (0-5)
[2024-01-24 19:39] LABS: Alanine Aminotransferase 11 U/L (0-33); Alkaline Phosphatase 67 U/L (35-105); Anion Gap 23.9 (5-19); Aspartate Amino Transferase 14 U/L (0-32); Blood Urea Nitrogen 34 mg/dL (8-23); Calcium 8.2 mg/dL (8.5-10.5); Carbon Dioxide 29 mmol/L (22-29); Chloride 89 mmol/L (98-107); Globulin 3.3 g/dL (1.3-4.6); Glomerular Filtration Rate 7.6 mL/min (90-130); Glucose 92 mg/dL (65-115); Magnesium 2.2 mg/dL (1.7-2.3); Osmolality Calculated 293 mOsm/kg (285-295); Phosphorus 4.5 mg/dL (2.5-4.5); Potassium 3.9 mmol/L (3.5-5.1); Sodium 138 mmol/L (136-145); Thyroid Stimulating Hormone 2.22 uIU/mL (0.27-4.20); Total Bilirubin 0.5 mg/dL (0.15-1.2); Total Protein 7.3 g/dL (6.6-8.7)
[2024-01-24 19:40] LABS: Alcohol Level < 10 mg/dL (0-10)
[2024-01-24 19:59] LABS: NT Pro B Type Natriuretic Pept 65746 pg/mL (0-125)
--- NOTE | 2024-01-24 20:22 | CTR_ITS ---
PROCEDURE INFORMATION: Exam: CTA Head With Contrast, Arteriography Exam date and time: 01/24/2024 9:02 PM Age: 63 years old Clinical indication: Weakness; Patient HX: Lethargy with unsteadiness. Patient is esrd and missed a week of dialysis. ; Additional info: AMS, unsteadiness, TECHNIQUE: Imaging protocol: Computed tomographic angiography of the head with contrast. Exam focused on the arteries. 3D rendering (Not supervised by radiologist): MIP and/or 3D reconstructed images were created by the technologist. Radiation optimization: All CT scans at this facility use at least one of these dose optimization techniques: automated exposure control; mA and/or kV adjustment per patient size (includes targeted exams where dose is matched to clinical indication); or iterative reconstruction. Contrast material: OMNI 350; Contrast volume: 100 ml; Contrast route: INTRAVENOUS (IV); COMPARISON: CT head wo con* [id number] 01/24/2024 6:07 PM RADIATION DOSE METRICS: Total DLP (mGy-cm): 501.33 FINDINGS: ANTERIOR CIRCULATION: Right internal carotid artery: Patent without high-grade stenosis. Right middle cerebral artery: M1 and M2 segments are patent without high-grade stenosis. Right anterior cerebral artery: A1 and A2 segments are patent without high-grade stenosis. Left internal carotid artery: Patent without high-grade stenosis. Left middle cerebral artery: M1 and M2 segments are patent without high-grade stenosis. Left anterior cerebral artery: A1 and A2 segments are patent without high-grade stenosis. POSTERIOR CIRCULATION: Right vertebral artery: V4 segment is patent without high-grade stenosis. Left vertebral artery: V4 segment is patent without high-grade stenosis. Basilar artery: Patent without high-grade stenosis. Right posterior cerebral artery: type origin of the right TECHNICAL ENGINEER with hypoplastic P1 segment. P2 segment patent without high-grade stenosis. Left posterior cerebral artery: P1 and P2 segments are patent without high-grade stenosis. Brain: No territorial region of mcconnell-white dedifferentiation. No mass effect or midline shift. Abnormal parenchymal enhancement. Cerebral ventricles: No acute hydrocephalus. Bones/joints: No acute fracture. Soft tissues: Unremarkable. Other findings: No aneurysm. No venous thrombosis. PROCEDURE INFORMATION: Exam: CTA Neck With Contrast Exam date and time: 01/24/2024 9:02 PM Age: 63 years old Clinical indication: Weakness; Patient HX: Lethargy with unsteadiness. Patient is esrd and missed a week of dialysis. ; Additional info: AMS, unsteadiness, TECHNIQUE: Imaging protocol: Computed tomographic angiography of the neck with contrast. Exam focused on the cervical segments of the vasculature. 3D rendering (Not supervised by radiologist): MIP and/or 3D reconstructed images were created by the technologist. Radiation optimization: All CT scans at this facility use at least one of these dose optimization techniques: automated exposure control; mA and/or kV adjustment per patient size (includes targeted exams where dose is matched to clinical indication); or iterative reconstruction. Contrast material: OMNI 350; Contrast volume: 100 ml; Contrast route: INTRAVENOUS (IV); COMPARISON: CT head wo con* [id number] 01/24/2024 6:07 PM RADIATION DOSE METRICS: Total DLP (mGy-cm): 501.63 FINDINGS: Right common carotid artery: Patent. No high grade stenosis. Right internal carotid artery: Patent. Mild carotid bulb plaque with no stenosis by NASCET criteria. Right external carotid artery: Patent. No high grade stenosis at the origin. Left common carotid artery: Patent. No high grade stenosis. Left internal carotid artery: Patent. Mild carotid bulb plaque with no stenosis by NASCET criteria. Left external carotid artery: Patent. No high grade stenosis at the origin. Right vertebral artery: Short segment severe stenosis or occlusion of the proximal right V1 vertebral artery as well as multifocal narrowing and irregularity of the distal V1 and proximal V2 segments with up to severe stenosis in the proximal V2 segment at the C6 level, series 9, image 122. Left vertebral artery: Dominant. Patent. No high grade stenosis. Soft tissues: Unremarkable. Bones/joints: No acute fracture. Cervical spondylosis. Lungs: Mild scattered ground-glass infiltrate in the amhv-lpluymc-uygv-right upper lobes. CT/CT angio headneck* [id number] IMPRESSION: No large vessel occlusion or high-grade stenosis. IMPRESSION: 1. No significant ICA stenosis. 2. Short segment severe stenosis or occlusion of the proximal right V1 vertebral artery with prompt reconstitution. There is also multifocal narrowing and irregularity of the right distal V1 and proximal V2 segments with severe focal stenosis in the proximal V2 segment at the C6 level. 3. Mild scattered ground-glass infiltrate in the ppgo-tyvecrb-wsrr-right upper lobes. REFERENCES: NASCET CRITERIA. The degree of stenosis in the cervical segment of the internal carotid artery is based on NASCET criteria. Normal is no stenosis. Mild is less than 50% stenosis. Moderate is 50-69% stenosis. Severe is 70% to 99% stenosis. Total occlusion is no detectable patent lumen.
--- NOTE | 2024-01-24 20:22 | CTR_ITS ---
PROCEDURE INFORMATION: Exam: CT Abdomen And Pelvis Without Contrast Exam date and time: 01/24/2024 8:59 PM Age: 63 years old Clinical indication: Prior surgery; Surgery date: 6+ months; Surgery type: Gb. Csection. Patient HX: C/O low back pain. Patient is in esrd. Missed a week of dialysis. ; Additional info: Back pain, flank pain TECHNIQUE: Imaging protocol: Computed tomography of the abdomen and pelvis without contrast. Radiation optimization: All CT scans at this facility use at least one of these dose optimization techniques: automated exposure control; mA and/or kV adjustment per patient size (includes targeted exams where dose is matched to clinical indication); or iterative reconstruction. COMPARISON: CT abdomen pelvis wo con [id number] 02/05/2023 11:05 PM RADIATION DOSE METRICS: Total DLP (mGy-cm): 1078.63 FINDINGS: Liver: Normal. No mass. Gallbladder and bile ducts: Cholecystectomy. Prominence of the bile ducts is most likely chronic reservoir effect. Pancreas: Normal. No ductal dilation. Spleen: Normal. No splenomegaly. Adrenal glands: Stable 1.5 cm right adrenal nodule, less than 10 Hounsfield units, consistent with a benign adenoma. Normal left adrenal gland. Kidneys and ureters: Slightly larger 2.9 cm lesion in the left kidney, 24 Hounsfield units. This measured less than 20 Hounsfield units on the prior study. Hypodense lesions both kidneys are too small to characterize and are most likely cysts. Small benign parenchymal calcifications in the right kidney. No hydronephrosis. The kidneys are atrophic. Stomach and bowel: Mild diverticulosis in the colon. No diverticulitis. The stomach and small bowel are unremarkable. No wall thickening or obstruction. Appendix: The appendix is visualized and is normal. Intraperitoneal space: Unremarkable. No free air. No significant fluid collection. Vasculature: Mild calcified arterial plaque. No aneurysm. Lymph nodes: Unremarkable. No enlarged lymph nodes. Urinary bladder: Unremarkable as visualized. Reproductive: Unremarkable as visualized. Bones/joints: Degenerative changes of the spine. No fracture. Soft tissues: Larger 3.3 cm mass in the inferior right breast. CT/CT abdomen pelvis wo con [id number] IMPRESSION: 1. Larger 3.3 cm mass in the inferior left breast, highly suspicious for malignancy. Follow-up with mammography and ultrasound recommended. 2. No acute findings in the abdomen or pelvis. 3. Slightly larger probable proteinaceous cyst in the left kidney. This can be further evaluated with dedicated renal CT or MRI without and with contrast. Alternatively, this could be evaluated with ultrasound. COMMENTS: Consistent with the [employer]'s Incidental Findings Committee white paper (J Am Fei Radiol 2018): Any incidental renal lesion less than 1 cm or classified as too small to characterize, or any incidental cystic renal lesion characterized as simple-appearing, is likely benign. No follow-up imaging is recommended for these lesions per consensus recommendations based on imaging criteria.
--- NOTE | 2024-01-24 20:24 | P.HP_ITS ---
Providers/Chief Complaint 2 Primary Care Provider: Lopez Bateman MD Chief Complaint: AMS History of Present Illness Ashley Miranda is a 63 year old female with a past medical history of end-stage renal disease on dialysis, chronic pain, hypertension, hyperlipidemia, history of strokes, who presents to [facility] for altered mental status. Currently patient alert to person, to place, not to time, she does not know the year, she does not know the month she does not know the day of the week, she frequently looks to her daughter at bedside for answers to questions. She is very flustered and upset of why she still confused. She tells me that she was in [place] for about 3 weeks seeing her daughter, she does report that she was receiving dialysis when she was up in [place] but it was intermittently she is not sure how much time she missed it, she tells me that she has been confused for the last few days she went to [facility] today and got dialyzed but after dialysis remain confused, her daughter at bedside tells me that whenever she misses dialysis she becomes confused like this, she tells me that she is quite unsteady on her feet and weak on her feet, no focal weakness no slurring of words no facial droop, no seizure-like activities, no recent falls, no headache, no blurry vision, no neck pain no neck stiffness she has chronic low back pain, Review of Systems 2 Const: Denies: fever(s), chills or fatigue Card: Denies: chest pain Resp: Denies: dyspnea GI: Denies: abdominal pain : Denies: flank pain Neuro: Reports: weakness in extremities and confusion; Denies: headache(s), numbness in extremities, dizziness, vertigo or Slurred speech present Medications/Allergies Home Medications Medication Instructions Recorded Confirmed Last Taken Type vit B,C-folic ac 800 mcg-zinc 12.5 1 tab PO DAILY 08/27/22 05/09/23 10/24/22 History mg-selen-D3 2,000 unit-vit E tablet (RenaPlex-D) morphine 15 mg immediate release 15 mg PO .five times daily PRN Pain 09/27/22 05/09/23 05/09/23 History tablet morphine 30 mg tablet,extended 30 mg PO QID 09/27/22 05/09/23 10/24/22 History release amlodipine 10 mg tablet 10 mg PO DAILY #30 tabs 05/09/23 Unknown Rx lanthanum 1,000 mg chewable tablet 2,000 mg PO BID 05/09/23 05/09/23 Unknown History carvedilol 6.25 mg tablet 18.75 mg (3 x 6.25 mg) PO 06/13/23 Unknown Rx DIRECTED #270 tabs Allergies Allergy/AdvReac Type Severity Reaction Status Date / Time No Known Allergies Allergy Verified 01/24/23 14:09 PFSH Acute 2 PFSH: Medical History History of blood transfusion low platelets, 08/24/22 History of stroke 2012 Heart failure with reduced ejection fraction Cardiomyopathy Degenerative joint disease (DJD) of lumbar spine CKD (chronic kidney disease) Hepatitis C Acute renal failure Surgical History History of cholecystectomy History of bilateral tubal ligation History of No pertinent past surgical history Family History Father Cancer lungs and spread Other Lung disease Psychiatric illness Social History Smoking and tobacco/nicotine status: former use of tobacco/nicotine Quit status (tobacco/nicotine): has quit using Year quit tobacco: 2001 Alcohol intake: never Substance/Drug Use: never Lives independently: Yes Household members: spouse Housing: House Marital status: Number of children: 2 Current occupational status: disabled Current gender identity: Female Agree to transfusion: Yes Female Reproductive History: Para: 2 Vitals/I&O/Wt Last Vital Signs Temp 98.2 F 01/24/24 17:59 Pulse 84 01/24/24 19:04 Resp 18 01/24/24 19:04 BP 147/98 01/24/24 19:04 Pulse Ox 94 01/24/24 19:04 O2 Del Method Room Air 01/24/24 18:34 Physical Exam 2 Const: COMMON NORMALS: no acute distress ORIENTATION/CONSCIOUSNESS: Yes awake, Yes oriented to person, Yes oriented to place and Yes confused; not oriented to time HENMT: COMMON NORMALS: normocephalic HEAD & SCALP: normocephalic Eye: COMMON NORMALS: Equal, round and reactive pupils present and EOMs intact bilaterally Neck/C-Spine: COMMON NORMALS: full ROM and no lymphadenopathy Resp: COMMON NORMALS: normal respiratory effort, No retractions, No use of accessory muscles and clear to auscultation bilaterally AUSCULTATION: clear to auscultation bilaterally Cardio: COMMON NORMALS: regular rate, regular rhythm, S1 normal heart sound present and S2 normal heart sound present RATE: regular rate RHYTHM: r egular rhythm HEART SOUNDS: S1 normal heart sound present and S2 normal heart sound present GI: COMMON NORMALS: Normal to inspection, nondistended, normoactive bowel sounds present, Soft to palpation and non-tender Extremity: COMMON NORMALS: no pedal edema Neuro: COMMON NORMALS: patient oriented x3, CN's II-XII intact bilaterally, moves all extremities and no focal motor deficits Psych: COMMON NORMALS: mental status grossly normal Data 01/24/24 18:54 01/24/24 18:54 A&P Assessment and plan (1) Altered mental status: (2) UTI (urinary tract infection): (3) Unsteadiness on feet: Plan Altered mental status ? Etiology unclear at this point ? No significant evidence of uremic encephalopathy ? Ammonia levels within normal limits, UA does point towards a UTI, culture urine, blood cultures, start Rocephin CT scan abdomen pelvis ? Follow urine cultures, follow blood cultures ? CT head within normal limits, ? But does report new onset unsteadiness on her feet no focal neurologic deficits no facial droop no slurring of words no word finding difficulty, but does have a history of strokes, will order CT angiogram head and neck will consider MRI based on clinical progress ? Serum alcohol levels ? Drug screen, ? Resume home blood pressure medications, resume home morphine when we confirm the doses ? Consult nephrology for dialysis tomorrow ? Full code ? Heparin for DVT prophylaxis Attestations 2 Medical Necessity Statement*: Patient requires hospitalization, outpatient with observation, for UTI, altered mental status, unsteadiness on her feet Diagnoses Altered mental status R41.82 UTI (urinary tract infection) N39.0 Unsteadiness on feet R26.81
[2024-01-24 20:32] LABS: Erythrocyte Sedimentation Rate 30 mm/hr (0-15)
[2024-01-24 20:44] LABS: Creatine Phosphokinase 137 U/L (26-192)
[2024-01-24 20:45] LABS: Lactic Sepsis W/Reflex 0.9 mmol/L (0.5-2.2)
[2024-01-24 20:51] LABS: Procalcitonin 0.36 ng/mL (0-0.5)
[2024-01-24 20:55] LABS: C Reactive Protein 20.5 mg/L (0.0-4.9)
[2024-01-24] MEDS: iohexol 350 mg/mL 500 mL Btl (per mL) IV (21:02)
[2024-01-24 22:13] LABS: Chol HDL Ratio 5.49 mg/dL (0.0-4.40); Cholesterol 203 mg/dL (0-200); HDL Cholesterol 37 mg/dL (60-100); LDL Cholesterol Calculated 113 mg/dL (50-129); LDL HDL Ratio 3.05 RATIO (0.00-3.22); Triglycerides 266 mg/dL (0-150)
[2024-01-24 22:41] LABS: Estmated Average Glucose 91; Hemoglobin A1C 4.8 % (4.0-6.0)
[2024-01-24] MEDS: aspirin 81 mg EC Tablet PO (22:49)
[2024-01-24] MEDS: carvedilol 6.25 mg Tablet PO (22:49)
[2024-01-24] MEDS: morphine IR 15 mg Tablet PO (22:49)
[2024-01-24] MEDS: atorvastatin 40 mg Tablet PO (22:49)
[2024-01-24] MEDS: pantoprazole 40 mg SDV IVP (22:50)
[2024-01-24] MEDS: heparin 5,000 unit/mL INJ 1 mL 5000 UNIT SUBCUT (22:50)
[2024-01-24] MEDS: cefTRIAXone 1,000 MG in sodium chloride 0.9% (plus) 50 ML 100 MG IV (22:50)
[2024-01-24] MEDS: azithromycin 500 MG in sodium chloride 0.9% 250 ML 250 MG IV (23:24)
[2024-01-25] VITALS (8 sets, daily range): BP systolic 131–182; BP diastolic 61–88; PULSE 65–80; RESP 15–18; TEMP 36.4–37; O2SAT 89–95
[2024-01-25] MEDS: carvedilol 6.25 mg Tablet 12.5 MG PO (05:02)
[2024-01-25 06:38] LABS: Basophils % 0.7 %; Eosinophils # 0.1 10^3/uL (0.0-0.8); Eosinophils % 4.3 %; Hematocrit 24.8 % (36-47); Lymphocytes # 0.6 10^3/uL (0.8-4.8); Lymphocytes % 21.6 %; Mean Corpuscular HGB Conc 32.7 g/dL (30-55); Mean Corpuscular Hemoglobin 31.4 pg (27-33); Mean Corpuscular Volume 96.1 fl (85-98); Mean Platelet Volume 9.6 fL (7.4-10.4); Monocytes # 0.3 10^3/uL (0.2-0.9); Monocytes % 10.8 %; Neutrophils % 61.2 %; Nucleated Red Blood Cells % 0 %; Platelet Count 144 10^3/cmm (157-399); Red Blood Count 2.58 10^6/uL (3.85-5.65); Red Cell Distribution Width 13.3 % (12.1-15.1); White Blood Count 2.78 10^3/uL (3.29-11.43)
[2024-01-25 06:54] LABS: Anion Gap 18.5 (5-19); Blood Urea Nitrogen 45 mg/dL (8-23); Calcium 7.4 mg/dL (8.5-10.5); Carbon Dioxide 32 mmol/L (22-29); Chloride 93 mmol/L (98-107); Glucose 90 mg/dL (65-115); Magnesium 2.3 mg/dL (1.7-2.3); Osmolality Calculated 299 mOsm/kg (285-295); Potassium 4.5 mmol/L (3.5-5.1); Sodium 139 mmol/L (136-145)
[2024-01-25 06:57] LABS: Creatinine Clr Calc Pharmacy 9.3891
[2024-01-25 07:10] LABS: Vitamin B12 1008 pg/mL (232-1245)
[2024-01-25 07:12] LABS: Hepatitis B Surface AB < 3.5 (11.5-1000); Hepatitis B Surface Antigen Non-Reactive (Nonreactive)
[2024-01-25 07:43] LABS: NT Pro B Type Natriuretic Pept 63444 pg/mL (0-125)
--- NOTE | 2024-01-25 07:51 | P.DS_ITS ---
Discharge Providers Date of Admission: 01/24/24 20:53 Date of Discharge: January 25, 2024 Attending Provider at Admission: Elijah Torres MD Attending Provider at Discharge: Bubba Garrison MD Primary Care Provider: Lopez Bateman MD Diagnoses at Discharge Discharge Diagnosis (1) Altered mental status: Status: Acute (2) UTI (urinary tract infection): Status: Acute (3) Unsteadiness on feet: Status: Acute Reason for Visit Reason for Visit: AMS Hospital Course Hospital Course 63-year female who was admitted from dialysis center for confusion, patient did not show any sign of stroke, CBC BMP unremarkable other than leukopenia, patient remained hemodynamically stable, no signs of meningitis, respiratory panel requested, patient was very agitated stating that she would like to go home she does not like hospitals and would prefer to go home on Saturday awaiting respiratory panel, patient did receive contrast on admission I will ask my label pinker to dialyze her today so we could plan to discharge accordingly afterwards, Patient has history of stroke, Concerning changes related to left breast mass were conveyed follow-up with oncology recommended, she will need tissue/biopsy diagnosis Physical Exam Narrative: Awake and alert GCS 15 Pleasant cooperative nonfocal neuroexam Not fluid overloaded Currently room air No sign of meningitis Discharge Data Studies Completed and Pending Completed Studies During Hospitalization Category Date Time Status CT abdomen pelvis wo con [id number] Stat Cat Scan 01/24/24 20:[address] angio head neck [CT angio headneck* [id number]] Cat Scan 01/24/24 20:[address] head wo con* [id number] Stat Cat Scan 01/24/24 17:56 Completed XR chest 1V portable [id number] Stat Exams 01/24/24 17:56 Completed Pending at discharge Category Date Time Status Blood Culture Stat Lab 01/24/24 06:17 Results Radiology Impressions Chest X-Ray 01/24/24 17:56 IMPRESSION: Mild interstitial prominence, nonspecific, likely reflecting pulmonary edema. Head CT 01/24/24 17:56 IMPRESSION: No acute intracranial pathology. Abdomen/Pelvis CT 01/24/24 20:22 IMPRESSION: 1. Larger 3.3 cm mass in the inferior left breast, highly suspicious for malignancy. Follow-up with mammography and ultrasound recommended. 2. No acute findings in the abdomen or pelvis. 3. Slightly larger probable proteinaceous cyst in the left kidney. This can be further evaluated with dedicated renal CT or MRI without and with contrast. Alternatively, this could be evaluated with ultrasound. COMMENTS: Consistent with the [employer]'s Incidental Findings Committee white paper (J Am Fei Radiol 2018): Any incidental renal lesion less than 1 cm or classified as too small to characterize, or any incidental cystic renal lesion characterized as simple-appearing, is likely benign. No follow-up imaging is recommended for these lesions per consensus recommendations based on imaging criteria. Head/Neck CTA 01/24/24 20:22 IMPRESSION: No large vessel occlusion or high-grade stenosis. IMPRESSION: 1. No significant ICA stenosis. 2. Short segment severe stenosis or occlusion of the proximal right V1 vertebral artery with prompt reconstitution. There is also multifocal narrowing and irregularity of the right distal V1 and proximal V2 segments with severe focal stenosis in the proximal V2 segment at the C6 level. 3. Mild scattered ground-glass infiltrate in the jemo-wmwvyao-eaxn-right upper lobes. REFERENCES: NASCET CRITERIA. The degree of stenosis in the cervical segment of the internal carotid artery is based on NASCET criteria. Normal is no stenosis. Mild is less than 50% stenosis. Moderate is 50-69% stenosis. Severe is 70% to 99% stenosis. Total occlusion is no detectable patent lumen. ADDENDUM: 01/24/24 2146 THIS REPORT CONTAINS FINDINGS THAT MAY BE CRITICAL TO PATIENT CARE. The findings were verbally communicated via telephone conference with Dr. Padgett at 9:45 PM CDT on 01/24/2024. The findings were acknowledged and understood. Laboratory Results WBC 2.78 10^3/uL (3.29-11.43) L 01/25/24 06:17 RBC 2.58 10^6/uL (3.85-5.65) L 01/25/24 06:17 Hgb 8.10 g/dL (11.27-16.99) L 01/25/24 06:17 Hct 24.8 % (36-47) L 01/25/24 06:17 MCV 96.1 fl (85-98) 01/25/24 06:17 MCH 31.4 pg (27-33) 01/25/24 06:17 MCHC 32.7 g/dL (30-55) 01/25/24 06:17 RDW 13.3 % (12.1-15.1) 01/25/24 06:17 Plt Count 144 10^3/cmm (157-399) L 01/25/24 06:17 MPV 9.6 fL (7.4-10.4) 01/25/24 06:17 Neut % (Auto) 61.2 % 01/25/24 06:17 Lymph % (Auto) 21.6 % 01/25/24 06:17 [place] % (Auto) 10.8 % 01/25/24 06:17 Eos % (Auto) 4.3 % 01/25/24 06:17 Baso % (Auto) 0.7 % 01/25/24 06:17 Neut # (Auto) 1.70 10^3/uL (1.8-7.7) L 01/25/24 06:17 Lymph # (Auto) 0.6 10^3/uL (0.8-4.8) L 01/25/24 06:17 Kern # (Auto) 0.3 10^3/uL (0.2-0.9) 01/25/24 06:17 Eos # (Auto) 0.1 10^3/uL (0.0-0.8) 01/25/24 06:17 Baso # (Auto) 0.0 10^3/uL (0.0-0.1) 01/25/24 06:17 Nucleated RBC % (auto) 0 % 01/25/24 06:17 Nucleated RBCs # 0.0 /100WBC 01/25/24 06:17 ESR 30 mm/hr (0-15) H 01/24/24 18:54 PT 13.70 SECONDS (12.1-14.9) 01/24/24 18:54 INR 1.02 (0.8-1.2) 01/24/24 18:54 Specimen Type Arterial 01/24/24 18:09 Sample Site Radial, right 01/24/24 18:09 ABG pH 7.57 (7.35-7.45) H* 01/24/24 18:09 ABG pCO2 34.8 mmHg (35-45) L 01/24/24 18:09 ABG pO2 54.9 mmHg (80.0-100.0) L 01/24/24 18:09 ABG PO2/FiO2 Ratio 0 01/24/24 18:09 ABG HCO3 31.6 mmol/L (22-26) H 01/24/24 18:09 ABG Base Excess 9.0 mmol/L (-2.0-2.0) H 01/24/24 18:09 Alberto Test Pos 01/24/24 18:09 Hematocrit 29.3 % (37-47) L 01/24/24 18:09 O2 Delivery Device Room air 01/24/24 18:09 FiO2 21.0 % 01/24/24 18:09 Treating Inspector ID Jolene 01/24/24 18:09 Sodium 139 mmol/L (136-145) 01/25/24 06:17 Potassium 4.5 mmol/L (3.5-5.1) 01/25/24 06:17 Chloride 93 mmol/L (98-107) L 01/25/24 06:17 Carbon Dioxide 32 mmol/L (22-29) H 01/25/24 06:17 Anion Gap 18.5 (5-19) 01/25/24 06:17 BUN 45 mg/dL (8-23) H 01/25/24 06:17 Creatinine 7.0 mg/dL (0.5-0.9) H* 01/25/24 06:17 GFR Calculation 6.0 mL/min (90-130) L 01/25/24 06:17 Glucose 90 mg/dL (65-115) 01/25/24 06:17 Estimat Average Glucose 91 01/24/24 18:54 Hemoglobin A1c 4.8 % (4.0-6.0) 01/24/24 18:54 Calculated Osmolality 299 mOsm/kg (285-295) H 01/25/24 06:17 Lactic Acid 0.9 mmol/L (0.5-2.2) 01/24/24 18:54 Calcium 7.4 mg/dL (8.5-10.5) L 01/25/24 06:17 Phosphorus 4.5 mg/dL (2.5-4.5) 01/24/24 18:54 Magnesium 2.3 mg/dL (1.7-2.3) 01/25/24 06:17 Total Bilirubin 0.5 mg/dL (0.15-1.2) 01/24/24 18:54 AST 14 U/L (0-32) 01/24/24 18:54 ALT 11 U/L (0-33) 01/24/24 18:54 Alkaline Phosphatase 67 U/L (35-105) 01/24/24 18:54 Ammonia 19 umol/L (11-51) 01/24/24 18:54 Creatine Kinase 137 U/L (26-192) 01/24/24 18:54 C-Reactive Protein 20.5 mg/L (0.0-4.9) H 01/24/24 18:54 NT-Pro-B Natriuret Pep 29891 pg/mL (0-125) H 01/25/24 06:17 Total Protein 7.3 g/dL (6.6-8.7) 01/24/24 18:54 Albumin 4.0 g/dL (3.5-5.2) 01/24/24 18:54 Globulin 3.3 g/dL (1.3-4.6) 01/24/24 18:54 Triglycerides 266 mg/dL (0-150) H 01/24/24 18:54 Cholesterol 203 mg/dL (0-200) H 01/24/24 18:54 LDL Cholesterol, Calc 113 mg/dL (50-129) 01/24/24 18:54 HDL Cholesterol 37 mg/dL (60-100) L 01/24/24 18:54 LDL/HDL Ratio 3.05 RATIO (0.00-3.22) 01/24/24 18:54 Cholesterol/HDL Ratio 5.49 mg/dL (0.0-4.40) H 01/24/24 18:54 Vitamin B12 1008 pg/mL (232-1245) 01/25/24 06:17 Procalcitonin 0.36 ng/mL (0-0.5) 01/24/24 18:54 TSH 2.22 uIU/mL (0.27-4.20) 01/24/24 18:54 Urine Color Yellow (Yellow) 01/24/24 19:02 Urine Appearance Clear (CLEAR) 01/24/24 19:02 Urine pH 8 (5-7) H 01/24/24 19:02 Ur Specific [place] 1.005 (1.005-1.030) 01/24/24 19:02 Urine Protein 3+ (Negative) H 01/24/24 19:02 Urine Glucose (UA) 1+ (Normal) H 01/24/24 19:02 Urine Ketones 2+ (Negative) H 01/24/24 19:02 Urine Blood Trace (Negative) H 01/24/24 19:02 Urine Nitrate Negative (Negative) 01/24/24 19:02 Urine Bilirubin Neg (Negative) 01/24/24 19:02 Prot Sulfosalicylic Acd Positive (Negative) 01/24/24 19:02 Urine Urobilinogen Neg mg/dL (Negative) 01/24/24 19:02 Ur Leukocyte Esterase Trace (Negative) H 01/24/24 19:02 Urine RBC 0-4 /hpf (0-2) H 01/24/24 19:02 Urine WBC 0-4 /hpf (0-5) H 01/24/24 19:02 Ur Squamous Epith Cells 15-25 /hpf (0-5) H 01/24/24 19:02 Amorphous Sediment Trace /hpf 01/24/24 19:02 Urine Bacteria 1+ /hpf (NONE) H 01/24/24 19:02 Urine Mucus 1+ /hpf 01/24/24 19:02 Urine Opiates Screen Positive ng/mL (Negative) H 01/24/24 19:02 Ur Barbiturates Screen Negative ng/mL (Negative) 01/24/24 19:02 Ur Phencyclidine Scrn Negative ng/mL (Negative) 01/24/24 19:02 Ur Amphetamines Screen Negative ng/mL (Negative) 01/24/24 19:02 U Benzodiazepines Scrn Negative ng/mL (Negative) 01/24/24 19:02 Urine Cocaine Screen Negative ng/mL (Negative) 01/24/24 19:02 U Marijuana (THC) Screen Negative ng/mL (Negative) 01/24/24 19:02 Ethyl Alcohol < 10 mg/dL (0-10) 01/24/24 18:54 Hep Bs Antigen Non-reactive (Nonreactive) 01/24/24 06:17 Hep Bs Antibody < 3.5 (11.5-1000) L 01/24/24 06:17 Vitals Last Vital Signs Temp 98.1 F 01/25/24 07:44 Pulse 66 01/25/24 07:44 Resp 16 01/25/24 07:44 BP 131/61 01/25/24 07:44 Pulse Ox 89 L 01/25/24 07:44 O2 Del Method Room Air 01/25/24 07:44 O2 Flow Rate 2.5 01/25/24 01:03 Discharge Plan Discharge Patient Disposition: Home Condition: Stable Prescriptions: New azithromycin 500 mg tablet 500 mg PO DAILY 5 Days Qty: 5 0RF Continued RenaPlex-D 800 mcg-12.5 mg -2,000 unit tablet 1 tab PO DAILY carvedilol 6.25 mg tablet 18.75 mg PO DIRECTED Qty: 270 3RF Rx Instructions: 12.5mg (2 tabs) in AM and 6.25mg (1 tab) in PM morphine 30 mg tablet extended release 30 mg PO QID morphine 15 mg tablet 15 mg PO TID PRN (Reason: Pain) amlodipine 5 mg Tablet 5 mg PO DAILY Discharge Orders: Discharge Order (Routine); Ordered 01/25/24 Ordered By: Bubba Garrison Referrals: Lopez Bateman MD [Primary Care Provider] - Patient Instructions: Altered Mental Status (ED), Opioid Safety Discharge Attestations Time Spent in Discharge Care*: greater than 30 min Status at Discharge: Cognitive status at discharge: cognitively intact , Behavioral status at discharge: cooperative , Quality Metrics Clinical Quality Measures [ No reported AMI, CVA or VTE this stay] Coding Level of Care Code Acute Code for Chg Fwd Diagnoses Altered mental status R41.82 UTI (urinary tract infection) N39.0 Unsteadiness on feet R26.81
[2024-01-25] MEDS: aspirin 81 mg EC Tablet PO (09:31)
[2024-01-25] MEDS: amlodipine 10 mg Tablet PO (09:31)
[2024-01-25] MEDS: heparin 5,000 unit/mL INJ 1 mL 5000 UNIT SUBCUT (09:31)
[2024-01-25] MEDS: morphine ER (12 HR) 30 mg tablet PO (09:31)
[2024-01-25] MEDS: heparin, porcine 1,000 unit/mL INJ 10 mL 10000 UNIT HE (10:00)
--- NOTE | 2024-01-25 11:01 | PM.CONSULT ---
Providers/Reason For Consult Consulting Physician/Specialty*: [facility]/NEPHROLOGY Reason for Consult*: ESRD Attending Physician: Bubba Garrison MD Primary Care Provider: Lopez Bateman MD History of Present Illness History of Present Illness Ashley Miranda is a 63 year old female 63 year old female with a past medical history of end-stage renal disease on dialysis, chronic pain, hypertension, hyperlipidemia, history of strokes, who presents to [facility] for altered mental status. CT head negative .she was in [place] for about 3 weeks seeing her daughter, she does report that she was receiving dialysis when she was up in [place] but it was intermittently she is not sure how much time she missed it Review of Systems Narrative: negative Medications/Allergies Home Medications Medication Instructions Recorded Confirmed Last Taken Type vit B,C-folic ac 800 mcg-zinc 12.5 1 tab PO DAILY 08/27/22 01/24/24 10/24/22 History mg-selen-D3 2,000 unit-vit E tablet (RenaPlex-D) morphine 15 mg immediate release 15 mg PO TID PRN Pain 09/27/22 01/24/24 1 Day Ago History tablet ~01/23/24 morphine 30 mg tablet,extended 30 mg PO QID 09/27/22 01/24/24 1 Day Ago History release ~01/23/24 carvedilol 6.25 mg tablet 18.75 mg (3 x 6.25 mg) PO 06/13/23 01/24/24 01/24/24 Rx DIRECTED #270 tabs amlodipine 5 mg tablet 5 mg PO DAILY 01/24/24 01/24/24 01/24/24 History azithromycin 500 mg tablet 500 mg PO DAILY 5 days #5 tabs 01/25/24 Unknown Rx Allergies Allergy/AdvReac Type Severity Reaction Status Date / Time No Known Allergies Allergy Verified 01/24/23 14:09 Current Medications Generic Name Dose Route Start Last Admin Trade Name Freq PRN Reason Stop Dose Admin Amlodipine Besylate 10 mg 01/25/24 09:00 01/25/24 09:31 Amlodipine 10 Mg Tablet PO 10 mg DAILY LOREN Administration Aspirin 81 mg 01/24/24 22:45 01/25/24 09:31 Aspirin 81 Mg Ec Tablet PO 81 mg DAILY LOREN Administration Atorvastatin Calcium 40 mg 01/24/24 22:45 01/24/24 22:49 Atorvastatin 40 Mg Tablet PO 40 mg BEDTIME LOREN Administration Carvedilol 12.5 mg 01/25/24 06:00 01/25/24 05:02 Carvedilol 6.25 Mg Tablet PO 12.5 mg QAM LOREN Administration Heparin Sodium (Porcine) 5,000 unit 01/24/24 21:47 01/25/24 09:31 Heparin 5,000 Unit/Ml Inj 1 Ml SUBCUT 5,000 unit Q12H LOREN Administration Ceftriaxone Sodium 1,000 mg/ 50 mls @ 100 mls/hr 01/24/24 21:47 01/24/24 23:26 Sodium Chloride IV Infused Q24H LOREN Infusion Protocol Azithromycin 500 mg/ Sodium 250 mls @ 250 mls/hr 01/24/24 22:45 01/25/24 00:27 Chloride IV Infused Q24H LOREN Infusion Protocol Morphine Sulfate 15 mg 01/24/24 22:44 01/24/24 22:49 Morphine Ir 15 Mg Tablet PO 15 mg TID PRN Administration SEVERE PAIN Morphine Sulfate 30 mg 01/25/24 09:00 01/25/24 09:31 Morphine Er (12 Hr) 30 Mg Tablet PO 30 mg BID LOREN Administration Pantoprazole Sodium 40 mg 01/24/24 21:47 01/24/24 22:50 Pantoprazole 40 Mg Sdv IVP 40 mg Q24H LOREN Administration PFSH Acute PFSH: Medical History History of blood transfusion low platelets, 08/24/22 History of stroke 2012 Heart failure with reduced ejection fraction Cardiomyopathy Degenerative joint disease (DJD) of lumbar spine CKD (chronic kidney disease) Hepatitis C Acute renal failure Surgical History History of cholecystectomy History of bilateral tubal ligation History of No pertinent past surgical history Family History Father Cancer lungs and spread Other Lung disease Psychiatric illness Social History Smoking and tobacco/nicotine status: former use of tobacco/nicotine Quit status (tobacco/nicotine): has quit using Year quit tobacco: 2001 Alcohol intake: never Substance/Drug Use: never Lives independently: Yes Household members: spouse Housing: House Marital status: Number of children: 2 Current occupational status: disabled Current gender identity: Female Agree to transfusion: Yes Female Reproductive History: Para: 2 Vitals/I&O/Wt Last Vital Signs Temp 98.1 F 01/25/24 07:44 Pulse 66 01/25/24 07:44 Resp 16 01/25/24 07:44 BP 131/61 01/25/24 07:44 Pulse Ox 89 L 01/25/24 07:44 O2 Del Method Room Air 01/25/24 07:44 O2 Flow Rate 2.5 01/25/24 01:03 01/24/24 01/25/24 01/25/24 22:59 06:59 14:59 Intake Total 250 / 250 550 / 800 240 / 240 Balance 250 / 250 550 / 800 240 / 240 Weight last 48 hrs Weight 87.226 kg Weight 92.079 kg Physical Exam Narrative: awake , alert heent no edema Data 01/25/24 06:17 01/25/24 06:17 Micro: Microbiology 01/24/24 06:17 Blood Culture - Preliminary Blood SPECIMEN COLLECTED 01/24/24 20:40 Blood Culture - Preliminary Blood SPECIMEN COLLECTED A&P Assessment and plan (1) ESRD (end stage renal disease): Plan 1. End-stage renal disease: On PD and also hemodialysis on a daily basis, patient to follow-up with his [facility] as outpatient for long-term HD 2. Anemia: status post SEAN, 3. Hypertension: Blood pressure controlled 4. AMS , improved Patient evaluated using audiovisual cart. Time spent 45 minutes. Consult Attestations Medical Necessity Statement: per danny Coding Level of Care Code Acute Code for Chg Fwd Diagnoses ESRD (end stage renal disease) N18.6
[2024-01-25 11:55] LABS: Adenovirus Not Detected (NOT DETECT); Chlamydia Pneumoniae Not Detected (NOT DETECT); Coronavirus 229E,HKU1,NL63,OC4 Not Detected (NOT DETECT); Human Metapneumovirus Not Detected (NOT DETECT); Human Rhinovirus/Enterovirus Not Detected (NOT DETECT); Influenza A Not Detected (NOT DETECT); Influenza A H1 Not Detected (NOT DETECT); Influenza A H1-2009 Not Detected (NOT DETECT); Influenza A H3 Not Detected (NOT DETECT); Influenza B Not Detected (NOT DETECT); Mycoplasma Pneumoniae Not Detected (NOT DETECT); Parainfluenza Virus Type 1 Not Detected (NOT DETECT); Parainfluenza Virus Type 2 Not Detected (NOT DETECT); Parainfluenza Virus Type 3 Not Detected (NOT DETECT); Parainfluenza Virus Type 4 Not Detected (NOT DETECT); Respiratory Syncytial Virus A Not Detected (NOT DETECT); Respiratory Syncytial Virus B Not Detected (NOT DETECT); SARS-COV-2 Not Detected (NOT DETECT)
== END 2024-01-25 13:49 | disposition home or self-care (01) ==
LOC: ER 20:27 → MEDSURG 20:54
PROVIDERS: Hospitalist; Admitting Provider Family Medicine; Emergency Provider Emergency Medicine; PCP Family Medicine; Visit Provider Internal Medicine
DX: R41.82 Altered mental status, unspecified (principal); N39.0 Urinary tract infection, site not specified; R26.81 Unsteadiness on feet; I12.9 Hypertensive chronic kidney disease with stage 1 through stage 4 chronic kidney disease, or unspecified chronic kidney disease; N18.9 Chronic kidney disease, unspecified; Z99.2 Dependence on renal dialysis; Z86.73 Personal history of transient ischemic attack (TIA), and cerebral infarction without residual deficits; Z86.19 Personal history of other infectious and parasitic diseases; Z87.891 Personal history of nicotine dependence
CPT/HCPCS: 36415; 36600; 70450; 70496; 70498; 71045; 74176; 80048; 80053; 80061; 80306; 80307; 81001; 82140; 82550; 82607; 82803; 83036; 83605; 83735; 83880; 84100; 84145; 84443; 85025; 85610; 85651; 86140; 86706; 87040; 87340; 87486; 87581; 87633; 90935; 93005; 94664; 96365; 96372; 96375; 99285; C9113; G0378; J0456; J0696; J1644; J7050; Q9967

== ENCOUNTER 2024-02-06 07:59 | Oncology outpatient (recurring) (ONCR) | payer MEDICARE, OTHER, SELFPAY | END 2024-02-07 23:59 | disposition home or self-care (01) | PROVIDERS: PCP Family Medicine; Visit Provider Internal Medicine Medical Oncology | DX: N63.20 Unspecified lump in the left breast, unspecified quadrant (principal); I12.0 Hypertensive chronic kidney disease with stage 5 chronic kidney disease or end stage renal disease; N18.6 End stage renal disease; Z99.2 Dependence on renal dialysis; Z87.891 Personal history of nicotine dependence; D63.1 Anemia in chronic kidney disease | CPT/HCPCS: 99205 ==

== ENCOUNTER 2024-02-18 14:14 | Oncology outpatient (recurring) (ONCR) | payer MEDICARE, OTHER, SELFPAY ==
--- NOTE | 2024-02-18 14:30 | MM_ITS ---
WS: [id number] DIAGNOSTIC BILATERAL DIGITAL BREAST TOMOSYNTHESIS MAMMOGRAPHY WITH CAD LEFT breast ultrasound, limited. HISTORY: breast mass COMPARISON: 01/21/2009 TECHNIQUE: Bilateral craniocaudad, mediolateral oblique, and mediolateral views are submitted with to mosynthesis and SM. Spot compression LEFT CC and MLO. Computer aided detection utilized. Breast composition: The breasts are almost entirely fatty. Spiculated high density mass with distorti on posterior and central to the LEFT nipple and probably just below below the nipple. Mass measures 2 .8 x 3.1 x 3.3 cm. This corresponds to the palpable abnormality. There are a few benign calcification s within each breast. Incompletely visualized but prominent LEFT axillary lymph node. LEFT breast ultrasound, limited. Hypoechoic irregular mass with fingerlike extensions at 6:00, 4 cm from the nipple. This is a complex mass with increased vascularity measuring 3.0 x 1.8 x 2.2 cm. This mass extends very close to the [facility] no soft tissue. There are several lymph nodes in the axilla which are poorly defined. No obvious metastatic disease. MM/[place] [id number] IMPRESSION: BI-RADS: 5-Highly Suggestive of Malignancy FOLLOW UP: Biopsy Recommended Ultrasound-guided biopsy recommended LEFT breast mass at 6:00. Notified Ricardo Smiley MD at 02/18/2024 3:34 PM.
--- NOTE | 2024-02-18 15:00 | US_ITS ---
WS: [id number] DIAGNOSTIC BILATERAL DIGITAL BREAST TOMOSYNTHESIS MAMMOGRAPHY WITH CAD LEFT breast ultrasound, limited. HISTORY: breast mass COMPARISON: 01/21/2009 TECHNIQUE: Bilateral craniocaudad, mediolateral oblique, and mediolateral views are submitted with to mosynthesis and SM. Spot compression LEFT CC and MLO. Computer aided detection utilized. Breast composition: The breasts are almost entirely fatty. Spiculated high density mass with distorti on posterior and central to the LEFT nipple and probably just below below the nipple. Mass measures 2 .8 x 3.1 x 3.3 cm. This corresponds to the palpable abnormality. There are a few benign calcification s within each breast. Incompletely visualized but prominent LEFT axillary lymph node. LEFT breast ultrasound, limited. Hypoechoic irregular mass with fingerlike extensions at 6:00, 4 cm from the nipple. This is a complex mass with increased vascularity measuring 3.0 x 1.8 x 2.2 cm. This mass extends very close to the [facility] no soft tissue. There are several lymph nodes in the axilla which are poorly defined. No obvious metastatic disease. US/US breast LT limited* [id number] IMPRESSION: BI-RADS: 5-Highly Suggestive of Malignancy FOLLOW UP: Biopsy Recommended Ultrasound-guided biopsy recommended LEFT breast mass at 6:00. Notified Ricardo Smiley MD at 02/18/2024 3:34 PM.
== END 2024-03-08 23:59 | disposition home or self-care (01) ==
LOC: RAD 14:14 → ONCMED 03-04 09:04
PROVIDERS: PCP Family Medicine; Visit Provider Internal Medicine Medical Oncology
DX: N63.25 Unspecified lump in the left breast, overlapping quadrants (principal)
CPT/HCPCS: 76642; 77062; G0279

== ENCOUNTER → 2024-03-18 11:19 | Outpatient (CLI) | payer MEDICARE, OTHER, SELFPAY ==
--- NOTE | 2024-03-18 11:45 | US_ITS ---
WS: [id number] ULTRASOUND-GUIDED LEFT BREAST BIOPSY CLINICAL INFORMATION: abnormal mammogram FINDINGS: The procedure including risks, benefits, and complications were discussed with the patient who agreed to proceed. Using sterile technique patient was prepped and draped in the usual sterile fashion. Aft er 1% lidocaine utilizing real-time ultrasound guidance 5 14-gauge cores were obtained of the LEFT br east lesion at the 6 o'clock position 4 cm from the nipple. Subsequently a titanium clip was placed i n the biopsy cavity. No immediate complications. Pathology demonstrates invasive mammary carcinoma with high-grade histologic features. US/[place] [id number] IMPRESSION: 1. Uncomplicated ultrasound-guided LEFT breast biopsy. 2. The pathology demonstrates invasive mammary carcinoma with high-grade histo logic features. 3. Breast cancer prognostic profile is pending. Please see pathology report fo r results. BI-RADS: 6-Known Biopsy-Proven Malignancy FOLLOW UP: Surgical Biopsy Recommended RECOMMEND BREAST SURGERY CONSULTATION.
[2024-03-23 10:51] LABS: Breast Profile ER,PR,HER2,Ki-6 See Report
== END | disposition home or self-care (01) ==
LOC: RAD 11:18
PROVIDERS: PCP Family Medicine; Visit Provider Internal Medicine Medical Oncology
DX: N63.0 Unspecified lump in unspecified breast (principal); R92.8 Other abnormal and inconclusive findings on diagnostic imaging of breast
CPT/HCPCS: 19083; 88305; 88361; 88374

== ENCOUNTER 2024-03-26 06:00 | Outpatient (CLI) | payer MEDICARE, OTHER, SELFPAY | END 2024-03-26 06:01 | disposition home or self-care (01) | LOC: RAD 05-19 12:40 | PROVIDERS: PCP Family Medicine; Visit Provider Internal Medicine Medical Oncology | DX: C50.312 Malignant neoplasm of lower-inner quadrant of left female breast (principal); I42.9 Cardiomyopathy, unspecified | CPT/HCPCS: 99215 ==

== ENCOUNTER 2024-03-26 07:58 | Oncology outpatient (recurring) (ONCR) | payer MEDICARE, OTHER, SELFPAY ==
--- NOTE | 2024-03-26 14:15 | USCV_ITS ---
Ashley Miranda Age: 63 Gender: F : 1960 Exam Date: 03/26/2024 14:35 Ordering Phys: Ricardo Smiley MD Technologist: ROGER Exam Location: [facility] [place] Indication: CARDIOMYOPATHY BP: / HR: 62 Rhythm: Sinus Technical Quality: Adequate MEASUREMENTS (Male / Female) Normal Values 2D ECHO LV Diastolic Diameter PLAX 4.8 cm 4.2 - 5.9 / 3.9 - 5.3 cm IVS Diastolic Thickness 1.5 cm 0.6 - 1.0 / 0.6 - 0.9 cm IVS Systolic Thickness 1.7 cm LVPW Diastolic Thickness 1.1 cm 0.6 - 1.0 / 0.6 - 0.9 cm LVPW Systolic Thickness 1.6 cm LV Ejection Fraction 2D Teich 42.7 % LV Ejection Fraction MOD 4C 49.9 % LV Ejection Fraction MOD 2C 70.4 % LV Ejection Fraction 2C AL 68.9 % LA Diameter 4.4 cm RA Systolic Volume 4C AL 30.4 ml RA Systolic Volume 4C MOD 28.6 ml LA Sys Volume AL 46.0 cm cubed LA Sys Volume Index AL 21.3 cm cubed/m squared Aorta at Sinotubular Diameter 3.0 cm M-MODE LA Ao Ratio MM 1.3 AV Cusp Separation MM 1.5 cm DOPPLER AV Peak Velocity 197.0 cm/s LVOT Peak Velocity 115.0 cm/s AV Area Cont Eq vti 2.6 cm squared AV Area Cont Eq pk 2.1 cm squared MV Area PHT 2.6 cm squared Mitral E to A Ratio 0.9 TV Peak Velocity 96.5 cm/s TR Peak Velocity 193.0 cm/s TR Peak Gradient 14.9 mmHg TR Mean Velocity 119.0 cm/s TR Mean Gradient 7.1 mmHg TR Velocity Time Integral 51.8 cm TV Peak E Velocity 52.0 cm/s Right Atrial Pressure 3.0 mmHg Pulmonary Artery Systolic Pressu 17.9 mmHg PV Peak Velocity 151.0 cm/s FINDINGS Left Ventricle Left ventricle is normal size. LV systolic function is normal with EF 50-55%. No regional wall motion abnormalities are seen. Right Ventricle Normal in size and function Right Atrium Normal in size Left Atrium Normal in size Mitral Valve Mild to moderate mitral annular calcification. Mild mitral regurgitation. Aortic Valve Structurally normal aortic valve. No significant stenosis or regurgitation. Tricuspid Valve Mild tricuspid regurgitation. Insufficient TR jet to evaluate RVSP. Pulmonic Valve Not well visualized Pericardium Normal Aorta Normal in size IVC Appears to be normal CONCLUSIONS LV systolic function is normal with EF of 50-55% Mild mitral regurgitation Compared to prior echocardiogram from 07/2022, LV systolic function has improved significantly. Amol Payne MD (Electronically Signed) Final Date: 26 March 2024 17:56 S
== END 2024-04-08 23:59 | disposition home or self-care (01) ==
PROVIDERS: PCP Family Medicine; Visit Provider Internal Medicine Medical Oncology
DX: C50.312 Malignant neoplasm of lower-inner quadrant of left female breast; I42.9 Cardiomyopathy, unspecified; Z53.9 Procedure and treatment not carried out, unspecified reason
CPT/HCPCS: 93306

== ENCOUNTER 2024-04-08 11:45 | Outpatient (CLI) | payer MEDICARE, OTHER, SELFPAY ==
--- NOTE | 2024-04-08 11:45 | US_ITS ---
WS: [id number] LEFT axillary ultrasound. HISTORY: Patient with known LEFT breast cancer. Evaluate for LEFT axillary lymphadenopathy. Ultrasound directed to the LEFT axilla There are several small lymph nodes identified. These lymph nodes are all normal in size and echogeni city. There is a normal fatty hilum with a normal thin symmetric cortex. No increased vascularity. US/US soft tissue/extremity [id number] IMPRESSION: By ultrasound there are no abnormal lymph nodes in the LEFT axilla. No biopsy p erformed.
== END 2024-04-08 11:46 | disposition home or self-care (01) ==
PROVIDERS: PCP Family Medicine; Visit Provider Internal Medicine Medical Oncology
DX: C50.912 Malignant neoplasm of unspecified site of left female breast (principal)
CPT/HCPCS: 76882

== ENCOUNTER 2024-04-14 08:05 | Oncology outpatient (recurring) (ONCR) | payer MEDICARE, OTHER, SELFPAY ==
--- NOTE | 2024-04-14 17:59 | PETR_ITS ---
PROCEDURE INFORMATION: Exam: PET/CT Skull Base to Mid-thigh Exam date and time: 04/14/2024 9:13 AM Age: 63 years old Clinical indication: Condition or disease; Primary cancer: Breast cancer; Follow-up oncological assessment LABS AND CLINICAL REPORTS: Glucose: 116 mg/dl Treatment strategy for malignancy (PET staging): Initial Staging (PI) TECHNIQUE: Imaging protocol: Following at least four-hour fasting and following the injection of radiopharmaceutical, low dose CT images were obtained. Then, PET images were obtained. Attenuation corrected images were constructed using the CT scan. Fused images of PET and CT were reviewed. The standardized uptake values (SUV) reported below are maximum values within a region of interest, expressed in gm/ml. Exam includes orbital meatal line to mid-thigh. Radiopharmaceutical: 10.16 mCi F-18 FDG (Fluorodeoxyglucose), IV. Time of imaging post radiopharmaceutical administration: 1 hour Injection site: Right antecubital COMPARISON: 1. CT abdomen pelvis wo con [id number] 02/05/2023 11:[address] angio headneck* [id number] 01/24/2024 9:[address] abdomen pelvis wo con [id number] 01/24/2024 8:59 PM FINDINGS: Brain: Visualized brain has normal physiologic uptake. Pharynx: No abnormal uptake. Larynx: No abnormal uptake. Lungs, pleura and trachea: No abnormal uptake. Heart: Normal physiologic uptake. Mediastinal space: No abnormal uptake. Liver: No abnormal uptake. Gallbladder and biliary ducts: No abnormal uptake. Prior cholecystectomy. Pancreas: No abnormal uptake. Spleen: No abnormal uptake. Adrenal glands: No abnormal uptake. 1.3 cm right adrenal nodule with hypoattenuation compatible with adenoma. Kidneys and ureters: Bilateral renal atrophy with low-level FDG uptake and moderate FDG uptake in the urinary bladder. Bilateral photopenic fluid density renal cysts. Stomach and bowel: Focal FDG uptake at the transverse colon with suggest underlying thickening shows SUV max of 7.8 on axial image 158 of series 202. Colonic diverticulosis without findings of diverticulitis. Vasculature: No abnormal uptake. Mild to moderate systemic atherosclerotic calcification without aortic aneurysm. Lymph nodes: No abnormal uptake. No lymphadenopathy in the head, neck, chest, abdomen, pelvis, and extremities. Skeleton: Degenerative changes along the axial and proximal appendicular skeletal system. 12 mm lytic lesion at the posterior right greater trochanter on axial image 94 of series 202 shows SUV max of 4.4. Orthogonal views suggest corticated margins and CT appearance is similar to slightly worse compared to January 2023. Asymmetric focus of FDG uptake at the right iliac crest shows SUV max of 4.0 on axial image 136 of series 202. No discrete underlying CT abnormality. Soft tissues: Left breast mass measures 3.1 x 2.5 cm on axial image 223 of series 202 and shows SUV max of 7.4. Small fat containing periumbilical hernia. PET/PET skull to thigh INIT [id number] IMPRESSION: 1. FDG avid 3.1 cm left breast mass compatible with reported breast cancer. 2. Focal FDG uptake at the transverse colon with suggested underlying thickening suspicious for neoplasm. Recommend colonoscopy. 3. FDG avid lytic lesion at the posterior right greater trochanter and focal FDG uptake at the right iliac crest without underlying CT abnormality. Concern for metastases is raised, although not entirely specific. Recommend further evaluation with pelvic MRI. 4. Bilateral renal atrophy with low-level FDG uptake suggests chronic kidney disease.
== END 2024-05-09 23:55 | disposition home or self-care (01) ==
LOC: RAD 08:05 → ONCMED 04-23 11:04
PROVIDERS: PCP Family Medicine; Visit Provider Internal Medicine Medical Oncology
DX: C50.312 Malignant neoplasm of lower-inner quadrant of left female breast (principal); R93.3 Abnormal findings on diagnostic imaging of other parts of digestive tract; N26.1 Atrophy of kidney (terminal); M70.61 Trochanteric bursitis, right hip; R93.7 Abnormal findings on diagnostic imaging of other parts of musculoskeletal system
CPT/HCPCS: 78815; A9552

== ENCOUNTER 2024-06-15 11:52 | Inpatient (IN) | payer MEDICARE, OTHER, SELFPAY ==
[2024-06-15] VITALS (25 sets, daily range): BP systolic 115–216; BP diastolic 70–111; PULSE 58–86; RESP 13–20; TEMP 36.4–36.9; O2SAT 91–100; BMI 32.3
--- NOTE | 2024-06-15 12:03 | XRR_ITS ---
PROCEDURE INFORMATION: Exam: XR Chest Exam date and time: 06/15/2024 12:06 PM Age: 63 years old Clinical indication: Shortness of breath; Additional info: SOB TECHNIQUE: Imaging protocol: Radiologic exam of the chest. Views: 1 view. COMPARISON: CR XR chest 1V portable [id number] 01/24/2024 6:12 PM FINDINGS: Lungs: Pulmonary vascular congestion and mild lower lung zone reticulation. No consolidation. Pleural spaces: No substantial pleural effusion or pneumothorax. Heart/Mediastinum: Stable cardiomegaly. Bones/joints: Mild dextroconvex spinal curvature. Degenerative changes along the spine and shoulders. XR/XR chest 1V portable [id number] IMPRESSION: 1. Pulmonary vascular congestion and likely mild interstitial edema. 2. Stable cardiomegaly.
--- NOTE | 2024-06-15 12:06 | W.ED.SOB ---
HPI - SOB/Dyspnea General: Chief Complaint: Shortness of Breath/Dyspnea Stated Complaint: SOB Time Seen by Provider: 06/15/24 11:56 Source: EMS Mode of arrival: EMS Limitations: altered mental status History of Present Illness: HPI Narrative: Patient is a 63 yo female with a history of hypertension, hyperlipidemia, cardiomyopathy with congestive heart failure, stroke, treated hepatitis C, chronic anemia, breast cancer, and end-stage renal disease on hemodialysis here via EMS for dyspnea. Patient upon my examination appears very confused. She really is not able to answer any of my questions as to why she is here. She is currently on 2L of oxygen. She does tell me she usually does not wear oxygen. States her family contacted EMS but is not sure why. Denies drug/etoh use. Daughter arrives later in her visit. She tells me patient has recently had a chest cold and was supposed to be placed on antibiotics for bronchitis . She states that she has been spiraling ever since her breast cancer diagnosis. She was told it is at least stage III. She was told treatment options were going to be limited with her cardiomyopathy and end stage renal disease. She has refused dialysis treatments all week according to the daughter. Daughter states she is her own guardian and wants to get mother back to her normal mentation so she can make the decision for end of life care/hospice. MD elicited complaint: shortness of breath Related Data Home Medications Medication Instructions Recorded Confirmed morphine 15 mg immediate release 15 mg PO TID PRN Pain 09/27/22 06/15/24 tablet morphine 30 mg tablet,extended 30 mg PO QID 09/27/22 06/15/24 release amlodipine 5 mg tablet 5 mg PO DAILY 01/24/24 06/15/24 coenzyme Q10 100 mg capsule (Co 100 mg PO DAILY 03/26/24 06/15/24 Q-10) ketorolac 0.5 % eye drops 2 drp ophthalmic (eye) Q6H 03/26/24 06/15/24 Allergies Allergy/AdvReac Type Severity Reaction Status Date / Time No Known Allergies Allergy Verified 03/26/24 08:04 Review of Systems General: Reports: ROS unobtainable due to medical condition and ROS unobtainable due to mental status [facility] PFSH: Medical History Breast cancer Hyperlipidemia Hypertension Anemia Unsteadiness on feet UTI (urinary tract infection) Altered mental status ESRD (end stage renal disease) History of blood transfusion low platelets, 08/24/22 History of stroke 2011 Heart failure with reduced ejection fraction Cardiomyopathy Degenerative joint disease (DJD) of lumbar spine CKD (chronic kidney disease) Hepatitis C Acute renal failure Surgical History History of cholecystectomy History of bilateral tubal ligation History of Family History Father Cancer lungs and spread Other ESRD (end stage renal disease) Lung disease Psychiatric illness Social History Smoking and tobacco/nicotine status: former use of tobacco/nicotine (quit 25 years prior) Quit status (tobacco/nicotine): has quit using Year quit tobacco: 2001 Former quit date comment: 25 years total use Alcohol intake: never Substance/Drug Use: never Lives independently: Yes Household members: spouse Housing: House Marital status: Number of children: 2 Current occupational status: disabled Current gender identity: Female Agree to transfusion: Yes Female Reproductive History: Para: 2 Physical Exam Const: COMMON NORMALS: alert EXAM LIMITATIONS: altered mental status NUTRITIONAL APPEARANCE: obese ORIENTATION/CONSCIOUSNESS: Yes awake and Yes oriented to person OTHER: lethargic HENMT: COMMON NORMALS: normocephalic and atraumatic HEAD & SCALP: normal to inspection, normocephalic and atraumatic Eye: GENERAL EYE: appearance normal, both eyes and all related structures and normal light reflex DIRECT OPHTHALMOSCOPY: Yes normal light reflex Neck/C-Spine: COMMON NORMALS: no lymphadenopathy and no meningeal signs Chest: COMMONS NORMALS: normal inspection of the chest and normal palpation of entire chest wall Resp: EFFORT & INSPECTION: Yes respiratory distress (on 2L oxygen) and Yes labored AUSCULTATION: other (poor inspiratory effort noted) Cardio: COMMON NORMALS: regular rate and regular rhythm RATE: regular rate RHYTHM: regular rhythm GI: COMMON NORMALS: Normal to inspection, nondistended, normoactive bowel sounds present, Soft to palpation and non-tender PALPATION: Yes Soft to palpation Extremity: NARRATIVE EXTREMITY EXAM: AV fistula with thrill noted to L UE GENERAL: Yes normal exam except as noted and Yes edema (symmetrical bilateral LE edema) Neuro: ROXANNE COMA SCALE: document GCS findings [place] coma scale eye opening: Spontaneous Roxanne coma scale verbal response: Confused [place] coma scale motor response: Obey commands Roxanne coma scale total score: 14 SENSORIUM/ORIENTATION: Yes alert and Yes oriented to person MENINGEAL SIGNS: Yes no meningeal signs Skin: COMMON NORMALS: no rashes or lesions noted GENERAL SKIN EXAM: no rashes or lesions noted Course Consultations: Consultation #1: Dr. EscalanteQugbtmw-jzjehxznmi-ekby consult on patient for emergent dialysis Consultation #2: Dr. Ordaz-will accept hospitalization to ICU; asking that I speak to daughter and have a code status placed on her chart until patient has medical decision making capacity Vital Signs: Vital signs: Vital Signs Temperature 98.4 F 06/15/24 11:56 Pulse Rate 67 06/15/24 13:41 Respiratory Rate 14 06/15/24 13:41 Blood Pressure 155/89 06/15/24 14:00 Pulse Oximetry 99 06/15/24 13:41 Oxygen Delivery Me thod BiPAP 06/15/24 14:00 Oxygen Flow Rate 2 06/15/24 11:56 Fraction of Inspir ed Oxygen 35 06/15/24 13:21 MDM - SOB/Dyspnea Medical Decision Making Patient is an ESRD dialysis patient who has missed dialysis over the past week. Daughter states she has mentally been struggling with her cancer diagnosis and has intentionally missed these appointments. Upon arrival to the emergency department she appears altered. She is requiring oxygen. She clinically appears fluid overloaded. Her ABG showing a pH of 7.1 upon arrival. pCO2 of over 52. Potassium of almost 9. Labs took quite a while to be obtained. She was started on IV medication for her hyperkalemia based on her ABG. I already consulted with nephrology who placed some additional orders as well. Patient was placed on BiPAP per recommendations of respiratory. I spoke to Dr. Chung who is in agreement with care plan at this time. Labs at this time mostly are pending but Dr. Escalante with nephrology is ready to emergently dialyze her and is requesting admission to ICU. I spoke to Dr. Ordaz who will accept admission. Dr. Chung to place admit orders. Medical Records I reviewed the patient's medical records. Lab Data I reviewed the patient's lab results. 06/15/24 12:42 06/15/24 12:42 Labs/Radiology: Radiology Impressions Chest X-Ray 06/15/24 12:03 IMPRESSION: 1. Pulmonary vascular congestion and likely mild interstitial edema. 2. Stable cardiomegaly. Laboratory Results WBC 6.67 10^3/uL (3.29-11.43) 06/15/24 12:42 RBC 3.08 10^6/uL (3.85-5.65) L 06/15/24 12:42 Hgb 9.40 g/dL (11.27-16.99) L 06/15/24 12:42 Hct 30.6 % (36-47) L 06/15/24 12:42 MCV 99.4 fl (85-98) H 06/15/24 12:42 MCH 30.5 pg (27-33) 06/15/24 12:42 MCHC 30.7 g/dL (30-55) 06/15/24 12:42 RDW 15.9 % (12.1-15.1) H 06/15/24 12:42 Plt Count 136 10^3/cmm (157-399) L 06/15/24 12:42 MPV 10.0 fL (7.4-10.4) 06/15/24 12:42 Neut % (Auto) 85.7 % 06/15/24 12:42 Lymph % (Auto) 6.4 % 06/15/24 12:42 [place] % (Auto) 5.2 % 06/15/24 12:42 Eos % (Auto) 1.2 % 06/15/24 12:42 Baso % (Auto) 0.3 % 06/15/24 12:42 Neut # (Auto) 5.71 10^3/uL (1.8-7.7) 06/15/24 12:42 Lymph # (Auto) 0.4 10^3/uL (0.8-4.8) L 06/15/24 12:42 [place] # (Auto) 0.4 10^3/uL (0.2-0.9) 06/15/24 12:42 Eos # (Auto) 0.1 10^3/uL (0.0-0.8) 06/15/24 12:42 Baso # (Auto) 0.0 10^3/uL (0.0-0.1) 06/15/24 12:42 Nucleated RBC % (auto) 0 % 06/15/24 12:42 Nucleated RBCs # 0.0 /100WBC 06/15/24 12:42 Specimen Type Arterial 06/15/24 12:22 Sample Site Radial, left 06/15/24 12:22 ABG pH 7.14 (7.35-7.45) L* 06/15/24 12:22 ABG pCO2 52.2 mmHg (35-45) H 06/15/24 12:22 ABG pO2 76.8 mmHg (80.0-100.0) L 06/15/24 12:22 ABG HCO3 17.8 mmol/L (22-26) L 06/15/24 12:22 ABG O2 Saturation 89.6 06/15/24 12:22 ABG Base Excess -10.8 mmol/L (-2.0-2.0) L 06/15/24 12:22 Alberto Test Pos 06/15/24 12:22 A-a O2 Gradient 1.3 mmHg (5-10) L 06/15/24 12:22 Hematocrit 28.7 % (37-47) L 06/15/24 12:22 Hgb O2 Saturation 87.1 % (95-100) L 06/15/24 12:22 Carboxyhemoglobin 1.4 %THgb (0.4-20.1) 06/15/24 12:22 Methemoglobin 1.4 % (0.4-1.5) 06/15/24 12:22 Total Hemoglobin 9.4 g/dL (12-16) L 06/15/24 12:22 Sodium 141.0 mmol/L (131-143) 06/15/24 12:22 Potassium 8.9 mmol/L (3.5-5.0) H 06/15/24 12:22 Glucose 115.0 mg/dL (70-115) 06/15/24 12:22 Ionized Calcium 1.0 mmol/L (1.1-1.4) L 06/15/24 12:22 O2 Delivery Device Nc 06/15/24 12:22 O2 Liters/Min 2.0 % 06/15/24 12:22 Electronics Tech ID [employer] 06/15/24 12:22 Sodium 139 mmol/L (136-145) 06/15/24 12:42 Potassium 9.3 mmol/L (3.5-5.1) H* 06/15/24 12:42 Chloride 98 mmol/L (98-107) 06/15/24 12:42 Carbon Dioxide 16 mmol/L (22-29) L 06/15/24 12:42 Anion Gap 34.3 (5-19) H 06/15/24 12:42 BUN 141 mg/dL (8-23) H* D 06/15/24 12:42 Creatinine 12.9 mg/dL (0.5-0.9) H* 06/15/24 12:42 GFR Calculation 2.9 mL/min (90-130) L 06/15/24 12:42 Glucose 117 mg/dL (65-115) H 06/15/24 12:42 POC Glucose 96 mg/dL (70-110) 06/15/24 14:27 Calculated Osmolality 335 mOsm/kg (285-295) H 06/15/24 12:42 Lactic Acid 0.5 mmol/L (0.5-2.2) 06/15/24 12:42 Calcium 7.4 mg/dL (8.5-10.5) L 06/15/24 12:42 Phosphorus 11.7 mg/dL (2.5-4.5) H* 06/15/24 12:42 Magnesium 2.8 mg/dL (1.7-2.3) H 06/15/24 12:42 Total Bilirubin 0.4 mg/dL (0.15-1.2) 06/15/24 12:42 AST 34 U/L (0-32) H 06/15/24 12:42 ALT 37 U/L (0-33) H 06/15/24 12:42 Alkaline Phosphatase 98 U/L (35-105) 06/15/24 12:42 Troponin T Baseline 99 ng/L (0-10) H 06/15/24 12:42 NT-Pro-B Natriuret Pep 44832 pg/mL (0-125) H 06/15/24 12:42 Total Protein 7.1 g/dL (6.6-8.7) 06/15/24 12:42 Albumin 4.3 g/dL (3.5-5.2) 06/15/24 12:42 Globulin 2.8 g/dL (1.3-4.6) 06/15/24 12:42 Urine Color Yellow (Yellow) 06/15/24 13:54 Urine Appearance Clear (CLEAR) 06/15/24 13:54 Urine pH 8.0 (5-7) A 06/15/24 13:54 Ur Specific [place] 1.014 (1.005-1.030) 06/15/24 13:54 Urine Protein 3+ (Negative) A 06/15/24 13:54 Urine Glucose (UA) Trace (Normal) H 06/15/24 13:54 Urine Ketones 1+ (Negative) H 06/15/24 13:54 Urine Blood Negative (Negative) 06/15/24 13:54 Urine Nitrate Negative (Negative) 06/15/24 13:54 Urine Bilirubin Negative (Negative) 06/15/24 13:54 Urine Urobilinogen 0.2 mg/dL (Negative) 06/15/24 13:54 Ur Leukocyte Esterase Negative (Negative) 06/15/24 13:54 Urine RBC 0-2 /hpf (0-2) 06/15/24 13:54 Urine WBC 0-5 /hpf (0-5) 06/15/24 13:54 Ur Squamous Epith Cells 0-5 /hpf (0-5) 06/15/24 13:54 Amorphous Sediment Not Reportable 06/15/24 13:54 Urine Bacteria None seen /hpf (NONE) 06/15/24 13:54 Hyaline Casts 1.21 /lpf 06/15/24 13:54 Urine Opiates Screen Positive ng/mL (Negative) H 06/15/24 13:54 Ur Barbiturates Screen Negative ng/mL (Negative) 06/15/24 13:54 Ur Phencyclidine Scrn Negative ng/mL (Negative) 06/15/24 13:54 Ur Amphetamines Screen Negative ng/mL (Negative) 06/15/24 13:54 U Benzodiazepines Scrn Negative ng/mL (Negative) 06/15/24 13:54 Urine Cocaine Screen Negative ng/mL (Negative) 06/15/24 13:54 U Marijuana (THC) Screen Negative ng/mL (Negative) 06/15/24 13:54 Ethyl Alcohol < 10 mg/dL (0-10) 06/15/24 12:42 Hep Bs Antigen Non-reactive (Nonreactive) 06/15/24 12:42 Hep B Core Total Ab Non-reactive (Nonreactive) 06/15/24 12:42 All radiology interpretation(s) finalized by discharge Discharge Plan Discharge Patient Disposition: Admitted As Inpatient Clinical Impression: ESRD (end stage renal disease) on dialysis, Acute encephalopathy, Carcinoma of lower-inner quadrant of left breast, Acute hyperkalemia, Acute respiratory failure Condition: Stable Prescriptions: No Action ketorolac 0.5 % drops 2 drp ophthalmic (eye) Q6H coenzyme Q10 [Co Q-10] 100 mg capsule 100 mg PO DAILY morphine 30 mg tablet extended release 30 mg PO QID morphine 15 mg tablet 15 mg PO TID PRN (Reason: Pain) amlodipine 5 mg Tablet 5 mg PO DAILY Referrals: Lopez Bateman MD [Primary Care Provider] - Coding Level of Care Code ED [employer] Advisor for Mannie Soto
--- NOTE | 2024-06-15 12:13 | CTR_ITS ---
PROCEDURE INFORMATION: Exam: CT Head Without Contrast Exam date and time: 06/15/2024 10:11 PM Age: 63 years old Clinical indication: Altered mental status/memory loss; Confusion or disorientation; Additional info: AMS TECHNIQUE: Imaging protocol: Computed tomography of the head without contrast. Radiation optimization: All CT scans at this facility use at least one of these dose optimization techniques: automated exposure control; mA and/or kV adjustment per patient size (includes targeted exams where dose is matched to clinical indication); or iterative reconstruction. COMPARISON: CT angio headneck* [id number] 01/24/2024 9:02 PM RADIATION DOSE METRICS: Total DLP (mGy-cm): 1195.08 FINDINGS: Brain: Normal. No hemorrhage. Unremarkable white matter. No mass effect. Cerebral ventricles: No ventriculomegaly. Paranasal sinuses: Visualized sinuses are unremarkable. No fluid levels. Mastoid air cells: Visualized mastoid air cells are well aerated. Bones: Unremarkable. No acute fracture. Soft tissues: Unremarkable. CT/CT head wo con* [id number] IMPRESSION: No acute intracranial abnormality.
--- NOTE | 2024-06-15 12:16 | ECG_ITS ---
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 Measurements Intervals [place] Rate: 80 P: 82 OK: 258 QRS: -31 QRSD: 157 T: 80 QT: 450 QTc: 519 Interpretive Statements SINUS RHYTHM WITH FIRST DEGREE AV BLOCK LEFT AXIS DEVIATION [QRS AXIS < -30] LEFT BUNDLE BRANCH BLOCK [120+ ms QRS DURATION, 80+ ms Q/S IN V1/V2, 85+ ms R IN I/aVL/V5/V6] Compared to ECG 01/24/2024 20:52:41 First degree AV block now present Left-axis deviation now present Left bundle-branch block now present Left ventricular hypertrophy no longer present Electronically Signed On 06-16-2024 01:22:26 CDT by Jane Swanson M.D. [email or web address]
[2024-06-15 12:33] LABS: ABG PCO2 52.2 mmHg (35-45); ABG PH Result 7.14 (7.35-7.45); Alveolar-Arterial Oxygen Gradi 1.3 mmHg (5-10); Arterial Blood Gas Hematocrit 28.7 % (37-47); Base Excess ABG -10.8 mmol/L (-2.0-2.0); Blood Gas Allen Test Pos; Blood Gas Operator Identificat WALCI; Blood Gas Sample Site Radial, left; Blood Gas Sample Type Arterial; Carboxyhemoglobin 1.4 %THgb (0.4-20.1); HCO3 ABG 17.8 mmol/L (22-26); HGB O2 Sat 87.1 % (95-100); Methemoglobin 1.4 % (0.4-1.5); Oxygen Device NC; Oxygen Saturation ABG 89.6; PO2 ABG 76.8 mmHg (80.0-100.0); Potassium Level - ABG 8.9 mmol/L (3.5-5.0); Total Hemoglobin 9.4 g/dL (12-16)
[2024-06-15 13:11] LABS: Basophils % 0.3 %; Eosinophils # 0.1 10^3/uL (0.0-0.8); Eosinophils % 1.2 %; Hematocrit 30.6 % (36-47); Lymphocytes # 0.4 10^3/uL (0.8-4.8); Lymphocytes % 6.4 %; Mean Corpuscular HGB Conc 30.7 g/dL (30-55); Mean Corpuscular Hemoglobin 30.5 pg (27-33); Mean Corpuscular Volume 99.4 fl (85-98); Monocytes # 0.4 10^3/uL (0.2-0.9); Monocytes % 5.2 %; Neutrophils # 5.71 10^3/uL (1.8-7.7); Neutrophils % 85.7 %; Nucleated Red Blood Cells % 0 %; Platelet Count 136 10^3/cmm (157-399); Red Blood Count 3.08 10^6/uL (3.85-5.65); Red Cell Distribution Width 15.9 % (12.1-15.1); White Blood Count 6.67 10^3/uL (3.29-11.43)
[2024-06-15] MEDS: albuterol 2.5 mg/3 mL Neb INHALATION (13:18)
--- NOTE | 2024-06-15 13:19 | P.CONIM_ITS ---
Providers/Reason For Consult 2 Consulting Physician/Specialty*: yolis magallanes md / telenephrology Reason for Consult*: acidosis, hyperkalemia, ESRD Attending Physician: Kat Navarrete MD Primary Care Provider: Lopez Bateman MD History of Present Illness History of Present Illness Ashley Miranda is a 63 year old female with history of ESRD on dialysis Saturday and Saturday. History of hypertension hyperlipidemia CVA history of low EF in the past that has improved to 55% in March 2024. Patient has history of lumbar spinal arthritis hepatitis C cholecystectomy. Patient was diagnosed with left breast ER positive/VA negative H ER 2/NADER positive breast cancer biopsy proven to be high-grade invasive mammary carcinoma. She had a PET scan in April 2020 unfortunately to 3.1 cm left breast mass with focal FDG uptake in transverse colon thickening suspicious for neoplasm she also had a lytic lesion at the posterior right greater trochanter and focal FDG uptake at right iliac crest. The patient recently has been depressed and go to dialysis for the last week the patient's daughter brought her into the emergency room today with altered mental status severe shortness of breath. Renal was called for dialysis as labs revealed a pH of 7.14 with a pCO2 of 52 and a bicarbonate of 18 her potassium on that ABG was 8.9. Over the phone I recommended that they treat the patient with calcium albuterol D50 and regular insulin. And already called the dialysis nurse for once patient is in the ICU. Review of Systems 2 Narrative: Per patient's daughter the patient has been depressed not herself weak lethargic and did not go to dialysis for a week. She is short of breath not able to get further history as patient's lethargic on BiPAP. Medications/Allergies Home Medications Medication Instructions Recorded Confirmed Last Taken Type morphine 15 mg immediate release 15 mg PO TID PRN Pain 09/27/22 06/15/24 06/15/24 History tablet morphine 30 mg tablet,extended 30 mg PO QID 09/27/22 06/15/24 06/15/24 History release amlodipine 5 mg tablet 5 mg PO DAILY 01/24/24 06/15/24 01/24/24 History coenzyme Q10 100 mg capsule (Co 100 mg PO DAILY 03/26/24 06/15/24 06/14/24 History Q-10) ketorolac 0.5 % eye drops 2 drp ophthalmic (eye) Q6H 03/26/24 06/15/24 Unknown History Allergies Allergy/AdvReac Type Severity Reaction Status Date / Time No Known Allergies Allergy Verified 03/26/24 08:04 PFSH Acute 2 PFSH: Medical History Breast cancer Hyperlipidemia Hypertension Anemia Unsteadiness on feet UTI (urinary tract infection) Altered mental status ESRD (end stage renal disease) History of blood transfusion low platelets, 08/24/22 History of stroke 2012 Heart failure with reduced ejection fraction Cardiomyopathy Degenerative joint disease (DJD) of lumbar spine CKD (chronic kidney disease) Hepatitis C Acute renal failure Surgical History History of cholecystectomy History of bilateral tubal ligation History of Family History Father Cancer lungs and spread Other ESRD (end stage renal disease) Lung disease Psychiatric illness Social History Smoking and tobacco/nicotine status: former use of tobacco/nicotine (quit 25 years prior) Quit status (tobacco/nicotine): has quit using Year quit tobacco: 2001 Former quit date comment: 25 years total use Alcohol intake: never Substance/Drug Use: never Lives independently: Yes Household members: spouse Housing: House Marital status: Number of children: 2 Current occupational status: disabled Current gender identity: Female Agree to transfusion: Yes Female Reproductive History: Para: 2 Vitals/I&O/Wt Last Vital Signs Temp 98.4 F 06/15/24 11:56 Pulse 75 06/15/24 12:44 Resp 18 06/15/24 11:56 BP 185/86 06/15/24 11:56 Pulse Ox 95 06/15/24 12:44 O2 Del Method Nasal Cannula 06/15/24 11:56 O2 Flow Rate 2 06/15/24 11:56 FiO2 35 06/15/24 12:44 Weight last 48 hrs Weight 90.718 kg Physical Exam 2 Narrative: Obese on BiPAP blood pressure elevated appears lethargic and short of breath. Vital signs noted. HEENT normocephalic/atraumatic. Neck is supple. Lungs rhonchi and crackles. Heart positive S1-S2. Abdomen is soft positive bowel sounds extremities trace edema. Neuro responds to pain. Patient has a left upper extremity AV fistula with thrill and bruit. Patient was seen and examined with the aid of a nurse using A/V equipment and the nurse examined the patient. Data 06/15/24 12:42 06/15/24 12:42 A&P Assessment and plan (1) ESRD (end stage renal disease) on dialysis: 63-year-old lady hypertension hyperlipidemia heart failure with improved EF, history of hepatitis C treated in the past anemia breast cancer with likely metastases. Patient missed dialysis for the last week as she is depressed due to her cancer diagnosis. And patient is now confused and lethargic and short of breath. 1 ESRD plan for dialysis today will not use heparin unless CT is negative. Will remove fluids as tolerated on a 2 potassium bath. 2. Hyperkalemia for dialysis today. However until she gets to the ICU, please treat with D50, regular insulin calcium and albuterol. Avoid Kayexalate as she is unable to swallow at this time. 3. Hypertension monitor with dialysis. 4. Altered mental status monitor with dialysis given cancer history consider head CT. Discussed the case in detail with the patient's daughter. She consents to hemodialysis and to telehealth visit. She is hoping that with dialysis the patient will awaken and can then further voice her concerns and desires about treatment versus palliative care. Plan Emergency hemodialysis. Consult Attestations 2 Medical Necessity Statement: Altered mental status, hypoxemia, hypertension, hyperkalemia. Time Spent in Patient Care: Greater than 35 minutes (>than 50% of time spent in counselling and/or direct pt care on unit) . Coding Level of Care Code Acute Code for Chg Fwd Diagnoses ESRD (end stage renal disease) on dialysis N18.6; Z99.2
[2024-06-15] MEDS: calcium gluconate 0.1 gm/mL 10% SDV 10mL 1 GM IVP (13:28)
[2024-06-15] MEDS: sodium bicarbonate 50 MEQ in sodium chloride 0.45% 1,000 ML 100 MEQ IV ×2 (13:32→23:10)
[2024-06-15 13:37] LABS: Lactic Sepsis W/Reflex 0.5 mmol/L (0.5-2.2); Troponin(5th) Baseline 99 ng/L (0-10)
[2024-06-15 13:55] LABS: Albumin Level 4.3 g/dL (3.5-5.2); Alkaline Phosphatase 98 U/L (35-105); Chloride 98 mmol/L (98-107); Globulin 2.8 g/dL (1.3-4.6); Sodium 139 mmol/L (136-145); Total Bilirubin 0.4 mg/dL (0.15-1.2); Total Protein 7.1 g/dL (6.6-8.7)
[2024-06-15] MEDS: insulin regular-human 100 units/1 mL 8 UNIT IVP (14:00)
[2024-06-15 14:02] LABS: Bilirubin Urine Negative (Negative); Blood Urine Negative (Negative); Glucose Urine UA Trace (Normal); Ketones Urine 1+ (Negative); Leukocyte Esterase Urine Negative (Negative); Nitrate Urine Negative (Negative); Protein Urine 3+ (Negative); Specific Gravity, Urine 1.014 (1.005-1.030); Urine Appearance Clear (CLEAR); Urine Color Yellow (Yellow); Urobilinogen Urine 0.2 mg/dL (Negative)
[2024-06-15 14:07] LABS: Add Urine Microscopic? YES; Bacteria Urine None Seen /hpf; Hyaline Casts Urine 1.21 /lpf; RBC Urine 0-2 /hpf (0-2); Squamous Epithelial Cell Urine 0-5 /hpf (0-5); WBC Urine 0-5 /hpf (0-5)
[2024-06-15 14:09] LABS: Amphetamines Screen Urine Negative (Negative); Barbiturates Screen Urine Negative (Negative); Benzodiazepines Screen Urine Negative (Negative); Cocaine Screen Urine Negative (Negative); Opiate Screen Urine Positive (Negative); PCP Screen Urine Negative (Negative); THC Screen Urine Negative (Negative)
--- NOTE | 2024-06-15 14:12 | ECG_ITS ---
[facility] Test Date: 2024-06-15 Pat Name: Ashley Miranda Department: Room: Gender: Female Telemedicine Physician: : 1960 Requested By: Kat Navarrete Order Number: [id number] Elen MD: Jane Swanson M.D. Measurements Intervals [place] Rate: 65 P: 30 [place]: 203 QRS: -8 QRSD: 128 T: 78 QT: 485 QTc: 505 Interpretive Statements SINUS RHYTHM POSSIBLE ANTERIOR MYOCARDIAL INFARCTION , OF INDETERMINATE AGE [30 ms Q WAVE IN V3/V4, OR R < 0.2 mV IN V4] Compared to ECG 06/15/2024 12:16:24 Myocardial infarct finding now present First degree AV block no longer present Left-axis deviation no longer present Left bundle-branch block no longer present Electronically Signed On 06-16-2024 01:35:22 CDT by Jane Swanson M.D. [id number]
[2024-06-15 14:22] LABS: Anion Gap 34.3 (5-19); Blood Urea Nitrogen 141 mg/dL (8-23); Carbon Dioxide 16 mmol/L (22-29); Potassium 9.3 mmol/L (3.5-5.1)
[2024-06-15 14:23] LABS: Alanine Aminotransferase 37 U/L (0-33); Aspartate Amino Transferase 34 U/L (0-32); Calcium 7.4 mg/dL (8.5-10.5); Creatinine Clr Calc Pharmacy 5.1958; Glomerular Filtration Rate 2.9 mL/min (90-130); Glucose 117 mg/dL (65-115); Magnesium 2.8 mg/dL (1.7-2.3); Osmolality Calculated 335 mOsm/kg (285-295); Phosphorus 11.7 mg/dL (2.5-4.5)
[2024-06-15 14:24] LABS: Alcohol Level < 10 mg/dL (0-10); NT Pro B Type Natriuretic Pept 43688 pg/mL (0-125)
[2024-06-15] MEDS: dextrose 10% 250 ML 1000 ML IV (14:24)
--- NOTE | 2024-06-15 14:29 | PC.NURSE ---
VERBAL ORDERS FROM SWETA JEAN TO ADMINISTER 10% DEXTROSE WITH INSULIN FOR HIGH POTASSIUM.
[2024-06-15 14:30] LABS: Glucose Point of Care 96 mg/dL (70-110)
[2024-06-15 14:33] LABS: Hepatitis B Core AB, Total Non-Reactive (Nonreactive); Hepatitis B Surface AB < 3.5 (11.5-1000); Hepatitis B Surface Antigen Non-Reactive (Nonreactive); Hepatitis C Virus Antibody Reactive (Nonreactive)
[2024-06-15 14:49] LABS: Troponin 5 2HR 96.09 ng/L (0-10)
[2024-06-15 14:53] LABS: Troponin 5 2HR Delta -2.91 ABS# (0-10)
--- NOTE | 2024-06-15 15:08 | P.HP_ITS ---
Providers/Chief Complaint 2 Primary Care Provider: Lopez Bateman MD Chief Complaint: SOB History of Present Illness Ashley Miranda is a 63 year old female with history of biopsy-proven high-grade invasive breast cancer, end-stage renal disease Saturday recently quit going for dialysis presented with chief complaint of confusion and shortness of breath. In the ER patient has been diagnosed with critical potassium level, nephro has been consulted on stat basis, patient has mixed respiratory and metabolic acidosis. X-ray consistent with vascular congestion. Echo shows EF 50 to 55% At the time of my evaluation patient is arousable on BiPAP settings 22/02 tidal volume above 500 Patient is stating that she stopped going for dialysis last Saturday, she is not interested in chemoradiotherapy for her breast cancer She is stating that she is not full code and would not allow us to do chest compressions defibrillation or intubation if needed This is also verified with her daughter Review of Systems 2 Eyes: Denies: change in vision ENMT: Denies: throat pain Card: Reports: swelling of feet/ankles; Denies: chest pain Resp: Reports: dyspnea GI: Denies: abdominal pain Medications/Allergies Home Medications Medication Instructions Recorded Confirmed Last Taken Type morphine 15 mg immediate release 15 mg PO TID PRN Pain 09/27/22 06/15/24 06/15/24 History tablet morphine 30 mg tablet,extended 30 mg PO QID 09/27/22 06/15/24 06/15/24 History release amlodipine 5 mg tablet 5 mg PO DAILY 01/24/24 06/15/24 01/24/24 History coenzyme Q10 100 mg capsule (Co 100 mg PO DAILY 03/26/24 06/15/24 06/14/24 History Q-10) ketorolac 0.5 % eye drops 2 drp ophthalmic (eye) Q6H 03/26/24 06/15/24 Unknown History Allergies Allergy/AdvReac Type Severity Reaction Status Date / Time No Known Allergies Allergy Verified 03/26/24 08:04 PFSH Acute 2 PFSH: Medical History Breast cancer Hyperlipidemia Hypertension Anemia Unsteadiness on feet UTI (urinary tract infection) Altered mental status ESRD (end stage renal disease) History of blood transfusion low platelets, 08/24/22 History of stroke 2012 Heart failure with reduced ejection fraction Cardiomyopathy Degenerative joint disease (DJD) of lumbar spine CKD (chronic kidney disease) Hepatitis C Acute renal failure Surgical History History of cholecystectomy History of bilateral tubal ligation History of Family History Father Cancer lungs and spread Other ESRD (end stage renal disease) Lung disease Psychiatric illness Social History Smoking and tobacco/nicotine status: former use of tobacco/nicotine (quit 25 years prior) Quit status (tobacco/nicotine): has quit using Year quit tobacco: 2001 Former quit date comment: 25 years total use Alcohol intake: never Substance/Drug Use: never Lives independently: Yes Household members: spouse Housing: House Marital status: Number of children: 2 Current occupational status: disabled Current gender identity: Female Agree to transfusion: Yes Female Reproductive History: Para: 2 Vitals/I&O/Wt Last Vital Signs Temp 98.4 F 06/15/24 11:56 Pulse 67 06/15/24 13:41 Resp 14 06/15/24 13:41 BP 155/89 06/15/24 14:00 Pulse Ox 99 06/15/24 13:41 O2 Del Method BiPAP 06/15/24 14:00 O2 Flow Rate 2 06/15/24 11:56 FiO2 35 06/15/24 13:21 06/15/24 06/15/24 06/15/24 06:59 14:59 22:59 Intake Total 250 / 250 Balance 250 / 250 Weight last 48 hrs Weight 90.718 kg Physical Exam 2 Narrative: Left arm fistula Hypervolemia Arousable Patient is lethargic Goes back to sleep after she finishes her sentence Able to answer my questions appropriately She told about the above-mentioned HPI I do not see any active focal deficit Able to move extremities On BiPAP S1, S2 Hypertensive Afebrile Urinary Catheter Management: Molina: Cath Placed During This Visit: yes Urinary Catheter Date of Insertion: 06/15/24 Urinary Catheter Time of Insertion: 14:04 Data 06/15/24 12:42 06/15/24 12:42 A&P Assessment and plan (1) Cardiomyopathy: (2) Heart failure with reduced ejection fraction: (3) Venous stasis dermatitis: (4) ESRD (end stage renal disease) on dialysis: (5) Acute hyperkalemia: (6) Carcinoma of lower-inner quadrant of left breast: Qualifiers: Estrogen receptor status: unspecified Patient sex: female Qualified Code(s): C50.312 - Malignant neoplasm of lower-inner quadrant of left female breast (7) Acute encephalopathy: (8) Acute respiratory failure: Qualifiers: Respiratory failure complication: hypoxia and hypercapnia Qualified Code(s): J96.01 - Acute respiratory failure with hypoxia; J96.02 - Acute respiratory failure with hypercapnia (9) Hyperkalemia: (10) Acute respiratory acidosis: Plan Acute metabolic and respiratory acidosis Currently patient is on BiPAP Admit to ICU Patient does not want intubation this was verified with her daughter Severe hyperkalemia Bradycardia noted Given hyperkalemia cocktail Stat order for dialysis as per nephro Nephro consulted EKG is not showing typical hyperkalemic changes End-stage renal disease Saturday Nephro consulted Breast cancer Patient not interested in chemoradiotherapy Rule out depression Admit to ICU Keep n.p.o. for now Continue BiPAP Repeat ABG Repeat BMP after dialysis Attestations 2 Medical Necessity Statement*: More than 2 midnights anticipated Diagnoses Cardiomyopathy I42.9 Heart failure with reduced ejection fraction I50.20 Venous stasis dermatitis I87.2 ESRD (end stage renal disease) on dialysis N18.6; Z99.2 Acute hyperkalemia E87.5 Carcinoma of lower-inner quadrant of left breast C50.312 Estrogen receptor status: unspecified Patient sex: female Acute encephalopathy G93.40 Acute respiratory failure J96.01; J96.02 Respiratory failure complication: hypoxia and hypercapnia Hyperkalemia E87.5 Acute respiratory acidosis J96.02
[2024-06-15 17:14] LABS: ABG PCO2 40.6 mmHg (35-45); ABG PH Result 7.34 (7.35-7.45); Base Excess ABG -3.9 mmol/L (-2.0-2.0); Blood Gas Allen Test Pos; Blood Gas Operator Identificat WALCI; Blood Gas Sample Site Radial, right; Blood Gas Sample Type Arterial; HCO3 ABG 21.6 mmol/L (22-26); Oxygen Device BIPAP; PO2 FiO2 Ratio Arterial Blood 386
--- NOTE | 2024-06-15 17:49 | ECG_ITS ---
[facility] Test Date: 2024-06-15 Pat Name: Ashley Miranda Department: Room: ICU09 Gender: Female Game Programer: : 1960 Requested By: Kat Navarrete Order Number: [id number] Elen MD: Jane Swanson M.D. Measurements Intervals [place] Rate: 61 P: 42 MO: 183 QRS: -24 QRSD: 108 T: 80 QT: 478 QTc: 482 Interpretive Statements SINUS RHYTHM LEFT VENTRICULAR HYPERTROPHY AND ST-T CHANGE [VOLTAGE CRITERIA PLUS ST/T ABNORMALITY] POSSIBLE ANTERIOR MYOCARDIAL INFARCTION , OF INDETERMINATE AGE [30 ms Q WAVE IN V3/V4, OR R < 0.2 mV IN V4] Compared to ECG 06/15/2024 14:12:59 Left ventricular hypertrophy now present ST (T wave) deviation now present Myocardial infarct finding still present Electronically Signed On 06-16-2024 01:36:52 CDT by Jane Swanson M.D. [id number]
[2024-06-15] MEDS: morphine ER (12 HR) 30 mg tablet PO (20:19)
[2024-06-15 20:25] LABS: Potassium 4.4 mmol/L (3.5-5.1)
[2024-06-15 20:26] LABS: Troponin 5 6HR 85.84 ng/L (0-10)
[2024-06-15 20:30] LABS: Troponin 5 6HR Delta -13.16 ng/L (0-12)
[2024-06-15 21:07] LABS: ABG PCO2 36.8 mmHg (35-45); ABG PH Result 7.45 (7.35-7.45); Alveolar-Arterial Oxygen Gradi 2.5 mmHg (5-10); Arterial Blood Gas Hematocrit 31.9 % (37-47); Base Excess ABG 1.9 mmol/L (-2.0-2.0); Blood Gas Allen Test Pos; Blood Gas Operator Identificat JDB; Blood Gas Sample Site Radial, right; Blood Gas Sample Type Arterial; Carboxyhemoglobin 0.7 %THgb (0.4-20.1); HCO3 ABG 25.8 mmol/L (22-26); HGB O2 Sat 93.8 % (95-100); Ionized Calcium Level - ABG 1.1 mmol/L (1.1-1.4); Oxygen Device NC; Oxygen Saturation ABG 95.5; Potassium Level - ABG 4.4 mmol/L (3.5-5.0); Total Hemoglobin 10.4 g/dL (12-16)
[2024-06-15] MEDS: hyDRALAzine 20 mg/mL INJ 1 mL 10 MG IVP (21:52)
[2024-06-15] MEDS: morphine IR 15 mg Tablet PO (23:10)
--- NOTE | 2024-06-15 23:42 | PC.NURSE ---
HTN: Patient's SBP had sustained above 170, Dr. Talbert was contacted and gave telephone orders for 10mg hydralazine IVP Q4H PRN for a SBP greater than 160.
--- NOTE | 2024-06-15 23:50 | PC.NURSE ---
Diet Order: Dr. Pruett gave telephone orders for an NPO with sips, chips, and meds diet.
[2024-06-16] VITALS (30 sets, daily range): BP systolic 140–211; BP diastolic 68–131; PULSE 67–79; RESP 12–31; TEMP 36.8–37.2; O2SAT 87–97
[2024-06-16] MEDS: hyDRALAzine 20 mg/mL INJ 1 mL 10 MG IVP (02:36)
[2024-06-16] MEDS: TRAMadol 50 mg Tablet PO (02:36)
[2024-06-16 04:03] LABS: ABG PCO2 41.1 mmHg (35-45); ABG PH Result 7.41 (7.35-7.45); Arterial Blood Gas Hematocrit 28.7 % (37-47); Base Excess ABG 1.4 mmol/L (-2.0-2.0); Blood Gas Allen Test Pos; Blood Gas Operator Identificat JDB; Blood Gas Sample Site Radial, right; Blood Gas Sample Type Arterial; HCO3 ABG 26.2 mmol/L (22-26); Oxygen Device NC; PO2 ABG 70.7 mmHg (80.0-100.0)
[2024-06-16 05:24] LABS: Basophils % 0.7 %; Eosinophils # 0.1 10^3/uL (0.0-0.8); Eosinophils % 2.2 %; Hematocrit 26.5 % (36-47); Lymphocytes # 0.4 10^3/uL (0.8-4.8); Mean Corpuscular HGB Conc 30.6 g/dL (30-55); Mean Corpuscular Hemoglobin 30.1 pg (27-33); Mean Corpuscular Volume 98.5 fl (85-98); Monocytes # 0.3 10^3/uL (0.2-0.9); Neutrophils # 3.28 10^3/uL (1.8-7.7); Neutrophils % 79.9 %; Nucleated Red Blood Cells % 0 %; Platelet Count 125 10^3/cmm (157-399); Red Blood Count 2.69 10^6/uL (3.85-5.65); Red Cell Distribution Width 15.5 % (12.1-15.1); White Blood Count 4.11 10^3/uL (3.29-11.43)
[2024-06-16 05:51] LABS: Alanine Aminotransferase 30 U/L (0-33); Albumin Level 3.8 g/dL (3.5-5.2); Alkaline Phosphatase 73 U/L (35-105); Anion Gap 23.7 (5-19); Aspartate Amino Transferase 22 U/L (0-32); Blood Urea Nitrogen 59 mg/dL (8-23); Calcium 7.8 mg/dL (8.5-10.5); Carbon Dioxide 24 mmol/L (22-29); Chloride 96 mmol/L (98-107); Creatinine Clr Calc Pharmacy 9.1448; Globulin 2.8 g/dL (1.3-4.6); Glomerular Filtration Rate 5.5 mL/min (90-130); Glucose 72 mg/dL (65-115); Magnesium 2.2 mg/dL (1.7-2.3); Osmolality Calculated 301 mOsm/kg (285-295); Phosphorus 7.5 mg/dL (2.5-4.5); Potassium 5.7 mmol/L (3.5-5.1); Sodium 138 mmol/L (136-145); Total Bilirubin 0.5 mg/dL (0.15-1.2); Total Protein 6.6 g/dL (6.6-8.7)
--- NOTE | 2024-06-16 08:06 | PC.HD ---
Phone orders received from Dr. Escalante to repeat dialysis treatment of 06/15 early this morning. Orders to be entered by edge sawyer.
[2024-06-16] MEDS: amlodipine 5 mg Tablet PO (08:20)
[2024-06-16] MEDS: morphine ER (12 HR) 30 mg tablet PO (08:20)
[2024-06-16] MEDS: morphine IR 15 mg Tablet PO (08:20)
--- NOTE | 2024-06-16 08:38 | P.PN_ITS ---
Subjective 2 Subjective: The patient was seen and examined this morning on dialysis. The patient is feeling better she is awake and alert she is on nasal cannula oxygen. She is depressed and complains of pain all over her body. She has nausea and a poor appetite. Medications: Reviewed: Yes Medication Review Details: Current Medications Acetaminophen (Acetaminophen 500 Mg Tablet) 500 mg PO Q4H PRN PRN Reason: fever Albuterol/Ipratropium (Ipratropium-Albuterol 3 Ml Neb) 3 ml INHALATION Q6H PRN PRN Reason: SHORTNESS OF BREATH Amlodipine Besylate (Amlodipine 5 Mg Tablet) 5 mg PO DAILY LOREN Last Admin: 06/16/24 08:20 Dose: 5 mg Hydralazine HCl (Hydralazine 20 Mg/Ml Inj 1 Ml) 10 mg IVP Q4H PRN PRN Reason: HTN Last Admin: 06/16/24 02:36 Dose: 10 mg Dextrose (D10w) 250 mls @ 1,000 mls/hr IV PRN PRN PRN Reason: HYPOGLYCEMIA Last Infusion: 06/15/24 14:51 Dose: Infused Ceftriaxone Sodium 1,000 mg/ (Sodium Chloride) 50 mls @ 100 mls/hr IV DAILY LOREN; Protocol Morphine Sulfate (Morphine Er (12 Hr) 30 Mg Tablet) 30 mg PO BID LOREN Last Admin: 06/16/24 08:20 Dose: 30 mg Morphine Sulfate (Morphine Ir 15 Mg Tablet) 15 mg PO TID PRN PRN Reason: Pain Last Admin: 06/16/24 08:20 Dose: 15 mg Ondansetron HCl (Ondansetron 2 Mg/Ml Sdv 2 Ml) 4 mg IVP Q6H PRN PRN Reason: NAUSEA AND VOMITING Tramadol HCl (Tramadol 50 Mg Tablet) 50 mg PO Q6H PRN PRN Reason: MODERATE PAIN Last Admin: 06/16/24 02:36 Dose: 50 mg Vitals/I&O/Wt Last Vital Signs Temp 98.2 F 06/16/24 08:05 Pulse 75 06/16/24 08:05 Resp 27 H 06/16/24 08:05 BP 198/131 06/16/24 08:05 Pulse Ox 96 06/16/24 08:02 O2 Del Method Nasal Cannula 06/16/24 08:02 O2 Flow Rate 1.5 10/08/24 08:02 FiO2 35 06/15/24 21:01 06/15/24 06/16/24 06/16/24 22:59 06:59 14:59 Intake Total 1125 / 1375 525 / 1900 925 / 925 Output Total 3000 / 3000 650 / 3650 Balance -1875 / -1625 -125 / -1750 925 / 925 Weight last 48 hrs Weight 94.9 kg Weight 98.4 kg Weight 90.718 kg Physical Exam 2 Narrative: Sitting up in bed more awake and alert on nasal cannula oxygen. Blood pressure elevated. Tolerating dialysis well. Vital signs noted. HEENT normocephalic/atraumatic. Neck is supple. Lungs rhonchi and crackles. Heart positive S1-S2. Regular rate. Abdomen is soft positive bowel sounds extremities trace edema. Neuro -awake alert oriented x 3 able to move all extremities. Patient has a left upper extremity AV fistula with thrill and bruit. Patient was seen and examined with the aid of a nurse using A/V equipment and the nurse examined the patient. Urinary Catheter Management: Molina: Cath Placed During This Visit: yes Reason for Continuing Indwelling Catheter: Accurate Measurement of Urinary Output in Critically Ill Patients Urinary Catheter Date of Insertion: 06/15/24 Urinary Catheter Time of Insertion: 14:04 Data 06/16/24 05:05 06/16/24 05:05 A&P Assessment and plan (1) ESRD (end stage renal disease) on dialysis: 63-year-old lady hypertension hyperlipidemia heart failure with improved EF, history of hepatitis C treated in the past anemia breast cancer with likely metastases. Patient missed dialysis for the last week as she is depressed due to her cancer diagnosis. And patient is now confused and lethargic and short of breath. 1 ESRD -the patient was dialysis for a week. Status post dialysis yesterday for potassium 9.3. This morning's potassium is 5.7 we are repeating dialysis today. Removed 2.5 L on a 2 potassium bath with 3 and half hours. Plan for dialysis today will not use heparin unless CT is negative. Will remove fluids as tolerated on a 2 potassium bath. 2. Hypertension monitor with dialysis. The patient is currently on amlodipine. I will add hydralazine. 3. Metastatic breast cancer as per patient. It appears that the patient does not want chemo radio therapy. 4. Anemia we will send iron studies and start epogen. 5. Metabolic acidosis improved with dialysis. 6. Hyperphosphatemia improving with dialysis will give Renvela. 7. Please note that patient had opiates positive in her urine. Would have forensic social worker psychologist speak to the patient with the family to see if she does want to continue dialysis she tells me that she is currently on dialysis. However explained to her that we will honor her wishes and if she would like to have comfort/palliative care that would be acceptable and if she wants to continue with hemodialysis status acceptable too. 8. History of hepatitis C antibody positive Patient seen examined with nurse telehealth visit using A/V equipment. Case discussed in detail w/ blood and plasma laboratory assistant Plan as above Attestations 2 Medical Necessity Statement*: hyperkalemia, anemia, volume overload Time Spent in Patient Care: 16 - 35 minutes (>than 50% of time sp ent in counselling and/or direct pt care on unit) . Coding Level of Care Code Acute Code for Chg Fwd Diagnoses ESRD (end stage renal disease) on dialysis N18.6; Z99.2
[2024-06-16 09:30] LABS: Uric Acid 3.7 mg/dL (2.4-5.7)
[2024-06-16] MEDS: epoetin alfa 10,000 unit/mL INJ 10000 UNIT SUBCUT (09:56)
[2024-06-16] MEDS: hyDRALAzine 25 mg Tablet PO (09:57)
[2024-06-16] MEDS: cefTRIAXone 1,000 MG in sodium chloride 0.9% (plus) 50 ML 100 MG IV (09:58)
[2024-06-16 10:01] LABS: Iron 65 ug/dL (37-145)
[2024-06-16 10:07] LABS: Hepatitis C Virus Antibody Reactive (Nonreactive)
--- NOTE | 2024-06-16 12:12 | PC.NURSE ---
Patient very non complaint with cares. Refusing oxygen. With multiple attempts at education on the importance of adherence, patient still refuses.
--- NOTE | 2024-06-16 12:13 | PC.NURSE ---
AMA: Patient wishes to leave AMA. Nurse explained in detail about how patient could or have other complications leaving against medical advice. Patient still wishes to leave, and voices understanding of potential complications. Patient is alert and oriented x4. All IVs removed and billingsley removed. Dr. Ordaz notified of patient wishes.
--- NOTE | 2024-06-16 12:43 | P.PN_ITS ---
Vitals/I&O/Wt Last Vital Signs Temp 98.9 F 06/16/24 09:30 Pulse 77 06/16/24 12:00 Resp 12 06/16/24 12:00 BP 151/93 06/16/24 12:00 Pulse Ox 87 L 06/16/24 12:00 O2 Del Method Nasal Cannula 06/16/24 08:02 O2 Flow Rate 1.5 06/16/24 08:02 FiO2 35 06/15/24 21:01 06/15/24 06/16/24 06/16/24 22:59 06:59 14:59 Intake Total 1125 / 1375 525 / 1900 1215 / 1215 Output Total 3000 / 3000 650 / 3650 Balance -1875 / -1625 -125 / -1750 1215 / 1215 Weight last 48 hrs Weight 94.9 kg Weight 98.4 kg Weight 90.718 kg Physical Exam 2 Urinary Catheter Management: Molina: Cath Placed During This Visit: yes Reason for Continuing Indwelling Catheter: Accurate Measurement of Urinary Output in Critically Ill Patients Urinary Catheter Date of Insertion: 06/15/24 Urinary Catheter Time of Insertion: 14:04 Data 06/16/24 05:05 06/16/24 05:05 Coding Level of Care Code Acute Code for Chg Fwd
--- NOTE | 2024-06-16 13:34 | PM.DCS ---
Discharge Providers Date of Admission: 06/15/24 15:27 Date of Discharge: June 16, 2024 Attending Provider at Admission: Ashleigh Ordaz MD Attending Provider at Discharge: Ashleigh Ordaz MD Primary Care Provider: Lopez Bateman MD Diagnoses at Discharge Discharge Diagnosis (1) ESRD (end stage renal disease) on dialysis: Status: Acute Reason for Visit Reason for Visit: SOB Hospital Course Hospital Course Patient signed out AGAINST MEDICAL ADVICE. Discussed with patient's daughter as well but patient was adamant to leave. Alert oriented x 3. Physical Exam Urinary Catheter Management: Molina: Cath Placed During This Visit: yes Reason for Continuing Indwelling Catheter: Accurate Measurement of Urinary Output in Critically Ill Patients Urinary Catheter Date of Insertion: 06/15/24 Urinary Catheter Time of Insertion: 14:04 Discharge Data Studies Completed and Pending Completed Studies During Hospitalization Category Date Time Status CT head wo con* [id number] Urgent Cat Scan 06/15/24 12:13 Completed XR chest 1V portable [id number] Urgent Exams 06/15/24 12:03 Completed Pending at discharge Category Date Time Status 25 Hydroxy Vitamin D AM LABS Lab 06/17/24 04:00 Ordered Complete Blood Count w/Auto AM LABS Lab 06/17/24 04:00 Ordered Complete Blood Count w/Auto AM LABS Lab 06/17/24 04:00 Ordered Complete Blood Count w/Auto AM LABS Lab 06/18/24 04:00 Ordered Complete Blood Count w/Auto AM LABS Lab 06/18/24 04:00 Ordered Complete Blood Count w/Auto AM LABS Lab 06/19/24 04:00 Ordered Comprehensive Metabolic Panel AM LABS Lab 06/17/24 04:00 Ordered Comprehensive Metabolic Panel AM LABS Lab 06/18/24 04:00 Ordered Covid / Flu / RSV PCR Stat Lab 06/15/24 12:03 Uncollected Ferritin AM LABS Lab 06/17/24 04:00 Ordered Hepatitis C RNA Viral Load Qnt Routine Lab 06/15/24 15:13 Received Magnesium AM LABS Lab 06/17/24 04:00 Ordered Magnesium AM LABS Lab 06/18/24 04:00 Ordered PTH [Parathyroid With Calcium] AM LABS Lab 06/17/24 04:00 Ordered Phosphorus AM LABS Lab 06/17/24 04:00 Ordered Phosphorus AM LABS Lab 06/18/24 04:00 Ordered Total Iron Binding Capacity AM LABS Lab 06/17/24 04:00 Ordered Radiology Impressions Chest X-Ray 06/15/24 12:03 IMPRESSION: 1. Pulmonary vascular congestion and likely mild interstitial edema. 2. Stable cardiomegaly. Head CT 06/15/24 12:13 IMPRESSION: No acute intracranial abnormality. Laboratory Results WBC 4.11 10^3/uL (3.29-11.43) 06/16/24 05:05 RBC 2.69 10^6/uL (3.85-5.65) L 06/16/24 05:05 Hgb 8.10 g/dL (11.27-16.99) L 06/16/24 05:05 Hct 26.5 % (36-47) L 06/16/24 05:05 MCV 98.5 fl (85-98) H 06/16/24 05:05 MCH 30.1 pg (27-33) 06/16/24 05:05 MCHC 30.6 g/dL (30-55) 06/16/24 05:05 RDW 15.5 % (12.1-15.1) H 06/16/24 05:05 Plt Count 125 10^3/cmm (157-399) L 06/16/24 05:05 MPV 10.0 fL (7.4-10.4) 06/16/24 05:05 Neut % (Auto) 79.9 % 06/16/24 05:05 Lymph % (Auto) 9.0 % 06/16/24 05:05 Josephine % (Auto) 8.0 % 06/16/24 05:05 Eos % (Auto) 2.2 % 06/16/24 05:05 Baso % (Auto) 0.7 % 06/16/24 05:05 Neut # (Auto) 3.28 10^3/uL (1.8-7.7) 06/16/24 05:05 Lymph # (Auto) 0.4 10^3/uL (0.8-4.8) L 06/16/24 05:05 Josephine # (Auto) 0.3 10^3/uL (0.2-0.9) 06/16/24 05:05 Eos # (Auto) 0.1 10^3/uL (0.0-0.8) 06/16/24 05:05 Baso # (Auto) 0.0 10^3/uL (0.0-0.1) 06/16/24 05:05 Nucleated RBC % (auto) 0 % 06/16/24 05:05 Nucleated RBCs # 0.0 /100WBC 06/16/24 05:05 Specimen Type Arterial 06/16/24 03:50 Sample Site Radial, right 06/16/24 03:50 ABG pH 7.41 (7.35-7.45) 06/16/24 03:50 ABG pCO2 41.1 mmHg (35-45) 06/16/24 03:50 ABG pO2 70.7 mmHg (80.0-100.0) L 06/16/24 03:50 ABG PO2/FiO2 Ratio 386 06/15/24 17:03 ABG HCO3 26.2 mmol/L (22-26) H 06/16/24 03:50 ABG O2 Saturation 95.5 06/15/24 20:55 ABG Base Excess 1.4 mmol/L (-2.0-2.0) 06/16/24 03:50 Alberto Test Pos 06/16/24 03:50 A-a O2 Gradient 2.5 mmHg (5-10) L 06/15/24 20:55 Hematocrit 28.7 % (37-47) L 06/16/24 03:50 Hgb O2 Saturation 93.8 % (95-100) L 06/15/24 20:55 Carboxyhemoglobin 0.7 %THgb (0.4-20.1) 06/15/24 20:55 Methemoglobin 1.0 % (0.4-1.5) 06/15/24 20:55 Total Hemoglobin 10.4 g/dL (12-16) L 06/15/24 20:55 Sodium 142.0 mmol/L (131-143) 06/15/24 20:55 Potassium 4.4 mmol/L (3.5-5.0) 06/15/24 20:55 Glucose 67.0 mg/dL (70-115) L 06/15/24 20:55 Ionized Calcium 1.1 mmol/L (1.1-1.4) 06/15/24 20:55 O2 Delivery Device Nc 06/16/24 03:50 O2 Liters/Min 2.0 % 06/16/24 03:50 FiO2 38.0 % 06/15/24 17:03 Pre Assembly Wirer ID Jdb 06/16/24 03:50 Sodium 138 mmol/L (136-145) 06/16/24 05:05 Potassium 5.7 mmol/L (3.5-5.1) H 06/16/24 05:05 Chloride 96 mmol/L (98-107) L 06/16/24 05:05 Carbon Dioxide 24 mmol/L (22-29) 06/16/24 05:05 Anion Gap 23.7 (5-19) H 06/16/24 05:05 BUN 59 mg/dL (8-23) H 06/16/24 05:05 Creatinine 7.5 mg/dL (0.5-0.9) H* 06/16/24 05:05 GFR Calculation 5.5 mL/min (90-130) L 06/16/24 05:05 Glucose 72 mg/dL (65-115) 06/16/24 05:05 POC Glucose 96 mg/dL (70-110) 06/15/24 14:27 Calculated Osmolality 301 mOsm/kg (285-295) H 06/16/24 05:05 Lactic Acid 0.5 mmol/L (0.5-2.2) 06/15/24 12:42 Uric Acid 3.7 mg/dL (2.4-5.7) 06/16/24 05:05 Calcium 7.8 mg/dL (8.5-10.5) L 06/16/24 05:05 Phosphorus 7.5 mg/dL (2.5-4.5) H 06/16/24 05:05 Magnesium 2.2 mg/dL (1.7-2.3) 06/16/24 05:05 Iron 65 ug/dL (37-145) 06/16/24 05:05 Total Bilirubin 0.5 mg/dL (0.15-1.2) 06/16/24 05:05 AST 22 U/L (0-32) 06/16/24 05:05 ALT 30 U/L (0-33) 06/16/24 05:05 Alkaline Phosphatase 73 U/L (35-105) 06/16/24 05:05 Troponin T Baseline 99 ng/L (0-10) H 06/15/24 12:42 Troponin T 120 Minute 96.09 ng/L (0-10) H 06/15/24 14:08 Delta Troponin T -2.91 ABS# (0-10) L 06/15/24 14:08 Troponin T Hi Sens 6Hr 85.84 ng/L (0-10) H 06/15/24 19:31 Troponin T Hi Sens 6Hr Delta -13.16 ng/L (0-12) L 06/15/24 19:31 NT-Pro-B Natriuret Pep 89322 pg/mL (0-125) H 06/15/24 12:42 Total Protein 6.6 g/dL (6.6-8.7) 06/16/24 05:05 Albumin 3.8 g/dL (3.5-5.2) 06/16/24 05:05 Globulin 2.8 g/dL (1.3-4.6) 06/16/24 05:05 Urine Color Yellow (Yellow) 06/15/24 13:54 Urine Appearance Clear (CLEAR) 06/15/24 13:54 Urine pH 8.0 (5-7) A 06/15/24 13:54 Ur Specific Merkel 1.014 (1.005-1.030) 06/15/24 13:54 Urine Protein 3+ (Negative) A 06/15/24 13:54 Urine Glucose (UA) Trace (Normal) H 06/15/24 13:54 Urine Ketones 1+ (Negative) H 06/15/24 13:54 Urine Blood Negative (Negative) 06/15/24 13:54 Urine Nitrate Negative (Negative) 06/15/24 13:54 Urine Bilirubin Negative (Negative) 06/15/24 13:54 Urine Urobilinogen 0.2 mg/dL (Negative) 06/15/24 13:54 Ur Leukocyte Esterase Negative (Negative) 06/15/24 13:54 Urine RBC 0-2 /hpf (0-2) 06/15/24 13:54 Urine WBC 0-5 /hpf (0-5) 06/15/24 13:54 Ur Squamous Epith Cells 0-5 /hpf (0-5) 06/15/24 13:54 Amorphous Sediment Not Reportable 06/15/24 13:54 Urine Bacteria None seen /hpf (NONE) 06/15/24 13:54 Hyaline Casts 1.21 /lpf 06/15/24 13:54 Urine Opiates Screen Positive ng/mL (Negative) H 06/15/24 13:54 Ur Barbiturates Screen Negative ng/mL (Negative) 06/15/24 13:54 Ur Phencyclidine Scrn Negative ng/mL (Negative) 06/15/24 13:54 Ur Amphetamines Screen Negative ng/mL (Negative) 06/15/24 13:54 U Benzodiazepines Scrn Negative ng/mL (Negative) 06/15/24 13:54 Urine Cocaine Screen Negative ng/mL (Negative) 06/15/24 13:54 U Marijuana (THC) Screen Negative ng/mL (Negative) 06/15/24 13:54 Ethyl Alcohol < 10 mg/dL (0-10) 06/15/24 12:42 Hep Bs Antigen Non-reactive (Nonreactive) 06/15/24 12:42 Hep Bs Antibody < 3.5 (11.5-1000) L 06/15/24 12:42 Hep B Core Total Ab Non-reactive (Nonreactive) 06/15/24 12:42 Hepatitis C Antibody Reactive (Nonreactive) H 06/16/24 05:05 HCV RNA Qnt PCR Amp&Det Cancelled 06/16/24 10:15 HCV RNA (PCR) IUs/ml Cancelled 06/16/24 10:15 HCV RNA (PCR) IU log10 Cancelled 06/16/24 10:15 Vitals Last Vital Signs Temp 98.4 F 06/16/24 12:49 Pulse 76 06/16/24 12:49 Resp 27 H 06/16/24 12:49 BP 158/104 06/16/24 12:49 Pulse Ox 87 L 06/16/24 12:00 O2 Del Method Nasal Cannula 06/16/24 08:02 O2 Flow Rate 1.5 06/16/24 08:02 FiO2 35 06/15/24 21:01 Discharge Plan Discharge Patient Disposition: Left Against Medical Advice Condition: Stable Prescriptions: No Action ketorolac 0.5 % drops 2 drp ophthalmic (eye) Q6H coenzyme Q10 [Co Q-10] 100 mg capsule 100 mg PO DAILY morphine 30 mg tablet extended release 30 mg PO QID morphine 15 mg tablet 15 mg PO TID PRN (Reason: Pain) amlodipine 5 mg Tablet 5 mg PO DAILY Referrals: Lopez Bateman MD [Primary Care Provider] - Patient Instructions: Dialysis Diet (DC), Hemodialysis (DC) Discharge Attestations Time Spent in Discharge Care*: less than 30 min Status at Discharge: Cognitive status at discharge: cognitively intact, Behavioral status at discharge: cooperative, Quality Metrics Clinical Quality Measures [ No reported AMI, CVA or VTE this stay] Coding Level of Care Code Acute Code for Chg Fwd Diagnoses ESRD (end stage renal disease) on dialysis N18.6; Z99.2
--- NOTE | 2024-06-16 13:34 | PC.NURSE ---
Patient exited to main exit via w/c at 1245
[2024-06-17 15:00] LABS: HEP C RNA Viral Load Quant <1.18 NOT DETECTED Log IU/mL (NOT DETECTED); HEP C RNA Viral Load Quant <15 NOT DETECTED IU/mL (NOT DETECTED)
== END 2024-06-16 12:45 | disposition left against medical advice (07) | DRG 70 ==
LOC: ER 14:52 → ICU 15:27
PROVIDERS: Internal Medicine; Internal Medicine Nephrology; Admitting Provider Internal Medicine; Emergency Provider Physician Assistant; PCP Family Medicine; Visit Provider Internal Medicine
DX: G93.40 Encephalopathy, unspecified (principal); J96.01 Acute respiratory failure with hypoxia; J96.02 Acute respiratory failure with hypercapnia; N18.6 End stage renal disease; I13.2 Hypertensive heart and chronic kidney disease with heart failure and with stage 5 chronic kidney disease, or end stage renal disease; I50.20 Unspecified systolic (congestive) heart failure; E87.4 Mixed disorder of acid-base balance; I42.9 Cardiomyopathy, unspecified; Z66 Do not resuscitate; C50.312 Malignant neoplasm of lower-inner quadrant of left female breast; I87.2 Venous insufficiency (chronic) (peripheral); E87.5 Hyperkalemia; Z53.29 Procedure and treatment not carried out because of patient's decision for other reasons; F32.A Depression, unspecified; D64.9 Anemia, unspecified; E83.39 Other disorders of phosphorus metabolism; Z99.2 Dependence on renal dialysis; Z91.158 Patient's noncompliance with renal dialysis for other reason; Z87.891 Personal history of nicotine dependence
CPT/HCPCS: 36415; 36416; 36600; 51702; 70450; 71045; 80051; 80053; 80306; 80307; 81001; 82330; 82803; 82805; 82962; 83540; 83605; 83735; 83880; 84100; 84132; 84484; 84550; 85025; 86705; 86706; 86803; 87340; 87522; 90935; 93005; 94640; 94660; 96361; 96372; 96374; 96375; 96376; 99291; J0360; J0612; J0696; J1815; J7613; J7799; Q4081

== ENCOUNTER 2025-03-17 05:43 | Inpatient (IN) | payer OTHER, MEDICARE, SELFPAY ==
[2025-03-17] VITALS (75 sets, daily range): BP systolic 151–224; BP diastolic 74–106; PULSE 58–75; RESP 13–25; TEMP 35.3–36.7; O2SAT 89–96; BMI 29.0
--- NOTE | 2025-03-17 05:45 | XR_ITS ---
WS: [id number] Exam: XR chest 1V portable [id number] Date/Time of Exam: 03/17/2025 5:45 AM Reason For Exam: cp Comparison 06/15/2024. Cardiac enlargement with pulmonary vascular congestion suggesting CHF. RIGHT basal pleural effusion and atelectasis. No pneumothorax. The mediastinum is normal in contour. Bony structures are intact. XR/XR chest 1V portable [id number] IMPRESSION: 1. Cardiac enlargement with pulmonary vascular congestion suggesting CHF. 2. RIGHT basal pleural effusion with RIGHT lower lobe atelectasis.
--- NOTE | 2025-03-17 05:51 | ECG_ITS ---
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 Measurements Intervals [place] Rate: 74 P: 29 [place]: 187 QRS: -21 QRSD: 102 T: 53 QT: 425 QTc: 473 Interpretive Statements SINUS RHYTHM POSSIBLE ANTERIOR MYOCARDIAL INFARCTION , OF INDETERMINATE AGE [30 ms Q WAVE IN V3/V4, OR R < 0.2 mV IN V4] Compared to ECG 06/15/2024 17:49:38 Left ventricular hypertrophy no longer present ST (T wave) deviation no longer present Myocardial infarct finding still present Electronically Signed On 03-17-2025 20:18:06 CDT by Jane Swanson M.D. [email or web address]
--- OUTSIDE RECORDS SUMMARY | 2025-03-17 05:52 | XMS_ITS | Encounter Summary ---
Author Organization [facility] Address [address] [place] [address] Care Team Providers Care Shoe Salesman Name Role Phone Willi Teresita L DO Primary Care Provider [phone] Reason for Referral * Outpatient Services (Routine) - Closed Specialty Diagnoses / Procedures Referred By Jason monterroso Referred To Contact Diagnoses Lump or mass in breast Procedures MAMMO BREAST US BILAT COMPLETE MAMMO BREAST US BILAT LTD MAMMO BREAST US BILAT COMPLETE Scooter Balbuena DO Phone: tel: fax: [facility] Pre-Registration [place] CALL TO MAKE APPOINTMENT ONLY [address] [place] [address] Phone: tel: fax: Referral ID Status Reason Start Date Expiration Date Visits Requested Visits Authorized [id number] Closed Performing Department To Schedule (SGF) 10/04/2014 11/04/2015 1 1 UARD LACE WEAVER Encounter Details Date Type Department Care Team (Late st Contact Info) Description 10/04/[address] [facility] [address] [facility] [address] [place] [address] Scooter Balbuena DO [address] [place] [phone] Lump or mass in breast (Primary Dx) Social History Tobacco Use Types Packs/Day Years Used Date Smoking Tobacco: Former Cigarettes 1 20 0 09/09/1981 - 09/09/2001 Smokeless Tobacco: Never Alcohol Use Standard Drinks/Week Comments No 0 (1 standard drink = 0.6 oz pure alcohol) heavy usage when I was younger Comments No Sex and Gender Information Value Date Recorded Sex Assigned at Not on file Legal Sex Female 11:10 AM JACQUARD LACE WEAVER Gender Identity Not on file Sexual Orientation Not on file Occupation Industry Job Start Date Job End Date Not on file Not on file Not on file Not on file documented as of this encounter Plan of Treatment Not on file documented as of this encounter Results * MAMMO BREAST US BILAT COMPLETE (10/04/2014 3:55 PM JACQUARD LACE WEAVER) Anatomical Region Laterality Modality Breast Bilateral Ultrasound 10/04/2014 3:04 PM JACQUARD LACE WEAVER Impressions 10/05/2014 7:03 AM JACQUARD LACE WEAVER IMPRESSION: I suspect that the changes that I see on ultrasound are probably systemic and probably being caused by one or more of her disease processes and/or medications. I discussed this with her. I would not be surprised if she had other similar palpable abnormalities in other parts of the body as well. I strongly advised her to followup with her physician as this will require clinical correlation, as further evaluation may be necessary regarding this probable systemic etiology. From an imaging standpoint, I would recommend repeat mammogram in one year. Patient received a result/recommendation letter. LISA/maxim 1538 PM - uploaded from [employer] - Narrative 10/05/2014 7:03 AM JACQUARD LACE WEAVER Bilateral Digital Diagnostic Mammogram and Bilateral Whole Breast Ultrasound: Repeat examination on this 53-year-old female is compared with previous 06/12/2013 and 01/21/2009. She presents with history of five palpable lumps scattered on each side. Metallic BB markers were positioned over these areas for today's images. She has complained of bilateral lumps of less quantity in 2012 and even less quantity in 2008. She has multiple chronic diseases including hepatitis C and diabetes and renal disease, by history. Breast tissue is of fatty density and unremarkable and stable. No area of change is identified on either side, with special attention to the areas of historical palpable lumps. This digital mammogram was also analyzed by the Computer Aided Detection System (CAD), [employer], Version 8.3. Ultrasound of both breasts was performed. In the areas of historical palpable lumps, the fatty lobules have some areas of increased density within them. This is nonspecific and certainly should not be of any concern regarding malignancy. I suspect this represents some type of systemic response to one or more of her diseases and/or medications. Scooter Balbuena DO MAMMO ORDERABLES Final Result documented in this encounter Visit Diagnoses Diagnosis Lump or mass in breast Lump or mass in breast- Primary documented in this encounter Care Teams Shoe Salesman Relationship Specialty Start Date End Date Teresita Márquez DO [address] [place] [address] PCP - General Family Practice 03/18/19 documented as of this encounter
--- OUTSIDE RECORDS SUMMARY | 2025-03-17 05:52 | XMS_ITS | Encounter Summary ---
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
--- OUTSIDE RECORDS SUMMARY | 2025-03-17 05:52 | XMS_ITS | Encounter Summary ---
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
--- OUTSIDE RECORDS SUMMARY | 2025-03-17 05:52 | XMS_ITS | Clinical Summary ---
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 Revealed mild macrovesicular fatty change, mild chronic portal triaditis, mild chronic centrilobular inflammation. Chronic pain 04/18/2012 Resolved Problems Problem Noted Date Diagnosed Date Resolved Date Hyperkalemia 01/08/2013 10/01/2014 Acute on chronic renal failure 11/18/2012 05/09/2016 UTI (urinary tract infection) 06/15/2012 05/09/2016 DM (diabetes mellitus) 04/18/201206/29 Unspecified essential hypertension 07/26/2010 10/01/2014 Overview (06/29/2012): Negative cardiac stress test 04/11/10. LVEF 59%. Myocardial perfusion imaging revealing a small area of persistent decreased tracer uptake in the apical anterior wall region, suggestive of myocardial scarring versus attenuation artifact. Immunizations Immunization Administration Dates Next Due (ADACEL/BOOSTRIX)(10 YR UP) TDAP VACCINE, 0.5ML, IM 04/30/2019 Family History Medical History Relation Name Comments Healthy Daughter 1 Healthy Daughter 2 Cancer Father Arrhythmia Mother Stroke Mother Breast Cancer Neg Hx Relation Name Status Comments Brother 1 Alive Brother 2 Alive Daughter 1 Alive Daughter 2 Alive Father ca Mother Alive cva afib Sister 1 Alive Sister 2 Alive Sister 3 Alive Social History Tobacco Use Types Packs/Day Years Used Date Smoking Tobacco: Former Cigarettes 1 20 0 09/09/1981 - 09/09/2001 Smokeless Tobacco: Never Tobacco Cessation:Counseling Given: Yes Alcohol Use Standard Drinks/Week Comments No 0 (1 standard drink = 0.6 oz pure alcohol) heavy usage when I was younger Comments No Sex and Gender Information Value Date Recorded Sex Assigned at Not on file Legal Sex 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 Gender Identity Not on file Sexual Orientation Not on file Occupation Industry Job Start Date Job End Date Not on file Not on file Not on file Not on file Last Filed Vital Signs Vital Sign Reading Time Taken Comments Blood Pressure 140/84 05/25/2020 1:31 PM CDT Pulse 83 05/25/2020 1:31 PM CDT Temperature 36.4 C (97.6 F) 05/25/2020 1:31 PM CDT Respiratory Rate 18 04/30/2019 1:16 PM CDT Oxygen Saturation 95% 05/25/2020 1:31 PM CDT Inhaled Oxygen Concentration - - Weight 96.2 kg (212 lb) 05/25/2020 1:31 PM CDT Height 167.6 cm (5' 6 ) 05/25/2020 1:31 PM CDT Body Mass Index 34.22 05/25/2020 1:31 PM CDT Plan of Treatment Health Maintenance Due Date Last Done Comments COLORECTAL SCREENING 11/27/2007 Colorectal Cancer Screening 11/27/2007 FIT-DNA Q 3 years 11/27/2007 FIT/FOBT Q 1 year 11/27/2007 Flex Sig/CT Colonography Q 5 years 11/27/2007 ZOSTER VACCINE (1 of 2) 2012 BREAST CANCER SCREENING 10/04/2015 10/04/2014, 06/12 DIABETES ANNUAL RETINAL EXAM 02/24/2016 02/23/2015, 08/18/2014 DIABETES ANNUAL FOOT EXAM 05/09/20172015, 02/14/2015, 10/01/2014 DIABETES MICROALBUMIN ANNUAL SCREEN 05/09/2017 05/09/2016, 11/10/2015, 02/14/2015, Additional history exists PAP SMEAR 01/17/2018 01/17/2015 DIABETES HBA1C Q 6 MONTHS 09/26/20192018, 05/09/2016, 11/10/2015, Additional history exists CERVICAL CANCER SCREENING 01/18/2020 HPV/Cotest (21-29) 01/18/2020 01/17/2015 HPV/Cotest (30-65) 01/18/2020 01/17/2015 LDL CHOLESTEROL ANNUAL 03/26/2020 9, 05/09/2016, 11/10/2015, Additional history exists RSV VACCINE (60+ or ) (1 - Risk 60-74 years 1-dose series) 2022 INFLUENZA VACCINE (#1) 2025 DTAP/TDAP/TD VACCINES (2 - T d or Tdap) 04/30/2029 04/30/2019 Procedures Procedure Name Priority Date/Time Associated Diagnosis Comments LIPID PANEL Routine 03/26/2019 10:52 AM CDT Lower extremity edema Fatigue, unspecified type Worsening renal function Type 2 diabetes mellitus with other diabetic kidney complication, without long-term current use of insulin ([facility]) HEMOGLOBIN A1C Routine 03/26/2019 10:52 AM CDT Lower extremity edema Fatigue, unspecified type Worsening renal function Type 2 diabetes mellitus with other diabetic kidney complication, without long-term current use of insulin ([facility]) MICROALBUMIN/CREATI NINE RATIO, RANDOM UR Routine 05/09/2016 1:59 PM CDT Diabetes mellitus type II, uncontrolled HM DIABETES EYE EXAM Routine 02/23/2015 CERV/VAG CYTOPATH, THIN PREP W/RFLX HPV Routine 01/17/2015 12:58 PM CDT MAMMO DIAGNOSTIC BILATERAL W OR WO CAD Routine 10/04/2014 3:55 PM FOOD AND NUTRITION PROFESSOR Breast lump from Last 3 Months or Most Recently Relevant to Health Maintenance Results * (ABNORMAL) HEMOGLOBIN A1C (03/26/2019 10:52 AM CDT) HEMOGLOBIN A1C 6.4(H) See Comment % 03/26/2019 8:39 PM CDT [facility] EST. AVG GLUCOSE, A1C 137 mg/dL 03/26/2019 8:39 PM CDT [facility] Blood Venipuncture / Unknown 03/26/2019 10:52 AM CDT 03/26/2019 8:09 PM CDT Narrative [facility] - 03/26/2019 8:39 PM CDT HGB A1C INTERPRETATION NORMAL: <5.7% PRE-DIABETES: 5.7 - 6.4% DIABETES: 6.5% OR GREATER Falsely low A1C measurements can occur when: 1. Anemia and/or hemolytic anemia is present. 2. Hemoglobin variants present. 3. Renal failure. 4. Transfusion of blood product in the last 120 days. We recommend ordering a fructosamine test([id number]) to more accurately assess glycemic status if any of the above conditions are present. us Teresita Márquez DO CHEMISTRY ORDERABLES Final Result [facility] CLIA# [id number] [facility] [place] [address] * (ABNORMAL) LIPID PANEL (03/26/2019 10:52 AM CDT) CHOLESTEROL 208(H) <200 mg/dL 03/26/2019 9:21 PM CDT [facility] TRIGLYCERIDE 258(H) <150 mg/dL 03/26/2019 9:21 PM CDT [facility] HDL 32(L) 40 - 59 mg/dL 03/26/2019 9:21 PM CDT [facility] LDL CALCULATED 124(H) <100 mg/dL 03/26/2019 9:21 PM CDT [facility] NON-HDL CHOLESTEROL 176(H) <130 mg/dL 03/26/2019 9:21 PM CDT [facility] Blood Venipuncture / Unknown 03/26/2019 10:52 AM CDT 03/26/2019 8:10 PM CDT Narrative [facility] - 03/26/2019 9:21 PM CDT TOTAL CHOLESTEROL mg/dL Desirable <200 Borderline high 200-239 High >=240 TRIGLYCERIDES mg/dL Normal <150 Borderline high 150-199 High 200-499 Very high >=500 HDL CHOLESTEROL mg/dL Low <40 Normal 40-59 Desirable >=60 NON HDL CHOLESTEROL mg/dL Optimal <130 Near Optimal 130-159 Borderline High 160-189 Very High >=190 Calculated LDL mg/dL Optimal <100 Near Optimal 100-129 Borderline High 130-159 High 160-189 Very High >=190 ATPIII Guidelines Reference Ranges for Lipid Panels (NCEP/AMA) us Teresita Márquez DO CHEMISTRY ORDERABLES Final Result [facility] IA# [id number] [address] [place] [address] * (ABNORMAL) MICROALBUMIN/CREATININE RATIO, RANDOM UR (05/09/2016 1:59 PM CDT) MICROALBUMIN, URINE 322.2 mg/dL 05/09/2016 5:52 PM CDT [facility] Fabiola LETICIA CREATININE, URINE 123.0 29.0 - 226.0 mg/dL 05/09/2016 5:52 PM CDT [facility] Fabiola LETICIA Comment: Reference Range varies with fluid intake and diet. MICROALBUMIN/ CREAT RATIO, UR 2,619.5(H ) <25.0 mg/g Creatinine 05/09/2016 5:52 PM CDT [facility] Urine URINE SPECIMEN OBTAINED BY CLEAN CATCH PROCEDURE / Unknown Collection / Unknown 05/09/2016 1:59 PM CDT 05/09/2016 5:01 PM CDT Narrative [facility] - 05/09/2016 5:52 PM CDT Condition Microalbumin/Creat ratio Normal Males <17 Normal Females <25 Microalbuminuria Males 17-299 Microalbuminuria Females 25-299 Overt proteinuria >=300 Scooter Balbuena DO URINE ORDERABLES Final Result [facility] CLIA# [id number] [address] [place] [address] * DIABETES EYE EXAM (02/23/2015) us Abstract Spg Provider HEALTH MAINTENANCE Final R esult * CERV/VAG CYTOPATH, THIN PREP W/RFLX HPV (01/17/2015 12:58 PM CDT) Pathologist [facility] THIN PREP CYTOLOGY REPORT REFLEX HPV [facility]atomic Path[facility] Dept [address] [facility] [address] Patient: ASHLYE MONIQUE Accn No: [id number] , [id number] Collected: 01/17/2015 12:58:00 PM All cases except those with a DP prefix are performed by pathologists from [facility] at [facility]. Case type DP is performed by Dr. Carson Mcdowell, [facility], [facility], [address], [address], [place] [address] (CLIA #[id number]) (Ph. [phone]). THIN PREP PAP - REFLEX HPV History Specimen Type: Endocervical postmenopausal Previous Pap History: 2009 PER PT Specimen Adequacy Satisfactory for interpretation. Shows sufficient numbers of endocervical or metaplastic cells. Diagnosis NEGATIVE FOR INTRAEPITHELIAL LESION OR MALIGNANCY. (Prevously noted as Within Normal Limits). [employer]/ GALLO Pathologist: 01/24/15 Completed by: FIONA KELLOGG BSJAKE(ASCP) (Electronically signed by) 01/24/15 Comment Routine follow-up is suggested. Important Information About Pap Smears The Pap smear is associated with a low but well-documented and probably irreducible false negative rate of up to 10%. Additionally, the false positive rate for a diagnosis of invasive carcinoma or HSIL has been estimated to be approximately 1-10%. Therefore, any visible lesion on the cervix should be biopsied regardless of Pap smear findings. HPV Testing off the Thin Prep vial can be done as a means of further evaluating a Thin Prep Report. For information about ordering the HPV test, phone Virology at . Treatment or follow-up recommendations (if any) that are contained within this report are based upon general recommendations as contained in 2001 Consensus Guidelines For Cervical Cytological Abnormalities JENIFFER: December 31, 2001, and are provided as a general guideline rather than as a specific recommendation. Final decisions about the most appropriate treatment and follow-up should be made on an individualized basis by the treating physician in consultation with his/her patient. [facility] 01/17/2015 12:5 8 PM CDT Beba Mayers MD PATHOLOGY/CYTOLOGY ORDERABLES E dited Result - Final [facility] CLIA# [id number] [address] [place] [address] * MAMMO DIGITAL DIAG BILAT (10/04/2014 3:55 PM FOOD AND NUTRITION PROFESSOR) Anatomical Region Laterality Modality Breast Bilateral Mammography 10/04/2014 2:25 PM FOOD AND NUTRITION PROFESSOR Impressions 10/05/2014 7:03 AM FOOD AND NUTRITION PROFESSOR IMPRESSION: I suspect that the changes that [...] letter. LISA/maxim 1538 PM - uploaded from [employer] - Narrative 10/05/2014 7:03 AM FOOD AND NUTRITION PROFESSOR Bilateral Digital Diagnostic Mammogram and Bilateral Whole [...] by the Computer Aided Detection System (CAD), [employer], Version 8.3. Ultrasound of both breasts was performed. In the areas of historical palpable lumps, the fatty lobules have some areas of increased density within them. This is nonspecific and certainly should not be of any concern regarding malignancy. I suspect this represents some type of systemic response to one or more of her diseases and/or medications. us Scooter Balbuena DO MAMMO ORDERABLES Final Result from Last 3 Months or Most Recently Relevant to Health Maintenance Insurance [employer] Advance Directives For more information, please contact: [phone] * Full Code (Latest Code Status on File) Date Activated Date Inactivated Comments 11/24/2013 9:58 AM 11/25/2013 2:28 AM * Full Code Date Activated Date Inactivated Comments 01/08/2013 4:42 PM 01/14/2013 2:00 PM * Full Code Date Activated Date Inactivated Comments 11/14/2012 6:00 PM 11/20/2012 1:44 PM * Full Code Date Activated Date Inactivated Comments 06/15/2012 1:29 AM 06/16/2012 2:55 PM * Full Code Date Activated Date Inactivated Comments 04/18/2012 10:24 AM 04/20/2012 3:25 PM Care Teams Mate Ship Relationship Specialty Start Date End Date Teresita Márquez DO [address] [facility] [place] [address] PCP - General Family Practice 03/18/19
--- OUTSIDE RECORDS SUMMARY | 2025-03-17 05:52 | XMS_ITS | Encounter Summary ---
Author Organization [facility] Address [address] [place] [address] Care Team Providers Care Car Dealer Name Role Phone Teresita Márquez DO Primary Care Provider [phone] Reason for Referral * Outpatient Services (Routine) - Closed Specialty Diagnoses / Procedures Referred By Jason monterroso Referred To Contact Radiology Diagnoses Lump or mass in breast Mastodynia Procedures MAMMO BREAST US BILAT Scooter Balbuena DO [address] [place] [address] Phone: tel: fax: [facility] [address] [address] Phone: tel: fax: Referral ID Status Reason Start Date Expiration Date Visits Re quested Visits Authorized [id number] Closed 06/12/2013 07/13/2014 1 1 Encounter Details Date Type Department Care Team (Late st Contact Info) Description 04/22/2013 Ancillary Orders [facility] Pre-Registration [place] CALL TO MAKE APPOINTMENT ONLY [address] [place] [address] Scooter Balbuena DO [address] [place] [phone] Lump or mass in breast (Primary Dx); Mastodynia Social History Tobacco Use Types Packs/Day Years Used Date Smoking Tobacco: Former Cigarettes 1 20 0 09/09/1981 - 09/09/2001 Smokeless Tobacco: Never Alcohol Use Standard Drinks/Week Comments No 0 (1 standard drink = 0.6 oz pure alcohol) heavy usage when I was younger Comments No Sex and Gender Information Value Date Recorded Sex Assigned at Not on file 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 The patient is here indicating she has one lump on the right and three lumps on the left. She has not had a mammogram since 01/21/2009 and comparison is made to that exam from [facility]. We have notes from her doctor dated 04/16/2013 indicating that a 1 cm area was felt on the right at the 8 o'clock position where the patient pointed but no masses were felt on the left. Mammogram: Bilateral craniocaudal, oblique, and true lateral views show completely fatty-replaced breast tissue. No discrete or suspicious findings are seen on either side. No masses or suspicious calcifications are seen. There is no mammographic abnormality to correspond with any of the BBs. There is no change compared with the exam of 01/21/2009. This digital mammogram was also analyzed by the Computer Aided Detection System (CAD), [employer], Version 8.3. Bilateral breast ultrasound: Ultrasound was performed bilaterally. We see only normal-appearing fatty breast tissue in all of the areas marked. No suspicious findings are seen on targeted ultrasound. The patient was told to follow up at her physician's office. She was given a verbal and written report today. CONCLUSION: I would recommend clinical correlation and followup with the patient's physician's office. Unless otherwise clinically indicated, she may have a screening mammogram in one year. SOPHIE/nicolás - uploaded from [employer] - Procedure Note Josefa George MD - 06/15/2013 Bilateral diagnostic mammogram and bilateral ultrasound, 06/12/2013. The patient is here indicating she has one lump on the right and three lumps on the left. She has not had a mammogram since 01/21/2009 and comparison is made to that exam from [facility]. We have notes from her doctor dated 04/16/2013 indicating that a 1 cm area was felt on the right at the 8 o'clock position where the patient pointed but no masses were felt on the left. Mammogram: Bilateral craniocaudal, oblique, and true lateral views show completely fatty-replaced breast tissue. No discrete or suspicious findings are seen on either side. No masses or suspicious calcifications are seen. There is no mammographic abnormality to correspond with any of the BBs. There is no change compared with the exam of 01/21/2009. This digital mammogram was also analyzed by the Computer Aided Detection System (CAD), [employer] Image[employer]er, Version 8.3. Bilateral breast ultrasound: Ultrasound was performed bilaterally. We see only normal-appearing fatty breast tissue in all of the areas marked. No suspicious findings are seen on targeted ultrasound. The patient was told to follow up at her physician's office. She was given a verbal and written report today. CONCLUSION: I would recommend clinical correlation and followup with the patient's physician's office. Unless otherwise clinically indicated, she may have a screening mammogram in one year. SOPHIE/nicolás - uploaded from [employer] - Scooter Balbuena DO MAMMO ORDERABLES Final Result documented in this encounter Visit Diagnoses Diagnosis Lump or mass in breast- Primary Mastodynia Lump or mass in breast Mastodynia documented in this encounter Care Teams Car Dealer Relationship Specialty Start Date End Date Teresita Márquez DO [address] [place] [phone] PCP - General Family Practice 03/18/19 documented as of this encounter
--- OUTSIDE RECORDS SUMMARY | 2025-03-17 05:52 | XMS_ITS | Encounter Summary ---
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
--- OUTSIDE RECORDS SUMMARY | 2025-03-17 05:52 | XMS_ITS | Encounter Summary ---
Author Organization [facility] Address [address] [place] [address] Care Team Providers Care Puppet Engineer Name Role Phone Teresita Márquez DO Primary Care Provider Reason for Referral * CT Scan (Routine) - Closed Specialty Diagnoses / Procedures Referred By Jason monterroso Referred To Contact Radiology Diagnoses Left renal mass Procedures CT ABDOMEN PELVIS WO CONTRAST CT ABDOMEN PELVIS W WO CONTRAST Teresita Márquez DO [address] [place] [address] Phone: tel: fax: [facility] CT Scan [place] [address] [place] [address] Phone: tel: fax: Referral ID Status Reason Start Date Expiration Date V isits Requested Visits Authorized [id number] Closed [facility] CTS to Schedule (SGF) 04/02/2019 05/02/2020 1 1 Encounter Details Date Type Department Care Team (Late st Contact Info) Description 04/07/2019 Ancillary Orders [facility] [address] [place] [address] Teresita Márquez DO [address] [place] [address] Left renal mass Social History Tobacco Use Types Packs/Day Years Used Date Smoking Tobacco: Former Cigarettes 1 20 0 09/09/1981 - 09/09/2001 Smokeless Tobacco: Never Alcohol Use Standard Drinks/Week Comments No 0 (1 standard drink = 0.6 oz pure alcohol) heavy usage when I was younger Comments No Sex and Gender Information Value Date Recorded Sex Assigned at Not on file 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 Exam: CT ABDOMEN PELVIS WO CONTRAST Date/Time of Exam: 04/07/2019 9:09 AM Reason For Exam: left renal mass. Diagnosis: Left renal mass. Technique: Axial tomograms obtained through the abdomen and pelvis without IV contrast. Findings: Imaged lung bases with small localized region of subpleural reticulation lateral periphery of right lower lung favoring parenchymal scarring. Parenchymal detail of solid abdominal organs limited by absence of IV contrast. Hepatomegaly. Low-grade splenomegaly. Surgical absence of gallbladder. Pancreas grossly unremarkable. Nonspecific small right adrenal nodule measuring slightly less than 1 cm in greatest diameter. No hydronephrosis of either kidney. Small subcentimeter hyperattenuating cortical nodule right kidney that may reflect complicated cyst. Gross appearance of left renal cyst measuring up to 2.5 cm in greatest diameter with internal calcific debris. No hydroureter. No ascites. No free air. Bladder unremarkable. Bowel structures nonspecific with abundant amount of retained stool. Appendix unremarkable. No lymphadenopathy by size criteria. Small fat-containing paraumbilical hernia. Imaged skeleton without apparent acute pathology. IMPRESSION: Diagnostically limited examination given limitation of absent IV contrast with specific attention to kidneys as detailed above. Gross findings of both kidneys suggestive of complex and complicated cysts. Further evaluation with MRI recommended as clinically warranted. Other relative minor findings as detailed above. Narrative Procedure Note Miguelito Arango MD - 04/07/2019 IMPRESSION: Please see below. Exam: CT ABDOMEN PELVIS WO CONTRAST Date/Time of Exam: 04/07/2019 9:09 AM Reason For Exam: left renal mass. Diagnosis: Left renal mass. Technique: Axial tomograms obtained through the abdomen and pelvis without IV contrast. Findings: Imaged lung bases with small localized region of subpleural reticulation lateral periphery of right lower lung favoring parenchymal scarring. Parenchymal detail of solid abdominal organs limited by absence of IV contrast. Hepatomegaly. Low-grade splenomegaly. Surgical absence of gallbladder. Pancreas grossly unremarkable. Nonspecific small right adrenal nodule measuring slightly less than 1 cm in greatest diameter. No hydronephrosis of either kidney. Small subcentimeter hyperattenuating cortical nodule right kidney that may reflect complicated cyst. Gross appearance of left renal cyst measuring up to 2.5 cm in greatest diameter with internal calcific debris. No hydroureter. No ascites. No free air. Bladder unremarkable. Bowel structures nonspecific with abundant amount of retained stool. Appendix unremarkable. No lymphadenopathy by size criteria. Small fat-containing paraumbilical hernia. Imaged skeleton without apparent acute pathology. IMPRESSION: Diagnostically limited examination given limitation of absent IV contrast with specific attention to kidneys as detailed above. Gross findings of both kidneys suggestive of complex and complicated cysts. Further evaluation with MRI recommended as clinically warranted. Other relative minor findings as detailed above. Teresita Márquez DO CT ORDERABLES Final Resul t documented in this encounter Visit Diagnoses Diagnosis Left renal mass Unspecified disorder of kidney and ureter Left renal mass Unspecified disorder of kidney and ureter documented in this encounter Care Teams Puppet Engineer Relationship Specialty Start Date End Date Teresita Márquez DO [address] [place] [address] PCP - General Family Practice 03/18/19 documented as of this encounter
--- OUTSIDE RECORDS SUMMARY | 2025-03-17 05:52 | XMS_ITS | Encounter Summary ---
Author Organization [facility] Address [address] [place] [address] Care Team Providers Care Upset Operator Name Role Phone Teresita Márquez DO Primary Care Provider Encounter Details Date Type Department Care Team (Late st Contact Info) Description 05/11/2016 Ancillary Orders [facility] [address] [place] [address] Scooter Balbuena DO [address] [place] [address] Post-menopausal bleeding (Primary Dx) Social History Tobacco Use Types [...] on file Legal Sex Female 11:10 AM AUTHOR Gender Identity Not on file Sexual Orientation Not on file Occupation Industry Job Start Date Job End Date Not on file Not on file Not on file Not on file documented as of this encounter Plan of Treatment Not on file documented as of this encounter Visit Diagnoses Diagnosis Post-menopausal bleeding- Primary Postmenopausal bleeding documented in this encounter Care Teams Upset Operator Relationship Specialty Start Date End Date Teresita Márquez DO [address] [place] [phone] PCP - General Family Practice 03/18/19 documented as of this encounter
--- OUTSIDE RECORDS SUMMARY | 2025-03-17 05:52 | XMS_ITS | Encounter Summary ---
Author Organization [facility] Address [address] [place] [address] Care Team Providers Care Runner On Name Role Phone WilliTeresita Aisha BRADLEY Primary Care Provider Reason for Referral * Outpatient Services (Routine) - Closed Specialty Diagnoses / Procedures Referred By Jason monterroso Referred To Contact Diagnoses Chest pain Procedures ECHO PRE TEST Ivan Molina MD [address] [place] [address] Phone: tel: fax: Referral ID Status Reason Start Date Expiration Date Visits Re quested Visits Authorized [id number] Closed 08/15/2010 02/11/2011 1 1 ICAL LAB ASSISTANT Encounter Details Date Type Department Care Team (Late st Contact Info) Description 08/15/2010 Ancillary Orders [facility]- [place] [address] [place] [address] Ivan Molina MD [address] [place] [address] Chest pain Social History Tobacco Use Types Packs/Day Years Used Date Smoking Tobacco: Former Cigarettes 1 25 0 09/09/1976 - 09/09/2001 Alcohol Use Standard Drinks/Week Comments No 0 (1 standard drink = 0.6 oz pur e alcohol) Comments Unknown Sex and Gender Information Value Date Recorded Sex Assigned at Not on file Legal Sex Female 11:10 AM CLINICAL LAB ASSISTANT Gender Identity Not on file Sexual Orientation Not on file documented as of this encounter Plan of Treatment Not on file documented as of this encounter Results * ECHO PRE TEST (08/15/2010 1:36 PM CLINICAL LAB ASSISTANT) Narrative [facility] - 03/11/2013 11:13 AM CDT Final status, expect no report. Procedure Note [facility], Radiologist, MD - 03/11/2013 Final status, expect no report. us Ivan Molina MD ORDERABLES Final Result [facility] documented in this encounter Visit Diagnoses Diagnosis Chest pain- Primary Chest pain, unspecified Chest pain Chest pain, unspecified documented in this encounter Care Teams Runner On Relationship Specialty Start Date End Date Teresita Márquez DO [address] [place] [phone] PCP - General Family Practice 03/18/19 documented as of this encounter
--- OUTSIDE RECORDS SUMMARY | 2025-03-17 05:52 | XMS_ITS | Encounter Summary ---
Author Organization [facility] Address [address] [place] [address] Care Team Providers Care Recording Artist Name Role Phone Teresita Márquez Primary Care Provider Encounter Details Date Type Department Care Team (Late st Contact Info) Description 05/25/2020 Ancillary Orders [facility] [place] [address] [place] [address] Mary Elaine, [facility] [address], [place] [address] Sprain of left ankle, unspecified ligament, initial encounter; Swelling of left ankle joint Social History Tobacco Use Types Packs/Day Years Used Date Smoking Tobacco: Former Cigarettes 1 20 0 09/09/1981 - 09/09/2001 Smokeless Tobacco: Never Alcohol Use Standard Drinks/Week Comments No 0 (1 standard drink = 0.6 oz pure alcohol) heavy usage when I was younger Comments No Sex and Gender Information Value Date Recorded Sex Assigned at Not on file 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 No / Unsure 05/25/2020 8:25 AM CDT documented as of this encounter Plan of Treatment Not on file documented as of this encounter Results * XR ANKLE 3+ VW LEFT (05/25/2020 3:15 PM CDT) Anatomical Region Laterality Modality Ankle / Foot Computed Radiogr aphy 05/25/2020 3:15 PM CDT Impressions 05/25/2020 6:32 PM CDT IMPRESSION: Please see below. Exam: XR ANKLE 3+ VW LEFT Date/Time of Exam: 05/25/2020 3:15 PM REASON FOR EXAM: See Diagnosis. DIAGNOSIS: Sprain of left ankle, unspecified ligament, initial encounter; Swelling of left ankle joint. Findings: There is no evidence of acute fracture or dislocation. The ankle mortise is preserved on the oblique view. There is no joint effusion. A small posterior calcaneal diffuse of height is noted. IMPRESSION: No acute osseous injury. Narrative Procedure Note Lopez Sanchez MD - 05/25/2020 IMPRESSION: Please see below. Exam: XR ANKLE 3+ VW LEFT Date/Time of Exam: 05/25/2020 3:15 PM REASON FOR EXAM: See Diagnosis. DIAGNOSIS: Sprain of left ankle, unspecified ligament, initial encounter; Swelling of left ankle joint. Findings: There is no evidence of acute fracture or dislocation. The ankle mortise is preserved on the oblique view. There is no joint effusion. A small posterior calcaneal diffuse of height is noted. IMPRESSION: No acute osseous injury. Mary Elaine INSTRUMENTATION CONTROLS ENGINEER DIAGNOSTIC IMAGING ORDERABLES Final Result documented in this encounter Visit Diagnoses Diagnosis Sprain of left ankle, unspecified ligament, initial encounter Swelling of left ankle joint Effusion of ankle and foot joint Sprain of left ankle, unspecified ligament, initial encounter Swelling of left ankle joint Effusion of ankle and foot joint documented in this encounter Care Teams Recording Artist Relationship Specialty Start Date End Date Teresita Márquez DO [address] [place] [address] PCP - General Family Practice 03/18/19 documented as of this encounter
--- OUTSIDE RECORDS SUMMARY | 2025-03-17 05:52 | XMS_ITS | Encounter Summary ---
Author Organization [facility] Address [address] [place] [address] Care Team Providers Care Tax Specialist Name Role Phone Willi Teresita Aisha BRADLEY Primary Care Provider Reason for Referral * Outpatient Services (Routine) - Closed Specialty Diagnoses / Procedures Referred By Jason monterroso Referred To Contact Radiology Diagnoses Post-menopausal bleeding Procedures US PELVIC TRANSVAGINAL US PELVIS + TRANSVAG NON OB US PELVIS COMPLETE US PELVIC TRANSVAGINAL Scooter Balbuena DO Phone: tel: fax: [facility] Ultrasound [place] [address] [place] [address] Phone: tel: fax: Referral ID Status Reason Start Date Expiration Date V isits Requested Visits Authorized [id number] Closed [facility] CTS to Schedule (SGF) 05/11/2016 06/11/2017 1 1 Encounter Details Date Type Department Care Team (Late st Contact Info) Description 05/11/2016 Ancillary Orders [facility] [address] [place] [phone] Scooter Balbuena DO [address] [place] [phone] Post-menopausal bleeding (Primary Dx) Social History Tobacco [...] on file 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 Normal pelvic ultrasound. [id number] Narrative 05/11/2016 2:09 PM CDT Exam: US PELVIC TRANSVAGINAL Date/Time of Exam: 05/11/2016 11:19 AM Reason For Exam: Post-menopausal bleeding. Findings: Endovaginal ultrasonography demonstrates uterus to measure 4.2 x 2.6 x 4.3 cm with the endometrium measuring 0.1 cm. Uterine masses are not definitely identified. Uterus does appear to be mildly heterogeneous. Right ovary measures 2 x 1.7 x 1.5 cm and the left ovary measures 1.3 x 1.2 x 1.5 cm. Fluid in the cul-de-sac or adnexal masses are not apparent. Scooter Balbuena DO US ORDERABLES Final Result documented in this encounter Visit Diagnoses Diagnosis Post-menopausal bleeding Postmenopausal bleeding Post-menopausal bleeding- Primary Postmenopausal bleeding documented in this encounter Care Teams Tax Specialist Relationship Specialty Start Date End Date Teresita Márquez DO [address] [place] [address] PCP - General Family Practice 03/18/19 documented as of this encounter
--- OUTSIDE RECORDS SUMMARY | 2025-03-17 05:52 | XMS_ITS | Clinical Summary ---
Author Organization 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 Active calcium acetate,phosph at bind, (PHOSLO) 667 mg tablet Take 1 Tablet by mouth. 09/06/20 22 Active ferrous gluconate 324 mg (38 mg iron) tablet Take 1 Tablet by mouth 2 times daily. 08/14/20 22 Active bumetanide (BUMEX) 2 mg tablet Take 2 mg by mouth daily. Active morphine (KRISHNA) 30 mg Extended Release capsule Take 30 mg by mouth every 8 hours. Active morphine (MS CONTIN) 15 mg Controlled Release tablet Take 15 mg by mouth 3 times daily. Active hydrOXYzine HCL (ATARAX) 10 mg tabletIndicati ons:Rash and nonspecific skin eruption Take 1 Tablet (10 mg) by mouth 3 times daily as needed for Itching. 60 Tablet 10/19/19 25 Active mupirocin (BACTROBAN) 2 % OintmentIndica tions:Rash and nonspecific skin eruption Apply to affected area daily. 30 Gram 2 10/19/19 25 Active EPINEPHrine (EPIPEN) 0.3 mg/0.3 mL Auto-InjectorI ndications:All ergy to galactose-alph a-1,3-galactos e Inject 0.3 mL (0.3 mg) by intramuscular injection 1 time daily as needed for Anaphylaxis. 2 Each 3 10/26/19 25 Active morphine (MS IR) 15 mg tablet Take 15 mg by mouth every 6 hours as needed for Pain. Active carvediloL (COREG) 6.25 mg tablet Take 1 Tablet (6.25 mg) by mouth every 12 hours. 60 Tablet 1 5 4:29 PM CDT 02/23/20 25 Active hydrALAZINE (APRESOLINE) 50 mg tabletIndicati ons:Hypertensi on, unspecified type Take 2 Tablets (100 mg) by mouth 3 times daily. 180 Tablet 5 4:29 PM CDT 02/23/20 25 2024 Active losartan (COZAAR) 100 mg tablet Take 1 Tablet (100 mg) by mouth daily. 30 Tablet 2 5 4:29 PM CDT 02/24/20 25 Active amLODIPine (NORVASC) 10 mg tablet Take 1 Tablet (10 mg) by mouth daily. 30 Tablet 5 4:29 PM CDT 02/23/20 25 Active triamcinolone acetonide (KENALOG) 0.1 % CreamIndicatio ns:Venous stasis dermatitis of both lower extremities Apply to affected area 2 times daily. 80 Gram 1 03/04/20 25 Active hydrALAZINE (APRESOLINE) 50 mg tabletIndicati ons:Hypertensi on, unspecified type Take 1 Tablet (50 mg) by mouth 3 times daily. 90 Tablet 11 09/11/19 22 2024 Discontinued carvediloL (COREG) 3.125 mg tablet Take 2 Tablets by mouth every 12 hours. 09/25/19 23 2024 Discontinued amLODIPine (NORVASC) 5 mg tablet Take 1 Tablet by mouth. 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 Revealed mild macrovesicular fatty change, mild chronic portal triaditis, mild chronic centrilobular inflammation. Chronic pain 04/18/2012 Viral hepatitis C 04/18/2012 Overview (09/05/2021): CT-guided biopsy of the liver 08/06/2007. Revealed mild macrovesicular fatty change, mild chronic portal triaditis, mild chronic centrilobular inflammation. CT-guided biopsy of the liver 08/06/2007. Revealed mild macrovesicular fatty change, mild chronic portal triaditis, mild chronic centrilobular inflammation. Resolved Problems Problem Noted Date Diagnosed Date Resolved Date Hyperkalemia 01/08/2013 10/01/2014 Acute on chronic renal failure 11/18/2012 05/09/2016 UTI (urinary tract infection) 06/15/2012 05/09/2016 DM (diabetes mellitus) 04/18/201206/29 Unspecified essential hypertension 07/26/2010 10/01/2014 Overview (01/04/2021): Negative cardiac stress test 04/11/10. LVEF 59%. Myocardial perfusion imaging revealing a small area of persistent decreased tracer uptake in the apical anterior wall region, suggestive of myocardial scarring versus attenuation artifact. Encounters Date Type Department Care Team Description 03/09/2025 Orders Only [facility] [address], Located [facility] [address] [place] [address] Jason Diaz MD Hypertension, unspecified type (Primary Dx) 03/04/2025 2:20 PM CDT Office Visit [facility] [address] [place] [address] [facility] December, [facility] discharge follow-up (Primary Dx); Venous stasis dermatitis of both lower extremities; Thyroid nodule; Primary hypertension; Chronic midline low back pain with bilateral sciatica; Lump in female breast 03/02/2025 Telephone [facility] [address] [place] [address] [facility] 02/24/2025 Telephone [facility] [address] [place] [address] [facility] 02/24/2025 External Device Data STL ABSTRACTION Provider, Abstract 02/23/2025 External Device Data [facility] ABSTRACTION Provider, Abstract 02/23/2025 External Device Data [facility] ABSTRACTION Provider, Abstract 02/20/2025 3:41 AM CDT - 02/22/2025 4:22 PM CDT Hospital Encounter [facility] [address] [place] [address] Lawson Temple MD Cookman, Craig, DO Anand, Neesha, MD Kuppi Reddy, Madhavi MD Jerome, Mac Joesph, MD Hypertensive emergency Discharge Disposition: Left Against Medical Advice 02/19/2025 8:19 PM CDT - 02/20/2025 2:00 AM CDT Emergency [facility] Emergency Medicine [address] [facility] [address] [place] [address] Jed Dias MD Hypertensive emergency (Primary Dx); Abdominal pain, unspecified abdominal location; Acute on chronic congestive heart failure, unspecified heart failure type (CMS/HCC); Elevated troponin Discharge Disposition: [facility] 02/19/2025 Travel 02/09/2025 External Device Data ST[facility] ABSTRACTION Provider, Abstract 02/09/2025 External Device Data [facility] ABSTRACTION Provider, Abstract 02/09/2025 External Device Data [facility] ABSTRACTION Provider, Abstract 01/15/2025 10:00 AM CDT Office Visit [facility] [address] [place] [address] December, [employer] Closed avulsion fracture of greater trochanter of right femur with routine healing, subsequent encounter (Primary Dx); Encounter for colorectal cancer screening using Cologuard test; Stasis dermatitis; Allergy to ipkostzgx-bpzlw-0,3- galactose 01/12/2025 External Device Data [facility] ABSTRACTION Provider, Abstract 01/12/2025 External Device Data [facility] ABSTRACTION Provider, Abstract 01/12/2025 External Device Data [facility] ABSTRACTION Provider, Abstract 01/09/2025 9:23 PM CDT - 01/09/2025 11:05 PM CDT Emergency [facility] Emergency Medicine [address] [facility] [address] [place] [phone] Tim Wilson MD Contusion of right hip and thigh, initial encounter (Primary Dx) Discharge Disposition: Home or Self Care 01/09/2025 Travel from Last 3 Months Immunizations Immunization Administration Dates Next Due (ADACEL/BOOSTRIX)(10 [...] Years Used Date Smoking Tobacco: Former Cigarettes Q uit: 09/09/2001 Passive Smoke Exposure: Past Smokeless Tobacco: Never Tobacco Cessation:Counseling Given: No Alcohol Use Standard Drinks/Week Comments No 0 (1 standard drink = 0.6 oz pur e alcohol) Feeling Safe Answer Date Recorded Are you in a relationship wi th someone who hurts you emotionally and/or physically? No 02/21/2025 Food Insecurity Answer Date Recorded Patient needs follow up regardin 02/21/2025 Transportation Needs Answer Date Record ed Patient needs follow up regardin 02/21/2025 Utility Needs Answer Date Recorded Patient needs follow up regardin 02/21/2025 Comments No Sex and Gender Information Value Date Recorded Sex Assigned at Not on file Legal Sex Female 6:22 AM CRYPTOGRAPHER Gender Identity Not on file Sexual Orientation Not on file Last Filed Vital Signs Vital Sign Reading Time Taken Comments Blood Pressure 168/70 03/04/2025 1:57 PM CDT Pulse 74 03/04/2025 1:56 PM CDT Temperature 36.7 C (98 F) 03/04/2025 1:56 PM CDT Respiratory Rate 18 03/04/2025 1:56 PM CDT Oxygen Saturation 90% 03/04/2025 1:56 PM CDT Inhaled Oxygen Concentration - - Weight 87.5 kg (193 lb) 03/04/2025 1:56 PM CDT Height 167.6 cm (5' 6 ) 03/04/2025 1:56 PM CDT Body Mass Index 31.15 03/04/2025 1:56 PM CDT Plan of Treatment Upcoming Encounters Date Type Department Care Team (Late st Contact Info) Description 03/30/2025 9:00 AM CDT Office Visit [facility] [address] [place] [phone] December, [employer] [address] [place] [phone] Jason Diaz MD [address] [facility] [address] [place] [phone] 04/16/2025 9:00 AM CDT Office Visit [facility] [address] [facility] [place] [phone] December, [employer] [address] [facility] [place] [address] 06/04/2025 9:00 AM CDT Office Visit [facility] [address] [facility] [place] [phone] December, [facility] [address] [facility] [place] [phone] Health Maintenance Due Date Last Done Comments COLORECTAL SCREENING 11/27/2007 Colorectal Cancer Screening 11/27/2007 FIT-DNA Q 3 years 11/27/2007 FIT/FOBT Q 1 year 11/27/2007 Flex Sig/CT Colonography Q 5 years 11/27/2007 ZOSTER VACCINE (1 of 2) 2012 BREAST CANCER SCREENING 10/04/2015 10/04/2014, 06/12 DIABETES ANNUAL RETINAL EXAM 02/24/2016, 02/23/2015, 08/18/2014 DIABETES ANNUAL FOOT EXAM 05/09/2017 05/09/2016 DIABETES MICROALBUMIN ANNUAL SCREEN 05/09/2017 05/09/2016, 11/10/2015, 02/14/2015, Additional history exists PAP SMEAR 01/17/2018 01/17/2015 CERVICAL CANCER SCREENING 01/18/2020 HPV/Cotest (21-29) 01/18/2020 01/17/2015 HPV/Cotest (30-65) 01/18/2020 01/17/2015 DIABETES HBA1C Q 6 MONTHS 03/06/20222020, 03/26/2019, 03/26/2019, Additional history exists RSV VACCINE (60+ or ) (1 - Risk 60-74 years 1-dose series) 2022 INFLUENZA VACCINE (#1) 2025 10/19/2024 LDL CHOLESTEROL ANNUAL 10/19/2025 , 09/05/2021, 03/26/2019, Additional history exists DTAP/TDAP/TD VACCINES (2 - T d or Tdap) 04/30/2029 04/30/2019 Medical Devices Implanted Type Area Insight Director Device Identifier Shelf Expiration Date Model / Serial / Lot Cath Pd Percy Lainez 2cuf [id number] - Sna Implanted:Qty : 1 on 11/09/2022 by Keshav Thompson DO at [facility] Catheter N/A: Abdomen [employer] - COVIDIEN 12/13/2026 [id number] / NA / [id number] Clip Ligating Horizon Red [id number] - [facility] - [id number] Implanted:Qty : 1 on 05/06/2023 by Feliberto Chaudhary MD at [facility] Clip Left: Arm [employer] [id number] 05/13/2027 [id number] / / [id number] Clip Ligating Horizon Med Ti [id number] - Csc - [id number] Implanted:Qty : 1 on 05/06/2023 by Feliberto Chaudhary MD at [facility] Clip Left: Arm TELEFLEX- WECK CLOSURE SYS [id number] 11/14/2027 [id number] / / [id number] Hemostatic Surgicel 1x2in 1960 - [id number] Implanted:Qty : 1 on 05/06/2023 by Feliberto Chaudhary MD at [facility] Hemostatic Left: Arm J[employer]J- [employer] [id number] 08/08/20251960 / / [id number] Explanted Type Area Insight Director Device Identifier Shelf Expiration Date Model / Serial / Lot 14.5f X 27cm [facility] Catheter-10/05 Implanted:Qty : 1 on 10/05/2022 by Fito Bingham MD Explanted:Qty : 1 on 08/07/2023 by Andres Roberts PA Catheter Right: Chest [id number] 01/07/2024 [id number] / / [id number] Procedures Procedure Name Priority Date/Time Associated Diagnosis Comments HOME O2 EVAL (DESATURATION SCREEN) Pending Discharge 02/22/2025 12:11 PM CDT MAGNESIUM LEVEL Routine 02/22/2025 4:46 AM CDT RENAL FUNCTION PANEL Routine 02/22/2025 4:46 AM CDT CBC WITH DIFFERENTIAL Routine 02/22/2025 4:46 AM CDT MAGNESIUM LEVEL Routine 02/21/2025 3:13 AM CDT RENAL FUNCTION PANEL Routine 02/21/2025 3:13 AM CDT CBC WITH DIFFERENTIAL Routine 02/21/2025 3:13 AM CDT POC GLUCOSE Routine 02/20/2025 11:23 PM CDT POC GLUCOSE Routine 02/20/2025 8:43 PM CDT POC GLUCOSE Routine 02/20/2025 9:18 AM CDT LACTIC ACID Stat 02/20/2025 4:21 AM CDT PHOSPHORUS Routine 02/20/2025 4:21 AM CDT MAGNESIUM LEVEL Routine 02/20/2025 4:21 AM CDT COMPREHENSIVE METABOLIC PANEL Routine 02/20/2025 4:21 AM CDT CBC WITH DIFFERENTIAL Routine 02/20/2025 4:21 AM CDT POC GLUCOSE Routine 02/20/2025 4:20 AM CDT TROPONIN 2 HR, 5TH GEN Timed Study 02/19/2025 10:23 PM CDT XR CHEST PA OR AP 1 VW Stat 02/19/2025 10:[address] ABDOMEN PELVIS WO CONTRAST Stat 02/19/2025 10:00 PM CDT PT AND APTT Stat 02/19/2025 8:27 PM CDT DIFFERENTIAL, MANUAL Stat 02/19/2025 8:27 PM CDT BRAIN NATRIURETIC PEPTIDE, BNP OR PROBNP Stat 02/19/2025 8:27 PM CDT TROPONIN BASELINE, 5TH GEN Stat 02/19/2025 8:27 PM CDT LACTIC ACID Stat 02/19/2025 8:27 PM CDT COMPREHENSIVE METABOLIC PANEL Stat 02/19/2025 8:27 PM CDT CBC WITH DIFFERENTIAL Stat 02/19/2025 8:27 PM CDT XR PELVIS 1 OR 2 VW Stat 01/09/2025 9 :55 PM CDT XR FEMUR 2 VW RIGHT Stat 01/09/2025 9 :54 PM CDT LIPID PANEL Routine 10/19/2024 10:59 AM CRYPTOGRAPHER Primary hypertension HEMOGLOBIN A1C Routine 09/05/2021 12:00 AM CRYPTOGRAPHER Chronic fatigue MICROALBUMIN/CREATIN INE RATIO, RANDOM UR Routine 05/09/2016 1:59 PM CDT HM DIABETES EYE EXAM 02/23/2015 12:00 AM CDT CERV/VAG CYTOPATH, THIN PREP W/RFLX HPV Routine 01/17/2015 12:58 PM CDT MAMMO DIAGNOSTIC BILATERAL W OR WO CAD Routine 10/04/2014 3:55 PM CRYPTOGRAPHER Breast lump from Last 3 Months or Most Recently Relevant to Health Maintenance Results * (ABNORMAL) CBC WITH DIFFERENTIAL (02/22/2025 4:46 AM CDT) Only the most recent of4 resultswithin the time period is included. [facility] WBC 2.6(L) 4.8 - 10.8 K/uL 02/22/2025 5:07 AM [facility] RBC 2.93(L) 4.20 - 5.40 M/uL 02/22/2025 5:07 AM [facility] HEMOGLOBIN 9.6(L) 12.0 - 16.0 g/dL 02/22/2025 5:07 AM [facility] HEMATOCRIT 30.3(L) 36.0 - 46.0 % 02/22/2025 5:07 AM [facility] MCV 103.4(H) 84.0 - 103.0 fL 02/22/2025 5:07 AM [facility] MCH 32.8 27.0 - 34.0 pg 02/22/2025 5:07 AM [facility] MCHC 31.7 30.0 - 35.0 g/dL 02/22/2025 5:07 AM [facility] PLATELETS 104(L) 140 - 440 K/uL 02/22/2025 5:07 AM [facility] MPV 10.1 8.9 - 12.8 fL 02/22/2025 5:07 AM [facility] RDW 15.8(H) 11.0 - 14.5 % 02/22/2025 5:07 AM [facility] RDW-STDEV 60.6(H) 37.0 - 54.0 fL 02/22/2025 5:07 AM [facility] NEUTROPHILS 72 42 - 75 % 02/22/2025 5:07 AM [facility] LYMPHOCYTES 16(L) 24 - 44 % 02/22/2025 5:07 AM [facility] MONOCYTES 7 2 - 10 % 02/22/2025 5:07 AM [facility] EOSINOPHILS 6 0 - 7 % 02/22/2025 5:07 AM [facility] BASOPHILS 0 0 - 1 % 02/22/2025 5:[address] [facility] IMMATURE GRANULOCYTES 0 0 - 2 % 02/22/2025 5:[address] [facility] NEUTROPHIL ABSOLUTE 1.83(L) 2.00 - 8.00 K/uL 02/22/2025 5:[address] [facility] LYMPHOCYTE ABSOLUTE 0.40(L) 1.20 - 4.00 K/uL 02/22/2025 5:[address] [facility] MONOCYTE ABSOLUTE 0.17 0.10 - 0.60 K/uL 02/22/2025 5:[address] [facility] EOSINOPHIL ABSOLUTE 0.14 0.00 - 0.70 K/uL 02/22/2025 5:[address] [facility] BASOPHILS ABSOLUTE 0.01 0.00 - 0.20 K/uL 02/22/2025 5:[address] [facility] IMMATURE GRANULOCYTES ABSOLUTE 0.01 0.00 - 0.10 K/uL 02/22/2025 5:[address] [facility] SMEAR REVIEWED: NA - Not Applicable 02/22/2025 5:07 AM [facility] Blood Venipuncture / Unknown 02/22/2025 4:46 AM CDT 02/22/2025 5:02 AM CDT Lizett Oconnell NP HEMATOLOGY ORDERABLES Final Result [facility] CLIA # [id number] [address] [place] [address] [place] [address] * (ABNORMAL) MAGNESIUM LEVEL (02/22/2025 4:46 AM CDT) Only the most recent of3 resultswithin the time period is included. Pathologist [facility] MAGNESIUM 2.6(H) 1.6 - 2.4 mg/dL 02/22/2025 6:[address] [facility] Blood Venipuncture / Unknown 02/22/2025 4:46 AM CDT 02/22/2025 5:03 AM CDT Lizett Oconnell NP CHEMISTRY ORDERABLES Final Result [facility] CLIA # [id number] [address] [place] [address] * (ABNORMAL) RENAL FUNCTION PANEL (02/22/2025 4:46 AM CDT) Only the most recent of2 resultswithin the time period is included. SODIUM 140 136 - 145 mmol/L 02/22/2025 6:05 AM [facility] POTASSIUM 5.5(H) 3.5 - 5.1 mmol/L 02/22/2025 6:05 AM [facility] CHLORIDE 101 98 - 107 mmol/L 02/22/2025 6:05 AM [facility] CO2 23 22 - 29 mmol/L 02/22/2025 6:05 AM [facility] CALCIUM 8.2(L) 8.8 - 10.2 mg/dL 02/22/2025 6:05 AM [facility] BUN 54(H) 8 - 23 mg/dL 02/22/2025 6:05 AM [facility] CREATININE 7.71(H) 0.51 - 0.95 mg/dL 02/22/2025 6:05 AM [facility] GLUCOSE 89 74 - 99 mg/dL 02/22/2025 6:05 AM [facility] ALBUMIN 3.2(L) 3.5 - 5.2 g/dL 02/22/2025 6:05 AM [facility] PHOSPHORUS 7.4(H) 2.5 - 4.5 mg/dL 02/22/2025 6:05 AM [facility] GFR 5(L) >=60 mL/min/1. 73 sq meter 02/22/2025 6:[address] [facility] Comment:eGFR calculated with 2020 CKD-EPI equation. Vegetarian diet, extremely high or low muscle mass, and may affect results. Cystatin C with Glomerular Filtration Rate is a suitable alternative for these patients. ANION GAP 16 9 - 20 mmol/L 02/22/2025 6:[address] [facility] Blood Venipuncture / Unknown 02/22/2025 4:46 AM CDT 02/22/2025 5:03 AM CDT Lizett Oconnell FINANCIAL WRITER CHEMISTRY ORDERABLES Final Result Performing Organization Address [facility] Co de Phone Number [facility] CLIA # [id number] [address] [id number] * POC GLUCOSE (02/20/2025 11:23 PM CDT) Only the most recent of4 resultswithin the time period is included. GLUCOSE POC 99 74 - 99 mg/dL 02/20/2025 11:[address] [facility] SPECIMEN SOURCE, GLUCOSE POC Capillary 02/20/2025 11:[address] [facility] Blood, whole 02/20/2025 11:2 3 PM CDT 02/20/2025 11:45 PM CDT Kyler Coreas DO POINT OF CARE TESTING Final Res ult Performing Organization Address City/[facility]/ZIP Co de Phone Number [facility] CLIA # [id number] [address] [address] * LACTIC ACID (02/20/2025 4:21 AM CDT) Only the most recent of2 resultswithin the time period is included. LACTIC ACID 0.9 <=2.0 mmol/L 02/20/2025 5:[address] [facility] Blood Venipuncture / Unknown 02/20/2025 4:21 AM CDT 02/20/2025 4:26 AM CDT Lawson Temple MD CHEMISTRY ORDERABL ES Final Result Performing Organization Address City/[facility]/ZIP Co de Phone Number [facility] CLIA # [id number] [address] [address] [place], [place] [id number] * PHOSPHORUS (02/20/2025 4:21 AM CDT) PHOSPHORUS 4.4 2.5 - 4.5 mg/dL 02/20/2025 5:[address] [facility] Blood Venipuncture / Unknown 02/20/2025 4:21 AM CDT 02/20/2025 4:44 AM CDT Lawson Temple MD CHEMISTRY ORDERABL ES Final Result Performing Organization Address [facility] Co de Phone Number [facility] CLIA # [id number] [address] [address] * (ABNORMAL) COMPREHENSIVE METABOLIC PANEL (02/20/2025 4:21 AM CDT) Only the most recent of2 resultswithin the time period is included. SODIUM 136 136 - 145 mmol/L 02/20/2025 5:[address] [facility] POTASSIUM 4.6 3.5 - 5.1 mmol/L 02/20/2025 5:[address] [facility] CHLORIDE 94(L) 98 - 107 mmol/L 02/20/2025 5:[address] [facility] CO2 29 22 - 29 mmol/L 02/20/2025 5:50 [facility] 8.4(L) 8.8 - 10.2 mg/dL 02/20/2025 5:50 AM [facility] BUN 28(H) 8 - 23 mg/dL 02/20/2025 5:50 AM [facility] CREATININE 4.61(H) 0.51 - 0.95 mg/dL 02/20/2025 5:50 AM [facility] GLUCOSE 120(H) 74 - 99 mg/dL 02/20/2025 5:50 AM [facility] TOTAL PROTEIN 6.2(L) 6.4 - 8.3 g/dL 02/20/2025 5:50 AM [facility] ALBUMIN 3.4(L) 3.5 - 5.2 g/dL 02/20/2025 5:50 AM [facility] BILIRUBIN TOTAL 0.5 0.0 - 1.0 mg/dL 02/20/2025 5:50 AM [facility] ALKALINE PHOSPHATASE 112(H) 35 - 104 U/L 02/20/2025 5:50 AM [facility] AST 34 10 - 35 U/L 02/20/2025 5:50 AM [facility] ALT 34 <=35 U/L 02/20/2025 5:50 AM [facility] GFR 10(L) >=60 mL/min/1. 73 sq meter 02/20/2025 5:50 AM [facility] Comment:eGFR calculated with 2020 CKD-EPI equation. Vegetarian diet, extremely high or low muscle mass, and may affect results. Cystatin C with Glomerular Filtration Rate is a suitable alternative for these patients. ANION GAP 13 9 - 20 mmol/L 02/20/2025 5:50 AM [facility] Blood Venipuncture / Unknown 02/20/2025 4:21 AM CDT 02/20/2025 4:44 AM T Lawson Temple MD CHEMISTRY ORDERABL ES Final Result Performing Organization Address City/[facility]/ZIP Co de Phone Number [facility] CLIA # [id number] [facility] [address] * (ABNORMAL) TROPONIN 2 HR, 5TH GEN (02/19/2025 10:23 PM CDT) TROPONIN T, 2 HR 5TH GEN 84(H) <=10 ng/L 02/19/2025 10:45 PM CDT [facility] DELTA 2HR TROPONIN T % -16 See Interp. % 02/19/2025 10:45 PM CDT [facility] Blood BLOOD SPECIMEN / Unknown Collection / Unknown 02/19/2025 10:23 PM CDT 02/19/2025 10:31 PM CDT Narrative [facility] - 02/19/2025 10:45 PM CDT Troponin elevated. Delay in collection of timed specimen beyond recommended collection interval. Results must be interpreted in clinical context. Delta not changing. us Jed Dias MD CHEMISTRY ORDERABLES Final Result [facility] CLIA # [id number] [address] [place] [id number] * XR CHEST PA OR AP 1 VW (02/19/2025 10:00 PM CDT) Anatomical Region Laterality Modality Chest Computed Radiogr aphy 02/19/2025 10:0 0 PM CDT Impressions 02/19/2025 10:07 PM CDT IMPRESSION: Mild to moderate pulmonary vascular congestive changes with small right pleural effusion. Narrative 02/19/2025 10:07 PM CDT Exam: XR CHEST PA OR AP 1 VW Date/Time of Exam: 02/19/2025 10:00 PM Reason For Exam: CHF. Diagnosis: See Reason for Exam. Comparison: 03/19/2019. Findings: The cardiac silhouette is prominently enlarged. There are mild to moderate pulmonary vascular congestive changes. There is a small right pleural effusion. There is no focal consolidation or appreciable pneumothorax. The osseous structures appear grossly intact. Procedure Note Lopez Rachel, DO - 02/19/2025 Exam: XR CHEST PA OR AP 1 VW Date/Time of Exam: 02/19/2025 10:00 PM Reason For Exam: CHF. Diagnosis: See Reason for Exam. Comparison: 03/19/2019. Findings: The cardiac silhouette is prominently enlarged. There are mild to moderate pulmonary vascular congestive changes. There is a small right pleural effusion. There is no focal consolidation or appreciable pneumothorax. The osseous structures appear grossly intact. IMPRESSION: Mild to moderate pulmonary vascular congestive changes with small right pleural effusion. us Jed Dias MD DIAGNOSTIC IMAGING OR DERABLES Final Result * CT ABDOMEN PELVIS WO CONTRAST (02/19/2025 10:00 PM CDT) Anatomical Region Laterality Modality Abdomen Computed Tomogra phy 02/19/2025 10:0 0 PM CDT Impressions 02/19/2025 10:15 PM CDT IMPRESSION: Please see below. Exam: CT ABDOMEN PELVIS WO CONTRAST Date/Time of Exam: 02/19/2025 10:00 PM Reason For Exam: Abdominal pain, acute, nonlocalized. Diagnosis: See Reason for Exam. Technique: CT of the abdomen and pelvis was performed without the administration of intravenous contrast. Comparison: 04/07/2019. FINDINGS: Evaluation of the vasculature and solid organs are limited without the use of contrast. The exam is degraded by motion artifact which limits detail. Lower Chest: The heart is enlarged. There is a small right pleural effusion. Aorta/Vasculature: The aorta is nonaneurysmal. Lymph Nodes: There is mild nonspecific retroperitoneal and inguinal lymphadenopathy measuring up to 1.4 cm in short axis dimension. Liver: There are punctate subcentimeter low-attenuation hepatic lesions are too small to characterize. Gallbladder and Biliary: The gallbladder is surgically absent. There is biliary ductal dilatation of unclear etiology appearing similar to the previous exam. Spleen: The spleen is enlarged measuring 15.4 cm. Pancreas: The pancreas is within normal limits. Adrenal Glands: The left adrenal gland is within normal limits. There is a 2.1 cm right adrenal adenoma. Kidneys: There is moderate symmetric renal atrophy. There are small renal cysts. There is no obstructive uropathy. Stomach: The stomach is within normal limits. Bowel: The bowel loops are normal in position and caliber. There is a moderate amount of stool. There are no focal inflammatory changes. Appendix: The appendix is within normal limits. Peritoneum: There is a small amount of free pelvic fluid. There is no free air or a discrete fluid collection. Urinary Bladder: The urinary bladder is grossly within normal limits given suboptimal distention. Pelvic Reproductive Structures: There is no significant pelvic reproductive structure pathology. Subcutaneous Soft Tissues: There is a moderate degree of body wall edema. Bones: The osseous structures appear grossly intact. No suspicious osseous lesions are identified. IMPRESSION: Biliary ductal dilatation of unclear etiology which could reflect postcholecystectomy reservoir effect; if there is clinical or biochemical concern for biliary obstruction, MRCP could assess further. Small volume ascites, small right pleural effusion and body wall edema suggestive of third spacing/volume overload. Mild splenomegaly. Mild nonspecific retroperitoneal and inguinal lymphadenopathy. Additional incidental findings as above. Narrative Procedure Note Lopez Rachel, DO - 02/19/2025 IMPRESSION: Please see below. Exam: CT ABDOMEN PELVIS WO CONTRAST Date/Time of Exam: 02/19/2025 10:00 PM Reason For Exam: Abdominal pain, acute, nonlocalized. Diagnosis: See Reason for Exam. Technique: CT of the abdomen and pelvis was performed without the administration of intravenous contrast. Comparison: 04/07/2019. FINDINGS: Evaluation of the vasculature and solid organs are limited without the use of contrast. The exam is degraded by motion artifact which limits detail. Lower Chest: The heart is enlarged. There is a small right pleural effusion. Aorta/Vasculature: The aorta is nonaneurysmal. Lymph Nodes: There is mild nonspecific retroperitoneal and inguinal lymphadenopathy measuring up to 1.4 cm in short axis dimension. Liver: There are punctate subcentimeter low-attenuation hepatic lesions are too small to characterize. Gallbladder and Biliary: The gallbladder is surgically absent. There is biliary ductal dilatation of unclear etiology appearing similar to the previous exam. Spleen: The spleen is enlarged measuring 15.4 cm. Pancreas: The pancreas is within normal limits. Adrenal Glands: The left adrenal gland is within normal limits. There is a 2.1 cm right adrenal adenoma. Kidneys: There is moderate symmetric renal atrophy. There are small renal cysts. There is no obstructive uropathy. Stomach: The stomach is within normal limits. Bowel: The bowel loops are normal in position and caliber. There is a moderate amount of stool. There are no focal inflammatory changes. Appendix: The appendix is within normal limits. Peritoneum: There is a small amount of free pelvic fluid. There is no free air or a discrete fluid collection. Urinary Bladder: The urinary bladder is grossly within normal limits given suboptimal distention. Pelvic Reproductive Structures: There is no significant pelvic reproductive structure pathology. Subcutaneous Soft Tissues: There is a moderate degree of body wall edema. Bones: The osseous structures appear grossly intact. No suspicious osseous lesions are identified. IMPRESSION: Biliary ductal dilatation of unclear etiology which could reflect postcholecystectomy reservoir effect; if there is clinical or biochemical concern for biliary obstruction, MRCP could assess further. Small volume ascites, small right pleural effusion and body wall edema suggestive of third spacing/volume overload. Mild splenomegaly. Mild nonspecific retroperitoneal and inguinal lymphadenopathy. Additional incidental findings as above. Jed Dias MD CT ORDERABLES Final Result * (ABNORMAL) TROPONIN BASELINE, 5TH GEN (02/19/2025 8:27 PM CDT) TROPONIN T, BASELINE 5TH GEN 100(H) <=10 ng/L 02/19/2025 9:22 PM CDT [facility] Blood Collection / Unknown 02/19/2025 8:27 PM CDT 02/19/2025 9:01 PM CDT Narrative [facility] - 02/19/2025 9:22 PM CDT Troponin elevated. Jed Dias MD CHEMISTRY ORDERABLES Final Result [facility] CLIA # [id number] [address] [place] [address] * MANUAL DIFFERENTIAL (02/19/2025 8:27 PM CDT) PLATELET EST. Consistent w Count 02/19/2025 9:15 PM CDT [facility] RBC MORPHOLOGY Normal 02/19/2025 9:15 PM CDT [facility] Blood Collection / Unknown 02/19/2025 8:27 PM CDT 02/19/2025 9:01 PM CDT Jed Dias MD HEMATOLOGY ORDERABLES COM Final Result Performing Organization Address [facility] Co de Phone Number [facility] # [id number] [address] [place] [address] * PT AND APTT (02/19/2025 8:27 PM CDT) PROTIME 13.2 11.9 - 14.6 Seconds 02/20/2025 12:06 AM CDT [facility] INR 1.0 0.9 - 1.1 02/20/2025 12:06 AM T [facility] PTT 26.0 25.8 - 34.0 seconds 02/20/2025 12:06 AM T [facility] Blood BLOOD SPECIMEN / Unknown Collection / Unknown 02/19/2025 8:27 PM CDT 02/19/2025 11:09 PM CDT Jed Dias MD HEMATOLOGY ORDERABLES Final Result Performing Organization Address [facility] Co de Phone Number [facility] # [id number] [address] [place] [address] * (ABNORMAL) BRAIN NATRIURETIC PEPTIDE, BNP OR PROBNP (02/19/2025 8:27 PM CDT) PROBNP, N TERMINAL >70,000(H ) 0 - 125 pg/mL 02/19/2025 9:33 PM CDT [facility] Comment: INTERPRETIVE COMMENT based on diagnosis: Diagnostic NT pro-BNP cutoffs for Heart Failure in the absence of renal failure is suggested for the following ranges <75 years: <125 pg/mL >=75 years: <450 pg/mL Exclusionary rule out cut-point for Acute Decompensated Heart Failure(ADHF) All ages: <300 pg/mL Diagnostic NT pro-BNP cutoffs for Acute Decompensated Heart Failure(ADHF) in the absence of renal failure is suggested for the following ages <50 years: > 450 pg/mL 50-75 years: > 900 pg/mL >75 years: >1800 pg/mL Blood Collection / Unknown 02/19/2025 8:27 PM CDT 02/19/2025 9:01 PM CDT us Jed Dias MD CHEMISTRY ORDERABLES Final Result [facility] # [id number] [address] [place] [address] * XR PELVIS 1 OR 2 VW (01/09/2025 9:55 PM CDT) Anatomical Region Laterality Modality Pelvis Computed Radiogr aphy 01/09/2025 10:1 1 PM CDT Impressions 01/09/2025 10:39 PM CDT IMPRESSION: Age-indeterminate avulsion fracture involving the right greater trochanter. Narrative 01/09/2025 10:39 PM CDT Exam: XR PELVIS 1 OR 2 VW Date/Time of Exam: 01/09/2025 9:55 PM Reason For Exam: Fall. Diagnosis: See Reason for Exam. Comparison: None. Findings: There is an age-indeterminate avulsion fracture involving the tip of the right greater trochanter. The osseous structures appear otherwise intact. The joints are anatomically aligned. There are degenerative changes greatest affecting the partially visualized lumbar spine. The soft tissues appear grossly unremarkable. Procedure Note Lopez Rachel, - 01/09/2025 Exam: XR PELVIS 1 OR 2 VW Date/Time of Exam: 01/09/2025 9:55 PM Reason For Exam: Fall. Diagnosis: See Reason for Exam. Comparison: None. Findings: There is an age-indeterminate avulsion fracture involving the tip of the right greater trochanter. The osseous structures appear otherwise intact. The joints are anatomically aligned. There are degenerative changes greatest affecting the partially visualized lumbar spine. The soft tissues appear grossly unremarkable. IMPRESSION: Age-indeterminate avulsion fracture involving the right greater trochanter. us Tim Wilson MD DIAGNOSTIC IMAGING ORDER MARGARITA Final Result * XR FEMUR 2 VW RIGHT (01/09/2025 9:54 PM CDT) Anatomical Region Laterality Modality Lower Extremity Computed Radiogr aphy 01/09/2025 10:1 1 PM CDT Impressions 01/09/2025 10:39 PM CDT IMPRESSION: Age-indeterminate avulsion fracture involving the greater trochanter. Narrative 01/09/2025 10:39 PM CDT Exam: XR FEMUR 2 VW RIGHT Date/Time of Exam: 01/09/2025 9:54 PM Reason For Exam: Fall. Diagnosis: See Reason for Exam. Comparison: None. Findings: There is an age-indeterminate avulsion fracture involving the tip of the greater trochanter. The osseous structures appear otherwise intact. The joints are anatomically aligned. There are mild degenerative changes. The soft tissues appear edematous. Procedure Note Lopez Rachel, DO - 01/09/2025 Exam: XR FEMUR 2 VW RIGHT Date/Time of Exam: 01/09/2025 9:54 PM Reason For Exam: Fall. Diagnosis: See Reason for Exam. Comparison: None. Findings: There is an age-indeterminate avulsion fracture involving the tip of the greater trochanter. The osseous structures appear otherwise intact. The joints are anatomically aligned. There are mild degenerative changes. The soft tissues appear edematous. IMPRESSION: Age-indeterminate avulsion fracture involving the greater trochanter. us Tim Wilson MD DIAGNOSTIC IMAGING ORDER MARGARITA Final Result * (ABNORMAL) LIPID PANEL (10/19/2024 10:59 AM CRYPTOGRAPHER) CHOLESTEROL 131 <200 mg/dL [facility] HDL 39(L) > OR = 50 mg/dL [facility] TRIGLYCERIDE 145 <150 mg/dL [facility] LDL CALCULATED 69 mg/dL (calc) [facility] Comment: Reference range: <100 Desirable range <100 mg/dL for primary prevention; <70 mg/dL for patients with CHD or diabetic patients with > or = 2 CHD risk factors. LDL-C is now calculated using the Rufus calculation, which is a validated novel method providing better accuracy than the Friedewald equation in the estimation of LDL-C. Lele HARP et al. JENIFFER. 2013;310(19): 1572-3212 (http://education.Luxr/faq/GCP219) CHOL/HDL RATIO 3.4 <5.0 (calc) [facility] NON-HDL CHOLESTEROL 92 <130 mg/dL (calc) [facility] Comment: For patients with diabetes plus 1 major ASCVD risk factor, treating to a non-HDL-C goal of <100 mg/dL (LDL-C of <70 mg/dL) is considered a therapeutic option. Test Performed at: [facility] [place] [address] Jose Angel Phillips MD Blood 10/19/2024 10:5 9 AM CRYPTOGRAPHER 10/20/2024 5:58 AM CRYPTOGRAPHER December SENIOR [employer] OFFICER CHEMISTRY ORDERABLES Final Resul t [facility] [phone] [address] * HEMOGLOBIN A1C (09/05/2021 12:00 AM CRYPTOGRAPHER) HEMOGLOBIN A1C 5.5 <5.7 % of total Hgb [facility] Comment: For the purpose of screening for the presence of diabetes: <5.7% Consistent with the absence of diabetes 5.7-6.4% Consistent with increased risk for diabetes (prediabetes) > or =6.5% Consistent with diabetes This assay result is consistent with a decreased risk of diabetes. Currently, no consensus exists regarding use of hemoglobin A1c for diagnosis of diabetes in children. According to [place] Diabetes Association (ADA) guidelines, hemoglobin A1c <7.0% represents optimal control in non- diabetic patients. Different metrics may apply to specific patient populations. Standards of Medical Care in Diabetes(ADA). ESTIMATED AVERAGE GLUCOSE (MG/DL) 111 mg/dL [facility] ESTIMATED AVERAGE GLUCOSE (MMOL/L) 6.2 mmol/L [facility] Comment: Test Performed at: [facility] [address] [address] Zeeshan Mccoy D.O., MPH Blood 09/05/2021 09/06/2021 3:2 5 AM CRYPTOGRAPHER Franky BARRYP CHEMISTRY ORDERABLES Final Result Performing Organization Address [facility] Co de Phone Number [facility] [address] [place] [address] * (ABNORMAL) MICROALBUMIN/CREATININE RATIO, RANDOM UR (05/09/2016 1:59 PM CDT) MICROALBUMIN, URINE 322.2 mg/dL 05/09/2016 5:52 PM CDT [facility] CREATININE, URINE 123.0 29.0 - 226.0 mg/dL 05/09/2016 5:52 PM CDT [facility] Comment: Reference Range varies with fluid intake and diet. MICROALBUMIN/ CREAT RATIO, UR 2,619.5(H ) <25.0 mg/g Creatinine 05/09/2016 5:52 PM CDT [facility] Urine URINE SPECIMEN OBTAINED BY CLEAN CATCH PROCEDURE / Unknown Collection / Unknown 05/09/2016 1:59 PM CDT 05/09/2016 5:01 PM CDT Narrative [facility] - 05/09/2016 5:52 PM CDT Condition Microalbumin/Creat ratio Normal Males <17 Normal Females <25 Microalbuminuria Males 17-299 Microalbuminuria Females 25-299 Overt proteinuria >=300 Scooter Balbuena DO URINE ORDERABLES Final Result [facility] DOUGLASS# [id number] [address] [place] [address] * DIABETES EYE EXAM (02/23/2015 12:00 AM CDT) [facility] HEALTH MAINTENANCE Final Result * CERV/VAG CYTOPATH, THIN PREP W/RFLX HPV (01/17/2015 12:58 PM CDT) Pathologist [facility] THIN PREP CYTOLOGY REPORT REFLEX HPV [facility] Anatomic Pathology Dept [facility] [facility] [address] Patient: ASHLEY MONIQUE Accn No: [id number] , [id number] Collected: 01/17/2015 12:58:00 PM All cases except those with a DP prefix are performed by pathologists from [facility] at [facility]. Case type DP is performed by Dr. Carson Mcdowell, [facility], [facility], [address] [address] (CLIA #[id number]) (Ph. [phone]). THIN PREP PAP - REFLEX HPV History Specimen Type: Endocervical postmenopausal Previous Pap History: 2009 PER PT Specimen Adequacy Satisfactory for interpretation. Shows sufficient numbers of endocervical or metaplastic cells. Diagnosis NEGATIVE FOR INTRAEPITHELIAL LESION OR MALIGNANCY. (Prevously noted as Within Normal Limits). Artisan Plasterer/ JMM Pathologist: 01/24/15 Completed by: FIONA KELLOGG BSCT(ASCP) (Electronically signed by) 01/24/15 Comment Routine follow-up [...] treating physician in consultation with his/her patient. 01/24/2015 1:58 PM CDT [facility] 01/17/2015 12:5 8 PM CDT Narrative [facility] - 01/24/2015 1:58 PM CDT Tiffanie Ordered:TH Thin Prep Cytology Report Reflex HPV:# us Beba Mayers MD PATHOLOGY/CYTOLOGY ORDERABLES E dited Result - Final [facility] CLIA# [id number] [address] [place] [address] [facility] CLIA # [id number] [address] [address] * MAMMO DIAGNOSTIC BILATERAL W OR WO CAD (10/04/2014 3:55 PM CRYPTOGRAPHER) Anatomical Region Laterality Modality Breast Bilateral Other Impressions 10/05/2014 7:02 AM CRYPTOGRAPHER I suspect that the changes that I [...] letter. LISA/maxim 1538 PM - uploaded from [employer] - Narrative 10/05/2014 7:02 AM CRYPTOGRAPHER Bilateral Digital Diagnostic Mammogram and Bilateral Whole [...] by the Computer Aided Detection System (CAD), [employer], Version 8.3. Ultrasound of both breasts was performed. In the areas of historical palpable lumps, the fatty lobules have some areas of increased density within them. This is nonspecific and certainly should not be of any concern regarding malignancy. I suspect this represents some type of systemic response to one or more of her diseases and/or medications. Procedure Note Ricardo Goode MD - 01/24/2022 Bilateral Digital Diagnostic Mammogram and Bilateral Whole [...] by the Computer Aided Detection System (CAD), [employer], Version 8.3. Ultrasound of both breasts was performed. In the areas of historical palpable lumps, the fatty lobules have some areas of increased density within them. This is nonspecific and certainly should not be of any concern regarding malignancy. I suspect this represents some type of systemic response to one or more of her diseases and/or medications. IMPRESSION I suspect that the changes that I [...] letter. LISA/maxim 1538 PM - uploaded from [employer] - Scooter Balbuena DO MAMMO ORDERABLES Final Result from Last 3 Months or Most Recently Relevant to Health Maintenance [place] [address] [place] [address] MEDICARE PART A HOSPITAL ONLY RX [employer] PLANS (INTERNAL) [facility] RX [employer] (INTERNAL) [facility] RX [employer] RX Member Subscriber Plan / Payer (Ef fective for All Dates) Name:Ashley Monique Relation to Subscriber:Self Name:Ashley Monique Payer ID:Not on file Group ID:[facility] Type:RX Commercial Address: [address] Advance Directives For more information, please contact: [phone] * Full Code (Latest Code Status on File) Date Activated Date Inactivated Comments 02/20/2025 4:28 AM 02/22/2025 6:28 PM * Full Code Date Activated Date Inactivated Comments 03/05/2023 7:26 AM 03/05/2023 10:07 AM * Full Code Date Activated Date Inactivated Comments 11/09/2022 9:44 AM 11/09/2022 1:23 PM * Full Code Date Activated Date Inactivated Comments 11/09/2022 9:41 AM 11/09/2022 9:44 AM * Full Code Date Activated Date Inactivated Comments 11/09/2022 7:36 AM 11/09/2022 9:41 AM
--- OUTSIDE RECORDS SUMMARY | 2025-03-17 05:52 | XMS_ITS | Encounter Summary ---
Author Organization [facility] Address [address] [place] [address] Care Team Providers Care Emergency Department Coordinator Name Role Phone Teresita Márquez DO Primary Care Provider Encounter Details Date Type Department Care Team (Late st Contact Info) Description 11/11/2015 Ancillary Orders [address] [address] Scooter Balbuena DO [address] [place] [address] Social History Tobacco Use Types Packs/Day Years Used Date Smoking Tobacco: Former Cigarettes 1 20 0 09/09/1981 - 09/09/2001 Smokeless Tobacco: Never Alcohol Use Standard Drinks/Week Comments No 0 (1 standard drink = 0.6 oz pure alcohol) heavy usage when I was younger Comments No Sex and Gender Information Value Date Recorded Sex Assigned at Not on file Legal Sex Female 11:[address]PERVISOR Gender Identity Not on file Sexual Orientation Not on file Occupation Industry Job Start Date Job End Date Not on file Not on file Not on file Not on file documented as of this encounter Plan of Treatment Not on file documented as of this encounter Visit Diagnoses Not on filedocumented in this encounter Care Teams Emergency Department Coordinator Relationship Specialty Start Date End Date Teresita Márquez DO [address] [place] [address] PCP - General Family Practice 03/18/19 documented as of this encounter
--- NOTE | 2025-03-17 05:53 | W.ED.CHESTPA ---
HPI - Chest Pain General: Chief Complaint: Chest Pain Stated Complaint: CHEST PAIN Time Seen by Provider: 03/17/25 05:45 Source: patient and EMS Mode of arrival: EMS Limitations: no limitations History of Present Illness: 64-year-old female has a history of end-stage renal disease along with CHF states that she started having chest pain when she woke up this morning. She had some shortness of breath as well. States her chest pain since resolved per EMS patient's oxygen was in the 80s and they had placed her on 2 L oxygen she typically does not wear oxygen she receives dialysis Saturday has not missed dialysis. She denies any fever denies any cough Associated symptoms: Reports dyspnea; Deny abdominal pain, fever(s), nausea or vomiting Related Data Home Medications ?Medication ?Instructions ?Recorded ?Confirmed morphine 15 mg immediate release 15 mg PO TID PRN Pain 09/27/22 06/30/24 tablet morphine 30 mg tablet,extended 30 mg PO QID 09/27/22 06/30/24 release amlodipine 5 mg tablet 5 mg PO DAILY 01/24/24 06/30/24 coenzyme Q10 100 mg capsule (Co 100 mg PO DAILY 03/26/24 06/30/24 Q-10) ketorolac 0.5 % eye drops 2 drp ophthalmic (eye) Q6H 03/26/24 06/30/24 Previous Rx's ?Medication ?Instructions ?Recorded fluticasone propionate 50 2 spray intranasal BID #16 grams 06/25/24 mcg/actuation nasal spray,suspension (Flonase Allergy Relief) amoxicillin 875 mg-potassium 1 tab PO BID 7 days #14 tabs 06/30/24 clavulanate 125 mg tablet Allergies Allergy/AdvReac Type Severity Reaction Status Date / Time No Known Allergies Allergy Verified 06/30/24 14:33 Review of Systems Const: Denies: fever(s), chills, body aches or change in appetite ENMT: Denies: throat pain or dental pain Card: Reports: chest pain Resp: Reports: dyspnea GI: Denies: abdominal pain, nausea, vomiting or diarrhea Musc: Denies: neck pain or back pain Skin/Breast: Denies: rash Neuro: Denies: headache(s) PFSH ED PFSH: Medical History Breast cancer Hyperlipidemia Hypertension Anemia Unsteadiness on feet UTI (urinary tract infection) Altered mental status ESRD (end stage renal disease) History of blood transfusion low platelets, 08/24/22 History of stroke 2012 Heart failure with reduced ejection fraction Cardiomyopathy Degenerative joint disease (DJD) of lumbar spine CKD (chronic kidney disease) Hepatitis C Acute renal failure Surgical History History of cholecystectomy History of bilateral tubal ligation History of Family History Father Cancer lungs and spread Other ESRD (end stage renal disease) Lung disease Psychiatric illness Social History Smoking and tobacco/nicotine status: former use of tobacco/nicotine (quit 25 years prior) Quit status (tobacco/nicotine): has quit using Year quit tobacco: 2001 Former quit date comment: 25 years total use Alcohol intake: never Substance/Drug Use: never Lives independently: Yes Household members: spouse Housing: House Marital status: Number of children: 2 Current occupational status: disabled Current gender identity: Female Agree to transfusion: Yes Female Reproductive History: Para: 2 Physical Exam Const: COMMON NORMALS: no acute distress and patient oriented x3 HENMT: COMMON NORMALS: normocephalic and atraumatic HEAD & SCALP: normocephalic and atraumatic Eye: COMMON NORMALS: conjunctivae normal CONJUNCTIVA: Yes conjunctivae normal Neck/C-Spine: COMMON NORMALS: full ROM and supple Chest: COMMONS NORMALS: normal inspection of the chest Resp: COMMON NORMALS: No retractions and No use of accessory muscles AUSCULTATION: rales on the right Cardio: COMMON NORMALS: regular rate, regular rhythm and No murmurs present (Cardio) RATE: regular rate RHYTHM: regular rhythm Extremity: COMMON NORMALS: full ROM NARRATIVE EXTREMITY EXAM: 2+ edema le Neuro: COMMON NORMALS: patient oriented x3, moves all extremities and no focal motor deficits Psych: COMMON NORMALS: mental status grossly normal, Normal thought process present and cooperative THOUGHT PROCESS: Normal thought process present Skin: COMMON NORMALS: no rashes or lesions noted and no wounds GENERAL SKIN EXAM: no rashes or lesions noted Course Vital Signs: Vital signs: Vital Signs Temperature 98.0 F 03/17/25 05:43 Pulse Rate 73 03/17/25 05:43 Respiratory Rate 24 H 03/17/25 05:43 Blood Pressure 205/92 03/17/25 05:43 Pulse Oximetry 89 L 03/17/25 05:43 Oxygen Delivery Me thod Room Air 03/17/25 05:43 MDM - Chest Pain Medical Decision Making Ashley presents here with chest pain she is also shortness of breath she is requiring 2 L oxygen here she does have fluid overload along with hyperkalemia spoke to hospitalist will admit at this time likely for dialysis Medical Records I reviewed the patient's medical records. Lab Data I reviewed the patient's lab results. 03/17/25 06:21 03/17/25 06:21 Laboratory Results WBC 4.03 10^3/uL (3.29-11.43) 03/17/25 06:21 RBC 3.05 10^6/uL (3.85-5.65) L 03/17/25 06:21 Hgb 9.80 g/dL (11.27-16.99) L 03/17/25 06:21 Hct 30.8 % (36-47) L 03/17/25 06:21 MCV 101.0 fl (85-98) H 03/17/25 06:21 MCH 32.1 pg (27-33) 03/17/25 06:21 MCHC 31.8 g/dL (30-55) 03/17/25 06:21 RDW 14.9 % (12.1-15.1) 03/17/25 06:21 Plt Count 116 10^3/cmm (157-399) L 03/17/25 06:21 MPV 10.1 fL (7.4-10.4) 03/17/25 06:21 Neut % (Auto) 79.7 % 03/17/25 06:21 Lymph % (Auto) 7.4 % 03/17/25 06:21 [place] % (Auto) 6.2 % 03/17/25 06:21 Eos % (Auto) 6.0 % 03/17/25 06:21 Baso % (Auto) 0.5 % 03/17/25 06:21 Neut # (Auto) 3.21 10^3/uL (1.8-7.7) 03/17/25 06:21 Lymph # (Auto) 0.3 10^3/uL (0.8-4.8) L 03/17/25 06:21 [place] # (Auto) 0.3 10^3/uL (0.2-0.9) 03/17/25 06:21 Eos # (Auto) 0.2 10^3/uL (0.0-0.8) 03/17/25 06:21 Baso # (Auto) 0.0 10^3/uL (0.0-0.1) 03/17/25 06:21 Nucleated RBC % (auto) 0 % 03/17/25 06:21 Nucleated RBCs # 0.0 /100WBC 03/17/25 06:21 PT 13.50 SECONDS (12.1-14.9) 03/17/25 06:21 INR 0.97 (0.8-1.2) 03/17/25 06:21 Sodium 140 mmol/L (136-145) 03/17/25 06:21 Potassium 6.0 mmol/L (3.5-5.1) H 03/17/25 06:21 Chloride 99 mmol/L (98-107) 03/17/25 06:21 Carbon Dioxide 21 mmol/L (22-29) L 03/17/25 06:21 Anion Gap 26.0 (5-19) H 03/17/25 06:21 BUN 76 mg/dL (8-23) H 03/17/25 06:21 Creatinine 8.5 mg/dL (0.5-0.9) H* 03/17/25 06:21 GFR Calculation 4.8 mL/min (90-130) L 03/17/25 06:21 Glucose 89 mg/dL (65-115) 03/17/25 06:21 POC Glucose 207 mg/dL (70-110) H 03/17/25 07:50 Calculated Osmolality 312 mOsm/kg (285-295) H 03/17/25 06:21 Calcium 8.2 mg/dL (8.5-10.5) L 03/17/25 06:21 Total Bilirubin 0.4 mg/dL (0.15-1.2) 03/17/25 06:21 AST 26 U/L (0-32) 03/17/25 06:21 ALT 20 U/L (0-33) 03/17/25 06:21 Alkaline Phosphatase 210 U/L (35-105) H 03/17/25 06:21 Troponin T Baseline 113 ng/L (0-10) H* 03/17/25 06:21 NT-Pro-B Natriuret Pep > 49194 pg/mL (0-125) H 03/17/25 06:21 Total Protein 6.9 g/dL (6.6-8.7) 03/17/25 06:21 Albumin 3.9 g/dL (3.5-5.2) 03/17/25 06:21 Globulin 3.0 g/dL (1.3-4.6) 03/17/25 06:21 Lipase 58 U/L (13-60) 03/17/25 06:21 All radiology interpretation(s) finalized by discharge EKG Data EKG 1: I personally reviewed and interpreted this EKG as follows: EKG interpretation date: 03/17/25 EKG interpretation time: 05:51 Interpretation: nsr hr [address] or t wave abnormalities qrs 102 qtc 452 Discharge Plan Discharge Patient Disposition: Admitted As Inpatient Clinical Impression: Acute hyperkalemia, ESRD (end stage renal disease) on dialysis, Acute respiratory failure with hypoxia Condition: Stable Coding Level of Care Code ED Market Asset Protection Manager for Mannie Soto
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
[2025-03-17 06:58] LABS: INR 0.97 (0.8-1.2); Prothrombin Time 13.50 SECONDS (12.1-14.9)
[2025-03-17 07:01] LABS: Hematocrit 30.8 % (36-47); Hemoglobin 9.80 g/dL (11.27-16.99); Mean Corpuscular HGB Conc 31.8 g/dL (30-55); Mean Corpuscular Hemoglobin 32.1 pg (27-33); Mean Corpuscular Volume 101.0 fl (85-98); Nucleated Red Blood Cells % 0 %; Platelet Count 116 10^3/cmm (157-399); Red Blood Count 3.05 10^6/uL (3.85-5.65); White Blood Count 4.03 10^3/uL (3.29-11.43)
[2025-03-17 07:05] LABS: Troponin(5th) Baseline 113 ng/L (0-10)
[2025-03-17 07:07] LABS: Alanine Aminotransferase 20 U/L (0-33); Albumin Level 3.9 g/dL (3.5-5.2); Alkaline Phosphatase 210 U/L (35-105); Anion Gap 26.0 (5-19); Aspartate Amino Transferase 26 U/L (0-32); Blood Urea Nitrogen 76 mg/dL (8-23); Carbon Dioxide 21 mmol/L (22-29); Chloride 99 mmol/L (98-107); Creatinine Clr Calc Pharmacy 7.3925; Globulin 3.0 g/dL (1.3-4.6); Glucose 89 mg/dL (65-115); Lipase 58 U/L (13-60); Osmolality Calculated 312 mOsm/kg (285-295); Potassium 6.0 mmol/L (3.5-5.1); Sodium 140 mmol/L (136-145); Total Protein 6.9 g/dL (6.6-8.7)
[2025-03-17 07:15] LABS: Calcium 8.2 mg/dL (8.5-10.5)
--- NOTE | 2025-03-17 07:44 | ECG_ITS ---
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 Measurements Intervals [place] Rate: 67 P: 29 [place]: 192 QRS: -41 QRSD: 108 T: 73 QT: 456 QTc: 484 Interpretive Statements SINUS RHYTHM LEFT AXIS DEVIATION [QRS AXIS < -30] POSSIBLE ANTERIOR MYOCARDIAL INFARCTION , OF INDETERMINATE AGE [30 ms Q WAVE IN V3/V4, OR R < 0.2 mV IN V4] Compared to ECG 03/17/2025 05:51:10 Left-axis deviation now present Myocardial infarct finding still present Electronically Signed On 03-17-2025 20:27:25 CDT by Jane Swanson M.D. [email or web address] [id number]
[2025-03-17 07:45] LABS: NT Pro B Type Natriuretic Pept > 70000 pg/mL (0-125)
[2025-03-17] MEDS: cefTRIAXone 2,000 mg SDV 2000 MG IVP (07:59)
[2025-03-17] MEDS: AZITHROMYCIN ADD-Vantage 500 MG in 0.9% NaCl ADD-Vantage 250 ML 250 MG IV (08:01)
[2025-03-17] MEDS: insulin regular-human 100 units/1 mL 10 UNIT IVP (08:07)
[2025-03-17 08:30] LABS: Troponin 5 2HR 95.62 ng/L (0-10)
[2025-03-17 08:31] LABS: Troponin 5 2HR Delta -17.38 ABS# (0-10)
--- NOTE | 2025-03-17 08:41 | PC.PHAR ---
pATIENT HAS BOTTLES WITH HER OF SOME OF HER MEDICATIONS . PATIENT ALSO STATES THAT SHE TAKES A LOT OF SUPPLEMENTS BUT DIDN'T HAVE THE NAMES OF ALL OF THEM .
--- NOTE | 2025-03-17 09:33 | PM.HP ---
Providers/Chief Complaint Admitting Physician: Evangelist Haywood Primary Care Provider: Lopez Bateman MD Chief Complaint: CHEST PAIN History of Present Illness Ashley Miranda is a 64 year old female female with end-stage kidney disease on thrice-weekly hemodialysis (Saturday, Saturday, Saturday), hypertension, hyperlipidemia, chronic anemia, prior breast cancer, hemorrhagic stroke in 2011, congestive heart failure with reduced ejection fraction, cardiomyopathy, degenerative joint disease, hepatitis C, and a history of smoking, presenting to the ED with chest pain and longstanding shortness of breath. The chest pain began prior to EMS arrival, worsened with deep breaths, and resolved by the time of evaluation. She reports chronic leg swelling that has worsened over the past three months and feels she has been carrying extra fluid for the past month. She denies cough, sputum production, wheezing, fever, chills, sore throat, muscle aches, diarrhea, vomiting, or recent missed dialysis sessions (one session was shortened for an outpatient appointment). She is not normally on home oxygen but required 2 L NC when EMS recorded oxygen saturation in the 80s; in the ED her SpO? improved to 95 % on 2 L NC. Review of systems otherwise negative for new neurological deficits. She lives with her and daughter, does not drink alcohol, denies illicit drugs, and quit smoking long ago. Review of Systems Const: Denies: fever(s), chills, body aches or malaise Eyes: Denies: change in vision, eye discomfort or eye redness ENMT: Denies: throat pain, oral sores or ear or mastoid pain Card: Reports: chest pain (This morning, resolved spontaneously); Denies: edema, pre-syncope or dyspnea on exertion Resp: Reports: dyspnea (Progressive for a while); Denies: productive cough, change in phlegm color or hemoptysis GI: Denies: abdominal pain, nausea, vomiting, diarrhea, constipation, hematochezia or melena : Denies: flank pain, urinary frequency or hematuria Musc: Denies: back pain, joint swelling or joint redness Skin/Breast: Denies: rash or new lesions Neuro: Denies: headache(s), numbness in extremities, weakness in extremities, dizziness, confusion or seizure-like activity Endo: Denies: polyuria or polydipsia Robb/Lymph: Denies: easy bleeding or tender lymph nodes All/Imm: Denies: urticaria or tongue swelling Medications/Allergies Home Medications ?Medication ?Instructions ?Recorded ?Confirmed ?Last Taken ?Type morphine 15 mg immediate release 15 mg PO TID PRN Pain 09/27/22 03/17/25 03/16/25 History tablet morphine 30 mg tablet,extended 30 mg PO TID PAIN 09/27/22 03/17/25 06/15/24 History release coenzyme Q10 100 mg capsule (Co 100 mg PO DAILY 03/26/24 03/17/25 03/16/25 History Q-10) amlodipine 10 mg tablet 10 mg PO DAILY 03/17/25 03/17/25 03/16/25 History bumetanide 2 mg tablet 4 mg PO BID 03/17/25 03/17/25 03/16/25 History carvedilol 12.5 mg tablet 12.5 mg PO BID 03/17/25 03/17/25 03/16/25 History hydralazine 100 mg tablet 100 mg PO BID 03/17/25 03/17/25 03/16/25 History losartan 100 mg tablet 100 mg PO DAILY 03/17/25 03/17/25 03/16/25 History Allergies Allergy/AdvReac Type Severity Reaction Status Date / Time No Known Allergies Allergy Verified 06/30/24 14:33 PFSH Acute PFSH: Medical History Breast cancer Hyperlipidemia Hypertension Anemia Unsteadiness on feet UTI (urinary tract infection) Altered mental status ESRD (end stage renal disease) History of blood transfusion low platelets, 08/24/22 History of stroke 2012 Heart failure with reduced ejection fraction Cardiomyopathy Degenerative joint disease (DJD) of lumbar spine CKD (chronic kidney disease) Hepatitis C Acute renal failure Surgical History History of cholecystectomy History of bilateral tubal ligation History of Family History Father Cancer lungs and spread Other ESRD (end stage renal disease) Lung disease Psychiatric illness Social History Smoking and tobacco/nicotine status: former use of tobacco/nicotine (quit 25 years prior) Quit status (tobacco/nicotine): has quit using Year quit tobacco: 2001 Former quit date comment: 25 years total use Alcohol intake: never Substance/Drug Use: never Lives independently: Yes Household members: spouse Housing: House Marital status: Number of children: 2 Current occupational status: disabled Current gender identity: Female Agree to transfusion: Yes Female Reproductive History: Para: 2 Vitals/I&O/Wt Last Vital Signs Temp 98.0 F 03/17/25 05:43 Pulse 73 03/17/25 09:05 Resp 25 H 03/17/25 09:05 BP 155/82 03/17/25 09:05 Pulse Ox 93 03/17/25 09:05 O2 Del Method Nasal Cannula 03/17/25 07:09 O2 Flow Rate 2 03/17/25 07:09 03/16/25 03/17/25 03/17/25 22:59 06:59 14:59 Intake Total 250 / 250 Balance 250 / 250 Weight last 48 hrs Weight 81.647 kg Physical Exam Narrative: Accompanied by her daughter Const: COMMON NORMALS: patient oriented x3 and alert GENERAL APPEARANCE: cooperative ORIENTATION/CONSCIOUSNESS: Yes awake HENMT: COMMON NORMALS: oropharynx normal Neck/C-Spine: COMMON NORMALS: no JVD Resp: COMMON NORMALS: normal respiratory effort and clear to auscultation bilaterally AUSCULTATION: clear to auscultation bilaterally Cardio: COMMON NORMALS: no JVD, regular rhythm, S1 normal heart sound present, S2 normal heart sound present and No murmurs present (Cardio) RHYTHM: regular rhythm HEART SOUNDS: S1 normal heart sound present and S2 normal heart sound present GI: COMMON NORMALS: Normal to inspection, nondistended, normoactive bowel sounds present, Soft to palpation and non-tender PALPATION: Yes Soft to palpation Extremity: COMMON NORMALS: no joint enlargement GENERAL: Yes edema (2-3+ BLLE) Neuro: COMMON NORMALS: patient oriented x3 and moves all extremities SENSORIUM/ORIENTATION: Yes alert Skin: COMMON NORMALS: no rashes or lesions noted GENERAL SKIN EXAM: no rashes or lesions noted Data 03/17/25 06:21 03/17/25 06:21 Micro: Microbiology 03/17/25 07:34 Blood Culture - Preliminary Blood SPECIMEN COLLECTED 03/17/25 07:34 Blood Culture - Preliminary Blood SPECIMEN COLLECTED A&P Assessment and plan 1. Heart failure with reduced ejection fraction: With dyspnea, new hypoxia, elevated NT proBNP, although difficult to interpret in the setting of ESRD, but is definitely higher than priors. Her dialysis was cut short on Saturday she states due to appointment with primary provider. She is having peripheral edema. Noted small right pleural effusion. Cardiac enlargement on chest x-ray. She received a dose of ceftriaxone and azithromycin in ED, although otherwise without signs of pneumonia, no infiltrate or consolidation above the pleural effusion, she denies cough, phlegm production. She has no leukocytosis, and is afebrile. Will not continue to biotics at this time. Will check TSH. Complete troponin EKG series. She did have an episode of chest pain. Decompensation may be in part due to very elevated blood pressures with possible hypertensive urgency although chest pain has since spontaneously resolved. Monitor on telemetry. She takes Bumex at home will continue Bumex switched over to IV 4 mg twice daily. Communicated with nephrology regarding consultation for dialysis. Discussed with her and her daughter will further assess with echocardiogram. Reassess electrolytes with risk of electro abnormality. Reviewed INR, chemistry, troponin, EKG, chest x-ray, ED provider note, discussed with ED provider. 2. Hypoxia: New hypoxia, not normally on oxygen, suspected as above secondary to acute diastolic congestive heart failure. She is not tachycardic, although is on carvedilol at home. Will obtain lower extremity duplex ultrasound, consider further assessment with CTA. D-dimer unfortunately would not be useful given ESRD. Monitor telemetry. Obtain echo. 3. Troponin level elevated: Complete troponin EKG series. Obtain echo. Transient chest pain. Possible demand ischemia with noted chronic elevation of troponin in the setting of ESRD, currently with uncontrolled hypertension, possible hypertensive urgency. Just notified blood pressure up to 220 just now while arriving to the floor. Will give hydralazine IV 5 mg once in per discussion with nursing staff may repeat or increase the dose. Monitor on telemetry. Will give aspirin. Continue beta-janeen. No benefit of statin. She will subsequently benefit from further risk stratification with stress testing once volume optimized. 4. Chest pain: As above. Possibly secondary to hypertensive urgency, assess for possible NSTEMI. Treat acute CHF. 5. Uncontrolled hypertension: Possible hypertensive urgency, blood pressure elevated on presentation, transient chest pain, acute CHF. Additionally blood pressure with further rise to 220 systolic currently. Hydralazine push 5 mg IV, monitor for risk of hypotension with ESRD. Resume home medications. Monitor telemetry. Further assess with TTE. Plan: - End-stage kidney disease on hemodialysis: MWCalixto, communicated with nephrology consultation request. Will need dialysis today. Review of chemistry noted hyperkalemia of 6. Continue renal dialysis diet. Monitor on telemetry. Anticipated dialysis. Reassess electrolytes. - Hyperlipidemia - Chronic anemia (CKD-related): Hemoglobin noted 9.8. Some chronic numbers of the pi?a, platelets 116. - Congestive heart failure with reduced ejection fraction / cardiomyopathy. Last echocardiogram reviewed in March 2024 with EF 50-55%. Mild MVR. This is an improvement from prior EF 25-30% back in 2022. - Breast cancer (history) - Hemorrhagic stroke (2011) - Degenerative joint disease: On oral morphine at home, continue. - Hepatitis C status posttreatment PDMP PDMP Reviewed: Not Reviewed Attestations Medical Necessity Statement*: Admission over 2 midnights anticipated for assessment management of acute diastolic congestive heart failure, hypertensive urgency, troponin elevation, further assessment for type I versus type II NE, and lady with underlying ESRD on dialysis and additional comorbidities. and High MDM includes amount and/or complexity of data reviewed/ordered [ previous or external records, resulted lab(s)/test(s), ordered lab(s)/test(s) and other healthcare professional discussion] and described risk of complication, morbidity or mortality of management as documented Diagnoses Heart failure with reduced ejection fraction I50.20 Hypoxia R09.02 Troponin level elevated R79.89 Chest pain R07.9 Uncontrolled hypertension I10
[2025-03-17 12:56] LABS: Troponin 5 6HR 98.82 ng/L (0-10); Troponin 5 6HR Delta -14.18 ng/L (0-12)
--- NOTE | 2025-03-17 13:55 | PC.NURSE ---
This nurse assumed care of pt at this time.
--- NOTE | 2025-03-17 14:30 | PC.NURSE ---
Patient refuses any vaccinations.
--- NOTE | 2025-03-17 14:30 | ECG_ITS ---
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 Measurements Intervals [place] Rate: 67 P: 34 [place]: 206 QRS: -27 QRSD: 109 T: 64 QT: 453 QTc: 478 Interpretive Statements SINUS RHYTHM POSSIBLE ANTERIOR MYOCARDIAL INFARCTION , PROBABLY OLD [30 ms Q WAVE IN V3/V4, OR R < 0.2 mV IN V4] Compared to ECG 03/17/2025 07:44:36 Left-axis deviation no longer present Myocardial infarct finding still present Electronically Signed On 03-17-2025 20:24:27 CDT by Jane Swanson M.D. [id number]
[2025-03-17] MEDS: bumetanide 0.25 mg/mL SDV 10 mL 4 MG IVP (14:38)
[2025-03-17] MEDS: hyDRALAzine 20 mg/mL INJ 1 mL 5 MG IVP (14:45)
[2025-03-17 14:56] LABS: Thyroid Stimulating Hormone 4.73 uIU/mL (0.27-4.20)
--- NOTE | 2025-03-17 15:45 | PM.CONSULT ---
Providers/Reason For Consult Consulting Physician/Specialty*: kommana/Nephrology Reason for Consult*: ESRD Attending Physician: Evangelist Haywood Primary Care Provider: Lopez Bateman MD History of Present Illness History of Present Illness Ashley Miranda is a 64 year old female with With past medical history of end-stage renal disease on dialysis per Saturday schedule, hyperlipidemia, chronic anemia prior breast cancer, hemorrhagic stroke, CHF, presented to the emergency department due to shortness of breath and chest pain. Patient was noted to be hypoxic. Lab data reviewed. Patient has hyperkalemia with a potassium of 6 and metabolic acidosis with a bicarbonate level of 21. Hemoglobin was 9.8. Review of Systems Narrative: Other review of systems negative Medications/Allergies Home Medications ?Medication ?Instructions ?Recorded ?Confirmed ?Last Taken ?Type morphine 15 mg immediate release 15 mg PO TID PRN Pain 09/27/22 03/17/25 03/16/25 History tablet morphine 30 mg tablet,extended 30 mg PO TID PAIN 09/27/22 03/17/25 06/15/24 History release coenzyme Q10 100 mg capsule (Co 100 mg PO DAILY 03/26/24 03/17/25 03/16/25 History Q-10) amlodipine 10 mg tablet 10 mg PO DAILY 03/17/25 03/17/25 03/16/25 History bumetanide 2 mg tablet 4 mg PO BID 03/17/25 03/17/25 03/16/25 History carvedilol 12.5 mg tablet 12.5 mg PO BID 03/17/25 03/17/25 03/16/25 History hydralazine 100 mg tablet 100 mg PO BID 03/17/25 03/17/25 03/16/25 History losartan 100 mg tablet 100 mg PO DAILY 03/17/25 03/17/25 03/16/25 History Allergies Allergy/AdvReac Type Severity Reaction Status Date / Time Alpha-Gal Allergy ALGY-Rash Verified 03/17/25 18:34 ([id number]-9,3-Gala Current Medications Generic Name Dose Route Start Last Admin Trade Name Freq PRN Reason Stop Dose Admin Amlodipine Besylate 10 mg 03/17/25 14:04 03/17/25 14:38 Amlodipine 10 Mg Tablet PO 10 mg DAILY LOREN Administration Aspirin 325 mg 03/17/25 14:45 03/17/25 14:53 Aspirin 325 Mg Tablet PO 325 mg DAILY LOREN Administration Bumetanide 4 mg 03/17/25 14:15 03/17/25 14:38 Bumetanide 0.25 Mg/Ml Sdv 10 Ml IVP 4 mg Q12H LOREN Administration Ceftriaxone Sodium 2,000 mg 03/17/25 07:30 03/17/25 07:59 Ceftriaxone 2,000 Mg Sdv IVP 2,000 mg Q24H LOREN Administration Protocol Enoxaparin Sodium 30 mg 03/17/25 14:19 03/17/25 14:38 Enoxaparin 30 Mg/0.3 Ml Syringe SUBCUT 30 mg Q24H LOREN Administration PFSH Acute PFSH: Medical History (Updated 03/18/25 @ 14:58 by Caroline Chi MD) ESRD (end stage renal disease) Breast cancer Hyperlipidemia Hypertension Anemia Unsteadiness on feet UTI (urinary tract infection) Altered mental status History of blood transfusion low platelets, 08/24/22 History of stroke 2012 Heart failure with reduced ejection fraction Cardiomyopathy Degenerative joint disease (DJD) of lumbar spine CKD (chronic kidney disease) Hepatitis C Acute renal failure Surgical History History of cholecystectomy History of bilateral tubal ligation History of Family History Father Cancer lungs and spread Other ESRD (end stage renal disease) Lung disease Psychiatric illness Social History Smoking and tobacco/nicotine status: former use of tobacco/nicotine (quit 25 years prior) Quit status (tobacco/nicotine): has quit using Year quit tobacco: 2001 Former quit date comment: 25 years total use Alcohol intake: never Substance/Drug Use: never Lives independently: Yes Household members: spouse Housing: House Marital status: Number of children: 2 Current occupational status: disabled Current gender identity: Female Agree to transfusion: Yes Female Reproductive History: Para: 2 Vitals/I&O/Wt Last Vital Signs Temp 97.6 F 03/17/25 14:45 Pulse 73 03/17/25 14:45 Resp 20 H 03/17/25 14:45 BP 224/99 03/17/25 14:45 Pulse Ox 92 03/17/25 14:45 O2 Del Method Room Air 03/17/25 14:45 O2 Flow Rate 2 03/17/25 07:09 03/17/25 03/17/25 03/17/25 06:59 14:59 22:59 Intake Total 750 / 750 Balance 750 / 750 Weight last 48 hrs Weight 81.647 kg Physical Exam Narrative: Patient is awake alert, no distress,Noticed, PERRLA S1-S2 regular rate and rhythm per report Lungs clear per report Abdomen soft nontender per report No pedal edema Data 03/18/25 04:25 03/18/25 04:25 Micro: Microbiology 03/17/25 07:34 Blood Culture - Preliminary Blood SPECIMEN COLLECTED 03/17/25 07:34 Blood Culture - Preliminary Blood SPECIMEN COLLECTED A&P Assessment and plan 1. ESRD (end stage renal disease) on dialysis: 1. End-stage renal disease: On MWF schedule, HD today and UF as tolerated 2. Hyperkalemia:Two.Hyperkalemia HD on a load with dialysate and low potassium diet 3. Acute on chronic respiratory failure with volume overload, ultrafiltration as above 4Anemia:, SEAN with HD Patient evaluated using audiovisual cart. Time spent 40 minutes. PDMP PDMP Reviewed: Not Reviewed Consult Attestations Medical Necessity Statement: per medicine tem Coding Level of Care Code Acute Code for Chg Fwd Diagnoses ESRD (end stage renal disease) on dialysis N18.6; Z99.2
[2025-03-17 16:20] LABS: Hepatitis B Surface Antigen Non-Reactive (Nonreactive)
--- NOTE | 2025-03-17 17:56 | PC.NURSE ---
1800 meds not given on this shift due to pt being in dialysis. Will need to see what BP goes to before administering BP meds. This nurse will pass this along to night nurse coming on so they can be administered on their shift if needed.
--- NOTE | 2025-03-17 21:25 | PC.NURSE ---
pt back in room from Dialysis
[2025-03-17] MEDS: hyDRALAzine 20 mg/mL INJ 1 mL 10 MG IVP (22:34)
[2025-03-18] VITALS (12 sets, daily range): BP systolic 138–197; BP diastolic 59–93; PULSE 61–80; RESP 16–18; TEMP 36.4–36.8; O2SAT 90–98
--- NOTE | 2025-03-18 00:21 | PC.NURSE ---
around 2200 pt refused venous doppler stating that she just had one two weeks ago, also refused echo stating she is anxious and requested anxiety med and stated maybe in the morning she will be better for echo. offer opened that if pt anxiety subside some before morning and willing have echo done, ultra sound tech is available. Dr. Pruett notified of pt anxiety along with high BP. new orders received. 03/18/25 @ 0000, pt Bp remains up, Dr. Pruett notified and new order received. pt has been sitting on side of the bed falling asleep bending dangerously forward. Nurse educated pt about the danger of sleeping in that position and high risk pt is going to fall forward face first. recliner in the room and that is offered to pt. patient refused and irritably stated no I won't, this is how I sleep .
[2025-03-18] MEDS: bumetanide 0.25 mg/mL SDV 10 mL 4 MG IVP ×2 (01:29→13:29)
[2025-03-18] MEDS: hyDRALAzine 20 mg/mL INJ 1 mL 10 MG IVP ×2 (02:53→20:04)
[2025-03-18 05:02] LABS: Hematocrit 29.9 % (36-47); Hemoglobin 9.20 g/dL (11.27-16.99); Mean Corpuscular HGB Conc 30.8 g/dL (30-55); Mean Corpuscular Hemoglobin 32.7 pg (27-33); Mean Corpuscular Volume 106.4 fl (85-98); Nucleated Red Blood Cells % 0 %; Platelet Count 104 10^3/cmm (157-399); Red Blood Count 2.81 10^6/uL (3.85-5.65); White Blood Count 2.96 10^3/uL (3.29-11.43)
[2025-03-18 05:22] LABS: Alanine Aminotransferase 14 U/L (0-33); Albumin Level 3.3 g/dL (3.5-5.2); Alkaline Phosphatase 173 U/L (35-105); Anion Gap 21.4 (5-19); Aspartate Amino Transferase 18 U/L (0-32); Blood Urea Nitrogen 47 mg/dL (8-23); Calcium 7.9 mg/dL (8.5-10.5); Carbon Dioxide 24 mmol/L (22-29); Chloride 98 mmol/L (98-107); Creatinine Clr Calc Pharmacy 10.8324; Globulin 3.1 g/dL (1.3-4.6); Glucose 84 mg/dL (65-115); Osmolality Calculated 299 mOsm/kg (285-295); Potassium 4.4 mmol/L (3.5-5.1); Sodium 139 mmol/L (136-145); Total Protein 6.4 g/dL (6.6-8.7)
--- NOTE | 2025-03-18 13:48 | USCV_ITS ---
Ashley Miranda Age: 64 Gender: F : 1960 Exam Date: 03/18/2025 15:54 Ordering Phys: Evangelist Haywood MD Technologist: ANDRÉS Exam Location: [facility] [place] Indication: chf BP: 190 / 90 HR: 61 Rhythm: Sinus Technical Quality: Adequate MEASUREMENTS (Male / Female) Normal Values 2D ECHO LV Diastolic Diameter PLAX 5.9 cm 4.2 - 5.9 / 3.9 - 5.3 cm IVS Diastolic Thickness 1.7 cm 0.6 - 1.0 / 0.6 - 0.9 cm LVPW Diastolic Thickness 1.1 cm 0.6 - 1.0 / 0.6 - 0.9 cm LVPW Systolic Thickness 1.8 cm LVOT Diameter 2.1 cm LV Ejection Fraction MOD 4C 56.0 % LV Ejection Fraction MOD 2C 57.8 % LV Ejection Fraction 2C AL 55.7 % LA Diameter 4.8 cm RA Systolic Volume 4C AL 74.6 ml RA Systolic Volume 4C MOD 69.6 ml LA Sys Volume AL 113.4 cm cubed LA Sys Volume Index AL 54.5 cm cubed/m squared Aorta at Sinotubular Diameter 2.8 cm IVC Diameter 2.6 cm M-MODE LA Ao Ratio MM 1.9 AV Cusp Separation MM 2.0 cm DOPPLER AV Peak Velocity 200.0 cm/s LVOT Peak Velocity 130.0 cm/s AV Area Cont Eq vti 2.5 cm squared AV Area Cont Eq pk 2.2 cm squared MV Peak Velocity 175.0 cm/s MV Area PHT 3.4 cm squared Mitral E to A Ratio 0.9 TV Peak E Velocity 89.0 cm/s PV Peak Velocity 167.0 cm/s FINDINGS Left Ventricle Normal left ventricular size and systolic function, EF 56%. Regional wall motion abnormalities (see diagram). Grade I/IV diastolic dysfunction (abnormal relaxation filling pattern), normal to mildly elevated filling pressures. Right Ventricle Normal right ventricular size and systolic function. Right Atrium Normal right atrial size. Left Atrium Mildly increased left atrial size. Mitral Valve Thickened mitral valve. Moderate mitral annular calcification. Aortic Valve Features of aortic valve sclerosis Tricuspid Valve Trace tricuspid valve regurgitation. Pulmonic Valve Structurally normal pulmonic valve. Pericardium Normal pericardium without effusion. Aorta Normal aortic annulus size. IVC Normal inferior vena cava. CONCLUSIONS Normal left ventricular size and systolic function, EF 56%. Regional wall motion abnormalities (see diagram). Grade I/IV diastolic dysfunction (abnormal relaxation filling pattern), normal to mildly elevated filling pressures. Mildly increased left atrial size. Thickened mitral valve. Moderate mitral annular calcification. Trace tricuspid valve regurgitation. Estimated pulmonary artery peak systolic pressure 37 mmHg Features of aortic valve sclerosis There are no intracardiac masses. There is no pericardial effusion. Compared to the study from 03/26/2024, there may not be a significant change Dr Jane Swanson MD [facility] (Electronically Signed) Final Date: 18 March 2025 17:23 S
--- NOTE | 2025-03-18 14:20 | P.PN_ITS ---
Subjective 2 Subjective: She is not feeling great today. Reports pain in her back bothering her. But no recurrence of chest pain. No trouble breathing, although still requiring nasal cannula oxygen. Vitals/I&O/Wt Last Vital Signs Temp 98.0 F 03/18/25 11:35 Pulse 61 03/18/25 11:35 Resp 17 03/18/25 11:35 BP 171/80 03/18/25 11:35 Pulse Ox 92 03/18/25 11:35 O2 Del Method Room Air 03/18/25 11:35 O2 Flow Rate 16 03/18/25 08:00 03/17/25 03/18/25 03/18/25 22:59 06:59 14:59 Intake Total 300 / 1050 118 / 118 Output Total 2800 / 2800 Balance -2500 / -1750 118 / 118 Weight last 48 hrs Weight 90.446 kg Weight 93 kg Weight 81.647 kg Weight 81.647 kg Physical Exam 2 Narrative: Accompanied by her daughter Const: COMMON NORMALS: patient oriented x3 and alert GENERAL APPEARANCE: c ooperative ORIENTATION/CONSCIOUSNESS: Yes awake HENMT: COMMON NORMALS: oropharynx normal Neck/C-Spine: COMMON NORMALS: no JVD Resp: COMMON NORMALS: normal respiratory effort and clear to auscultation bilaterally AUSCULTATION: clear to auscultation bilaterally Cardio: COMMON NORMALS: no JVD, regular rhythm, S1 normal heart sound present, S2 normal heart sound present and No murmurs present (Cardio) RHYTHM: regular rhythm HEART SOUNDS: S1 normal heart sound present and S2 normal heart sound present GI: COMMON NORMALS: Normal to inspection, nondistended, normoactive bowel sounds present, Soft to palpation and non-tender PALPATION: Yes Soft to palpation Extremity: COMMON NORMALS: no joint enlargement GENERAL: Yes edema (2-3+ BLLE) Neuro: COMMON NORMALS: patient oriented x3 and moves all extremities S ENSORIUM/ORIENTATION: Yes alert Skin: COMMON NORMALS: no rashes or lesions noted GENERAL SKIN EXAM: no rashes or lesions noted Data 03/18/25 04:25 03/18/25 04:25 Micro: Microbiology 03/17/25 07:34 Blood Culture - Preliminary Blood NEGATIVE TO DATE 03/17/25 07:34 Blood Culture - Preliminary Blood NEGATIVE TO DATE A&P Assessment and plan 1. Heart failure with reduced ejection fraction: Reviewed vitals, intake and output, and negative balance -2.38 L. Yesterday had dialysis with removal of 2.5 L. Breathing is gradually improving. Still requiring 2 and half liters nasal cannula oxygen today. No recurrence of chest pain. Echocardiogram noted is not yet taken. Reviewed chemistry. Continues on IV diuretic. Monitor intake and output. Reassess electrolytes. Reviewed nephrology note. 2. Hypoxia: Continue oxygen support, wean down as tolerating. Noted lower extremity duplex ultrasound is not yet taken. Reviewed CBC, chemistry. Reviewed blood culture. New hypoxia, not normally on oxygen, suspected as above secondary to acute diastolic congestive heart failure. She is not tachycardic, although is on carvedilol at home. Will obtain lower extremity duplex ultrasound, consider further assessment with CTA. D-dimer unfortunately would not be useful given ESRD. Monitor telemetry. Pending echo. 3. Troponin level elevated: Reviewed troponin EKG series. Noted relatively flat troponin trend at 2 and 6 hours. Pending echo. Transient chest pain. Possible demand ischemia with noted chronic elevation of troponin in the setting of ESRD, currently with uncontrolled hypertension, possible hypertensive urgency. Blood pressure overall better, 138/59 this morning, although again 171/80 in the afternoon. Continue aspirin. Continue beta-janeen. No benefit of statin. She will subsequently benefit from further risk stratification with stress testing once volume optimized. 4. Chest pain: As above. Possibly secondary to hypertensive urgency, assess for possible NSTEMI. Treat acute CHF. 5. Uncontrolled hypertension: Overall with improvement, but further rise in blood pressure today up to 171/80. Did receive clonidine overnight and seemingly with good response. Will continue. Monitor for risk of hypotension, bradycardia. Hydralazine IV as needed as needed for blood pressure spikes. Possible hypertensive urgency, blood pressure elevated on presentation, transient chest pain, acute CHF. Additionally blood pressure with further rise to 220 systolic on admission. Monitor telemetry. Further assess with TTE. Plan: - End-stage kidney disease on hemodialysis: ESDRAS, communicated with nephrology consultation request. Continue hemodialysis. Review of chemistry noted hyperkalemia of 6. Continue renal dialysis diet. Monitor on telemetry. Anticipated dialysis. Reassess electrolytes. - Hyperlipidemia - Chronic anemia (CKD-related): Hemoglobin noted 9.8. Some chronic numbers of the pi?a, platelets 116. - Congestive heart failure with reduced ejection fraction / cardiomyopathy. Last echocardiogram reviewed in March 2024 with EF 50-55%. Mild MVR. This is an improvement from prior EF 25-30% back in 2022. - Breast cancer (history) - Hemorrhagic stroke (2011) - Degenerative joint disease: On oral morphine at home, continue. - Hepatitis C status posttreatment PDMP PDMP Reviewed: Not Reviewed Attestations 2 Medical Necessity Statement*: Continue admission for assessment management of acute congestive heart failure in a lady with ESRD, evaluation after chest pain with troponin elevation, optimization of control of hypertension. and High MDM includes amount and/or complexity of data reviewed/ordered [ resulted lab(s)/test(s), ordered lab(s)/test(s) and other healthcare professional discussion] and described risk of complication, morbidity or mortality of management as documented Diagnoses Heart failure with reduced ejection fraction I50.20 Hypoxia R09.02 Troponin level elevated R79.89 Chest pain R07.9 Uncontrolled hypertension I10
--- NOTE | 2025-03-18 14:26 | USR_ITS ---
PROCEDURE INFORMATION: Exam: US Duplex Lower Extremity Veins, Bilateral Exam date and time: 03/18/2025 4:54 PM Age: 64 years old Clinical indication: Screening exam; Assess for dvt TECHNIQUE: Imaging protocol: Real-time duplex ultrasound of the bilateral extremities with 2-D mcconnell scale, color Doppler flow and spectral waveform analysis including responses to compression and other maneuvers (when performed) with image documentation. Complete exam focused on the lower extremity veins. COMPARISON: US soft tissue/extremity [id number] 04/08/2024 11:21 AM FINDINGS: Right deep veins: Unremarkable. The common femoral, femoral, proximal profunda femoral, popliteal, posterior tibial and peroneal veins are patent without thrombus. Normal Doppler waveforms. Normal compressibility and/or augmentation response. Left deep veins: Unremarkable. The common femoral, femoral, proximal profunda femoral, popliteal, posterior tibial and peroneal veins are patent without thrombus. Normal Doppler waveforms. Normal compressibility and/or augmentation response. Superficial veins: Greater saphenous veins at the saphenofemoral junctions are patent bilaterally without thrombus. Lymph nodes: 3.3 x 3.1 x 1.2 cm ovoid, heterogeneous lesion in the right groin, likely an enlarged lymph node. Soft tissues: Subcutaneous edema in the calf. US/[place] [id number] IMPRESSION: 1. No sonographic evidence of deep venous thrombosis. 2. 3.3 x 3.1 x 1.2 cm ovoid, heterogeneous lesion in the right groin, likely an enlarged lymph node.
--- NOTE | 2025-03-18 15:01 | P.PN_ITS ---
Subjective 2 Subjective: on 2l nc Medications: Reviewed: Yes Vitals/I&O/Wt Last Vital Signs Temp 98.0 F 03/18/25 11:35 Pulse 61 03/18/25 11:35 Resp 17 03/18/25 11:35 BP 171/80 03/18/25 11:35 Pulse Ox 92 03/18/25 11:35 O2 Del Method Room Air 03/18/25 11:35 O2 Flow Rate 16 03/18/25 08:00 03/18/25 03/18/25 03/18/25 06:59 14:59 22:59 Intake Total 118 / 118 Balance 118 / 118 Weight last 48 hrs Weight 90.446 kg Weight 93 kg Weight 81.647 kg Weight 81.647 kg Physical Exam 2 Narrative: Patient is awake alert, no distress,Noticed, PERRLA S1-S2 regular rate and rhythm per report Lungs clear per report Abdomen soft nontender per report No pedal edema Data 03/18/25 04:25 03/18/25 04:25 Micro: Microbiology 03/17/25 07:34 Blood Culture - Preliminary Blood NEGATIVE TO DATE 03/17/25 07:34 Blood Culture - Preliminary Blood NEGATIVE TO DATE A&P Assessment and plan 1. ESRD (end stage renal disease) on dialysis: 1. End-stage renal disease: On MWF schedule, 2. Hyperkalemia:Two.Hyperkalemia HD on a load with dialysate and low potassium diet 3. Acute on chronic respiratory failure with volume overload, ultrafiltration as above 4Anemia:, SEAN with HD Patient evaluated using audiovisual cart. Time spent 40 minutes. PDMP PDMP Reviewed: Not Reviewed Attestations 2 Medical Necessity Statement*: per danny Coding Level of Care Code Acute Code for Chg Fwd Diagnoses ESRD (end stage renal disease) on dialysis N18.6; Z99.2
[2025-03-19] VITALS (11 sets, daily range): BP systolic 132–197; BP diastolic 62–88; PULSE 58–82; RESP 15–18; TEMP 36.5–36.8; O2SAT 87–94
[2025-03-19] MEDS: hyDRALAzine 20 mg/mL INJ 1 mL 10 MG IVP (00:54)
[2025-03-19] MEDS: bumetanide 0.25 mg/mL SDV 10 mL 4 MG IVP ×2 (02:00→14:19)
[2025-03-19 04:41] LABS: Hematocrit 31.1 % (36-47); Hemoglobin 9.60 g/dL (11.27-16.99); Mean Corpuscular HGB Conc 30.9 g/dL (30-55); Mean Corpuscular Hemoglobin 32.3 pg (27-33); Mean Corpuscular Volume 104.7 fl (85-98); Nucleated Red Blood Cells % 0 %; Platelet Count 110 10^3/cmm (157-399); Red Blood Count 2.97 10^6/uL (3.85-5.65); White Blood Count 2.19 10^3/uL (3.29-11.43)
[2025-03-19 05:07] LABS: Alanine Aminotransferase 14 U/L (0-33); Albumin Level 3.5 g/dL (3.5-5.2); Alkaline Phosphatase 168 U/L (35-105); Anion Gap 20.4 (5-19); Aspartate Amino Transferase 13 U/L (0-32); Blood Urea Nitrogen 65 mg/dL (8-23); Calcium 7.6 mg/dL (8.5-10.5); Carbon Dioxide 24 mmol/L (22-29); Chloride 99 mmol/L (98-107); Creatinine Clr Calc Pharmacy 8.5815; Globulin 3.2 g/dL (1.3-4.6); Glucose 89 mg/dL (65-115); Osmolality Calculated 304 mOsm/kg (285-295); Potassium 5.4 mmol/L (3.5-5.1); Sodium 138 mmol/L (136-145); Total Protein 6.7 g/dL (6.6-8.7)
[2025-03-19 05:08] LABS: Magnesium 2.6 mg/dL (1.7-2.3)
[2025-03-19 09:32] LABS: LAB Peripheral Smear Sent for Review
--- NOTE | 2025-03-19 11:27 | PC.SOCIAL ---
IMM Updated Updated pt on IMM. No questions voiced. Provided pt a copy. Initialed, dated, & timed a copy & placed in chart.
[2025-03-19] MEDS: heparin, porcine 1,000 unit/mL INJ 10 mL 1000 UNIT IV (11:36)
--- NOTE | 2025-03-19 12:14 | P.PN_ITS ---
Subjective 2 Subjective: no new c/o Medications: Reviewed: Yes Vitals/I&O/Wt Last Vital Signs Temp 97.7 F 03/19/25 11:14 Pulse 66 03/19/25 11:14 Resp 18 03/19/25 11:14 BP 147/62 03/19/25 11:14 Pulse Ox 90 03/19/25 07:50 O2 Del Method Room Air 03/19/25 07:50 O2 Flow Rate 16 03/18/25 08:00 Weight last 48 hrs Weight 90.463 kg Weight 90.446 kg Weight 93 kg Weight 81.647 kg Physical Exam 2 Narrative: Patient is awake alert, no distress,Noticed, PERRLA S1-S2 regular rate and rhythm per report Lungs clear per report Abdomen soft nontender per report No pedal edema Data 03/19/25 04:16 03/19/25 04:16 Micro: Microbiology 03/17/25 07:34 Blood Culture - Preliminary Blood NEGATIVE TO DATE 03/17/25 07:34 Blood Culture - Preliminary Blood NEGATIVE TO DATE A&P Assessment and plan 1. ESRD (end stage renal disease) on dialysis: 1. End-stage renal disease: On MWF schedule, 2. Hyperkalemia.use low k dialysate and low potassium diet 3. Acute on chronic respiratory failure with volume overload, ultrafiltration as above 4Anemia:, SEAN with HD Patient evaluated using audiovisual cart. Time spent 40 minutes. Plan: per medicinen PDMP PDMP Reviewed: Not Reviewed Attestations 2 Medical Necessity Statement*: per medicne Coding Level of Care Code Acute Code for Chg Fwd Diagnoses ESRD (end stage renal disease) on dialysis N18.6; Z99.2
--- NOTE | 2025-03-19 13:01 | PM.DCS ---
Discharge Providers Date of Admission: 03/17/25 08:06 Date of Discharge: March 19, 2025 Attending Provider at Admission: Evangelist Haywood Attending Provider at Discharge: Evangelist Haywood Primary Care Provider: Lopez Bateman MD Diagnoses at Discharge Discharge Diagnosis 1. ESRD (end stage renal disease) on dialysis: Reason for Visit Reason for Visit: CHEST PAIN Brief History: Ashley Miranda is a 64 year old female female with end-stage kidney disease on thrice-weekly hemodialysis (Saturday, Saturday, Saturday), hypertension, hyperlipidemia, chronic anemia, prior breast cancer, hemorrhagic stroke in 2011, congestive heart failure with reduced ejection fraction, cardiomyopathy, degenerative joint disease, hepatitis C, and a history of smoking, presenting to the ED with chest pain and longstanding shortness of breath. The chest pain began prior to EMS arrival, worsened with deep breaths, and resolved by the time of evaluation. She reports chronic leg swelling that has worsened over the past three months and feels she has been carrying extra fluid for the past month. She denies cough, sputum production, wheezing, fever, chills, sore throat, muscle aches, diarrhea, vomiting, or recent missed dialysis sessions (one session was shortened for an outpatient appointment). She is not normally on home oxygen but required 2 L NC when EMS recorded oxygen saturation in the 80s; in the ED her SpO? improved to 95 % on 2 L NC. Review of systems otherwise negative for new neurological deficits. She lives with her and daughter, does not drink alcohol, denies illicit drugs, and quit smoking long ago. Hospital Course Hospital Course She received treatment with IV diuresis with IV Bumex as well as dialysis with fluid removal and her oxygenation showed gradual improvement. She is gradually weaning close to room air, but is still requiring some oxygen so home oxygen studies being requested. Chest pain has not recurred and blood pressures have improved with treatment but did require escalation of regimen with addition of clonidine. Did have some anxiety during hospitalization as well possibly contributing to hypotension. He started on buspirone at discharge. Venous duplex was negative for DVT. Without any recurrence of chest pain, without cough, tachycardia, normal reticular size and systolic function, otherwise low suspicion for PE. Troponin series with moderate elevation with chronic elevation in the setting of ESRD, suspected demand ischemia secondary to uncontrolled hypertension and hypertensive urgency on presentation, but with risk factors of CAD discussed with her further assessment with stress testing for which she is referred and will be following up with her tinware lithograph press operator on the . She is otherwise feeling much better and feels comfortable returning home. Incidentally noted mild pancytopenia with chronic anemia but also mild leukopenia and thrombocytopenia, peripheral smear has been requested, please follow-up results. Additional incidentally noted 3.3 x 3.1 x 1.2 cm ovoid heterogenous lesion in the right groin likely an enlarged lymph node, please follow-up. Physical Exam Narrative: Accompanied by her daughter Const: COMMON NORMALS: patient oriented x3 and alert GENERAL APPEARANCE: cooperative ORIENTATION/CONSCIOUSNESS: Yes awake HENMT: COMMON NORMALS: oropharynx normal Neck/C-Spine: COMMON NORMALS: no JVD Resp: COMMON NORMALS: normal respiratory effort and clear to auscultation bilaterally AUSCULTATION: clear to auscultation bilaterally Cardio: COMMON NORMALS: no JVD, regular rhythm, S1 normal heart sound present, S2 normal heart sound present and No murmurs present (Cardio) RHYTHM: regular rhythm HEART SOUNDS: S1 normal heart sound present and S2 normal heart sound present GI: COMMON NORMALS: Normal to inspection, nondistended, normoactive bowel sounds present, Soft to palpation and non-tender PALPATION: Yes Soft to palpation Extremity: COMMON NORMALS: no joint enlargement GENERAL: Yes edema (trace edema) Neuro: COMMON NORMALS: patient oriented x3 and moves all extremities SENSORIUM/ORIENTATION: Yes alert Skin: COMMON NORMALS: no rashes or lesions noted GENERAL SKIN EXAM: no rashes or lesions noted Discharge Data Studies Completed and Pending Completed Studies During Hospitalization Category Date Time Status XR chest 1V portable [id number] Stat Exams 03/17/25 05:45 [place] [id number] Routine Ultrasound 03/18/25 14:26 Completed CV. echo complete* [id number] Routine Ultrasound 03/18/25 13:48 Completed Pending at discharge Category Date Time Status Blood Culture Stat Lab 03/17/25 07:34 Results Complete Blood Count w/Auto AM LABS Lab 03/20/25 04:00 Ordered Comprehensive Metabolic Panel AM LABS Lab 03/20/25 04:00 Ordered Radiology Impressions Chest X-Ray 03/17/25 05:45 IMPRESSION: 1. Cardiac enlargement with pulmonary vascular congestion suggesting CHF. 2. RIGHT basal pleural effusion with RIGHT lower lobe atelectasis. Venous Duplex 03/18/25 14:26 IMPRESSION: 1. No sonographic evidence of deep venous thrombosis. 2. 3.3 x 3.1 x 1.2 cm ovoid, heterogeneous lesion in the right groin, likely an enlarged lymph node. Laboratory Results WBC 2.19 10^3/uL (3.29-11.43) L 03/19/25 04:16 RBC 2.97 10^6/uL (3.85-5.65) L 03/19/25 04:16 Hgb 9.60 g/dL (11.27-16.99) L 03/19/25 04:16 Hct 31.1 % (36-47) L 03/19/25 04:16 MCV 104.7 fl (85-98) H 03/19/25 04:16 MCH 32.3 pg (27-33) 03/19/25 04:16 MCHC 30.9 g/dL (30-55) 03/19/25 04:16 RDW 14.8 % (12.1-15.1) 03/19/25 04:16 Plt Count 110 10^3/cmm (157-399) L 03/19/25 04:16 MPV 10.3 fL (7.4-10.4) 03/19/25 04:16 Neut % (Auto) 65.6 % 03/19/25 04:16 Lymph % (Auto) 14.2 % 03/19/25 04:16 [place] % (Auto) 11.0 % 03/19/25 04:16 Eos % (Auto) 8.2 % 03/19/25 04:16 Baso % (Auto) 0.5 % 03/19/25 04:16 Neut # (Auto) 1.44 10^3/uL (1.8-7.7) L 03/19/25 04:16 Lymph # (Auto) 0.3 10^3/uL (0.8-4.8) L 03/19/25 04:16 [place] # (Auto) 0.2 10^3/uL (0.2-0.9) 03/19/25 04:16 Eos # (Auto) 0.2 10^3/uL (0.0-0.8) 03/19/25 04:16 Baso # (Auto) 0.0 10^3/uL (0.0-0.1) 03/19/25 04:16 Nucleated RBC % (auto) 0 % 03/19/25 04:16 Nucleated RBCs # 0.0 /100WBC 03/19/25 04:16 Peripher Smr Path Cons Sent for review 03/19/25 04:16 PT 13.50 SECONDS (12.1-14.9) 03/17/25 06:21 INR 0.97 (0.8-1.2) 03/17/25 06:21 Sodium 138 mmol/L (136-145) 03/19/25 04:16 Potassium 5.4 mmol/L (3.5-5.1) H 03/19/25 04:16 Chloride 99 mmol/L (98-107) 03/19/25 04:16 Carbon Dioxide 24 mmol/L (22-29) 03/19/25 04:16 Anion Gap 20.4 (5-19) H 03/19/25 04:16 BUN 65 mg/dL (8-23) H 03/19/25 04:16 Creatinine 7.7 mg/dL (0.5-0.9) H* 03/19/25 04:16 GFR Calculation 5.3 mL/min (90-130) L 03/19/25 04:16 Glucose 89 mg/dL (65-115) 03/19/25 04:16 POC Glucose 188 mg/dL (70-110) H 03/17/25 09:35 Calculated Osmolality 304 mOsm/kg (285-295) H 03/19/25 04:16 Calcium 7.6 mg/dL (8.5-10.5) L 03/19/25 04:16 Magnesium 2.6 mg/dL (1.7-2.3) H 03/19/25 04:16 Total Bilirubin 0.3 mg/dL (0.15-1.2) 03/19/25 04:16 AST 13 U/L (0-32) 03/19/25 04:16 ALT 14 U/L (0-33) 03/19/25 04:16 Alkaline Phosphatase 168 U/L (35-105) H 03/19/25 04:16 Troponin T Baseline 113 ng/L (0-10) H* 03/17/25 06:21 Troponin T 120 Minute 95.62 ng/L (0-10) H 03/17/25 08:10 Delta Troponin T -17.38 ABS# (0-10) L 03/17/25 08:10 Troponin T Hi Sens 6Hr 98.82 ng/L (0-10) H 03/17/25 12:29 Troponin T Hi Sens 6Hr Delta -14.18 ng/L (0-12) L 03/17/25 12:29 NT-Pro-B Natriuret Pep > 99192 pg/mL (0-125) H 03/17/25 06:21 Total Protein 6.7 g/dL (6.6-8.7) 03/19/25 04:16 Albumin 3.5 g/dL (3.5-5.2) 03/19/25 04:16 Globulin 3.2 g/dL (1.3-4.6) 03/19/25 04:16 Lipase 58 U/L (13-60) 03/17/25 06:21 TSH 4.73 uIU/mL (0.27-4.20) H 03/17/25 06:21 Hep Bs Antigen Non-reactive (Nonreactive) 03/17/25 06:21 Hep Bs Antibody < 3.5 (11.5-1000) L 03/17/25 06:21 Vitals Last Vital Signs Temp 97.7 F 03/19/25 11:14 Pulse 63 03/19/25 12:00 Resp 15 03/19/25 12:00 BP 132/65 03/19/25 12:00 Pulse Ox 90 03/19/25 07:50 O2 Del Method Room Air 03/19/25 07:50 O2 Flow Rate 16 03/18/25 08:00 Discharge Plan Discharge Patient Disposition: Home Condition: Stable Prescriptions: New clonidine HCl 0.1 mg Tablet 0.1 mg PO BID Qty: 180 0RF buspirone 7.5 mg tablet 7.5 mg PO BID Qty: 60 0RF aspirin 81 mg capsule 81 mg PO DAILY Qty: 30 0RF Continued coenzyme Q10 [Co Q-10] 100 mg capsule 100 mg PO DAILY morphine 30 mg tablet extended release 30 mg PO TID morphine 15 mg tablet 15 mg PO TID PRN (Reason: Pain) carvedilol 12.5 mg tablet 12.5 mg PO BID bumetanide 2 mg tablet 4 mg PO BID amlodipine 10 mg tablet 10 mg PO DAILY hydralazine 100 mg Tablet 100 mg PO BID losartan 100 mg Tablet 100 mg PO DAILY Other Ambulatory Orders: Sestamibi Stress Test Request (Routine) Timeframe: 2 Days Facility: [facility] - Location: Cardiac Diagnostic Laboratory Ordered By: Evangelist Haywood Referrals: [facility] [Outside] CONDITIONING COACH [Nurse Practitioner, Nurse Practitioner] Discharge Diet: As Directed and Cardiac Discharge Activity: Oxygen as instructed Patient Instructions: Opioid Safety, Pain Management, Patient Portal & Flower Instructions Activity Restrictions/Additional Instructions: Continue heart healthy renal dialysis diet. Limit total fluid intake to less than 1.5 L a day to reduce chance of fluid overload. Follow-up for usual dialysis. Follow-up for stress test, follow-up with cardiology to discuss the results. Consider whether you need to still continue aspirin. Continue to monitor blood pressures at home as discussed 2-3 times daily, target long-term blood pressure 120/80. Continue oxygen to obtain oxygen saturation 90-92%. Have your primary doctor recheck your blood counts due to mildly low white cell and platelet counts and anemia. Peripheral smear has been sent. Please speak with your primary provider for follow up of incidentally seen lymph node in the right groin. Seek medical attention in case of any worsening or new concerning symptoms. Discharge Attestations Time Spent in Discharge Care*: greater than 30 min Status at Discharge: Cognitive status at discharge: cognitively intact, Behavioral status at discharge: cooperative, Quality Metrics Clinical Quality Measures [ No reported AMI, CVA or VTE this stay] Coding Level of Care Code 72533 Total time (in minutes) for Discharge: 45 Diagnoses ESRD (end stage renal disease) on dialysis N18.6; Z99.2
== END 2025-03-19 16:23 | disposition home or self-care (01) | DRG 291 ==
LOC: ER 07:49 → ER IP 08:07 → MEDSURG 13:08
PROVIDERS: Hospitalist; Admitting Provider Internal Medicine; Emergency Provider Emergency Medicine; PCP Family Medicine; Visit Provider Internal Medicine
DX: I13.2 Hypertensive heart and chronic kidney disease with heart failure and with stage 5 chronic kidney disease, or end stage renal disease (principal); I50.23 Acute on chronic systolic (congestive) heart failure; N18.6 End stage renal disease; J96.21 Acute and chronic respiratory failure with hypoxia; I24.89 Other forms of acute ischemic heart disease; E87.20 Acidosis, unspecified; D61.818 Other pancytopenia; Z99.2 Dependence on renal dialysis; E78.5 Hyperlipidemia, unspecified; D63.1 Anemia in chronic kidney disease; I42.9 Cardiomyopathy, unspecified; F41.9 Anxiety disorder, unspecified; I16.0 Hypertensive urgency; E87.5 Hyperkalemia; R59.0 Localized enlarged lymph nodes; D69.6 Thrombocytopenia, unspecified; Z79.891 Long term (current) use of 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; Z85.3 Personal history of malignant neoplasm of breast; Z86.73 Personal history of transient ischemic attack (TIA), and cerebral infarction without residual deficits; Z86.19 Personal history of other infectious and parasitic diseases; Z87.891 Personal history of nicotine dependence; Z87.440 Personal history of urinary (tract) infections
CPT/HCPCS: 36415; 36416; 71045; 80053; 80503; 82962; 83690; 83735; 83880; 84443; 84484; 85025; 85610; 86706; 87040; 87340; 90935; 93005; 93306; 93970; 94760; 96365; 96372; 96375; 99285; J0360; J0456; J0696; J1644; J1650; J1815; J3490; J7050; J7799; J9999; Q5105

== ENCOUNTER 2025-03-22 18:09 | Emergency (ER) | payer OTHER, SELFPAY ==
[2025-03-22 18:11] VITALS: BP 205/79; PULSE 75; RESP 20; TEMP 36.7; O2SAT 94; BMI 29.8
--- NOTE | 2025-03-22 18:17 | XRR_ITS ---
PROCEDURE INFORMATION: Exam: XR Chest Exam date and time: 03/22/2025 6:26 PM Age: 64 years old Clinical indication: Shortness of breath TECHNIQUE: Imaging protocol: Radiologic exam of the chest. Views: 1 view. COMPARISON: CR XR chest 1V portable [id number] 03/17/2025 5:52 AM FINDINGS: Lungs: Clear, symmetrically inflated lungs. Pleural spaces: Interval reduction in right pleural effusion. No pneumothorax on either side. Heart/Mediastinum: Unchanged moderate cardiomegaly. Bones/joints: Age appropriate. XR/XR chest 1V portable [id number] IMPRESSION: 1. Diminishing right pleural effusion. No pneumothorax. 2. Stable moderate cardiomegaly. No convincing interstitial edema currently.
--- NOTE | 2025-03-22 18:17 | ECG_ITS ---
[facility]25[facility] Pat Name: Ashley Miranda Department: Room: Gender: Female Cinder Block Maker: : [id number] Requested By: Elen Leonard Order Number: [id number] Elen MD: Jane Swanson M.D. Measurements Intervals [place] Rate: 78 P: 73 KS: 208 QRS: -25 QRSD: 114 T: 97 QT: 412 QTc: 470 Interpretive Statements SINUS RHYTHM BORDERLINE LEFT AXIS DEVIATION [QRS AXIS < -20] MODERATE INTRAVENTRICULAR CONDUCTION DELAY [110+ ms QRS DURATION] NONSPECIFIC ST & T-WAVE ABNORMALITY Compared to ECG 03/17/2025 14:30:50 Intraventricular conduction delay now present T-wave abnormality now present Myocardial infarct finding no longer present Electronically Signed On 03-23-2025 09:47:56 CDT by Jane Swanson M.D. [email or web address]
--- OUTSIDE RECORDS SUMMARY | 2025-03-22 18:23 | XMS_ITS | Encounter Summary ---
Author Organization [facility] Address [address] [place] [address] Care Team Providers Care Drop Worker Name Role Phone WilliTeresita Aisha BRADLEY Primary Care Provider Reason for Referral * Outpatient Services (Routine) - Closed Specialty Diagnoses / Procedures Referred By Jason monterroso Referred To Contact Diagnoses Chest pain Procedures ECHO PRE TEST Ivan Molina MD [address] [place] [address] Phone: tel: fax: Referral ID Status Reason Start Date Expiration Date Visits Re quested Visits Authorized [id number] Closed 08/15/2010 02/11/2011 1 1 ITURE ARRANGER Encounter Details Date Type Department Care Team (Late st Contact Info) Description 08/15/2010 Ancillary Orders [facility] [place] [address] [place] [address] Ivan Molina MD [address] [place] [address] Chest pain Social History Tobacco Use Types Packs/Day Years Used Date Smoking Tobacco: Former Cigarettes 1 25 0 09/09/1976 - 09/09/2001 Alcohol Use Standard Drinks/Week Comments No 0 (1 standard drink = 0.6 oz pur e alcohol) Comments Unknown Sex and Gender Information Value Date Recorded Sex Assigned at Not on file Legal Sex Female 11:10 AM FURNITURE 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 Procedure Note [facility], Radiologist, MD - 03/11/2013 Final status, expect no report. us Ivan Molina MD ORDERABLES Final Result [facility] documented in this encounter Visit Diagnoses Diagnosis Chest pain- Primary Chest pain, unspecified Chest pain Chest pain, unspecified documented in this encounter Care Teams Drop Worker Relationship Specialty Start Date End Date Teresita Márquez DO [address] [place] [phone] PCP - General Family Practice 03/18/19 documented as of this encounter
--- OUTSIDE RECORDS SUMMARY | 2025-03-22 18:23 | XMS_ITS | Encounter Summary ---
Author Organization [facility] Address [address] [place] [address] Care Team Providers Care School Guard Name Role Phone Willi Teresita Aisha BRADLEY Primary Care Provider Reason for Referral * Outpatient Services (Routine) - Closed Specialty Diagnoses / Procedures Referred By Jason monterroso Referred To Contact Radiology Diagnoses Post-menopausal bleeding Procedures US PELVIC TRANSVAGINAL US PELVIS + TRANSVAG NON OB US PELVIS COMPLETE US PELVIC TRANSVAGINAL Scooter Balbuena DO Phone: tel: fax: [facility] [place] [address] [place] [address] Phone: tel: fax: Referral ID Status Reason Start Date Expiration Date V isits Requested Visits Authorized [id number] Closed MTN View CTS to Schedule (SGF) 05/11/2016 06/11/2017 1 1 Encounter Details Date Type Department Care Team (Late st Contact Info) Description 05/11/2016 Ancillary Orders [facility] [address] [place] [phone] Scooter Balbuena DO [address] [place] [phone] Post-menopausal bleeding (Primary Dx) Social History Tobacco [...] on file 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 Normal pelvic ultrasound. [id number] Narrative 05/11/2016 2:09 PM CDT Exam: US [...] bleeding documented in this encounter Care Teams School Guard Relationship Specialty Start Date End Date Teresita Márquez DO [address] [place] [address] PCP - General Family Practice 03/18/19 documented as of this encounter
--- OUTSIDE RECORDS SUMMARY | 2025-03-22 18:23 | XMS_ITS | Encounter Summary ---
Author Organization [facility] Address [address] [place] [address] Care Team Providers Care Cage/Vault Supervisor Name Role Phone Teresita Márquez DO Primary Care Provider [phone] Reason for Referral * Outpatient Services (Routine) - Closed Specialty Diagnoses / Procedures Referred By Jason monterroso Referred To Contact Radiology Diagnoses Lump or mass in breast Mastodynia Procedures MAMMO BREAST US BILAT Scooter Balbuena DO [address] [place] [address] Phone: tel: fax: [facility] [address] [address] Phone: tel: fax: Referral ID Status Reason Start Date Expiration Date Visits Re quested Visits Authorized [id number] Closed 06/12/2013 07/13/2014 1 1 Encounter Details Date Type Department Care Team (Late st Contact Info) Description 04/22/2013 Ancillary Orders [facility] Pre-Registration [place] CALL TO MAKE APPOINTMENT ONLY [address] [place] [address] Scooter Balbuena DO [address] [place] [phone] Lump or mass in breast (Primary Dx); [...] on file 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 We have notes from her doctor dated [...] by the Computer Aided Detection System (CAD), [employer] ImageCortheracker, Version 8.3. Bilateral breast ultrasound: Ultrasound was [...] in one year. SOPHIE/nicolás - uploaded from qLearning - Procedure Note Josefa George MD - 06/15/2013 Bilateral diagnostic mammogram and bilateral ultrasound, 06/12/2013. The patient is here indicating she has one lump on the right and three lumps on the left. She has not had a mammogram since 01/21/2009 and comparison is made to that exam from [facility]. We have notes from her doctor dated [...] by the Computer Aided Detection System (CAD), [employer] ImageChecker, Version 8.3. Bilateral breast ultrasound: Ultrasound [...] in one year. SOPHIE/nicolás - uploaded from [employer] - Scooter Balbuena DO MAMMO ORDERABLES Final Result documented in this encounter Visit Diagnoses Diagnosis Lump or mass in breast- Primary Mastodynia Lump or mass in breast Mastodynia documented in this encounter Care Teams Cage/Vault Supervisor Relationship Specialty Start Date End Date Teresita Márquez DO [address] [place] [phone] PCP - General Family Practice 03/18/19 documented as of this encounter
--- OUTSIDE RECORDS SUMMARY | 2025-03-22 18:23 | XMS_ITS | Encounter Summary ---
Author Organization [facility] Address [address] [place] [address] Care Team Providers Care Full Stack Developer Name Role Phone Willi Teresita L DO Primary Care Provider [phone]- [phone] Reason for Referral * Outpatient Services (Routine) - Closed Specialty Diagnoses / Procedures Referred By Jason monterroso Referred To Contact Diagnoses Lump or mass in breast Procedures MAMMO BREAST US BILAT COMPLETE MAMMO BREAST US BILAT LTD MAMMO BREAST US BILAT COMPLETE Scooter Balbuena DO Phone: tel: fax: [facility] Pre-Registration [place] CALL TO MAKE APPOINTMENT ONLY [address] [place] [address] Phone: tel: fax: Referral ID Status Reason Start Date Expiration Date Visits Requested Visits Authorized [id number] Closed Performing Department To Schedule (SGF) 10/04/2014 11/04/2015 1 1 TER OPERATOR Encounter Details Date Type Department Care Team (Late st Contact Info) Description 10/04/2014 Ancillary Orders [facility] [address] [facility] [address] [place] [address] Scooter Balbuena DO [address] [place] [phone] Lump or mass in breast (Primary Dx) [...] on file 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 Sex Female 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 JOINTER OPERATOR Gender Identity Not on file Sexual Orientation Not on file Occupation Industry Job Start Date Job End Date Not on file Not on file Not on file Not on file documented as of this encounter Plan of Treatment Not on file documented as of this encounter Results * MAMMO BREAST US BILAT COMPLETE (10/04/2014 3:55 PM JOINTER OPERATOR) Anatomical Region Laterality Modality Breast Bilateral Ultrasound 10/04/2014 3:04 PM JOINTER OPERATOR Impressions 10/05/2014 7:03 AM JOINTER OPERATOR IMPRESSION: I suspect that the changes that [...] Power Scribe - Narrative 10/05/2014 7:03 AM JOINTER OPERATOR Bilateral Digital Diagnostic Mammogram and Bilateral Whole [...] by the Computer Aided Detection System (CAD), [employer], Version 8.3. Ultrasound of both breasts was [...] Primary documented in this encounter Care Teams Full Stack Developer Relationship Specialty Start Date End Date Teresita Márquez DO [address] [place] [address] PCP - General Family Practice 03/18/19 documented as of this encounter
--- OUTSIDE RECORDS SUMMARY | 2025-03-22 18:23 | XMS_ITS | Encounter Summary ---
Author Organization [facility] Address [address] [place] [address] Care Team Providers Care Cutter First Name Role Phone Teresita Márquez Primary Care Provider Encounter Details Date Type Department Care Team (Late st Contact Info) Description 05/25/2020 Ancillary Orders [facility] [place] [address] [place] [address] Mary Elaine, [facility] [address], [place] [address] Sprain of left ankle, unspecified ligament, initial [...] on file Legal Sex Female 11:10 AM LOCATION WORKER Gender Identity Not on file Sexual Orientation [...] IMPRESSION: No acute osseous injury. Mary Elaine SAFETY AND SECURITY MANAGER DIAGNOSTIC IMAGING ORDERABLES Final Result documented in this encounter Visit Diagnoses Diagnosis Sprain of left ankle, unspecified ligament, initial encounter Swelling of left ankle joint Effusion of ankle and foot joint Sprain of left ankle, unspecified ligament, initial encounter Swelling of left ankle joint Effusion of ankle and foot joint documented in this encounter Care Teams Cutter First Relationship Specialty Start Date End Date Teresita Márquez DO [address] [place] [address] PCP - General Family Practice 03/18/19 documented as of this encounter
--- OUTSIDE RECORDS SUMMARY | 2025-03-22 18:23 | XMS_ITS | Encounter Summary ---
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
--- OUTSIDE RECORDS SUMMARY | 2025-03-22 18:23 | XMS_ITS | Encounter Summary ---
Author Organization [facility] Address [address] [place] [address] Care Team Providers Care Co Pilot Name Role Phone Teresita Márquez DO Primary Care Provider Reason for Referral * CT Scan (Routine) - Closed Specialty Diagnoses / Procedures Referred By Jason monterroso Referred To Contact Radiology Diagnoses Left renal mass Procedures CT ABDOMEN PELVIS WO CONTRAST CT ABDOMEN PELVIS W WO CONTRAST Teresita Márquez DO [address] [place] [address] Phone: tel: fax: [facility] CT Scan [place] [address] [place] [address] Phone: tel: fax: Referral ID Status Reason Start Date Expiration Date V isits Requested Visits Authorized [id number] Closed MTN View CTS to Schedule (SGF) 04/02/2019 05/02/2020 1 1 Encounter Details Date Type Department Care Team (Late st Contact Info) Description 04/07/2019 Ancillary Orders [facility] [address] [place] [address] Teresita Márquez DO [address] [place] [address] Left renal mass Social History Tobacco Use [...] on file 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
--- OUTSIDE RECORDS SUMMARY | 2025-03-22 18:23 | XMS_ITS | Encounter Summary ---
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
--- OUTSIDE RECORDS SUMMARY | 2025-03-22 18:23 | XMS_ITS | Clinical Summary ---
Author Organization [facility] Address [address] [place] [address] Phone Care Team Providers Care River Rafting Guide Name Role Phone Teresita Márquez DO Primary [...] secondary to hepatitis C - evaluated at [facility]. 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 Gender Identity Not on file Sexual Orientation [...] complication, without long-term current use of insulin ([facility]) HEMOGLOBIN A1C Routine 03/26/2019 10:52 AM CDT Lower extremity edema Fatigue, unspecified type Worsening renal function Type 2 diabetes mellitus with other diabetic kidney complication, without long-term current use of insulin ([facility]) MICROALBUMIN/CREATI NINE RATIO, RANDOM UR Routine 05/09/2016 1:59 PM CDT Diabetes mellitus type II, uncontrolled HM DIABETES EYE EXAM Routine 02/23/2015 CERV/VAG CYTOPATH, THIN PREP W/RFLX HPV Routine 01/17/2015 12:58 PM CDT MAMMO DIAGNOSTIC BILATERAL W OR WO CAD Routine 10/04/2014 3:55 PM PUPPY WALKER Breast lump from Last 3 Months or Most Recently Relevant to Health Maintenance Results * (ABNORMAL) HEMOGLOBIN A1C (03/26/2019 10:52 AM CDT) HEMOGLOBIN A1C 6.4(H) See Comment % 03/26/2019 8:39 PM CDT [facility] EST. AVG GLUCOSE, A1C 137 mg/dL 03/26/2019 8:39 PM CDT [facility] Blood Venipuncture / Unknown 03/26/2019 10:52 AM CDT 03/26/2019 8:09 PM CDT Narrative [facility] - 03/26/2019 8:39 PM CDT HGB A1C INTERPRETATION NORMAL: <5.7% PRE-DIABETES: 5.7 - 6.4% DIABETES: 6.5% OR GREATER Falsely low A1C measurements can occur when: 1. Anemia and/or hemolytic anemia is present. 2. Hemoglobin variants present. 3. Renal failure. 4. Transfusion of blood product in the last 120 days. We recommend ordering a fructosamine test([id number]) to more accurately assess glycemic status if any of the above conditions are present. us Teresita Márquez DO CHEMISTRY ORDERABLES Final Result [facility] CLIA# [id number] [facility] [place] [address] * (ABNORMAL) LIPID PANEL (03/26/2019 10:52 AM CDT) CHOLESTEROL 208(H) <200 mg/dL 03/26/2019 9:21 PM CDT [facility] TRIGLYCERIDE 258(H) <150 mg/dL 03/26/2019 9:21 PM CDT [facility] HDL 32(L) 40 - 59 mg/dL 03/26/2019 9:21 PM CDT [facility] LDL CALCULATED 124(H) <100 mg/dL 03/26/2019 9:21 PM CDT [facility] NON-HDL CHOLESTEROL 176(H) <130 mg/dL 03/26/2019 9:21 PM CDT [facility] Blood Venipuncture / Unknown 03/26/2019 10:52 AM CDT 03/26/2019 8:10 PM CDT Narrative [facility] - 03/26/2019 [...] Teresita Márquez DO CHEMISTRY ORDERABLES Final Result [facility] IA# [id number] [address] [place] [address] * (ABNORMAL) MICROALBUMIN/CREATININE RATIO, RANDOM UR (05/09/2016 1:59 PM CDT) MICROALBUMIN, URINE 322.2 mg/dL 05/09/2016 5:52 PM CDT [facility]IA CREATININE, URINE 123.0 29.0 - 226.0 mg/dL 05/09/2016 5:52 PM CDT [facility] LETICIA Comment: Reference Range varies with fluid intake and diet. MICROALBUMIN/ CREAT RATIO, UR 2,619.5(H ) <25.0 mg/g Creatinine 05/09/2016 5:52 PM CDT [facility] Urine URINE SPECIMEN OBTAINED BY CLEAN CATCH PROCEDURE / Unknown Collection / Unknown 05/09/2016 1:59 PM CDT 05/09/2016 5:01 PM CDT Narrative [facility] - 05/09/2016 5:52 PM CDT Condition Microalbumin/Creat ratio Normal Males <17 Normal Females <25 Microalbuminuria Males 17-299 Microalbuminuria Females 25-299 Overt proteinuria >=300 Scooter Balbuena DO URINE ORDERABLES Final Result [facility] CLIA# [id number] [address] [place] [address] * DIABETES EYE EXAM (02/23/2015) us Abstract Spg Provider HEALTH MAINTENANCE Final R esult * CERV/VAG CYTOPATH, THIN PREP W/RFLX HPV (01/17/2015 12:58 PM CDT) Pathologist [facility] THIN PREP CYTOLOGY REPORT REFLEX HPV [facility] [address] [address] Patient: ASHLEY MONIQUE Accn No: [id number] , [id number] Collected: 01/17/2015 12:58:00 PM All cases except those with a DP prefix are performed by pathologists from [facility]. Case type DP is performed by Dr. Carson Mcdowell, [facility], [facility] [place] [address], [address] [address] (CLIA #[id number]) (Ph. [phone]). THIN PREP PAP - REFLEX HPV History Specimen Type: Endocervical postmenopausal Previous Pap History: 2009 PER PT Specimen Adequacy Satisfactory for interpretation. Shows sufficient numbers of endocervical or metaplastic cells. Diagnosis NEGATIVE FOR INTRAEPITHELIAL LESION OR MALIGNANCY. (Prevously noted as Within Normal Limits). Plate And Frame Filter Operator/ GALLO Pathologist: 01/24/15 Completed by: FIONA KELLOGG [...] treating physician in consultation with his/her patient. [facility] 01/17/2015 12:5 8 PM CDT Beba Mayers MD PATHOLOGY/CYTOLOGY ORDERABLES E dited Result - Final [facility] CLIA# [id number] [address] [place] [address] * MAMMO DIGITAL DIAG BILAT (10/04/2014 3:55 PM PUPPY WALKER) Anatomical Region Laterality Modality Breast Bilateral Mammography 10/04/2014 2:25 PM PUPPY WALKER Impressions 10/05/2014 7:03 AM PUPPY WALKER IMPRESSION: I suspect that the changes that [...] letter. LISA/maxim 1538 PM - uploaded from [email or web address] - Narrative 10/05/2014 7:03 AM PUPPY WALKER Bilateral Digital Diagnostic Mammogram and Bilateral Whole [...] by the Computer Aided Detection System (CAD), [employer] ImageChecker, Version 8.3. Ultrasound of both breasts [...] Advance Directives For more information, please contact: [phone] * Full Code (Latest Code Status on [...] 10:24 AM 04/20/2012 3:25 PM Care Teams River Rafting Guide Relationship Specialty Start Date End Date Teresita Márquez DO [address] [facility] [place] [address] PCP - General Family Practice 03/18/19
--- OUTSIDE RECORDS SUMMARY | 2025-03-22 18:23 | XMS_ITS | Encounter Summary ---
Author Organization [facility] Address [address] [place] [address] Care Team Providers Care Criminal Justice Instructor Name Role Phone Teresita Márquez DO Primary Care Provider Encounter Details Date Type Department Care Team (Late st Contact Info) Description 07/12/[address] 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
--- OUTSIDE RECORDS SUMMARY | 2025-03-22 18:23 | XMS_ITS | Encounter Summary ---
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
--- OUTSIDE RECORDS SUMMARY | 2025-03-22 18:23 | XMS_ITS | Encounter Summary ---
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
--- OUTSIDE RECORDS SUMMARY | 2025-03-22 18:23 | XMS_ITS | Clinical Summary ---
Author Organization [facility] Address [address] [facility] Attn: Epic Prelude ADT MAX JOHNSON [address] Care Team Providers Care Systems Analysis Manager Name Role Phone Unavailable Primary Care Provider Unavailabl e Allergies Active Allergy Reactions Criticality Noted Date Comments Adhesive Rash Low 11/08/2022 Alpha-Gal (Wyqffefor-Raxvv-5,3-Galactose) Rash Low 02/19/2025 Chlorhexidin-Isopropyl Alcohol Itching,Rash Medium [...] secondary to hepatitis C - evaluated at [facility]. 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 Iron [...] Department Care Team Description 03/09/2025 Orders Only [facility] [address] [place] [address] Jason Diaz MD Hypertension, unspecified type (Primary Dx) 03/04/2025 2:20 PM CDT Office Visit [facility] [address] [place] [address] [facility] December, [facility] discharge follow-up (Primary Dx); Venous stasis dermatitis of both lower extremities; Thyroid nodule; Primary hypertension; Chronic midline low back pain with bilateral sciatica; Lump in female breast 03/02/2025 Telephone [facility] [address] [place] [address] [facility]/2025 Telephone [facility] [address] [place] [address] [facility] 02/24/2025 External Device Data STL ABSTRACTION Provider, Abstract 02/23/2025 External Device Data STL ABSTRACTION Provider, Abstract 02/23/2025 External Device Data STL ABSTRACTION Provider, Abstract 02/20/2025 3:41 AM CDT - 02/22/2025 4:22 PM CDT Hospital Encounter [facility] [address] [place] [address] Lawson Temple MD Cookman, Craig, DO Anand, Neesha, MD Kuppi Reddy, Madhavi MD Jerome, Mac Joesph, MD Hypertensive emergency Discharge Disposition: Left Against Medical Advice 02/20/2025 12:15 AM CDT - 02/20/2025 11:59 PM CDT Hospital Encounter [facility] Emergency Medical Services [address] [address] Ambulance, [facility] Discharge Disposition: [facility] 02/19/2025 8:19 PM CDT - 02/20/2025 2:00 AM CDT Emergency [facility] [address] [facility] [address] [place] [address] Jed Dias MD Hypertensive emergency (Primary Dx); Abdominal pain, unspecified abdominal location; Acute on chronic congestive heart failure, unspecified heart failure type (CMS/HCC); Elevated troponin Discharge Disposition: [facility] 02/19/2025 Travel 02/09/2025 External Device Data STL ABSTRACTION Provider, Abstract 02/09/2025 External Device Data STL ABSTRACTION Provider, Abstract 02/09/2025 External Device Data STL ABSTRACTION Provider, Abstract 01/15/2025 10:00 AM CDT Office Visit [facility] [address] [place] [address] December, [employer] Closed avulsion fracture of greater trochanter of right femur with routine healing, subsequent encounter (Primary Dx); Encounter for colorectal cancer screening using Cologuard test; Stasis dermatitis; Allergy to orzmjieft-mokpl-4,3- galactose 01/12/2025 External Device Data STL ABSTRACTION Provider, Abstract 01/12/2025 External Device Data STL ABSTRACTION Provider, Abstract 01/12/2025 External Device Data STL ABSTRACTION Provider, Abstract 01/09/2025 9:23 PM CDT - 01/09/2025 11:05 PM CDT Emergency [facility] [address] [facility] [address] [place] [address] Tim Wilson MD Contusion of right hip [...] on file Legal Sex Female 6:22 AM GUEST SERVICES REPRESENTATIVE Gender Identity Not on file Sexual Orientation [...] Care Team (Late st Contact Info) Description 03/23/2025 9:00 AM CDT Office Visit [facility] [address] [place] [phone] December, [address] [place] [phone] 03/30/2025 9:00 AM CDT Office Visit [facility] [address] [place] [address] December,P [address] [place] [address] Jason Diaz MD [address] [facility] [address] [place] [address] 04/16/2025 9:00 AM CDT Office Visit [facility] [address] [place] [address] PaulaDecember, [facility] [address] [place] [address] 06/04/2025 9:00 AM CDT Office Visit [facility] [address] [place] [address] PaulaDecember,P [address] [place] [phone] Health Maintenance Due Date Last Done Comments [...] 04/30/2029 04/30/2019 Medical Devices Implanted Type Area Information Technology Professor Device Identifier Shelf Expiration Date Model / Serial / Lot Cath Pd Percy Lainez 2cuf [id number] - Sna Implanted:Qty : 1 on 11/09/2022 by Keshav Thompson DO at [facility] Catheter N/A: Abdomen [employer] - COVIDIEN 12/13/2026 [id number] / NA / [id number] Clip Ligating Horizon Red [id number] - Csc - [id number] Implanted:Qty : 1 on 05/06/2023 by Feliberto Chaudhary MD at [facility] Clip Left: Arm [employer] [id number] 05/13/2027 [id number] / / [id number] Clip Ligating Horizon Med Ti [id number] - Csc - [id number] Implanted:Qty : 1 on 05/06/2023 by Feliberto Chaudhary MD at [facility] Clip Left: Arm TELEFLEX- WECK CLOSURE SYS [id number] 11/14/2027 [id number] / / [id number] Hemostatic Surgicel 1x2in 1960 - [id number] Implanted:Qty : 1 on 05/06/2023 by Feliberto Chaudhary MD at [facility] Hemostatic Left: Arm [employer]- [employer] [id number] 08/08/20251960 / / [id number] Explanted Type Area Information Technology Professor Device Identifier Shelf Expiration Date Model / Serial / Lot 14.5f X 27cm [facility] Catheter-10/05 Implanted:Qty : 1 on 10/05/2022 by Fito Bingham MD Explanted:Qty : 1 on 08/07/2023 by Andres Roberts PA Catheter Right: Chest [id number] 01/07/2024 [id number] / / [id number] Procedures Procedure Name Priority Date/Time Associated Diagnosis [...] CDT LIPID PANEL Routine 10/19/2024 10:59 AM GUEST SERVICES REPRESENTATIVE Primary hypertension HEMOGLOBIN A1C Routine 09/05/2021 12:00 AM GUEST SERVICES REPRESENTATIVE Chronic fatigue MICROALBUMIN/CREATIN INE RATIO, RANDOM UR Routine 05/09/2016 1:59 PM CDT HM DIABETES EYE EXAM 02/23/2015 12:00 AM CDT CERV/VAG CYTOPATH, THIN PREP W/RFLX HPV Routine 01/17/2015 12:58 PM CDT MAMMO DIAGNOSTIC BILATERAL W OR WO CAD Routine 10/04/2014 3:55 PM GUEST SERVICES REPRESENTATIVE Breast lump from Last 3 Months or Most Recently Relevant to Health Maintenance Results * (ABNORMAL) CBC WITH DIFFERENTIAL (02/22/2025 4:46 AM CDT) Only the most recent of4 resultswithin the time period is included. WBC 2.6(L) 4.8 - 10.8 K/uL 02/22/2025 5:07 AM CDT [facility] RBC 2.93(L) 4.20 - 5.40 M/uL 02/22/2025 5:07 AM CDT [facility] HEMOGLOBIN 9.6(L) 12.0 - 16.0 g/dL 02/22/2025 5:07 AM CDT [facility] HEMATOCRIT 30.3(L) 36.0 - 46.0 % 02/22/2025 5:07 AM CDT [facility] MCV 103.4(H) 84.0 - 103.0 fL 02/22/2025 5:07 AM CDT [facility] MCH 32.8 27.0 - 34.0 pg 02/22/2025 5:07 AM CDT [facility] MCHC 31.7 30.0 - 35.0 g/dL 02/22/2025 5:07 AM CDT [facility] PLATELETS 104(L) 140 - 440 K/uL 02/22/2025 5:07 AM T [facility] MPV 10.1 8.9 - 12.8 fL 02/22/2025 5:07 AM T [facility] RDW 15.8(H) 11.0 - 14.5 % 02/22/2025 5:07 AM [facility] RDW-STDEV 60.6(H) 37.0 - 54.0 fL 02/22/2025 5:07 AM [facility] NEUTROPHILS 72 42 - 75 % 02/22/2025 5:07 AM [facility] LYMPHOCYTES 16(L) 24 - 44 % 02/22/2025 5:07 AM [facility] MONOCYTES 7 2 - 10 % 02/22/2025 5:07 AM [facility] EOSINOPHILS 6 0 - 7 % 02/22/2025 5:07 AM [facility] BASOPHILS 0 0 - 1 % 02/22/2025 5:07 AM [facility] IMMATURE GRANULOCYTES 0 0 - 2 % 02/22/2025 5:07 AM [facility] NEUTROPHIL ABSOLUTE 1.83(L) 2.00 - 8.00 K/uL 02/22/2025 5:07 AM [facility] LYMPHOCYTE ABSOLUTE 0.40(L) 1.20 - 4.00 K/uL 02/22/2025 5:07 AM [facility] MONOCYTE ABSOLUTE 0.17 0.10 - 0.60 K/uL 02/22/2025 5:07 AM [facility] EOSINOPHIL ABSOLUTE 0.14 0.00 - 0.70 K/uL 02/22/2025 5:07 AM [facility] BASOPHILS ABSOLUTE 0.01 0.00 - 0.20 K/uL 02/22/2025 5:07 AM [facility] IMMATURE GRANULOCYTES ABSOLUTE 0.01 0.00 - 0.10 K/uL 02/22/2025 5:07 AM [facility] SMEAR REVIEWED: NA - Not Applicable 02/22/2025 5:07 AM [facility] Blood Venipuncture / Unknown 02/22/2025 4:46 AM CDT 02/22/2025 5:02 AM CDT Lizett Christina Oconnell LAST REPAIRER HELPER HEMATOLOGY ORDERABLES Final Result Performing Organization Address [facility] Co de Phone Number [facility] CLIA # [id number] [facility] [address] [address] * (ABNORMAL) MAGNESIUM LEVEL (02/22/2025 4:46 AM CDT) Only the most recent of3 resultswithin the time period is included. MAGNESIUM 2.6(H) 1.6 - 2.4 mg/dL 02/22/2025 6:05 AM CDT [facility] Blood Venipuncture / Unknown 02/22/2025 4:46 AM CDT 02/22/2025 5:03 AM CDT Lizett Oconnell LAST REPAIRER HELPER CHEMISTRY ORDERABLES Final Result Performing Organization Address [facility] Co de Phone Number [facility] CLIA # [id number] [facility] [address] [address] * (ABNORMAL) RENAL FUNCTION PANEL (02/22/2025 4:46 AM CDT) Only the most recent of2 resultswithin the time period is included. SODIUM 140 136 - 145 mmol/L 02/22/2025 6:05 AM T [facility] POTASSIUM 5.5(H) 3.5 - 5.1 mmol/L 02/22/2025 6:05 AM T [facility] CHLORIDE 101 98 - 107 mmol/L 02/22/2025 6:05 AM T [facility] CO2 23 22 - 29 mmol/L 02/22/2025 6:05 AM T [facility] CALCIUM 8.2(L) 8.8 - 10.2 mg/dL 02/22/2025 6:05 AM T [facility] BUN 54(H) 8 - 23 mg/dL 02/22/2025 6:05 AM T [facility] CREATININE 7.71(H) 0.51 - 0.95 mg/dL 02/22/2025 6:05 AM [facility] GLUCOSE 89 74 - 99 mg/dL 02/22/2025 6:05 AM [facility] ALBUMIN 3.2(L) 3.5 - 5.2 g/dL 02/22/2025 6:05 AM [facility] PHOSPHORUS 7.4(H) 2.5 - 4.5 mg/dL 02/22/2025 6:05 AM [facility] GFR 5(L) >=60 mL/min/1. 73 sq meter 02/22/2025 6:05 AM [facility] Comment:eGFR calculated with 2020 CKD-EPI equation. Vegetarian diet, extremely high or low muscle mass, and may affect results. Cystatin C with Glomerular Filtration Rate is a suitable alternative for these patients. ANION GAP 16 9 - 20 mmol/L 02/22/2025 6:05 AM [facility] Blood Venipuncture / Unknown 02/22/2025 4:46 AM CDT 02/22/2025 5:03 AM CDT Lizett Oconnell NP CHEMISTRY ORDERABLES Final Result [facility] # [id number] [address] [place] [address] * POC GLUCOSE (02/20/2025 11:23 PM CDT) Only the most recent of4 resultswithin the time period is included. GLUCOSE POC 99 74 - 99 mg/dL 02/20/2025 11:23 PM T [facility] SPECIMEN SOURCE, GLUCOSE POC Capillary 02/20/2025 11:23 PM [facility] Blood, whole 02/20/2025 11:2 3 PM CDT 02/20/2025 11:45 PM CDT Kyler Coreas DO POINT OF CARE TESTING Final Res ult Performing Organization Address City/[facility]/ZIP Co de Phone Number [facility] CLIA # [id number] [address] [place], [place] [address] * LACTIC ACID (02/20/2025 4:21 AM CDT) Only the most recent of2 resultswithin the time period is included. LACTIC ACID 0.9 <=2.0 mmol/L 02/20/2025 5:49 AM CDT [facility] Blood Venipuncture / Unknown 02/20/2025 4:21 AM CDT 02/20/2025 4:26 AM CDT Lawson Temple MD CHEMISTRY ORDERABL ES Final Result Performing Organization Address [facility] Co de Phone Number [facility] CLIA # [id number] [address] [place], [place] [address] * PHOSPHORUS (02/20/2025 4:21 AM CDT) PHOSPHORUS 4.4 2.5 - 4.5 mg/dL 02/20/2025 5:50 AM CDT [facility] Blood Venipuncture / Unknown 02/20/2025 4:21 AM CDT 02/20/2025 4:44 AM CDT Lawson Temple MD CHEMISTRY ORDERABL ES Final Result Performing Organization Address City/[facility]/ZIP Co de Phone Number [facility] CLIA # [id number] [address] [place], [place] [address] * (ABNORMAL) COMPREHENSIVE METABOLIC PANEL (02/20/2025 4:21 AM CDT) Only the most recent of2 resultswithin the time period is included. [facility] SODIUM 136 136 - 145 mmol/L 02/20/2025 5:50 AM T [facility] POTASSIUM 4.6 3.5 - 5.1 mmol/L 02/20/2025 5:50 AM [facility] CHLORIDE 94(L) 98 - 107 mmol/L 02/20/2025 5:50 AM T [facility] CO2 29 22 - 29 mmol/L 02/20/2025 5:50 AM T [facility] CALCIUM 8.4(L) 8.8 - 10.2 mg/dL 02/20/2025 5:50 AM [facility] BUN 28(H) 8 - 23 mg/dL 02/20/2025 5:50 AM [facility] CREATININE 4.61(H) 0.51 - 0.95 mg/dL 02/20/2025 5:50 AM [facility] GLUCOSE 120(H) 74 - 99 mg/dL 02/20/2025 5:50 AM [facility] TOTAL PROTEIN 6.2(L) 6.4 - 8.3 g/dL 02/20/2025 5:50 AM [facility] ALBUMIN 3.4(L) 3.5 - 5.2 g/dL 02/20/2025 5:50 AM [facility] BILIRUBIN TOTAL 0.5 0.0 - 1.0 mg/dL 02/20/2025 5:50 AM [facility] ALKALINE PHOSPHATASE 112(H) 35 - 104 U/L 02/20/2025 5:50 AM [facility] AST 34 10 - 35 U/L 02/20/2025 5:50 AM [facility] ALT 34 <=35 U/L 02/20/2025 5:50 AM [facility] GFR 10(L) >=60 mL/min/1. 73 sq meter 02/20/2025 5:50 AM CDT [facility] Comment:eGFR calculated with 2020 CKD-EPI equation. Vegetarian diet, extremely high or low muscle mass, and may affect results. Cystatin C with Glomerular Filtration Rate is a suitable alternative for these patients. ANION GAP 13 9 - 20 mmol/L 02/20/2025 5:50 AM CDT [facility] Blood Venipuncture / Unknown 02/20/2025 4:21 AM CDT 02/20/2025 4:44 AM CDT us Lawson Temple MD CHEMISTRY ORDERABL ES Final Result Performing Organization Address City/[facility]/ZIP Co de Phone Number [facility] CLIA # [id number] [address] [place] [address] * (ABNORMAL) TROPONIN 2 HR, 5TH GEN (02/19/2025 10:23 PM CDT) TROPONIN T, 2 HR 5TH GEN 84(H) <=10 ng/L 02/19/2025 10:45 PM CDT [facility] DELTA 2HR TROPONIN T % -16 See Interp. % 02/19/2025 10:45 PM CDT [facility] Blood BLOOD SPECIMEN / Unknown Collection / Unknown 02/19/2025 10:23 PM CDT 02/19/2025 10:31 PM CDT Narrative [facility] - 02/19/2025 10:45 PM CDT Troponin elevated. Delay in collection of timed specimen beyond recommended collection interval. Results must be interpreted in clinical context. Delta not changing. us Jed Dias MD CHEMISTRY ORDERABLES Final Result [facility] CLIA # [id number] [address] [facility] [address] [place], [place] [address] * XR CHEST PA OR AP 1 [...] congestive changes with small right pleural effusion. Jed Dias MD DIAGNOSTIC IMAGING OR DERABLES [...] 100(H) <=10 ng/L 02/19/2025 9:22 PM CDT [facility] Blood Collection / Unknown 02/19/2025 8:27 PM CDT 02/19/2025 9:01 PM CDT Narrative [facility] - 02/19/2025 9:22 PM CDT Troponin elevated. Jed Dias MD CHEMISTRY ORDERABLES Final Result [facility] CLIA # [id number] [address] [place] [address] * MANUAL DIFFERENTIAL (02/19/2025 8:27 PM CDT) PLATELET EST. Consistent w Count 02/19/2025 9:15 PM CDT [facility] RBC MORPHOLOGY Normal 02/19/2025 9:15 PM CDT [facility] Blood Collection / Unknown 02/19/2025 8:27 PM CDT 02/19/2025 9:01 PM CDT Jed Dias MD HEMATOLOGY ORDERABLES COM Final Result Performing Organization Address City/[facility]/ZIP Co de Phone Number [facility] CLIA # [id number] [address] [place] [address] * PT AND APTT (02/19/2025 8:27 PM CDT) PROTIME 13.2 11.9 - 14.6 Seconds 02/20/2025 12:06 AM CDT [facility] INR 1.0 0.9 - 1.1 02/20/2025 12:06 AM CDT [facility] PTT 26.0 25.8 - 34.0 seconds 02/20/2025 12:06 AM CDT [facility] Blood BLOOD SPECIMEN / Unknown Collection / Unknown 02/19/2025 8:27 PM CDT 02/19/2025 11:09 PM CDT Jed Dias MD HEMATOLOGY ORDERABLES Final Result [facility] CLIA # [id number] [address] [place] [address] * (ABNORMAL) BRAIN NATRIURETIC PEPTIDE, BNP OR PROBNP (02/19/2025 8:27 PM CDT) PROBNP, N TERMINAL >70,000(H ) 0 - 125 pg/mL 02/19/2025 9:33 PM CDT [facility] Comment: INTERPRETIVE COMMENT based on diagnosis: Diagnostic [...] Jed Dias MD CHEMISTRY ORDERABLES Final Result [facility] CLIA # [id number] [address] [place] [address] * XR PELVIS 1 OR 2 VW [...] avulsion fracture involving the right greater trochanter. Tim Wilson MD DIAGNOSTIC IMAGING ORDER MARGARITA [...] tissues appear edematous. Procedure Note Lopez Rachel, - 01/09/2025 Exam: XR FEMUR 2 VW [...] Age-indeterminate avulsion fracture involving the greater trochanter. Tim Wilson MD DIAGNOSTIC IMAGING ORDER MARGARITA Final Result * (ABNORMAL) LIPID PANEL (10/19/2024 10:59 AM GUEST SERVICES REPRESENTATIVE) CHOLESTEROL 131 <200 mg/dL [facility] HDL 39(L) > OR = 50 mg/dL [facility] TRIGLYCERIDE 145 <150 mg/dL [facility] LDL CALCULATED 69 mg/dL (calc) [facility] Comment: Reference range: <100 Desirable range <100 mg/dL for primary prevention; <70 mg/dL for patients with CHD or diabetic patients with > or = 2 CHD risk factors. LDL-C is now calculated using the Lele-Velez calculation, which is a validated novel method providing better accuracy than the Friedewald equation in the estimation of LDL-C. Lele HARP et al. JENIFFER. 2013;310(19): 7688-7202 (http://education.ShrinkTheWeb/faq/HML528) CHOL/HDL RATIO 3.4 <5.0 (calc) [facility] NON-HDL CHOLESTEROL 92 <130 mg/dL (calc) [facility] Comment: For patients with diabetes plus 1 major ASCVD risk factor, treating to a non-HDL-C goal of <100 mg/dL (LDL-C of <70 mg/dL) is considered a therapeutic option. Test Performed at: [facility] [address] [place] [address] Jose Angel Phillips MD Blood 10/19/2024 10:5 9 AM GUEST SERVICES REPRESENTATIVE 10/20/2024 5:58 AM GUEST SERVICES REPRESENTATIVE December Paula SEAM STAYER CHEMISTRY ORDERABLES Final Resul t [facility] [phone] [facility] [address] [facility] [place] [address] * HEMOGLOBIN A1C (09/05/2021 12:00 AM GUEST SERVICES REPRESENTATIVE) HEMOGLOBIN A1C 5.5 <5.7 % of total Hgb [facility] Comment: For the purpose of screening for the presence of diabetes: <5.7% Consistent with the absence of diabetes 5.7-6.4% Consistent with increased risk for diabetes (prediabetes) > or =6.5% Consistent with diabetes This assay result is consistent with a decreased risk of diabetes. Currently, no consensus exists regarding use of hemoglobin A1c for diagnosis of diabetes in children. According to [place] Diabetes Association (ADA) guidelines, hemoglobin A1c <7.0% represents optimal control in non- diabetic patients. Different metrics may apply to specific patient populations. Standards of Medical Care in Diabetes(ADA). ESTIMATED AVERAGE GLUCOSE (MG/DL) 111 mg/dL [facility] ESTIMATED AVERAGE GLUCOSE (MMOL/L) 6.2 mmol/L [facility] Comment: Test Performed at: [facility] [address] [place] [address] Zeeshan Mccoy D.O., MPH Blood 09/05/2021 09/06/2021 3:2 5 AM GUEST SERVICES REPRESENTATIVE Franky Arango SEAM STAYER CHEMISTRY ORDERABLES Final Result [facility] [address] [place] [address] * (ABNORMAL) MICROALBUMIN/CREATININE RATIO, RANDOM UR (05/09/2016 1:59 PM CDT) MICROALBUMIN, URINE 322.2 mg/dL 05/09/2016 5:52 PM T [facility]-IRA H [place] CREATININE, URINE 123.0 29.0 - 226.0 mg/dL 05/09/2016 5:52 PM T [facility] [place] Comment: Reference Range varies with fluid intake and diet. MICROALBUMIN/ CREAT RATIO, UR 2,619.5(H ) <25.0 mg/g Creatinine 05/09/2016 5:52 PM CDT [facility]-IRA H [place] Urine URINE SPECIMEN OBTAINED BY CLEAN CATCH PROCEDURE / Unknown Collection / Unknown 05/09/2016 1:59 PM CDT 05/09/2016 5:01 PM CDT Narrative [facility]-MARIA DE JESUS KELLY - 05/09/2016 5:52 PM CDT Condition Microalbumin/Creat ratio Normal Males <17 Normal Females <25 Microalbuminuria Males 17-299 Microalbuminuria Females 25-299 Overt proteinuria >=300 Scooter Balbuena DO URINE ORDERABLES Final Result [facility] CLIA# [id number] [facility] [place] [address] * DIABETES EYE EXAM (02/23/2015 12:00 AM CDT) [facility] Scanning HEALTH MAINTENANCE Final Result * CERV/VAG CYTOPATH, THIN PREP W/RFLX HPV (01/17/2015 12:58 PM CDT) Pathologist [facility] THIN PREP CYTOLOGY REPORT REFLEX HPV [facility] Anatomic Pathology Dept [facility] [address] Patient: ASHLEY MONIQUE Accn No: [id number] , [id number] Collected: 01/17/2015 12:58:00 PM All cases except those with a DP prefix are performed by pathologists from [facility]ology at [facility]. Case type DP is performed by Dr. Carson Mcdowell, [facility], [facility], [address], [address], [place] [address] (CLIA #[id number]) (Ph. [phone]). THIN PREP PAP - REFLEX HPV History Specimen Type: Endocervical postmenopausal Previous Pap History: 2009 PER PT Specimen Adequacy Satisfactory for interpretation. Shows sufficient numbers of endocervical or metaplastic cells. Diagnosis NEGATIVE FOR INTRAEPITHELIAL LESION OR MALIGNANCY. (Prevously noted as Within Normal Limits). Accounts Payable Supervisor/ GALLO Pathologist: 01/24/15 Completed by: FIONA KELLOGG BSCT(ASCP) [...] with his/her patient. 01/24/2015 1:58 PM CDT [facility] 01/17/2015 12:5 8 PM CDT Narrative [facility] - 01/24/2015 1:58 PM CDT Cerner Ordered:TH Thin Prep Cytology Report Reflex HPV:# us Beba Mayers MD PATHOLOGY/CYTOLOGY ORDERABLES E dited Result - Final [facility] CLIA# [id number] [place] [address] [facility] CLIA # [id number] [address] [facility] [place] [address] * MAMMO DIAGNOSTIC BILATERAL W OR WO CAD (10/04/2014 3:55 PM GUEST SERVICES REPRESENTATIVE) Anatomical Region Laterality Modality Breast Bilateral Other Impressions 10/05/2014 7:02 AM GUEST SERVICES REPRESENTATIVE I suspect that the changes that I [...] letter. LISA/maxim 1538 PM - uploaded from [employer] [facility] 10/05/2014 7:02 AM GUEST SERVICES REPRESENTATIVE Bilateral Digital Diagnostic Mammogram and Bilateral Whole [...] by the Computer Aided Detection System (CAD), Motion [employer]patch [employer], Version 8.3. Ultrasound of both breasts was [...] of bilateral lumps of less quantity in 2013 and even less quantity in 2008. She has multiple chronic diseases including hepatitis C and diabetes and renal disease, by history. Breast tissue is of fatty density and unremarkable and stable. No area of change is identified on either side, with special attention to the areas of historical palpable lumps. This digital mammogram was also analyzed by the Computer Aided Detection System (CAD), Delectable, Version 8.3. Ultrasound of both breasts was [...] letter. LISA/maxim 1538 PM - uploaded from [employer] - Scooter Balbuena DO MAMMO ORDERABLES Final Result from Last 3 Months or Most Recently Relevant to Health Maintenance Insurance [facility] A [facility]OSP[facility] ONLY RX [employer] PL[employer] (INTERNAL) [facility] RX [employer] (INTERNAL) [facility] RX [employer] RX Member Subscriber Plan / Payer (Ef fective for All Dates) Name:Ashley Monique Relation to Subscriber:Self Name:Ashley Monique Payer ID:Not on file Group ID:[id number] Type:RX Commercial Address: [place], [place] Advance Directives For more information, please contact: [phone] * Full Code (Latest Code Status on [...]
--- OUTSIDE RECORDS SUMMARY | 2025-03-22 18:24 | XMS_ITS | Patient Health Record ---
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 Role Phone Bhavana MOSS, Lopez Primary Care Provider Unavailab minnie Gibson MD, Vladimir Unavailable [phone] Jasmin Lima Unavailable [phone] Allergies No Known Allergies Reason For Referral [...] Problem Sleep dysfunction with sleep stage disturbance (076503176) Dysfunctions associated with sleep stages or arousal from sleep (780.56) Active confirmed Problem Low back pain (822883035) Low back pain (724.2) Active confirmed Problem Neck pain (38265662) Neck pain (723.1) Active confirmed Problem Pain in thoracic spine (925963750) Thoracic pain (724.1) Active confirmed Problem Spasm (43400714) Spasm of muscle (728.85) Active confirmed Problem Long-term drug therapy (723493732) LONG-TERM USE MEDS NEC (V58.69) Active confirmed R/O substance abuse Problem Anxiety state (346574234) Anxiety State, other, specified: procedure related (300.09) Active confirmed Problem Displacement of cervical intervertebral disc without myelopathy (20433701) Cervical (w/out myelopathy) intervertebral disc disorder (722.0) Active confirmed Problem Cervical spinal stenosis (61452953) Cervical spinal stenosis (723.0) Active confirmed Problem Cervical spondylosis without myelopathy (064479816) Cervical spondylosis without myelopathy (721.0) Active confirmed Problem Lumbosacral spondylosis without myelopathy (50668711) Lumbosacral spondylosis without myelopathy (721.3) Active confirmed Problem Solitary sacroiliitis (953329037) Sacroiliitis (720.2) Active confirmed Problem Solitary sacroiliitis (080852741) Sacroiliitis, not elsewhere classified (M46.1) Active confirmed Problem Low back pain (799741041) Low back pain (M54.5) Active confirmed Problem Lumbosacral spondylosis without myelopathy (03690478) Spondylosis without myelopathy or radiculopathy, lumbar region (M47.816) Active confirmed Problem High risk drug monitoring status (996286187) medical terminologist (current) use of 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 (Z79.891) Active confirmed Problem Pain in right knee (755287198508039 ) Pain in right knee (M25.561) Active confirmed Problem Arthralgia of the lower leg (166546602) Pain in left knee (M25.562) Active confirmed Problem Sleep disorder (71742623) Other sleep disorders (G47.8) Active confirmed Problem Chronic pain (27318552) Other chronic pain (G89.29) Active confirmed Problem Essential hypertension (10465538) Essential (primary) hypertension (I10) Active confirmed Problem Shoulder joint pain (552381395) Pain in left shoulder (M25.512) Active confirmed Problem Right hip pain (942142150563854 ) Pain in right hip (M25.551) Active confirmed Problem Arthralgia of the pelvic region and thigh (099197361) Pain in left hip (M25.552) Active confirmed Problem Cervical spondylosis without myelopathy (102979657) Spondylosis without myelopathy or radiculopathy, cervical region (M47.812) Active confirmed Problem Spinal stenosis in cervical region (16920481) Spinal stenosis, cervical region (M48.02) Active confirmed Problem Cervical radiculopathy (54893184) Cervical disc disorder with radiculopathy, unspecified cervical region (M50.10) Active confirmed Problem Cervical disc disorder with radiculopathy (526959190) Cervical disc disorder with radiculopathy, mid-cervical region (M50.12) Active confirmed Problem Cervicalgia (51898218) Cervicalgia (M54.2) Active confirmed Problem Pain in thoracic spine (984773975) Pain in thoracic spine (M54.6) Active confirmed Problem Myalgia (84236599) Myalgia (M79.1) Active confirmed Problem Myalgia (54098428) Myalgia of auxiliary muscles, head and neck (M79.12) Active confirmed Problem Pain in lumbar spine (057451347) Vertebrogenic low back pain (M54.51) Active confirmed Vital Signs Temperature 92.3 degrees Fahrenheit 12/08/2024 Blood pressure diastolic 85 mm Hg 12/08/2024 Oximetry 90 % 12/08/2024 Height 66 in 12/08/2024 Blood pressure systolic 193 mm Hg 12/08/2024 Weight 196.4 lbs 12/08/2024 BMI 31.7 kg/m2 12/08/2024 Encounters Encounter Location Date Provider Diagnosis [facility] [address] [id number] 04/21/2024 Jasmin Tj Other chronic pain G89.29 ; Vertebrogenic low back pain M54.51 ; Other sleep disorders G47.8 and medical terminologist (current) use of 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 Z79.891 [facility] [address] [id number] 06/16/2024 Vladimir Gibson Procedure and treatment not carried out because of patient's decision for unspecified reasons Z53.[address] [facility] [address] [id number] 06/25/2024 Vladimir Gibson Other chronic pain G89.29 ; Vertebrogenic low back pain M54.51 ; Other sleep disorders G47.8 and medical terminologist (current) use of 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 Z79.891 [facility] [address] [id number] 08/13/2024 Vladimir Gibson Other chronic pain G89.29 ; Vertebrogenic low back pain M54.51 ; Other sleep disorders G47.8 and medical terminologist (current) use of 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 Z79.891 [facility] [address] [id number] 09/24/2024 Vladimir Gibson Procedure and treatment not carried out because of patient's decision for unspecified reasons Z53.20 [facility] [address] [place] [id number] 10/08/2024 Vladimir Gibson Other chronic pain G89.29 ; Vertebrogenic low back pain M54.51 ; Other sleep disorders G47.8 and medical terminologist (current) use of 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 Z79.891 Pain Treatment [facility] [address] [place] [address] [id number] 10/14/2024 Vladimir Gibson Other chronic pain G89.29 ; Vertebrogenic low back pain M54.51 ; Other sleep disorders G47.8 and medical terminologist (current) use of 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 Z79.891 [facility] [address] [place] [address] [id number] 12/08/2024 Vladimir Gibson Other chronic pain G89.29 ; Vertebrogenic low back pain M54.51 ; Essential (primary) hypertension I10 ; Other sleep disorders G47.8 and medical terminologist (current) use of 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 Z79.891 Pain Treatment [facility] [address] [place] [address] [id number] 09/14/2024 Vladimir Gibson [facility] [address] [id number] 01/12/2025 Vladimir Gibson Assessments Encounter Date Diagnosis (ICD Code) Assessment Notes Treatment Notes Treatment Clinical Notes Section Notes 04/21/2024 Other chronic pain (ICD-10 - G89.29) Patient reports that taking her pain medication allows her to complete wedger and gluer. Plan to continue oral opioid medication management. [...] hold due to more concerning health issues. 09/24/2024 Procedure and treatment not carried out because of patient's decision for unspecified reasons (ICD-10 - Z53.20) Patient no-showed today's visit without notitification. This makes it the second time patient has failed to attend a scheduled appointment within the last three months: she previously has been a compliant patient. 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 Am worried that patient's no show today is related to her untreated breast cancer. Patient has yet to respond to call from this facility regarding the no show. PDMP checked in advance of patient's scheduled appointment today. 10/08/2024 Other chronic pain (ICD-10 - G89.29) Patient reports that taking her pain medication allows her to care for her home and walk at the grocery store. Plan to continue oral opioid medication management. 10/14/2024 Other chronic pain (ICD-10 - G89.29) Patient states that taking her pain medication allows her to be more active. Plan to continue oral opioid medication management. 12/08/2024 Other chronic pain (ICD-10 - G89.29) Patient states that taking her pain medication allows her to complete her daily wedger and gluer. Plan to continue oral opioid medication management. 08/13/2024 Other chronic pain (ICD-10 - G89.29) Patient reports that taking her pain medication allows her to complete wedger and gluer and work in her garden. Plan to continue oral opioid medication management. 06/25/2024 Other chronic pain (ICD-10 - G89.29) Patient reports that taking her pain medication allows her to complete wedger and gluer and work in her garden. Plan to continue oral opioid medication management. 06/25/2024 Vertebrogenic low back pain (ICD-10 - M54.51) Chronic axial lumbosacral spine pain. 06/16/2024 Procedure and treatment not carried out because of patient's decision for unspecified reasons (ICD-10 - Z53.20) 06/25/2024 Other sleep disorders (ICD-10 - G47.8) Plan to restrict short acting opioid preparation restriction in relation to sleep for safety concerns. 08/13/2024 Vertebrogenic low back pain (ICD-10 - M54.51) Chronic axial lumbosacral spine pain. 12/08/2024 Essential (primary) hypertension (ICD-10 - I10) Education sheet given at today's visit; patient to address with PCP. 12/08/2024 Vertebrogenic low back pain (ICD-10 - M54.51) Chronic axial lumbosacral spine pain. Patient will not be proceeding with recommendation for updated MRI at this time: deferred by patient. Patient has repeatedly deferred on updated imaging as noted upon review of the medical record. 10/14/2024 Vertebrogenic low back pain (ICD-10 - M54.51) Chronic axial lumbosacral spine pain. Patient's last imaging study of the lumbar spine was in 2012. Patient deferred on lumbar imaging in 2023 due to breast cancer diagnosis. Plan MRI. Patient desires an open MRI due to history of claustrophobia. Will consider treatment options pending outcome of planned imaging study. 10/08/2024 Vertebrogenic low back pain (ICD-10 - M54.51) Chronic axial lumbosacral spine pain. 04/21/2024 Other sleep disorders (ICD-10 - G47.8) Plan to restrict short acting opioid preparation restriction in relation to sleep for safety concerns. 10/08/2024 Other sleep disorders (ICD-10 - G47.8) Plan to restrict short acting opioid preparation restriction in relation to sleep for safety concerns. 04/21/2024 group home (current) use of 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 (ICD-10 - Z79.891) Patient has a total daily MED of 135. This places the patient in the [facility] ultra high risk category for total daily opioid usage. 10/08/2024 group home (current) use of 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 (ICD-10 - [...] in relation to sleep for safety concerns. 06/25/2024 medical terminologist (current) use of 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 (ICD-10 - Z79.891) Patient has a total daily MED of 135. This places the patient in the [facility] ultra high risk category for total daily opioid usage. Slow opioid taper on hold as patient is still discussing all of her treatment options with Dr. Smiley and staff regarding her breat cancer. 12/08/2024 Other sleep disorders (ICD-10 - G47.8) Plan to continue to restrict short acting opioid in relation to sleep for safety concerns. 08/13/2024 Other sleep disorders (ICD-10 - G47.8) Plan to restrict short acting opioid preparation restriction in relation to sleep for safety concerns. 08/13/2024 medical terminologist (current) use of 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 (ICD-10 - Z79.891) Patient has a total daily MED of 135. This places the patient in the [facility] ultra high risk category for total daily opioid usage. Prior slow opioid taper still on hold. Patient is discussing all of her treatment options with Dr. Smiley and staff regarding her breat cancer. 12/08/2024 medical terminologist (current) use of 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 (ICD-10 - Z79.891) Patient has a total daily MED of 135. This places the patient in the [facility] ultra high risk category for total daily opioid usage. Prior slow opioid taper still on hold due to diagnosis of breast cancer. 10/14/2024 group home (current) use of 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 (ICD-10 - [...] Date [employer] MED[employer]ARE ADVANTAGE PLAN [address] [place] [phone] [id number] Ashley Miranda Self - patient is the insured CLAIMS [address] [address] [place] [address] [id number] Ashley Miranda Self - patient is the insured 0 8 [employer] Medicare Part B Claims Department [address] [address] [place] [address] [id number] Ashley Miranda Self - patient is the [...] per week) Anemia, blood transfusion (outpatient pr [facility]), 12/2013 Breast cancer (04/2024) Sleep disorder, history of r emote CPAP device use and negative subsequent sleep study Obesity, mild (history of moderate obesi ty) Surgical History Surgery Date(Month/Year) Cholecystectomy, 2002 , 1988 Tubal ligation Repair of meniscus, performed by Dr. Lara stewart, 2017 Port placement (home dialysi s), performed at [facility] in [place], [place] by Dr. Dunn, 11/09/22 Fistula placement, performed at [facility] in [place], [place], 05/06/23 Hospitalization History Reason Date(Month/Year) Breathing problems, treated at [facility], 05/02 Overnight stay after a time period where patient wouldn't wake up after dialysis, treated at [facility], 01/2024 Low hemoglobin, treated at [facility], 02/07/23 Heart and kidney problems, treated at [facility], 07/2022 Hypertension, 07/2012 Stroke, 04/18/12-04/19/12
[2025-03-22 18:37] LABS: Hematocrit 29.6 % (36-47); Hemoglobin 9.40 g/dL (11.27-16.99); Mean Corpuscular HGB Conc 31.8 g/dL (30-55); Mean Corpuscular Hemoglobin 32.0 pg (27-33); Mean Corpuscular Volume 100.7 fl (85-98); Nucleated Red Blood Cells % 0 %; Platelet Count 111 10^3/cmm (157-399); Red Blood Count 2.94 10^6/uL (3.85-5.65); White Blood Count 2.41 10^3/uL (3.29-11.43)
--- NOTE | 2025-03-22 18:44 | W.ED.SOB ---
HPI - SOB/Dyspnea General: Chief Complaint: Shortness of Breath/Dyspnea Stated Complaint: SOB Time Seen by Provider: 03/22/25 18:14 History of Present Illness: HPI Narrative: 64-year-old female with a history of end-stage renal disease on dialysis on Saturday, breast cancer, hyperlipidemia, hypertension, anemia, stroke, cardiomyopathy and hepatitis C who presents to the emergency room by ambulance with shortness of breath. She says she woke up at the end of dialysis and felt very short of breath. No chest pain. No cough. No history of COPD. She does not smoke. No altered mental status. No focal motor deficits. Related Data Home Medications ?Medication ?Instructions ?Recorded ?Confirmed morphine 15 mg immediate release 15 mg PO TID PRN Pain 09/27/22 03/17/25 tablet morphine 30 mg tablet,extended 30 mg PO TID PAIN 09/27/22 03/17/25 release coenzyme Q10 100 mg capsule (Co 100 mg PO DAILY 03/26/24 03/17/25 Q-10) amlodipine 10 mg tablet 10 mg PO DAILY 03/17/25 03/17/25 bumetanide 2 mg tablet 4 mg PO BID 03/17/25 03/17/25 carvedilol 12.5 mg tablet 12.5 mg PO BID 03/17/25 03/17/25 hydralazine 100 mg tablet 100 mg PO BID 03/17/25 03/17/25 losartan 100 mg tablet 100 mg PO DAILY 03/17/25 03/17/25 Previous Rx's ?Medication ?Instructions ?Recorded aspirin 81 mg capsule 81 mg PO DAILY #30 caps 03/19/25 buspirone 7.5 mg tablet 7.5 mg PO BID #60 tabs 03/19/25 clonidine HCl 0.1 mg tablet 0.1 mg PO BID #180 tabs 03/19/25 Allergies Allergy/AdvReac Type Severity Reaction Status Date / Time Alpha-Gal Allergy ALGY-Rash Verified 03/17/25 18:34 (Fvqeyhwfi-Egyps-2,3-Gala Review of Systems Narrative: Constitutional symptoms: Negative except as documented in HPI. Skin symptoms: Negative except as documented in HPI. Eye symptoms: Negative except as documented in HPI. ENMT symptoms: Negative except as documented in HPI. Respiratory symptoms: Negative except as documented in HPI. Cardiovascular symptoms: Negative except as documented in HPI. Gastrointestinal symptoms: Negative except as documented in HPI. Genitourinary symptoms: Negative except as documented in HPI. Musculoskeletal symptoms: Negative except as documented in HPI. Neurologic symptoms: Negative except as documented in HPI. Psychiatric symptoms: Negative except as documented in HPI. Endocrine symptoms: Negative except as documented in HPI. PFS ED PFSH: Medical History (Updated 03/22/25 @ 21:07 by Elen Chung MD) ESRD (end stage renal disease) Breast cancer Hyperlipidemia Hypertension Anemia Unsteadiness on feet UTI (urinary tract infection) Altered mental status History of blood transfusion low platelets, 08/24/22 History of stroke 2011 Heart failure with reduced ejection fraction Cardiomyopathy Degenerative joint disease (DJD) of lumbar spine CKD (chronic kidney disease) Hepatitis C Acute renal failure Surgical History History of cholecystectomy History of bilateral tubal ligation History of Family History Father Cancer lungs and spread Other ESRD (end stage renal disease) Lung disease Psychiatric illness Social History Smoking and tobacco/nicotine status: former use of tobacco/nicotine (quit 25 years prior) Quit status (tobacco/nicotine): has quit using Year quit tobacco: 2001 Former quit date comment: 25 years total use Alcohol intake: never Substance/Drug Use: never Lives independently: Yes Household members: spouse Housing: House Marital status: Number of children: 2 Current occupational status: disabled Current gender identity: Female Agree to transfusion: Yes Female Reproductive History: Para: 2 Physical Exam Narrative: EXAM NARRATIVE: General: Alert, no acute distress. Skin: Warm, dry. Head: Normocephalic, atraumatic. Neck: Supple, trachea midline. Eye: Extraocular movements are intact. Ears, nose, mouth and throat: mucosa moist. Cardiovascular: Regular, Normal peripheral perfusion. Respiratory: Lungs are clear to auscultation, respirations are non-labored, breath sounds are equal, Symmetrical chest wall expansion. Gastrointestinal: Soft, Nontender, Non distended Musculoskeletal: Normal ROM, no deformity. Neurological: Alert and oriented, No focal neurological deficit observed. Psychiatric: Cooperative, appropriate mood & affect. Course Vital Signs: Vital signs: Vital Signs Temperature 98.1 F 03/22/25 18:11 Pulse Rate 72 03/22/25 19:24 Respiratory Rate 20 H 03/22/25 19:24 Blood Pressure 200/100 03/22/25 19:24 Pulse Oximetry 94 03/22/25 19:24 Oxygen Delivery Me thod Nasal Cannula 03/22/25 19:24 Oxygen Flow Rate 4 03/22/25 19:24 MDM - SOB/Dyspnea Medical Decision Making Differential diagnosis for patient with shortness of breath includes but is not limited to and based on the above HPI, review of systems and physical exam: Pneumonia. Bronchitis. Asthma or COPD with acute exacerbation. Acute coronary syndrome / MT. Pulmonary embolism. Anxiety. Congestive heart failure. Viral infections including influenza and Covid-19. Atrial fibrillation. Anxiety. Pleural effusion. Pneumothorax. Orders placed to evaluate differential diagnosis based on the above differential, HPI and physical exam Chest x-ray: Stable cardiomegaly. No acute process. No infiltrate. No pneumothorax. This was reviewed and interpreted by myself the emergency room physician. I also reviewed the radiology report. EKG: Time 1816. Rate 78. LVH. Normal sinus rhythm, No ST-T changes, no ectopy, normal IA & QRS intervals, This was reviewed and interpreted by myself the ER physician at 1820. Lab Review: Laboratory results were reviewed and interpreted by myself the emergency room physician. Stable leukopenia. Stable anemia. Stable thrombocytopenia. BUN/creatinine are 38 4.3 which would be expected in this dialysis patient. Potassium is normal. Troponin is 114 and unchanged after 2 hours. This is her baseline as well. I reviewed the patient's medical record. Reexamination: Patient remained stable. No increased work of breathing. No altered mental status. No focal motor deficits. Patient is on 2 L nasal cannula at home and is stable on 2 L nasal cannula now. Assessment and plan: Accelerated hypertension Dyspnea End-stage renal disease ?IV hydralazine in the emergency room - Discharged home - Discussed findings and plan with patient. Answered any questions. - All laboratory values were reviewed and interpreted personally by myself, the ER physician - All imaging was reviewed and interpreted personally by myself, the ER physician. - Evaluation and treatment of this problem were appropriate in the emergency setting Lab Data 03/22/25 18:31 03/22/25 18:31 Labs/Radiology: Radiology Impressions Chest X-Ray 03/22/25 18:17 IMPRESSION: 1. Diminishing right pleural effusion. No pneumothorax. 2. Stable moderate cardiomegaly. No convincing interstitial edema currently. Laboratory Results WBC 2.41 10^3/uL (3.29-11.43) L 03/22/25 18: RBC 2.94 10^6/uL (3.85-5.65) L 03/22/25 18: Hgb 9.40 g/dL (11.27-16.99) L 03/22/25 18: Hct 29.6 % (36-47) L 03/22/25 18: MCV 100.7 fl (85-98) H 03/22/25 18: MCH 32.0 pg (27-33) 03/22/25 18: MCHC 31.8 g/dL (30-55) 03/22/25 18: RDW 14.4 % (12.1-15.1) 03/22/25 18: Plt Count 111 10^3/cmm (157-399) L 03/22/25 18: MPV 9.7 fL (7.4-10.4) 03/22/25 18: Neut % (Auto) 72.3 % 03/22/25: Lymph % (Auto) 12.0 % 03/22/25 18: [place] % (Auto) 7.9 % 03/22/25 18: Eos % (Auto) 6.2 % 03/22/25: Baso % (Auto) 0.8 % 03/22/25: Neut # (Auto) 1.74 10^3/uL (1.8-7.7) L 03/22/25 18: Lymph # (Auto) 0.3 10^3/uL (0.8-4.8) L 03/22/25 18: [place] # (Auto) 0.2 10^3/uL (0.2-0.9) 03/22/25 18: Eos # (Auto) 0.2 10^3/uL (0.0-0.8) 03/22/25 18: Baso # (Auto) 0.0 10^3/uL (0.0-0.1) 03/22/25 18:31 Nucleated RBC % (auto) 0 % 03/22/25 18: Nucleated RBCs # 0.0 /100WBC 03/22/25 18:31 Sodium 136 mmol/L (136-145) 03/22/25 18:31 Potassium 4.2 mmol/L (3.5-5.1) 03/22/25 18:31 Chloride 94 mmol/L (98-107) L 03/22/25 18:31 Carbon Dioxide 23 mmol/L (22-29) 03/22/25 18:31 Anion Gap 23.2 (5-19) H 03/22/25 18:31 BUN 38 mg/dL (8-23) H 03/22/25 18:31 Creatinine 4.3 mg/dL (0.5-0.9) H 03/22/25 18:31 GFR Calculation 10.4 mL/min (90-130) L 03/22/25 18:31 Glucose 94 mg/dL (65-115) 03/22/25 18:31 Calculated Osmolality 291 mOsm/kg (285-295) 03/22/25 18:31 Lactic Acid 0.6 mmol/L (0.5-2.2) 03/22/25 18: Calcium 8.1 mg/dL (8.5-10.5) L 03/22/25 18:31 Total Bilirubin 0.5 mg/dL (0.15-1.2) 03/22/25 18:31 AST 31 U/L (0-32) 03/22/25 18:31 ALT 21 U/L (0-33) 03/22/25 18:31 Alkaline Phosphatase 206 U/L (35-105) H 03/22/25 18:31 Troponin T Baseline 114 ng/L (0-10) H* 03/22/25 18:31 Troponin T 120 Minute 114.5 ng/L (0-10) H 03/22/25 20:38 Delta Troponin T 0.5 ABS# (0-10) 03/22/25 20:38 NT-Pro-B Natriuret Pep > 46356 pg/mL (0-125) H 03/22/25 18:31 Total Protein 7.1 g/dL (6.6-8.7) 03/22/25 18:31 Albumin 4.0 g/dL (3.5-5.2) 03/22/25 18:31 Globulin 3.1 g/dL (1.3-4.6) 03/22/25 18:31 All radiology interpretation(s) finalized by discharge Discharge Plan Discharge Patient Disposition: Home Clinical Impression: Accelerated hypertension, Dyspnea, End stage renal disease on dialysis Condition: Stable Prescriptions: No Action coenzyme Q10 [Co Q-10] 100 mg capsule 100 mg PO DAILY morphine 30 mg tablet extended release 30 mg PO TID morphine 15 mg tablet 15 mg PO TID PRN (Reason: Pain) carvedilol 12.5 mg tablet 12.5 mg PO BID bumetanide 2 mg tablet 4 mg PO BID amlodipine 10 mg tablet 10 mg PO DAILY hydralazine 100 mg Tablet 100 mg PO BID losartan 100 mg Tablet 100 mg PO DAILY aspirin 81 mg capsule 81 mg PO DAILY Qty: 30 0RF clonidine HCl 0.1 mg Tablet 0.1 mg PO BID Qty: 180 0RF buspirone 7.5 mg tablet 7.5 mg PO BID Qty: 60 0RF Discharge Orders: Discharge ED (Routine); Ordered 03/22/25 Ordered By: Elen Chung Referrals: Lopez Bateman MD [Primary Care Provider, Family Practice] Discharge Diet: Usual diet Discharge Activity: Increase activity as tolerated Patient Instructions: Opioid Safety, Pain Management, Patient Portal & [place] Instructions Activity Restrictions/Additional Instructions: Thank you for choosing [facility] for your healthcare needs today. You have been screened and evaluated and felt safe for discharge. Health conditions do change or evolve sometimes and as such it is important that you follow up with your Primary Doctor to be re checked, 3-5 days is a general good time frame for follow up. You are always welcome to return to the ED for re assessment if your symptoms are worsening or you have new concerns Print Language: Bengali Coding Level of Care Code ED Template Fitter for Mannie Soto
[2025-03-22 18:57] LABS: Lactic Sepsis W/Reflex 0.6 mmol/L (0.5-2.2)
[2025-03-22 19:02] LABS: Troponin(5th) Baseline 114 ng/L (0-10)
[2025-03-22 19:09] LABS: Alanine Aminotransferase 21 U/L (0-33); Albumin Level 4.0 g/dL (3.5-5.2); Alkaline Phosphatase 206 U/L (35-105); Blood Urea Nitrogen 38 mg/dL (8-23); Calcium 8.1 mg/dL (8.5-10.5); Carbon Dioxide 23 mmol/L (22-29); Chloride 94 mmol/L (98-107); Creatinine Clr Calc Pharmacy 14.8074; Globulin 3.1 g/dL (1.3-4.6); Glucose 94 mg/dL (65-115); Osmolality Calculated 291 mOsm/kg (285-295); Sodium 136 mmol/L (136-145); Total Protein 7.1 g/dL (6.6-8.7)
[2025-03-22 19:22] LABS: Potassium 4.2 mmol/L (3.5-5.1)
[2025-03-22 19:24] VITALS: BP 200/100; PULSE 72; RESP 20; O2SAT 94
[2025-03-22 19:26] LABS: Anion Gap 23.2 (5-19)
[2025-03-22 19:27] LABS: Aspartate Amino Transferase 31 U/L (0-32)
[2025-03-22 19:51] LABS: NT Pro B Type Natriuretic Pept > 70000 pg/mL (0-125)
--- NOTE | 2025-03-22 20:14 | PC.NURSE ---
md aware of repeated high blood pressures
[2025-03-22 21:00] VITALS: BP 196/98; PULSE 88; RESP 16; O2SAT 95
[2025-03-22 21:05] LABS: Troponin 5 2HR Delta 0.5 ABS# (0-10)
[2025-03-22 21:08] LABS: Troponin 5 2HR 114.5 ng/L (0-10)
[2025-03-22 21:42] VITALS: BP 200/80; PULSE 94; RESP 18; O2SAT 95
== END 2025-03-22 21:43 | disposition home or self-care (01) ==
PROVIDERS: Emergency Provider Emergency Medicine; PCP Family Medicine
DX: R06.00 Dyspnea, unspecified (principal); I13.2 Hypertensive heart and chronic kidney disease with heart failure and with stage 5 chronic kidney disease, or end stage renal disease; N18.6 End stage renal disease; I50.20 Unspecified systolic (congestive) heart failure; Z99.2 Dependence on renal dialysis; E78.5 Hyperlipidemia, unspecified; Z85.3 Personal history of malignant neoplasm of breast; Z87.891 Personal history of nicotine dependence; Z79.82 Long term (current) use of aspirin; Z86.73 Personal history of transient ischemic attack (TIA), and cerebral infarction without residual deficits
CPT/HCPCS: 36415; 71045; 80053; 83605; 83880; 84484; 85025; 87040; 93005; 99285